=== PATIENT | male | born 1940 | race Caucasian/White ===

== ENCOUNTER → 2018-07-02 14:00 | Outpatient (CLI) | payer MEDICARE, SELFPAY | PROVIDERS: PCP Family Medicine; Visit Provider Nurse Practitioner Family | DX: Z45.018 Encounter for adjustment and management of other part of cardiac pacemaker (principal); I48.1 Persistent atrial fibrillation; I10 Essential (primary) hypertension; G47.33 Obstructive sleep apnea (adult) (pediatric); Z79.01 Long term (current) use of anticoagulants; J44.9 Chronic obstructive pulmonary disease, unspecified; Z87.891 Personal history of nicotine dependence | CPT/HCPCS: 93288; 99214 ==

== ENCOUNTER → 2018-07-02 14:38 | Outpatient (CLI) | payer MEDICARE, SELFPAY ==
[2018-07-02 15:55] LABS: Anion Gap 11.3 mmol/L (3-11); BUN 44 mg/dL (7-18); CO2 24.7 mmol/L (21.0-32.0); CREATININE 1.76 mg/dL (0.70-1.30); Calcium 8.8 mg/dL (8.5-10.1); Chloride 106 mmol/L (98-107); Estimated GFR 37.84 (mL/min/1.73m2); Glucose 129 mg/dL (70-100); NT-proBNP 3453 pg/mL; Potassium 4.5 mmol/L (3.5-5.1); Sodium 142 mmol/L (136-145)
== END ==
PROVIDERS: PCP Family Medicine; Visit Provider Nurse Practitioner Family
DX: R06.02 Shortness of breath (principal); I48.91 Unspecified atrial fibrillation
CPT/HCPCS: 36415; 80048; 93288; 99214; 83880

== ENCOUNTER → 2018-07-23 13:15 | Outpatient (CLI) | payer MEDICARE, SELFPAY ==
[2018-07-23 14:08] LABS: Anion Gap 2.9 mmol/L (3-11); BUN 55 mg/dL (7-18); CO2 33.1 mmol/L (21.0-32.0); CREATININE 1.95 mg/dL (0.70-1.30); Calcium 8.7 mg/dL (8.5-10.1); Chloride 103 mmol/L (98-107); Estimated GFR 33.61 (mL/min/1.73m2); Glucose 115 mg/dL (70-100); NT-proBNP 4369 pg/mL; Sodium 139 mmol/L (136-145)
== END ==
PROVIDERS: PCP Family Medicine; Visit Provider Nurse Practitioner Family
DX: I50.9 Heart failure, unspecified (principal)
CPT/HCPCS: 36415; 80048; 83880

== ENCOUNTER → 2018-07-26 10:55 | Outpatient (CLI) | payer MEDICARE, SELFPAY ==
--- NOTE | 2018-07-26 10:55 | DI.REPORT_ITS ---
SYMPTOMS/DIAGNOSIS: COUGH WITH RHONCHI, ? INFILTRATE PA AND LATERAL CHEST: Comparison 09/03/15. The heart size and pulmonary vasculature are within normal limits. The pacing wires are in stable position. The lungs are clear. No effusions or pneumothoraces are identified. Degenerative changes are seen in the spine. IMPRESSION: No acute pulmonary process.
== END ==
PROVIDERS: PCP Family Medicine; Visit Provider Family Medicine
DX: J20.9 Acute bronchitis, unspecified (principal); R05 Cough; J98.8 Other specified respiratory disorders
CPT/HCPCS: 71046

== ENCOUNTER 2018-08-19 00:15 | Outpatient (CLI) | payer MEDICARE, SELFPAY ==
--- NOTE | 2018-08-19 09:12 | DI.CT_ITS ---
SYMPTOMS/DIAGNOSIS: INCREASED ABD DISTENSION, ? ASCITES, R14.0 CT SCAN OF THE ABDOMEN AND PELVIS: CT scan of the abdomen and pelvis was performed with oral contrast only due to the patient's decreased renal function. There are no priors for comparison. Emphysematous changes are seen in the lung bases. No acute abnormality is identified. The heart appears mildly enlarged. The distal ends of pacing wires are noted in the right ventricle and right atrium. The unenhanced liver appears unremarkable. The gallbladder is negative. No biliary ductal dilatation is seen. The unenhanced pancreas, spleen and adrenal glands are unremarkable. The kidneys are unremarkable on this noncontrast examination. No evidence of nephrolithiasis or hydronephrosis is seen. The urinary bladder is intact and unremarkable. The reproductive organs are unremarkable. There is atherosclerosis of the abdominal aorta but no aneurysmal dilatation is present. Incidental note is made of a retroaortic left renal vein. No significant abdominal or pelvic adenopathy, ascites or pneumoperitoneum is present. There is diverticulosis of the colon but no findings to suggest acute diverticulitis. The remainder of the bowel is unremarkable. There is no evidence of an acute appendicitis. Note is made of a small hiatal hernia. Multi-level degenerative changes are seen in the lumbar spine. There is marked central spinal canal stenosis at L 4 - 5 and L 3 - 4. Multi-level neural foraminal stenosis is seen throughout the lumbar spine. IMPRESSION: 1. No evidence of an acute abdomen. 2. Diverticulosis of the colon but no evidence of acute diverticulitis. 3. Moderately severe degenerative changes in the lumbar spine resulting in multi -level central spinal canal and neural foraminal stenosis.
[2018-08-19] MEDS: Omnipaque 350 MG/ML 50 ML BTL PO (09:27)
== END 2018-08-19 00:35 ==
PROVIDERS: PCP Family Medicine; Visit Provider Nurse Practitioner
DX: R14.0 Abdominal distension (gaseous) (principal); K57.30 Diverticulosis of large intestine without perforation or abscess without bleeding; M47.816 Spondylosis without myelopathy or radiculopathy, lumbar region
CPT/HCPCS: 74176; Q9967

== ENCOUNTER 2018-10-08 10:42 | Outpatient (REF) | payer MEDICARE, SELFPAY | END 2018-10-08 11:02 | LOC: LBN 10:42 | PROVIDERS: PCP Family Medicine; Visit Provider Family Medicine | DX: J40 Bronchitis, not specified as acute or chronic (principal) | CPT/HCPCS: 87449 ==

== ENCOUNTER 2018-10-08 14:26 | Outpatient (CLI) | payer MEDICARE, SELFPAY ==
--- NOTE | 2018-10-08 10:38 | DI.RAD_ITS ---
SYMPTOMS/DIAGNOSIS: COUGH WITH RHONCHI, ACUTE BRONCHITIS, J20.9 CHEST X-RAY, PA AND LATERAL: Comparison is 07/26/18. The heart size and pulmonary vasculature are stable and within normal limits. The pacing wires are in stable position. There is scarring again seen in the left lung base. No focal consolidating infiltrates, effusions or pneumothoraces are identified. The lungs appear hyperinflated with flattened diaphragms suggesting underlying COPD. Age-appropriate degenerative changes are seen in the spine. IMPRESSION: COPD. No acute pulmonary process.
== END 2018-10-08 14:46 ==
PROVIDERS: PCP Family Medicine; Visit Provider Family Medicine
DX: R05 Cough (principal); R06.2 Wheezing; J20.9 Acute bronchitis, unspecified; J44.9 Chronic obstructive pulmonary disease, unspecified
CPT/HCPCS: 71046

== ENCOUNTER 2018-10-29 12:32 | Outpatient (CLI) | payer MEDICARE, SELFPAY ==
[2018-10-29 13:58] LABS: Anion Gap 10.1 mmol/L (3-11); BUN 56 mg/dL (7-18); CO2 28.9 mmol/L (21.0-32.0); CREATININE 2.09 mg/dL (0.70-1.30); Calcium 8.7 mg/dL (8.5-10.1); Chloride 100 mmol/L (98-107); Estimated GFR 30.95 (mL/min/1.73m2); Glucose 147 mg/dL (70-100); NT-proBNP 2777 pg/mL; Potassium 4.1 mmol/L (3.5-5.1); Sodium 139 mmol/L (136-145); TSH 0.93 uIU/mL (0.358-3.74)
== END 2018-10-29 12:52 ==
PROVIDERS: Nurse Practitioner Family; PCP Family Medicine; Visit Provider Family Medicine
DX: R06.02 Shortness of breath (principal); I48.1 Persistent atrial fibrillation; J44.9 Chronic obstructive pulmonary disease, unspecified; R00.1 Bradycardia, unspecified; I50.9 Heart failure, unspecified; I11.0 Hypertensive heart disease with heart failure; Z79.01 Long term (current) use of anticoagulants; G47.30 Sleep apnea, unspecified
CPT/HCPCS: 36415; 80048; 93288; 99214; 83880; 84443

== ENCOUNTER 2018-12-19 10:59 | Outpatient (REF) | payer OTHER, SELFPAY | END 2018-12-19 11:19 | LOC: LBN 10:59 | PROVIDERS: PCP Family Medicine; Visit Provider Family Medicine | DX: J20.9 Acute bronchitis, unspecified (principal) | CPT/HCPCS: 87449 ==

== ENCOUNTER 2018-12-19 11:29 | Outpatient (CLI) | payer OTHER, SELFPAY ==
--- NOTE | 2018-12-19 12:14 | DI.RAD_ITS ---
SYMPTOMS/DIAGNOSIS: COUGH, RHONCHI AND WHEEZES ON EXAM, ACUTE BRONCHITIS, J20.9 PA AND LATERAL CHEST: There are emphysematous changes in the lungs. No infiltrate, mass or pleural effusion is seen. The heart is not enlarged. Pacing wires are in stable position when compared with previous images. SUMMARY: No evidence of acute cardiopulmonary disease.
== END 2018-12-19 11:49 ==
PROVIDERS: PCP Family Medicine; Visit Provider Family Medicine
DX: R05 Cough (principal); R06.2 Wheezing; J20.9 Acute bronchitis, unspecified
CPT/HCPCS: 71046

== ENCOUNTER 2019-01-01 09:29 | Outpatient (CLI) | payer MEDICARE, SELFPAY ==
[2019-01-01 11:57] LABS: Anion Gap 7.3 mmol/L (3-11); BUN 67 mg/dL (7-18); CO2 30.7 mmol/L (21.0-32.0); CREATININE 2.07 mg/dL (0.70-1.30); Calcium 9.3 mg/dL (8.5-10.1); Chloride 101 mmol/L (98-107); Estimated GFR 31.29 (mL/min/1.73m2); Glucose 108 mg/dL (70-100); NT-proBNP 4460 pg/mL; Potassium 4.4 mmol/L (3.5-5.1); Sodium 139 mmol/L (136-145)
== END 2019-01-01 09:49 ==
PROVIDERS: PCP Family Medicine; Visit Provider Nurse Practitioner Family
DX: I48.91 Unspecified atrial fibrillation (principal); I10 Essential (primary) hypertension; I12.9 Hypertensive chronic kidney disease with stage 1 through stage 4 chronic kidney disease, or unspecified chronic kidney disease; E78.5 Hyperlipidemia, unspecified; J44.9 Chronic obstructive pulmonary disease, unspecified; R06.2 Wheezing; I50.9 Heart failure, unspecified
CPT/HCPCS: 36415; 80048; 83880

== ENCOUNTER → 2019-01-14 13:04 | Outpatient (BNVA) | payer MEDICARE, SELFPAY | PROVIDERS: PCP Family Medicine; Visit Provider Nurse Practitioner Family | DX: I48.91 Unspecified atrial fibrillation (principal); Z79.01 Long term (current) use of anticoagulants; G47.33 Obstructive sleep apnea (adult) (pediatric); I10 Essential (primary) hypertension; J44.9 Chronic obstructive pulmonary disease, unspecified; Z45.09 Encounter for adjustment and management of other cardiac device; F17.210 Nicotine dependence, cigarettes, uncomplicated | CPT/HCPCS: 93288; 99214 ==

== ENCOUNTER 2019-03-07 12:32 | Outpatient (CLI) | payer MEDICARE, SELFPAY ==
--- NOTE | 2019-03-07 10:15 | DI.RAD_ITS ---
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 There are slight degenerative changes of the joints of the foot and ankle. No fracture is seen. No other specific abnormality identified.
== END 2019-03-07 12:52 ==
PROVIDERS: PCP Family Medicine; Visit Provider Nurse Practitioner Family
DX: M25.572 Pain in left ankle and joints of left foot (principal); M79.672 Pain in left foot
CPT/HCPCS: 73610; 73630

== ENCOUNTER 2019-03-11 12:05 | Outpatient (REF) | payer MEDICARE, SELFPAY ==
[2019-03-11 19:10] LABS: Uric Acid 12.3 mg/dL (3.5-7.2)
== END 2019-03-11 12:25 ==
LOC: LBN 12:05
PROVIDERS: PCP Family Medicine; Visit Provider Family Medicine
DX: M25.472 Effusion, left ankle (principal); M25.572 Pain in left ankle and joints of left foot; M79.89 Other specified soft tissue disorders; M79.672 Pain in left foot
CPT/HCPCS: 84550

== ENCOUNTER → 2019-03-11 12:11 | Outpatient (BNVA) | payer MEDICARE, SELFPAY | PROVIDERS: PCP Family Medicine; Visit Provider Nurse Practitioner Primary Care | DX: E78.5 Hyperlipidemia, unspecified (principal); I12.9 Hypertensive chronic kidney disease with stage 1 through stage 4 chronic kidney disease, or unspecified chronic kidney disease; J44.9 Chronic obstructive pulmonary disease, unspecified; N18.3 Chronic kidney disease, stage 3 (moderate); I48.91 Unspecified atrial fibrillation; R06.02 Shortness of breath; F17.210 Nicotine dependence, cigarettes, uncomplicated; Z45.018 Encounter for adjustment and management of other part of cardiac pacemaker | CPT/HCPCS: 93280; 99214 ==

== ENCOUNTER 2019-03-11 12:55 | Outpatient (CLI) | payer MEDICARE, SELFPAY ==
[2019-03-11 14:07] LABS: ALT 22 U/L (12-78); AST 22 U/L (15-37); Albumin 3.1 g/dL (3.4-5.0); Alkaline Phosphatase 71 U/L (46-116); Anion Gap 9.5 mmol/L (3-11); BUN 42 mg/dL (7-18); Bilirubin, Total 0.2 mg/dL (0.2-1.0); CO2 27.5 mmol/L (21.0-32.0); CREATININE 1.75 mg/dL (0.70-1.30); Calcium 8.8 mg/dL (8.5-10.1); Chloride 105 mmol/L (98-107); Estimated GFR 37.98 (mL/min/1.73m2); Glucose 121 mg/dL (70-100); Potassium 4.3 mmol/L (3.5-5.1); Sodium 142 mmol/L (136-145); Total Protein 6.7 g/dL (6.4-8.2)
[2019-03-11 14:25] LABS: NT-proBNP 4489 pg/mL
== END 2019-03-11 13:15 ==
PROVIDERS: PCP Family Medicine; Visit Provider Nurse Practitioner Primary Care
DX: R06.02 Shortness of breath (principal); I48.91 Unspecified atrial fibrillation; E78.5 Hyperlipidemia, unspecified; I10 Essential (primary) hypertension; N18.3 Chronic kidney disease, stage 3 (moderate); M79.672 Pain in left foot; M79.89 Other specified soft tissue disorders; M25.572 Pain in left ankle and joints of left foot; M25.472 Effusion, left ankle; I12.9 Hypertensive chronic kidney disease with stage 1 through stage 4 chronic kidney disease, or unspecified chronic kidney disease; J44.9 Chronic obstructive pulmonary disease, unspecified; F17.210 Nicotine dependence, cigarettes, uncomplicated; Z45.018 Encounter for adjustment and management of other part of cardiac pacemaker
CPT/HCPCS: 36415; 80053; 93280; 99214; 83880; 85025; 86140

== ENCOUNTER → 2019-04-01 10:04 | Outpatient (BNVA) | payer MEDICARE, SELFPAY | PROVIDERS: PCP Family Medicine; Visit Provider Nurse Practitioner Family | DX: I48.1 Persistent atrial fibrillation (principal); J44.9 Chronic obstructive pulmonary disease, unspecified; I12.9 Hypertensive chronic kidney disease with stage 1 through stage 4 chronic kidney disease, or unspecified chronic kidney disease; N18.3 Chronic kidney disease, stage 3 (moderate) | CPT/HCPCS: 99214 ==

== ENCOUNTER → 2019-04-29 10:03 | Outpatient (BNVA) | payer MEDICARE, SELFPAY | PROVIDERS: PCP Family Medicine; Visit Provider Nurse Practitioner Family | DX: I10 Essential (primary) hypertension (principal); I48.1 Persistent atrial fibrillation; J44.9 Chronic obstructive pulmonary disease, unspecified; F17.210 Nicotine dependence, cigarettes, uncomplicated; Z95.0 Presence of cardiac pacemaker | CPT/HCPCS: 93288; 99215 ==

== ENCOUNTER 2019-05-10 09:43 | Inpatient (IN) | payer MEDICARE, SELFPAY ==
[2019-05-10] VITALS (65 sets, daily range): BP systolic 87–157; BP diastolic 40–132; PULSE 62–120; RESP 11–31; TEMP 36.5–36.8; O2SAT 86–100
--- NOTE | 2019-05-10 09:55 | W.ED.GENAD ---
Discharge Plan Disposition Patient Disposition: [facility] INPATIENT Condition: Serious Discharge Details Chief Complaint: GI Bleed Clinical Impression: Acute upper gastrointestinal bleeding Primary Care Provider: Angel Allan ED Provider: Stefan Azevedo Home Meds and New Rx's Prescriptions: No Action Symbicort 160-4.5 mcg/actuation HFA aerosol inhaler 2 puff IH BID RF: 0 Spiriva with HandiHaler 18 mcg capsule, w/inhalation device 1 cap IH DAILY Qty: 60 RF: 12 omeprazole 20 mg capsule,delayed release(DR/EC) 20 mg PO DAILY Qty: 90 RF: 3 donepezil 10 mg tablet 10 mg PO QHS Qty: 90 RF: 3 terazosin 10 mg capsule 10 mg PO DAILY Qty: 90 RF: 3 diltiazem HCl 240 mg capsule,extended release 24 hr 240 mg PO DAILY RF: 0 torsemide 10 mg tablet See Patient Comments PO DAILY RF: 0 atorvastatin 10 mg tablet 10 mg PO DAILY RF: 0 Spiriva Respimat 2.5 mcg/actuation mist 2 puff IH DAILY RF: 0 calcium carbonate [Tums] 200 mg calcium (500 mg) tablet,chewable 200 mg PO PRN RF: 0 acetaminophen 500 MG tablet 1,000 mg PO Q4H PRN RF: 0 sodium bicarbonate 650 MG tablet 1,300 mg PO TID Qty: 180 RF: 11 Space Chamber Plus 1 EACH spacer 1 ea Miscellaneous QID Qty: 1 RF: 1 Compact Compressor Nebulizer misc .ROUTE .MEDSUPPLY Qty: 1 RF: 0 Eliquis 5 mg tablet 5 mg PO BID 90 Days Qty: 180 RF: 3 albuterol sulfate [ProAir HFA] 90 mcg/actuation HFA aerosol inhaler 2 puff Inhalation Q4H PRN Qty: 8.5 RF: 6 ipratropium-albuterol 0.5 mg-3 mg(2.5 mg base)/3 mL solution for nebulization 3 ml IH Q4H PRN (Reason: shortness of breath or wheezing) Qty: 90 RF: 12 metoprolol succinate 100 mg tablet extended release 24 hr 100 mg PO DAILY RF: 0 Medical Decision Making 78-year-old male seen immediately on arrival. Patient has a history of multiple medical problems including atrial fibrillation, on Eliquis, anemia of chronic kidney disease, here with black stool. Hemoccult positive. Concern for ulcer. Plan to start Protonix bolus and infusion. Patient is hemodynamically stable. Plan to check CBC to assess for worsening anemia. Periumbilical abdominal discomfort for the past 6 weeks after coughing excessively with bronchitis. Consider hernia. Patient tender periumbilically. Patient has chronic kidney disease -plan to obtain CT the abdomen pelvis without IV contrast. --11:00 --CT of the abdomen pelvis without contrast interpreted by radiology: Colonic diverticulosis without CT evidence of diverticulitis. Appendix normal no abdominal aortic aneurysm. -- Labs reviewed and nondiagnostic. 12:30 -- I spoke with Dr. Williamson who will admit the patient. Awaiting bed. Dr. Williamson in ED to evaluate and admit patient. HPI General Mode of arrival: ambulatory. Date/Time Provider Initiated Documentation: 05/10/19 09:54. Limitations to Documentation: no limitations. Information obtained by: patient. HPI Narrative: 78-year-old male with multiple medical problems including atrial fibrillation on Eliquis, here with chief complaint of black stool. Patient notes over the past 24 hours he has had black stool. Patient states that he has chronic loose stool and that yesterday he had a more formed bowel movement that was black. Today he had another bowel movement that was partially black and partially brown. No bright red blood per rectum. He has been having periumbilical abdominal discomfort for the past 6 weeks. He notes that this started after having bronchitis with cough that was treated with prednisone. Patient did take Pepto-Bismol a couple days ago. Related Data Home Medications Medication Instructions Recorded Confirmed acetaminophen 1,000 mg PO Q4H PRN tab-cap 07/10/14 05/10/19 sodium bicarbonate 1,300 mg PO TID #180 tab 11/24/14 04/29/19 inhalational spacing device [Space #1 12/28/14 04/29/19 Chamber Plus] atorvastatin 10 mg tablet 10 mg PO DAILY 08/13/18 05/10/19 nebulizers #1 each 12/03/18 04/29/19 budesonide-formoterol HFA 160 2 puff IH BID 01/10/19 05/10/19 mcg-4.5 mcg/actuation aerosol inhaler tiotropium bromide 18 mcg capsule 1 cap IH DAILY #60 inh 01/10/19 05/10/19 with inhalation device tiotropium bromide 2.5 2 puff IH DAILY 01/14/19 05/10/19 mcg/actuation mist for inhalation apixaban 5 mg tablet 5 mg PO BID 90 Days #180 tab 02/07/19 05/10/19 calcium carbonate 200 mg calcium 200 mg PO PRN tab 03/11/19 04/29/19 (500 mg) chewable tablet diltiazem ER 240 mg capsule,24 240 mg PO DAILY cap 04/01/19 05/10/19 hr,extended release terazosin 10 mg capsule 10 mg PO DAILY #90 tab-cap 04/01/19 05/10/19 torsemide 10 mg tablet See Rx Instructions PO DAILY 04/01/19 05/10/19 tab-cap donepezil 10 mg tablet 10 mg PO QHS #90 tab 04/07/19 05/10/19 omeprazole 20 mg capsule,delayed 20 mg PO DAILY #90 cap 04/07/19 05/10/19 release albuterol sulfate HFA 90 2 puff INHALATION Q4H PRN #8.5 gm 04/24/19 05/10/19 mcg/actuation aerosol inhaler ipratropium-albuterol 0.5 mg-3 3 ml IH Q4H PRN #90 ml 04/24/19 05/10/19 mg(2.5 mg base)/3 mL nebulization soln metoprolol succinate 100 mg PO DAILY 05/10/19 05/10/19 Previous Rx's Medication Instructions Recorded nebulizers #1 each 12/03/18 tiotropium bromide 18 mcg capsule 1 cap IH DAILY #60 inh 01/10/19 with inhalation device apixaban 5 mg tablet 5 mg PO BID 90 Days #180 tab 02/07/19 terazosin 10 mg capsule 10 mg PO DAILY #90 tab-cap 04/01/19 donepezil 10 mg tablet 10 mg PO QHS #90 tab 04/07/19 omeprazole 20 mg capsule,delayed 20 mg PO DAILY #90 cap 04/07/19 release albuterol sulfate HFA 90 2 puff INHALATION Q4H PRN #8.5 gm 04/24/19 mcg/actuation aerosol inhaler ipratropium-albuterol 0.5 mg-3 3 ml IH Q4H PRN #90 ml 04/24/19 mg(2.5 mg base)/3 mL nebulization soln Allergies Allergy/AdvReac Type Severity Reaction Status Date / Time MANSI Inhibitors AdvReac Intermediate HYPERKALEMIA Verified 04/29/19 10:25 5.9, 04/11/16 ARB-Angiotensin Receptor AdvReac Intermediate HYPERKALEMIA Verified 04/29/19 10:25 Antagonist 5.9, 04/11/16 General Stated Complaint: GI Bleed BUNNY: 3 Review of Systems Review of Systems All systems reviewed & are unremarkable except as noted in HPI and below Gastrointestinal Reports as per HPI, Reports abdominal pain (periumbilical abdominal discomfort for 6 weeks) and Reports other (loose stool chronically ) Genitourinary Denies dysuria and Denies flank pain [facility] Medical History Macrocytic anemia (Chronic) Severe obstructive sleep apnea (Chronic 07/04/16) Seasonal allergic rhinitis (Chronic 04/21/14) 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) Lytic lesion of bone on x-ray (Chronic 05/25/17) Lumbago with sciatica, 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) Hyperlipidemia (Chronic 10/23/16) Essential hypertension (Chronic 04/04/02) Chronic obstructive pulmonary disease (Chronic 04/21/14) Chronic kidney disease, stage III (moderate) (Chronic 10/21/08) Cardiac pacemaker in situ (Chronic 02/18/13) CKD (chronic kidney disease) stage 3, GFR 30-59 ml/min (Chronic 11/05/17) Chronic kidney disease, stage III (moderate) (Chronic 10/21/08) Cardiac pacemaker in situ (Chronic 02/18/13) Atrial fibrillation (Chronic 07/27/07) Anticoagulation adequate with anticoagulant therapy (Chronic 07/30/14) 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 Sister No problems noted. Sister No problems noted. Brother No problems noted. Brother No problems noted. Brother No problems noted. Social History Smoking/Tobacco Use Status: Current-Occasional Tobacco Type: cigarettes Quit status: considering quitting Counseling given: patient declined Alcohol Intake: current Alcohol Intake frequency: a few times a week Alcohol type: beer Drug use: Never Substance use type: does not use Adopted: No Caregiver/Support person: No Household members: spouse Housing: house Number of Children: 8 Communication Needs: Hard of Hearing and Corrective Lenses current occupation: [employer] What is your relationship status?: Panel score (0-1 are the most socially isolated patients): 1 What type of physical activity do you participate in: none Seatbelt use: always Working smoke detector in home: Yes Fire extinguisher in home: Yes Carbon monox detector in home: Yes Firearms in home: Yes Firearms unloaded and locked: Yes Do you feel safe at home: Yes Exam Const General: cooperative and no acute distress HENMT Mouth: moist mucous membranes Eyes Conjunctivae: normal conjunctivae Sclera: normal sclerae EOM: EOM intact bilaterally Neck Neck: trachea midline and supple Resp Auscultation: clear to auscultation bilaterally, no rales, no rhonchi and no wheezes Cardio Jugular venous pressure: no JVD Rate: regular rate and not tachycardic Rhythm: regular rhythm GI Palpation: soft, not firm, no guarding, no masses, not rigid and nontender Skin General skin exam: no rashes or lesions noted Neuro General: alert, awake, oriented x3 and tone normal Extrem General: no edema Psych Appearance: grossly normal
--- NOTE | 2019-05-10 10:00 | ED.GENADUL_ITS ---
Discharge Plan Disposition Patient Disposition: [facility] INPATIENT Condition: Serious Discharge Details Chief Complaint: GI Bleed Clinical Impression: Acute upper gastrointestinal bleeding Primary Care Provider: Angel Allan ED Provider: Stefan Azevedo Home Meds and New Rx's Prescriptions: No Action Symbicort 160-4.5 mcg/actuation HFA aerosol inhaler 2 puff IH BID RF: 0 Spiriva with HandiHaler 18 mcg capsule, w/inhalation device 1 cap IH DAILY Qty: 60 RF: 12 omeprazole 20 mg capsule,delayed release(DR/EC) 20 mg PO DAILY Qty: 90 RF: 3 donepezil 10 mg tablet 10 mg PO QHS Qty: 90 RF: 3 terazosin 10 mg capsule 10 mg PO DAILY Qty: 90 RF: 3 diltiazem HCl 240 mg capsule,extended release 24 hr 240 mg PO DAILY RF: 0 torsemide 10 mg tablet See Patient Comments PO DAILY RF: 0 atorvastatin 10 mg tablet 10 mg PO DAILY RF: 0 Spiriva Respimat 2.5 mcg/actuation mist 2 puff IH DAILY RF: 0 calcium carbonate [Tums] 200 mg calcium (500 mg) tablet,chewable 200 mg PO PRN RF: 0 acetaminophen 500 MG tablet 1,000 mg PO Q4H PRN RF: 0 sodium bicarbonate 650 MG tablet 1,300 mg PO TID Qty: 180 RF: 11 Space Chamber Plus 1 EACH spacer 1 ea Miscellaneous QID Qty: 1 RF: 1 Compact Compressor Nebulizer misc .ROUTE .MEDSUPPLY Qty: 1 RF: 0 Eliquis 5 mg tablet 5 mg PO BID 90 Days Qty: 180 RF: 3 albuterol sulfate [ProAir HFA] 90 mcg/actuation HFA aerosol inhaler 2 puff Inhalation Q4H PRN Qty: 8.5 RF: 6 ipratropium-albuterol 0.5 mg-3 mg(2.5 mg base)/3 mL solution for nebulization 3 ml IH Q4H PRN (Reason: shortness of breath or wheezing) Qty: 90 RF: 12 metoprolol succinate 100 mg tablet extended release 24 hr 100 mg PO DAILY RF: 0 Medical Decision Making 78-year-old male seen immediately on arrival. Patient has a history of multiple medical problems including atrial fibrillation, on Eliquis, anemia of chronic kidney disease, here with black stool. Hemoccult positive. Concern for ulcer. Plan to start Protonix bolus and infusion. Patient is hemodynamically stable. Plan to check CBC to assess for worsening anemia. Periumbilical abdominal discomfort for the past 6 weeks after coughing excessively with bronchitis. Consider hernia. Patient tender periumbilically. Patient has chronic kidney disease -plan to obtain CT the abdomen pelvis without IV contrast. --11:00 --CT of the abdomen pelvis without contrast interpreted by radiology: Colonic diverticulosis without CT evidence of diverticulitis. Appendix normal no abdominal aortic aneurysm. -- Labs reviewed and nondiagnostic. 12:30 -- I spoke with Dr. Williamson who will admit the patient. Awaiting bed. Dr. Williamson in ED to evaluate and admit patient. HPI General Mode of arrival: ambulatory . Date/Time Provider Initiated Documentation: 05/10/19 09:54 . Limitations to Documentation: no limitations . Information obtained by: patient . HPI Narrative: 78-year-old male with mult iple medical problems including atrial fibrillation on Eliquis, here with chief complaint of black stool. Patient notes over the past 24 hours he has had black stool. Patient states that he has chronic loose stool and that yesterday he had a more formed bowel movement that was black. Today he had another bowel movement that was partially black and partially brown. No bright red blood per rectum. He has been having periumbilical abdominal discomfort for the past 6 weeks. He notes that this started after having bronchitis with cough that was treated with prednisone. Patient did take Pepto-Bismol a couple days ago. Related Data Home Medications Medication Instructions Recorded Confirmed acetaminophen 1,000 mg PO Q4H PRN tab-cap 07/10/14 05/10/19 sodium bicarbonate 1,300 mg PO TID #180 tab 11/24/14 04/29/19 inhalational spacing device [Space #1 12/28/14 04/29/19 Chamber Plus] atorvastatin 10 mg tablet 10 mg PO DAILY 08/13/18 05/10/19 nebulizers #1 each 12/03/18 04/29/19 budesonide-formoterol HFA 160 2 puff IH BID 01/10/19 05/10/19 mcg-4.5 mcg/actuation aerosol inhaler tiotropium bromide 18 mcg capsule 1 cap IH DAILY #60 inh 01/10/19 05/10/19 with inhalation device tiotropium bromide 2.5 2 puff IH DAILY 01/14/19 05/10/19 mcg/actuation mist for inhalation apixaban 5 mg tablet 5 mg PO BID 90 Days #180 tab 02/07/19 05/10/19 calcium carbonate 200 mg calcium 200 mg PO PRN tab 03/11/19 04/29/19 (500 mg) chewable tablet diltiazem ER 240 mg capsule,24 240 mg PO DAILY cap 04/01/19 05/10/19 hr,extended release terazosin 10 mg capsule 10 mg PO DAILY #90 tab-cap 04/01/19 05/10/19 torsemide 10 mg tablet See Rx Instructions PO DAILY 04/01/19 05/10/19 tab-cap donepezil 10 mg tablet 10 mg PO QHS #90 tab 04/07/19 05/10/19 omeprazole 20 mg capsule,delayed 20 mg PO DAILY #90 cap 04/07/19 05/10/19 release albuterol sulfate HFA 90 2 puff INHALATION Q4H PRN #8.5 gm 04/24/19 05/10/19 mcg/actuation aerosol inhaler ipratropium-albuterol 0.5 mg-3 3 ml IH Q4H PRN #90 ml 04/24/19 05/10/19 mg(2.5 mg base)/3 mL nebulization soln metoprolol succinate 100 mg PO DAILY 05/10/19 05/10/19 Previous Rx's Medication Instructions Recorded nebulizers #1 each 12/03/18 tiotropium bromide 18 mcg capsule 1 cap IH DAILY #60 inh 01/10/19 with inhalation device apixaban 5 mg tablet 5 mg PO BID 90 Days #180 tab 02/07/19 terazosin 10 mg capsule 10 mg PO DAILY #90 tab-cap 04/01/19 donepezil 10 mg tablet 10 mg PO QHS #90 tab 04/07/19 omeprazole 20 mg capsule,delayed 20 mg PO DAILY #90 cap 04/07/19 release albuterol sulfate HFA 90 2 puff INHALATION Q4H PRN #8.5 gm 04/24/19 mcg/actuation aerosol inhaler ipratropium-albuterol 0.5 mg-3 3 ml IH Q4H PRN #90 ml 04/24/19 mg(2.5 mg base)/3 mL nebulization soln Allergies Allergy/AdvReac Type Severity Reaction Status Date / Time MANSI Inhibitors AdvReac Intermediate HYPERKALEMIA Verified 04/29/19 10:25 5.9, 04/11/16 ARB-Angiotensin Receptor AdvReac Intermediate HYPERKALEMIA Verified 04/29/19 10:25 Antagonist 5.9, 04/11/16 General Stated Complaint: GI Bleed BUNNY: 3 Review of Systems Review of Systems All systems reviewed & are unremarkable except as noted in HPI and below Gastrointestinal Reports as per HPI, Reports abdominal pain (periumbilical abdominal discomfort for 6 weeks) and Reports other (loose stool chronically ) Genitourinary Denies dysuria and Denies flank pain [facility] Medical History Macrocytic anemia (Chronic) Severe obstructive sleep apnea (Chronic 07/04/16) Seasonal allergic rhinitis (Chronic 04/21/14) 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) Lytic lesion of bone on x-ray (Chronic 05/25/17) Lumbago with sciatica, 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) Hyperlipidemia (Chronic 10/23/16) Essential hypertension (Chronic 04/04/02) Chronic obstructive pulmonary disease (Chronic 04/21/14) Chronic kidney disease, stage III (moderate) (Chronic 10/21/08) Cardiac pacemaker in situ (Chronic 02/18/13) CKD (chronic kidney disease) stage 3, GFR 30-59 ml/min (Chronic 11/05/17) Chronic kidney disease, stage III (moderate) (Chronic 10/21/08) Cardiac pacemaker in situ (Chronic 02/18/13) Atrial fibrillation (Chronic 07/27/07) Anticoagulation adequate with anticoagulant therapy (Chronic 07/30/14) 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 Sister No problems noted. Sister No problems noted. Brother No problems noted. Brother No problems noted. Brother No problems noted. Social History Smoking/Tobacco Use Status: Current-Occasional Tobacco Type: cigarettes Quit status: considering quitting Counseling given: patient declined Alcohol Intake: current Alcohol Intake frequency: a few times a week Alcohol type: beer Drug use: Never Substance use type: does not use Adopted: No Caregiver/Support person: No Household members: spouse Housing: house Number of Children: 8 Communication Needs: Hard of Hearing and Corrective Lenses current occupation: [employer] What is your relationship status?: Panel score (0-1 are the most socially isolated patients): 1 What type of physical activity do you participate in: none Seatbelt use: always Working smoke detector in home: Yes Fire extinguisher in home: Yes Carbon monox detector in home: Yes Firearms in home: Yes Firearms unloaded and locked: Yes Do you feel safe at home: Yes Exam Const General: cooperative and no acute distress HENMT Mouth: moist mucous membranes Eyes Conjunctivae: normal conjunctivae Sclera: normal sclerae EOM: EOM intact bilaterally Neck Neck: trachea midline and supple Resp Auscultation: clear to auscultation bilaterally, no rales, no rhonchi and no wheezes Cardio Jugular venous pressure: no JVD Rate: regular rate and not tachycardic Rhythm: regular rhythm GI Palpation: soft, not firm, no guarding, no masses, not rigid and nontender Skin General skin exam: no rashes or lesions noted Neuro General: alert, awake, oriented x3 and tone normal Extrem General: no edema Psych Appearance: grossly normal
--- NOTE | 2019-05-10 10:41 | DI.CT_ITS ---
SYMPTOM/DIAGNOSIS: ABDOMINAL PAIN PERIUMBILICAL NONCONTRAST CT ABDOMEN AND PELVIS: The exam is mildly limited by patient motion. The lung bases are clear. The liver, gallbladder, spleen, adrenals and pancreas are unremarkable. There is a cyst at the upper pole of the right kidney. There is a retroaortic left renal vein. The aorta shows calcification which is normal in diameter. There is diverticulosis most prominent in the sigmoid colon. There is no evidence of diverticulitis. The appendix appears normal. There is no free air or free fluid. The bladder shows mild wall thickening. The prostate is within normal limits in size. Degenerative changes are seen in the spine. IMPRESSION: No acute abnormality.
[2019-05-10 10:43] LABS: Abs Immature Grans 0.01 k/cumm (0.0-0.09); Absolute Basophil Count 0.03 k/cumm (0.0-0.2); Absolute Eosinophil Count 0.29 k/cumm (0.0-0.7); Absolute Lymphocyte Count 1.42 k/cumm (1.2-3.4); Absolute Monocyte Count 0.55 k/cumm (0.11-0.7); Absolute Neutrophil Count 3.95 k/cumm (1.2-6.7); Basophils % 0.5; Eosinophils % 4.6; HCT 41.7 % (40.0-50.0); HGB 13.9 g/dL (13.5-17.5); Immature Grans % 0.2; Lymphocytes % 22.7; Mean Corp. HGB Concentration 33.3 g/dL (32.0-36.0); Mean Corpuscular Hemoglobin 32.3 pg (27.0-33.0); Mean Platelet Volume 9.6 fL (8.0-11.0); Monocytes % 8.8; Neutrophils % 63.2; Platelet Count 279 x1000/uL (130-400); RBC Distribution Width 12.9 % (11.8-14.1); White Blood Cell Count 6.25 k/cumm (4.4-10.8)
[2019-05-10 10:58] LABS: ALT 19 U/L (12-78); AST 22 U/L (15-37); Albumin 3.8 g/dL (3.4-5.0); Alkaline Phosphatase 91 U/L (46-116); Anion Gap 8.3 mmol/L (3-11); BUN 54 mg/dL (7-18); Bilirubin, Total 0.5 mg/dL (0.2-1.0); CO2 30.7 mmol/L (21.0-32.0); CREATININE 2.21 mg/dL (0.70-1.30); Calcium 9.4 mg/dL (8.5-10.1); Chloride 100 mmol/L (98-107); Estimated GFR 29.02 (mL/min/1.73m2); Glucose 108 mg/dL (70-100); Potassium 3.6 mmol/L (3.5-5.1); Sodium 139 mmol/L (136-145); Total Protein 8.2 g/dL (6.4-8.2)
[2019-05-10] MEDS: PANTOPRAZOLE 80 MG in Normal Saline 100 ML 10 MG IV (11:17)
[2019-05-10] MEDS: Normal Saline Flush 10 ML SYR IVP (11:18)
[2019-05-10] MEDS: Pantoprazole 40 MG VIAL 80 MG IVP (11:18)
--- NOTE | 2019-05-10 11:34 | NUR.NOTE ---
iv protonix infusing as per mdo pt resting in bed on [facility] consultant resp even unlabored no distress noted none stated Nursing Note:
--- NOTE | 2019-05-10 11:46 | DI.VRAD_ITS ---
EXAM: CT Abdomen and Pelvis Without Contrast EXAM DATE/TIME: 05/10/2019 10:42 AM CLINICAL HISTORY: 78 years old, male; Signs and symptoms; Other: Abdominal pain; Periumbilical; Prior surgery; Surgery date: 6+ months; Surgery type: Hernia repair TECHNIQUE: Imaging protocol: Axial computed tomography images of the abdomen and pelvis without contrast. Coronal and sagittal reformatted images were created and reviewed. Radiation optimization: All CT scans at this facility use at least one of these dose optimization techniques: automated exposure control; mA and/or kV adjustment per patient size (includes targeted exams where dose is matched to clinical indication); or iterative reconstruction. COMPARISON: CT UPPER ABD WITHOUT CONTRAST 06/23/2013 10:03 AM FINDINGS: ABDOMEN: Liver: Normal. No mass. Gallbladder and bile ducts: Normal. No calcified stones. No ductal dilation. Pancreas: Normal. No ductal dilation. Spleen: Normal. No splenomegaly. Adrenals: Normal. No mass. Kidneys and ureters: Small right cortical renal cyst Stomach and bowel: Colonic diverticulosis without CT evidence of diverticulitis. Appendix: Appendix normal. PELVIS: Bladder: Unremarkable as visualized. Reproductive: Unremarkable as visualized. ABDOMEN and PELVIS: Intraperitoneal space: Normal. No free air. No significant fluid collection. Bones/joints: No acute fracture. No dislocation. Soft tissues: Unremarkable. Vasculature: Normal. No abdominal aortic aneurysm. Lymph nodes: Normal. No enlarged lymph nodes. IMPRESSION: 1. Colonic diverticulosis without CT evidence of diverticulitis. 2. Appendix normal. Dictated and Authenticated by: Christine Mcadams MD. Ordering:TODD Aviles MD
--- NOTE | 2019-05-10 12:17 | NUR.NOTE ---
luz maria che at bedside for eval Nursing Note:
--- NOTE | 2019-05-10 12:44 | W.PM.HP.N ---
Date of service: 05/10/19 Time of Service: 12:44 Assessment and Plan (1) Severe obstructive sleep apnea: Current visit: No Status: Chronic A\\ Patient has CPAP at home P\\ Have his bring his machine in so he can use it at night (2) Essential hypertension: Current visit: No Status: Chronic A\\ Stable P\\ Continue home medications (3) Chronic obstructive pulmonary disease: Current visit: No Status: Chronic P\\ Continue all of his inhalors Qualifiers: COPD type: unspecified COPD Qualified Code(s): J44.9 - Chronic obstructive pulmonary disease, unspecified (4) Chronic kidney disease, stage III (moderate): Current visit: No Status: Chronic A\\ Cr is up from his last check P\\ Monitor On a clear liquid renal diet (5) Atrial fibrillation: Current visit: No Status: Chronic A\\ On Apixiban BId P\\ Will need to hold until he stabilizes Qualifiers: Atrial fibrillation type: paroxysmal Qualified Code(s): I48.0 - Paroxysmal atrial fibrillation (6) GI bleed: Current visit: Yes Status: Chronic A\\ melena since Sunday Per patient stool is more dark brown today the black P\\ IV protonix Bid Carafate QID Stop anticoagulation H/H q8 hours- blood transfusions as needed Will get records from [facility]- ECHO, stress test Hospitalist consult to assist with management of his many chronic medical issues Qualifiers: GI bleed type/associated pathology: melena Qualified Code(s): K92.1 - Melena History of Present Illness Chief Complaint: Melena Consults Consult date: 05/10/19 Requesting physician: Stefan Azevedo Narrative: Mr. Solorzano is a pleasant 78 year old male with multiple chronic medical issues on Apixiban 5 mg BId for his Afib who comes to the ER complaining of black stools since Sunday night. Today he states that his stool is dark brown. Occult blood in the ER was positive. Hgb is >13 on admission. He denies N/V. He has complained to his PCP of epigastric/periumbilical pain since he was given some prednisone for his COPD. Today he complains of mild periumbilical pain. He tells me he has a ventral hernia and thinks that is were his pain is coming from. He denies a history of PUD but he is on Omeprazole daily. No records of an EGD in the past. Review of Systems Constitutional Denies anorexia, Denies chills, Denies fatigue, Denies headache(s) and Denies malaise Eyes Denies blurry vision and Denies change in vision ENT Denies dysphagia, Denies headache(s) and Denies hoarseness Cardiovascular Denies chest pain, Denies chest pain at rest, Denies dyspnea and Reports dyspnea on exertion Respiratory Denies cough, Denies hemoptysis, Denies dyspnea and Reports dyspnea on exertion Gastrointestinal Reports as per HPI and Denies dysphagia Genitourinary Reports difficulty urinating Musculoskeletal Reports system reviewed and no additional complaints, except as docu Integumentary/Breasts Reports system reviewed and no additional complaints, except as docu Neurologic Reports system reviewed and no additional complaints, except as docu and Denies headache(s) Psychiatric Reports system reviewed and no additional complaints, except as docu Endocrine Reports system reviewed and no additional complaints, except as docu and Denies fatigue Hematologic/Lymphatic Reports easy bruising (due to blood thinners) and Denies lymphadenopathy [facility] Medical History Macrocytic anemia (Chronic) Severe obstructive sleep apnea (Chronic 07/04/16) Seasonal allergic rhinitis (Chronic 04/21/14) 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) Lytic lesion of bone on x-ray (Chronic 05/25/17) Lumbago with sciatica, 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) Hyperlipidemia (Chronic 10/23/16) Essential hypertension (Chronic 04/04/02) Chronic obstructive pulmonary disease (Chronic 04/21/14) Chronic kidney disease, stage III (moderate) (Chronic 10/21/08) Cardiac pacemaker in situ (Chronic 02/18/13) CKD (chronic kidney disease) stage 3, GFR 30-59 ml/min (Chronic 11/05/17) Chronic kidney disease, stage III (moderate) (Chronic 10/21/08) Cardiac pacemaker in situ (Chronic 02/18/13) Atrial fibrillation (Chronic 07/27/07) Anticoagulation adequate with anticoagulant therapy (Chronic 07/30/14) 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 Sister No problems noted. Sister No problems noted. Brother No problems noted. Brother No problems noted. Brother No problems noted. Social History Smoking/Tobacco Use Status: Former Tobacco Use Quit Date: 04/26/19 Quit status: considering quitting Counseling given: patient declined Alcohol Intake: current Alcohol Intake frequency: a few times a week Alcohol type: beer Drug use: Never Substance use type: does not use Adopted: No Caregiver/Support person: No Household members: spouse Housing: house Number of Children: 8 Communication Needs: Hard of Hearing and Corrective Lenses current occupation: [employer] What is your relationship status?: Panel score (0-1 are the most socially isolated patients): 1 What type of physical activity do you participate in: none Seatbelt use: always Working smoke detector in home: Yes Fire extinguisher in home: Yes Carbon monox detector in home: Yes Firearms in home: Yes Firearms unloaded and locked: Yes Do you feel safe at home: Yes Meds Home Medications Medication Instructions Recorded Confirmed Type acetaminophen 1,000 mg PO Q4H PRN tab-cap 07/10/14 05/10/19 History sodium bicarbonate 1,300 mg PO TID #180 tab 11/24/14 04/29/19 History inhalational spacing device [Space #1 12/28/14 04/29/19 History Chamber Plus] atorvastatin 10 mg tablet 10 mg PO DAILY 08/13/18 05/10/19 History nebulizers #1 each 12/03/18 04/29/19 Rx budesonide-formoterol HFA 160 2 puff IH BID 01/10/19 05/10/19 History mcg-4.5 mcg/actuation aerosol inhaler tiotropium bromide 18 mcg capsule 1 cap IH DAILY #60 inh 01/10/19 05/10/19 Rx with inhalation device tiotropium bromide 2.5 2 puff IH DAILY 01/14/19 05/10/19 History mcg/actuation mist for inhalation apixaban 5 mg tablet 5 mg PO BID 90 Days #180 tab 02/07/19 05/10/19 Rx calcium carbonate 200 mg calcium 200 mg PO PRN tab 03/11/19 04/29/19 History (500 mg) chewable tablet diltiazem ER 240 mg capsule,24 240 mg PO DAILY cap 04/01/19 05/10/19 History hr,extended release terazosin 10 mg capsule 10 mg PO DAILY #90 tab-cap 04/01/19 05/10/19 Rx torsemide 10 mg tablet See Rx Instructions PO DAILY 04/01/19 05/10/19 History tab-cap donepezil 10 mg tablet 10 mg PO QHS #90 tab 04/07/19 05/10/19 Rx omeprazole 20 mg capsule,delayed 20 mg PO DAILY #90 cap 04/07/19 05/10/19 Rx release albuterol sulfate HFA 90 2 puff INHALATION Q4H PRN #8.5 gm 04/24/19 05/10/19 Rx mcg/actuation aerosol inhaler ipratropium-albuterol 0.5 mg-3 3 ml IH Q4H PRN #90 ml 04/24/19 05/10/19 Rx mg(2.5 mg base)/3 mL nebulization soln metoprolol succinate 100 mg PO DAILY 05/10/19 05/10/19 History Allergies Allergy/AdvReac Type Severity Reaction Status Date / Time MANSI Inhibitors AdvReac Intermediate HYPERKALEMIA Verified 04/29/19 10:25 5.9, 04/11/16 ARB-Angiotensin Receptor AdvReac Intermediate HYPERKALEMIA Verified 04/29/19 10:25 Antagonist 5.9, 04/11/16 Exam Const General: cooperative, comfortable and no acute distress Nutritional Appearance: obese Orientation: alert and oriented x3 HENMT Head: normocephalic and atraumatic Eyes Pupils: PERRL Resp Effort & Inspection: normal respiratory effort Auscultation: wheezes and other (good air entry bilateral) Cardio Rate: other Rhythm: abnormal rhythm irregularly irregular Heart Sounds: no click, no gallops, no murmurs and no rubs GI Inspection: normal to inspection, obesity and other (diastasis recti noted when patient lifts head off the bed) Palpation: soft, no hepatosplenomegaly and nontender Auscultation: normal bowel sounds Rectal Exam: deferred Other: Per ER physician rectal exam showed dark stool that was hem positive Results Labs : 05/10/19 10:27 05/10/19 10:27 Laboratory Results - last 24 hr 05/10/19 05/10/19 05/10/19 10:27 10:27 10:27 WBC 6.25 RBC 4.30 L Hgb 13.9 Hct 41.7 MCV 97.0 H MCH 32.3 MCHC 33.3 RDW 12.9 Plt Count 279 MPV 9.6 Immature Gran % 0.2 Neutrophils % 63.2 Lymphocytes % 22.7 Monocytes % 8.8 Eosinophils % 4.6 Basophils % 0.5 Absolute Neutrophils 3.95 Absolute Lymphocytes 1.42 Absolute Monocytes 0.55 Absolute Eosinophils 0.29 Absolute Basophils 0.03 Sodium 139 Potassium 3.6 Chloride 100 Carbon Dioxide 30.7 Anion Gap 8.3 BUN 54 H Creatinine 2.21 H Estimated GFR/1.73 m2 29.02 Glucose 108 H Calcium 9.4 Total Bilirubin 0.5 AST 22 ALT 19 Alkaline Phosphatase 91 Total Protein 8.2 Albumin 3.8 Patient ABO/Rh A Positive Antibody Screen Negative Last Vital Signs Temp 97.7 F 05/10/19 09:50 Pulse 68 05/10/19 09:50 Resp 14 05/10/19 09:50 BP 131/62 05/10/19 09:50 Pulse Ox 98 05/10/19 09:50
[2019-05-10] MEDS: Acetaminophen 325 MG TAB PO (13:02)
--- NOTE | 2019-05-10 13:05 | NUR.NOTE ---
pt medicated as per mdo for back pain Nursing Note:
--- NOTE | 2019-05-10 15:49 | NUR.NOTE ---
pt transported on monitor to icu sbar to icu nurse pt vs [id number] no dsitress noted none stated Nursing Note:
[2019-05-10 16:21] LABS: HCT 40.7 % (40.0-50.0); HGB 13.5 g/dL (13.5-17.5)
[2019-05-10] MEDS: Sucralfate 1 GM TAB PO ×2 (16:47→21:26)
--- NOTE | 2019-05-10 17:41 | MCONE_ITS ---
Date of service: 05/10/19 Time of Service: 17:37 Assessment and Plan (1) Upper GI bleeding: Current visit: Yes Status: Acute Bleeding is not severe - however, on anticoagulation, so I feel that monitoring in the ICU is warranted. Continue monitoring H/H, holding anticoagulation, PPI. Will need EGD - recommend holding for 48 hrs since last dose of eliquis. (2) Nonsustained ventricular tachycardia: Current visit: Yes Status: Acute Checking magnesium, pro BNP, troponin, EKG. Need an echo. (3) Chronic obstructive pulmonary disease: Current visit: No Status: Chronic Patient states that his respiratory sounds are his baseline - however, I am not so sure. Obtain CXR. Schedule duonebs. Continue symbicort. Prn albuterol. May require steroids. Qualifiers: COPD type: unspecified COPD Qualified Code(s): J44.9 - Chronic obstructive pulmonary disease, unspecified (4) Severe obstructive sleep apnea: Current visit: No Status: Chronic No longer using CPAP. Monitor respiratory status overnight. Checking echo to assess PA pressures (5) Seasonal allergic rhinitis: Current visit: No Status: Chronic F/u as outpatient (6) Chronic kidney disease, stage III (moderate): Current visit: No Status: Chronic Monitor kidney function (7) DVT prophylaxis: Current visit: Yes Status: Acute TEDs + SCDs History of Present Illness Chief Complaint: Black stools and abdominal pain Narrative: Mr Solorzano is a 78 year old male with PMHx of Afib s/p pacer, on anticoagulation with eliquis, as well as non-oxygen dependent COPD, NYA not using CPAP and firmly against it, CKD III, who was admitted to Dr Williamson's service for melena going on for 3 days accompanied by periumbilical pain x 6 weeks, worse with drinking cold fluids. Patient denies dizziness, chest pain, palpitations, pressure, endorses nausea prior to coming to the hospital, but no vomiting. The stools remain black, per patient, but he already feels a lot better. He was admitted to ICU on IV PPI; his anticoagulation is on hold in anticipation of EGD on Sunday. While in the ICU, the patient was noted to have 7 beats of asymptomatic V tach. Consults Consult date: 05/10/19 Requesting physician: Deonna Williamson Review of Systems Review of Systems 12 systems reviewed. Pertinent positives and negatives are as per HPI. In Addition, the patient reports wheezing, shortness of breath and productive cough since October of 2018. 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) Hyperlipidemia (Chronic 10/23/16) Essential hypertension (Chronic 04/04/02) Chronic obstructive pulmonary disease (Chronic 04/21/14) Chronic kidney disease, stage III (moderate) (Chronic 10/21/08) Cardiac pacemaker in situ (Chronic 02/18/13) CKD (chronic kidney disease) stage 3, GFR 30-59 ml/min (Chronic 11/05/17) Chronic kidney disease, stage III (moderate) (Chronic 10/21/08) Cardiac pacemaker in situ (Chronic 02/18/13) Atrial fibrillation (Chronic 07/27/07) Anticoagulation adequate with anticoagulant therapy (Chronic 07/30/14) 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 Sister No problems noted. Sister No problems noted. Brother No problems noted. Brother No problems noted. Brother No problems noted. Social History Smoking/Tobacco Use Status: Former Tobacco Use Quit Date: 04/26/19 Quit status: considering quitting Counseling given: patient declined Alcohol Intake: current Alcohol Intake frequency: a few times a week Alcohol type: beer Drug use: Never Substance use type: does not use Adopted: No Caregiver/Support person: No Household members: spouse Housing: house Number of Children: 8 Communication Needs: Hard of Hearing and Corrective Lenses current occupation: [employer] What is your relationship status?: Panel score (0-1 are the most socially isolated patients): 1 What type of physical activity do you participate in: none Seatbelt use: always Working smoke detector in home: Yes Fire extinguisher in home: Yes Carbon monox detector in home: Yes Firearms in home: Yes Firearms unloaded and locked: Yes Do you feel safe at home: Yes Exam Narrative Exam Narrative: General: very pleasant elderly male, A&Ox3, sitting comfortably in bed HEENT: EOMI, MMM Heart: irregularly irregular rhythm, no m/r/g Lungs: wheezing on expiration B, ?rales GI: abdomen is soft, nontender, nondistended Extremities: no e/c/c BLE's. 1+ pedal pulses B Results Last Vital Signs Temp 36.5 C 05/10/19 09:50 Pulse 68 05/10/19 09:50 Resp 14 05/10/19 09:50 BP 131/62 05/10/19 09:50 Pulse Ox 98 05/10/19 09:50 Labs : 05/10/19 15:18 05/10/19 10:27 Laboratory Results - last 24 hr 05/10/19 05/10/19 05/10/19 10:27 10:27 10:27 WBC 6.25 RBC 4.30 L Hgb 13.9 Hct 41.7 MCV 97.0 H MCH 32.3 MCHC 33.3 RDW 12.9 Plt Count 279 MPV 9.6 Immature Gran % 0.2 Neutrophils % 63.2 Lymphocytes % 22.7 Monocytes % 8.8 Eosinophils % 4.6 Basophils % 0.5 Absolute Neutrophils 3.95 Absolute Lymphocytes 1.42 Absolute Monocytes 0.55 Absolute Eosinophils 0.29 Absolute Basophils 0.03 Sodium 139 Potassium 3.6 Chloride 100 Carbon Dioxide 30.7 Anion Gap 8.3 BUN 54 H Creatinine 2.21 H Estimated GFR/1.73 m2 29.02 Glucose 108 H Calcium 9.4 Total Bilirubin 0.5 AST 22 ALT 19 Alkaline Phosphatase 91 Total Protein 8.2 Albumin 3.8 Patient ABO/Rh A Positive Antibody Screen Negative 05/10/19 15:18 WBC RBC Hgb 13.5 Hct 40.7 MCV MCH MCHC RDW Plt Count MPV Immature Gran % Neutrophils % Lymphocytes % Monocytes % Eosinophils % Basophils % Absolute Neutrophils Absolute Lymphocytes Absolute Monocytes Absolute Eosinophils Absolute Basophils Sodium Potassium Chloride Carbon Dioxide Anion Gap BUN Creatinine Estimated GFR/1.73 m2 Glucose Calcium Total Bilirubin AST ALT Alkaline Phosphatase Total Protein Albumin Patient ABO/Rh Antibody Screen CT abdomen/pelvis 05/10/19: 1. Colonic diverticulosis without CT evidence of diverticulitis. 2. Appendix normal.
--- NOTE | 2019-05-10 18:04 | DI.RAD_ITS ---
SYMPTOM/DIAGNOSIS: WHEEZING, RALES PORTABLE CHEST: Comparison is made with 19 December 2018. The heart size is within normal limits for projection. A pacemaker is noted. There is respiratory motion. The lungs are grossly clear. No pneumothorax, infiltrate or effusion is seen. IMPRESSION: No acute abnormality
--- NOTE | 2019-05-10 18:21 | DI.VRAD_ITS ---
EXAM: XR Chest, 1 View EXAM DATE/TIME: 05/10/2019 5:48 PM CLINICAL HISTORY: 78 years old, male; Signs and symptoms; Patient HX: Wheezing, rales TECHNIQUE: Imaging protocol: XR of the chest, 1 view. COMPARISON: CR XR CHEST 2V PA LATERAL 12/19/2018 12:18 PM FINDINGS: Lungs: No acute interstitial or airspace disease appreciated. Pleural space: Unremarkable. No pleural effusion. No pneumothorax. Heart/Mediastinum: Dual-chamber cardiac conduction device remains in place. Stable cardiomediastinal silhouette. Bones/joints: No acute skeletal abnormality. IMPRESSION: Negative for acute thoracic pathology. Dictated and Authenticated by: Jacob Adam MD. Ordering:LUIS Syed MD
[2019-05-10 18:24] LABS: NT-proBNP 2165 pg/mL; Troponin I 0.02 ng/mL (0.00-0.06)
[2019-05-10] MEDS: Albuterol/Ipratropium 3 ML UPD VIAL UPD ×2 (18:25→21:33)
[2019-05-10] MEDS: Budesonide/Formoterol 160/4.5 6 GM 60 PUFF INH IH (19:56)
[2019-05-10 21:14] LABS: HCT 37.6 % (40.0-50.0); HGB 12.4 g/dL (13.5-17.5)
[2019-05-10] MEDS: Donepezil 5 MG TAB 10 MG PO (21:25)
[2019-05-10] MEDS: Pantoprazole 40 MG VIAL IVP (21:25)
[2019-05-10] MEDS: Atorvastatin 10 MG TAB PO (21:26)
[2019-05-11] VITALS (87 sets, daily range): BP systolic 106–166; BP diastolic 48–117; PULSE 52–139; RESP 2–28; TEMP 36.7–37.1; O2SAT 91–100
[2019-05-11] MEDS: Albuterol/Ipratropium 3 ML UPD VIAL UPD ×4 (04:04→22:25)
[2019-05-11 06:49] LABS: HCT 39.6 % (40.0-50.0)
[2019-05-11 07:03] LABS: ALT 14 U/L (12-78); AST 20 U/L (15-37); Albumin 2.9 g/dL (3.4-5.0); Alkaline Phosphatase 73 U/L (46-116); Anion Gap 11.4 mmol/L (3-11); BUN 44 mg/dL (7-18); Bilirubin, Total 0.5 mg/dL (0.2-1.0); CO2 26.6 mmol/L (21.0-32.0); CREATININE 1.94 mg/dL (0.70-1.30); Calcium 8.6 mg/dL (8.5-10.1); Chloride 105 mmol/L (98-107); Estimated GFR 33.73 (mL/min/1.73m2); Glucose 98 mg/dL (70-100); Potassium 3.3 mmol/L (3.5-5.1); Sodium 143 mmol/L (136-145); Total Protein 6.3 g/dL (6.4-8.2)
--- NOTE | 2019-05-11 07:44 | PDOC.CMIN ---
- If Service Date Differs Date of service: 05/11/19 Time of Service: 07:44 Care Management Initial Assess REASON FOR HOSPITALIZATION:: melena PAST MEDICAL HISTORY/PAST SURGICAL HISTORY:: Medical History : Macrocytic anemia (Chronic). Severe obstructive sleep apnea (Chronic 07/04/16). Seasonal allergic rhinitis (Chronic 04/21/14). 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 Lytic lesion of bone on x-ray (Chronic 05/25/17). 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 Hyperlipidemia (Chronic 10/23/16). Essential hypertension (Chronic 04/04/02). Chronic obstructive pulmonary disease (Chronic 04/21/14). Chronic kidney disease, stage III (moderate) (Chronic 10/21/08). Cardiac pacemaker in situ (Chronic 02/18/13). CKD (chronic kidney disease) stage 3, GFR 30-59 ml/min (Chronic 11/05/17). Chronic kidney disease, stage III (moderate) (Chronic 10/21/08). Cardiac pacemaker in situ (Chronic 02/18/13). Atrial fibrillation (Chronic 07/27/07). Anticoagulation adequate with anticoagulant therapy (Chronic 07/30/14). 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 Surgical History: Colonoscopy - MAC (03/30/14). ISCHEMIC R 4TH FINGER (07/26/86). Nasal septoplasty (05/25/87). Pacemaker (02/18/13). R ATRIAL ISTHMUS ABLATION (08/19/07). Repair of inguinal hernia (11/25/78). Repair of umbilical hernia (01/23/93) PREVIOUS FUNCTIONAL STATUS/SOCIAL/FAMILY SUPPORTS:: Indra lives in a double wide mobile home in a nursing home community in [place] with his of 37 years, Neeta. He is completely independent with all activities and remains very active. 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 He loves to be busy, he says. Indra has 5 children and Neeta has three. They all live locally and provide junaid support to Neeta and Indra. CURRENT FUNCTIONAL STATUS:: Indra was sitting up in the chair during CM visit. He was smiling and talkative and engaged readily in the conversation. He states he came to the hospital because of melena and hopes to only be here a couple of days.he states the doctors have indicated to him that he may need to be transferred for endoscopy because of some cardiac concerns. ADVANCE DIRECTIVES:: None on file at [facility] but states he has completed them. He will ask to bring in to [facility] to be scanned into his record. Has patient been provided with information about the portal?: Yes Did the patient sign up for the portal?: Yes (previously) CODE STATUS:: Full Code INSURANCE COVERAGE / FINANCIAL ISSUES:: Medicare. AARP CURRENT HOME/COMMUNITY SERVICES/EQUIPMENT:: None currently PRIMARY CARE PHYSICIAN:: Angel Allan POTENTIAL DISCHARGE NEEDS:: Follow up with GI, Cardiology , PCP and discharge plan of care. PATIENT/FAMILY EDUCATION NEEDS:: Dsicharge plan, limitations, follow up plan of care , Ask Me Three. ANTICIPATED BARRIERS TO DISCHARGE:: none TRANSPORTATION:: via private vehicle with family when ready. PLAN:: Indra is undergoing testing to determine the source of his GI bleed. He may require transfer due to cardiac concerns, depending on the outcome of the testing. He will likely be discharged with no new services when ready. CM will continue to provide support to patient, family and the discharge planning process.
--- NOTE | 2019-05-11 07:50 | INITIAL_ITS ---
- If Service Date Differs Date of service: 05/11/19 Time of Service: 07:44 Care Management Initial Assess REASON FOR HOSPITALIZATION:: melena PAST MEDICAL HISTORY/PAST SURGICAL HISTORY:: Medical History : Macrocytic anemia (Chronic). Severe obstructive sleep apnea (Chronic 07/04/16). Seasonal allergic rhinitis (Chronic 04/21/14). 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 Lytic lesion of bone on x-ray (Chronic 05/25/17). 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 Hyperlipidemia (Chronic 10/23/16). Essential hypertension (Chronic 04/04/02). Chronic obstructive pulmonary disease (Chronic 04/21/14). Chronic kidney disease, stage III (moderate) (Chronic 10/21/08). Cardiac pacemaker in situ (Chronic 02/18/13). CKD (chronic kidney disease) stage 3, GFR 30-59 ml/min (Chronic 11/05/17). Chronic kidney disease, stage III (moderate) (Chronic 10/21/08). Cardiac pacemaker in situ (Chronic 02/18/13). Atrial fibrillation (Chronic 07/27/07). Anticoagulation adequate with anticoagulant therapy (Chronic 07/30/14). 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 Surgical History: Colonoscopy - MAC (03/30/14). ISCHEMIC R 4TH FINGER (07/26/86). Nasal septoplasty (05/25/87). Pacemaker (02/18/13). R ATRIAL ISTHMUS ABLATION (08/19/07). Repair of inguinal hernia (11/25/78). Repair of umbilical hernia (01/23/93) PREVIOUS FUNCTIONAL STATUS/SOCIAL/FAMILY SUPPORTS:: Indra lives in a double wide mobile home in a assisted community in [place] with his of 37 years, Neeta. He is completely independent with all activities and remains very active. 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 He loves to be busy, he says. Indra has 5 children and Neeta has three. They all live locally and provide junaid support to Neeta and Indra. CURRENT FUNCTIONAL STATUS:: Indra was sitting up in the chair during CM visit. He was smiling and talkative and engaged readily in the conversation. He states he came to the hospital because of melena and hopes to only be here a couple of days.he states the doctors have indicated to him that he may need to be transferred for endoscopy because of some cardiac concerns. ADVANCE DIRECTIVES:: None on file at [facility] but states he has completed them. He will ask to bring in to [facility] to be scanned into his record. Has patient been provided with information about the portal?: Yes Did the patient sign up for the portal?: Yes (previously) CODE STATUS:: Full Code INSURANCE COVERAGE / FINANCIAL ISSUES:: Medicare. AARP CURRENT HOME/COMMUNITY SERVICES/EQUIPMENT:: None currently PRIMARY CARE PHYSICIAN:: Angel Allan POTENTIAL DISCHARGE NEEDS:: Follow up with GI, Cardiology , PCP and discharge plan of care. PATIENT/FAMILY EDUCATION NEEDS:: Dsicharge plan, limitations, follow up plan of care , Ask Me Three. ANTICIPATED BARRIERS TO DISCHARGE:: none TRANSPORTATION:: via private vehicle with family when ready. PLAN:: Indra is undergoing testing to determine the source of his GI bleed. He may require transfer due to cardiac concerns, depending on the outcome of the testing. He will likely be discharged with no new services when ready. CM will continue to provide support to patient, family and the discharge planning process.
[2019-05-11] MEDS: Budesonide/Formoterol 160/4.5 6 GM 60 PUFF INH IH ×2 (08:08→20:59)
[2019-05-11] MEDS: Metoprolol CR 100 MG TABCR PO (08:10)
[2019-05-11] MEDS: dilTIAZem CD 120 MG CAPCR 240 MG PO (08:10)
[2019-05-11] MEDS: Sucralfate 1 GM TAB PO ×4 (08:10→22:28)
--- NOTE | 2019-05-11 08:28 | W.PM.PROGNOT ---
Date of Service Date of service: 05/11/19 Time of Service: 08:28 Assessment and Plan (1) Upper GI bleeding: Current visit: Yes Status: Acute H/H stable. Continue IV PPI/carafate. Plan is for EGD tomorrow if echo ok. Echo is planned for tomorrow am. Continue to hold anticoagulation. Stable for transfer out of ICU. (2) Nonsustained ventricular tachycardia: Current visit: Yes Status: Acute Checking echo. EF was 45-50% on echo from 03/2018. EKG without acute ischemia, but does look different from the one in 2016. Would continue to monitor on tele. (3) Chronic obstructive pulmonary disease: Current visit: No Status: Chronic CXR negative and respiratory status has improved significantly with properly done nebulizer treatments. Continue current tx. Would probably benefit from a short steroid burst, but given upper GI bleeding and a relatively low level of wheezing/patient's level of comfort, I think it is ok to wait with this until after EGD results are known. Continue schedule duonebs. Continue symbicort. Prn albuterol. Qualifiers: COPD type: unspecified COPD Qualified Code(s): J44.9 - Chronic obstructive pulmonary disease, unspecified (4) Severe obstructive sleep apnea: Current visit: No Status: Chronic No longer using CPAP. Monitor respiratory status overnight. PA pressures in 03/2018 were 30-35 mmHg. Repeat echo is pending. (5) Seasonal allergic rhinitis: Current visit: No Status: Chronic F/u as outpatient (6) Chronic kidney disease, stage III (moderate): Current visit: No Status: Chronic Monitor kidney function (7) DVT prophylaxis: Current visit: Yes Status: Acute TEDs + SCDs (chemical DVT ppx/anticoagulation are contraindicated in setting of GI bleeding). Subjective Interval history since last seen: Awake, no nausea/vomiting. Continues to report periumbilical tenderness, but it's only 1/10 today, and much better than before. Tolerating clears. No more Vtach; multiple PVC's seen. No BM's overnight. 2 BM's today. No urinary retention reported. Denies dizziness, chest pain. Breathing is better - specifically wheezing. Apparently, Mr Solorzano was not putting his nebulizer treatments into the right compartment at home, and he definitely notices a difference here. He also admits to sometimes forgetting to use the nebulizer. Exam Narrative Exam Narrative: General: very pleasant elderly male, A&Ox3, sitting at the edge of the bed, in excellent spirits. HEENT: EOMI, MMM Heart: irregularly irregular rhythm, no m/r/g Lungs: Significant improvement in B expiratory wheezing, though mild wheezing is still present. GI: abdomen is soft, nontender, nondistended Extremities: no e/c/c BLE's. 1+ pedal pulses B Objective Objective Clinical Data: Abnormal lab results 05/10/19 05/10/19 05/10/19 Range/Units 10:27 10:27 10:27 RBC 4.30 L (4.50-6.00) m/cumm Hgb (13.5-17.5) g/dL Hct (40.0-50.0) % MCV 97.0 H (80-95) fL Potassium (3.5-5.1) mmol/L Anion Gap (3-11) mmol/L BUN 54 H (7-18) mg/dL Creatinine 2.21 H (0.70-1.30) mg/dL Glucose 108 H (70-100) mg/dL NT-Pro-B Natriuret Pep 2165 H ( - 299) pg/mL Total Protein (6.4-8.2) g/dL Albumin (3.4-5.0) g/dL 05/10/19 05/11/19 05/11/19 Range/Units 20:45 06:20 06:20 RBC (4.50-6.00) m/cumm Hgb 12.4 L 13.0 L (13.5-17.5) g/dL Hct 37.6 L 39.6 L (40.0-50.0) % MCV (80-95) fL Potassium 3.3 L (3.5-5.1) mmol/L Anion Gap 11.4 H (3-11) mmol/L BUN 44 H D (7-18) mg/dL Creatinine 1.94 H (0.70-1.30) mg/dL Glucose (70-100) mg/dL NT-Pro-B Natriuret Pep ( - 299) pg/mL Total Protein 6.3 L (6.4-8.2) g/dL Albumin 2.9 L (3.4-5.0) g/dL Vital Signs Temperature 36.7 C 05/11/19 04:00 Temperature Source Tympanic 05/11/19 04:00 Pulse 52 L 05/11/19 07:16 Pulse 95 H 05/11/19 07:16 Respiratory Rate 22 05/11/19 07:16 Respiratory Effort 05/11/19 04:00 Respiratory Depth Normal 05/11/19 04:00 Respiratory Pattern Normal 05/11/19 04:00 Blood Pressure 126/60 05/11/19 07:16 Blood Pressure Mean 73 05/11/19 07:16 Blood Pressure Position Supine 05/11/19 04:00 Pulse Oximetry 94 L 05/11/19 07:16 Oxygen Delivery Method Nasal Cannula 05/11/19 04:00 Oxygen Flow Rate 2 05/11/19 04:00 Pain Level 0 05/11/19 04:00 Intake & Output 05/10/19 05/10/19 05/11/19 11:59 23:59 11:59 Intake Total 590 / 590 500 / 500 Output Total 425 / 425 975 / 975 Balance 165 / 165 -475 / -475 Weight 95.254 kg 85.5 kg 85.9 kg Intake: Oral 590 / 590 500 / 500 Output: Urine 425 / 425 975 / 975 Other: Urine Color Pale Yellow Urine Appearance Clear Clear Urine Odor None None Comment voided in urinal without difficulty. clear, light colored yellow urine Stool Size Moderate Stool Characteristics Soft Formed Emesis Description None Voiding Methods Urinal Bedside Commode Laboratory Results WBC 6.25 k/cumm (4.4-10.8) 05/10/19 10:27 RBC 4.30 m/cumm (4.50-6.00) L 05/10/19 10:27 Hgb 13.0 g/dL (13.5-17.5) L 05/11/19 06:20 Hct 39.6 % (40.0-50.0) L 05/11/19 06:20 MCV 97.0 fL (80-95) H 05/10/19 10:27 MCH 32.3 pg (27.0-33.0) 05/10/19 10:27 MCHC 33.3 g/dL (32.0-36.0) 05/10/19 10:27 RDW 12.9 % (11.8-14.1) 05/10/19 10:27 Plt Count 279 x1000/uL (130-400) 05/10/19 10:27 MPV 9.6 fL (8.0-11.0) 05/10/19 10:27 Immature Gran % 0.2 05/10/19 10:27 Neutrophils % 63.2 05/10/19 10:27 Lymphocytes % 22.7 05/10/19 10:27 Monocytes % 8.8 05/10/19 10:27 Eosinophils % 4.6 05/10/19 10:27 Basophils % 0.5 05/10/19 10:27 Absolute Neutrophils 3.95 k/cumm (1.2-6.7) 05/10/19 10:27 Absolute Lymphocytes 1.42 k/cumm (1.2-3.4) 05/10/19 10:27 Absolute Monocytes 0.55 k/cumm (0.11-0.7) 05/10/19 10:27 Absolute Eosinophils 0.29 k/cumm (0.0-0.7) 05/10/19 10:27 Absolute Basophils 0.03 k/cumm (0.0-0.2) 05/10/19 10:27 Sodium 143 mmol/L (136-145) 05/11/19 06:20 Potassium 3.3 mmol/L (3.5-5.1) L 05/11/19 06:20 Chloride 105 mmol/L (98-107) 05/11/19 06:20 Carbon Dioxide 26.6 mmol/L (21.0-32.0) 05/11/19 06:20 Anion Gap 11.4 mmol/L (3-11) H 05/11/19 06:20 BUN 44 mg/dL (7-18) H D 05/11/19 06:20 Creatinine 1.94 mg/dL (0.70-1.30) H 05/11/19 06:20 Estimated GFR/1.73 m2 33.73 (mL/min/1.73m2) 05/11/19 06:20 Glucose 98 mg/dL (70-100) 05/11/19 06:20 Calcium 8.6 mg/dL (8.5-10.1) 05/11/19 06:20 Magnesium 2.0 mg/dL (1.8-2.4) 05/11/19 06:20 Total Bilirubin 0.5 mg/dL (0.2-1.0) 05/11/19 06:20 AST 20 U/L (15-37) 05/11/19 06:20 ALT 14 U/L (12-78) 05/11/19 06:20 Alkaline Phosphatase 73 U/L (46-116) 05/11/19 06:20 Troponin I 0.02 ng/mL (0.00-0.06) 05/10/19 10:27 NT-Pro-B Natriuret Pep 2165 pg/mL (-299) H 05/10/19 10:27 Total Protein 6.3 g/dL (6.4-8.2) L 05/11/19 06:20 Albumin 2.9 g/dL (3.4-5.0) L 05/11/19 06:20 Patient ABO/Rh A Positive 05/10/19 10:27 Antibody Screen Negative 05/10/19 10:27
--- NOTE | 2019-05-11 10:33 | PGE_ITS ---
Date of Service Date of service: 05/11/19 Time of Service: 10:33 Assessment and Plan (1) Upper GI bleeding: Current visit: Yes Status: Acute A\\ Stable. P\\ 1. Advance diet to regular today 2. Transfer out of ICU to Med/Surg on Tele 3. Up ambulating 4. ECHO tomorrow morning to assess his heart If ECHO is OK then will plan EGD in the afternoon IF ECHO not OK and not a candidate for EGD here then will set up for EGD at [facility] or [facility] and D/C off [facility] until he has his EGD done. Will discuss with his Pinion Sorter as well. Appreciate Dr. Gould assisting with this patients care. (2) Atrial fibrillation: Current visit: No Status: Chronic Qualifiers: Atrial fibrillation type: paroxysmal Qualified Code(s): I48.0 - Paroxysmal atrial fibrillation Subjective Interval history since last seen: Feeling well. Had a good night. Had a BM this morning which he states was still pretty black. HGB/HCT stable. No Hematemesis. No N/V. Exam Const General: cooperative, comfortable and no acute distress Orientation: alert and oriented x3 [facility] Head: normocephalic and atraumatic Resp Effort & Inspection: normal respiratory effort Auscultation: clear to auscultation bilaterally Cardio Rhythm: abnormal rhythm GI Inspection: normal to inspection Palpation: soft, no hepatosplenomegaly and nontender Auscultation: normal bowel sounds Objective Objective Clinical Data: Abnormal lab results 05/10/19 05/10/19 05/10/19 Range/Units 10:27 10:27 10:27 RBC 4.30 L (4.50-6.00) m/cumm Hgb (13.5-17.5) g/dL Hct (40.0-50.0) % MCV 97.0 H (80-95) fL Potassium (3.5-5.1) mmol/L Anion Gap (3-11) mmol/L BUN 54 H (7-18) mg/dL Creatinine 2.21 H (0.70-1.30) mg/dL Glucose 108 H (70-100) mg/dL NT-Pro-B Natriuret Pep 2165 H ( - 299) pg/mL Total Protein (6.4-8.2) g/dL Albumin (3.4-5.0) g/dL 05/10/19 05/11/19 05/11/19 Range/Units 20:45 06:20 06:20 RBC (4.50-6.00) m/cumm Hgb 12.4 L 13.0 L (13.5-17.5) g/dL Hct 37.6 L 39.6 L (40.0-50.0) % MCV (80-95) fL Potassium 3.3 L (3.5-5.1) mmol/L Anion Gap 11.4 H (3-11) mmol/L BUN 44 H D (7-18) mg/dL Creatinine 1.94 H (0.70-1.30) mg/dL Glucose (70-100) mg/dL NT-Pro-B Natriuret Pep ( - 299) pg/mL Total Protein 6.3 L (6.4-8.2) g/dL Albumin 2.9 L (3.4-5.0) g/dL Vital Signs Temperature 98.1 F 05/11/19 08:43 Temperature Source Temporal Artery Scan 05/11/19 08:43 Pulse 90 05/11/19 08:43 Pulse 95 H 05/11/19 07:16 Respiratory Rate 22 05/11/19 07:16 Respiratory Effort 05/11/19 08:43 Respiratory Depth Normal 05/11/19 08:43 Respiratory Pattern Normal 05/11/19 08:43 Blood Pressure 112/52 L 05/11/19 08:43 Blood Pressure Mean 72 05/11/19 08:43 Blood Pressure Position Supine 05/11/19 08:43 Pulse Oximetry 96 05/11/19 08:43 Oxygen Delivery Method Room Air 05/11/19 08:43 Oxygen Flow Rate 0 05/11/19 08:43 Pain Level 0 05/11/19 08:43 Intake & Output 05/10/19 05/10/19 05/11/19 11:59 23:59 11:59 Intake Total 590 / 590 1100 / 1100 Output Total 425 / 425 975 / 975 Balance 165 / 165 125 / 125 Weight 210 lb 188 lb 7.924 oz 189 lb 6.033 oz Intake: Oral 590 / 590 1100 / 1100 Output: Urine 425 / 425 975 / 975 Other: Urine Color Pale Yellow Urine Appearance Clear Clear Urine Odor None None Comment voided in urinal without difficulty. clear, light colored yellow urine Stool Size Moderate Stool Characteristics Soft Formed Emesis Description None Voiding Methods Urinal Bedside Commode Laboratory Results WBC 6.25 k/cumm (4.4-10.8) 05/10/19 10:27 RBC 4.30 m/cumm (4.50-6.00) L 05/10/19 10:27 Hgb 13.0 g/dL (13.5-17.5) L 05/11/19 06:20 Hct 39.6 % (40.0-50.0) L 05/11/19 06:20 MCV 97.0 fL (80-95) H 05/10/19 10:27 MCH 32.3 pg (27.0-33.0) 05/10/19 10:27 MCHC 33.3 g/dL (32.0-36.0) 05/10/19 10:27 RDW 12.9 % (11.8-14.1) 05/10/19 10:27 Plt Count 279 x1000/uL (130-400) 05/10/19 10:27 MPV 9.6 fL (8.0-11.0) 05/10/19 10:27 Immature Gran % 0.2 05/10/19 10:27 Neutrophils % 63.2 05/10/19 10:27 Lymphocytes % 22.7 05/10/19 10:27 Monocytes % 8.8 05/10/19 10:27 Eosinophils % 4.6 05/10/19 10:27 Basophils % 0.5 05/10/19 10:27 Absolute Neutrophils 3.95 k/cumm (1.2-6.7) 05/10/19 10:27 Absolute Lymphocytes 1.42 k/cumm (1.2-3.4) 05/10/19 10:27 Absolute Monocytes 0.55 k/cumm (0.11-0.7) 05/10/19 10:27 Absolute Eosinophils 0.29 k/cumm (0.0-0.7) 05/10/19 10:27 Absolute Basophils 0.03 k/cumm (0.0-0.2) 05/10/19 10:27 Sodium 143 mmol/L (136-145) 05/11/19 06:20 Potassium 3.3 mmol/L (3.5-5.1) L 05/11/19 06:20 Chloride 105 mmol/L (98-107) 05/11/19 06:20 Carbon Dioxide 26.6 mmol/L (21.0-32.0) 05/11/19 06:20 Anion Gap 11.4 mmol/L (3-11) H 05/11/19 06:20 BUN 44 mg/dL (7-18) H D 05/11/19 06:20 Creatinine 1.94 mg/dL (0.70-1.30) H 05/11/19 06:20 Estimated GFR/1.73 m2 33.73 (mL/min/1.73m2) 05/11/19 06:20 Glucose 98 mg/dL (70-100) 05/11/19 06:20 Calcium 8.6 mg/dL (8.5-10.1) 05/11/19 06:20 Magnesium 2.0 mg/dL (1.8-2.4) 05/11/19 06:20 Total Bilirubin 0.5 mg/dL (0.2-1.0) 05/11/19 06:20 AST 20 U/L (15-37) 05/11/19 06:20 ALT 14 U/L (12-78) 05/11/19 06:20 Alkaline Phosphatase 73 U/L (46-116) 05/11/19 06:20 Troponin I 0.02 ng/mL (0.00-0.06) 05/10/19 10:27 NT-Pro-B Natriuret Pep 2165 pg/mL (-299) H 05/10/19 10:27 Total Protein 6.3 g/dL (6.4-8.2) L 05/11/19 06:20 Albumin 2.9 g/dL (3.4-5.0) L 05/11/19 06:20 Patient ABO/Rh A Positive 05/10/19 10:27 Antibody Screen Negative 05/10/19 10:27
[2019-05-11] MEDS: Normal Saline Flush 10 ML SYR IVP ×3 (11:00→20:59)
[2019-05-11] MEDS: Pantoprazole 40 MG VIAL IVP ×2 (11:01→22:27)
[2019-05-11] MEDS: POTASSIUM CHLORIDE 20 MEQ/100 ML BAG 50 MEQ IVPB ×2 (11:01→13:05)
--- NOTE | 2019-05-11 14:09 | NUR.NOTE ---
Nursing Note: 1405: pt from icu 220 to ms 212, ambulatory from icu to ms. pt on telemetry in afib, pt has iv in LW/LFA region which exhibits some blood within the line; pt has potassium running at this time. RN, Sasha Mustafa assesses IV site prior to transfer and reports to this RN that the site flushes well. pt is alert/oriented. pt oriented to call smart and TV remote. RN requests pt ring for assist. continue to monitor.
[2019-05-11] MEDS: Acetaminophen 325 MG TAB PO (22:26)
[2019-05-11] MEDS: Donepezil 5 MG TAB 10 MG PO (22:28)
[2019-05-11] MEDS: Atorvastatin 10 MG TAB PO (22:28)
[2019-05-12] VITALS (15 sets, daily range): BP systolic 106–129; BP diastolic 48–87; PULSE 68–102; RESP 4–26; TEMP 35.7–36.9; O2SAT 91–99
[2019-05-12] MEDS: Albuterol 2.5 MG/3 ML INH SOLN VIAL UPD (00:54)
[2019-05-12] MEDS: Albuterol/Ipratropium 3 ML UPD VIAL UPD ×3 (03:27→17:17)
[2019-05-12] MEDS: Acetaminophen 325 MG TAB PO ×3 (03:28→15:04)
[2019-05-12 07:17] LABS: Abs Immature Grans 0.01 k/cumm (0.0-0.09); Absolute Basophil Count 0.03 k/cumm (0.0-0.2); Absolute Eosinophil Count 0.17 k/cumm (0.0-0.7); Absolute Lymphocyte Count 1.53 k/cumm (1.2-3.4); Absolute Monocyte Count 0.71 k/cumm (0.11-0.7); Absolute Neutrophil Count 5.81 k/cumm (1.2-6.7); Basophils % 0.4; Eosinophils % 2.1; HCT 39.6 % (40.0-50.0); HGB 12.8 g/dL (13.5-17.5); Immature Grans % 0.1; Lymphocytes % 18.5; Mean Corp. HGB Concentration 32.3 g/dL (32.0-36.0); Mean Corpuscular Hemoglobin 31.4 pg (27.0-33.0); Mean Corpuscular Volume 97.3 fL (80-95); Mean Platelet Volume 9.6 fL (8.0-11.0); Monocytes % 8.6; Neutrophils % 70.3; Platelet Count 234 x1000/uL (130-400); RBC 4.07 m/cumm (4.50-6.00); RBC Distribution Width 12.8 % (11.8-14.1); White Blood Cell Count 8.26 k/cumm (4.4-10.8)
[2019-05-12 07:27] LABS: INR 1.1 (0.9-1.1); Prothrombin Time 11.4 sec (9.3-11.0)
--- NOTE | 2019-05-12 07:30 | MERGE_ITS ---
*[facility]* *[facility]* [address] [place] [address] Date of study: 05/12/2019 Transthoracic Echocardiography M-mode, complete 2D, complete spectral Doppler, and color Doppler *STUDY CONCLUSIONS* Summary: 1. Left ventricle: The cavity size was normal. Systolic function was mildly reduced. The estimated ejection fraction was 45-50%. Mild hypokinesis of the apical myocardium. 2. Ventricular septum: Septal motion showed paradoxical motion. 3. Mitral valve: There was mild regurgitation. 4. Left atrium: The atrium was moderately dilated. 5. Right ventricle: The cavity size was mildly dilated. Pacer wire or catheter noted in right ventricle. Systolic function was normal. 6. Right atrium: The atrium was moderately dilated. Pacer wire or catheter noted in right atrium. 7. Atrial septum: No defect or patent foramen ovale was identified. 8. Tricuspid valve: There was moderate-severe regurgitation. 9. Pulmonary arteries: Pulmonary systolic pressure was in the range of 35mm Hg to 45mm Hg. 10. Inferior vena cava: The vessel was patent and normal in size. The respirophasic diameter changes were in the normal range (greater than or equal to 50%), consistent with normal central venous pressure. *PATIENT PRESENTATION* Height: 175.3cm ((69in) ) S/D Pressure: 117 / 67 Weight: 85.7kg ((188.6lb) ) BSA: 2.06m^2 Test start time: 07:40 AM. Test stop time: 08:40 AM. REFERRING Mario Wade MD PERFORMING Unknown PERFORMING [facility] MANAGER GLOBAL RT Torsten (R)(CT), CS CONSULTING Yahaira Gould ORDERING Yahaira Gould REFERRING Yahaira Gould *PROCEDURE DATA* Procedure information: The patient was identified by two identifiers. This study was interpreted by [facility]. Pertinent images and digital data are archived for permanent storage and are available for subsequent review. Comparison was made to the study of 04/10/2018. Study status: Routine. Transthoracic echocardiography. M-mode, complete 2D, complete spectral Doppler, and color Doppler. A Transthoracic Echocardiogram was performed. Scanning was performed from the parasternal, apical, subcostal, and suprasternal notch acoustic windows. Images were obtained using an [id number] cardiac ultrasound machine. Image quality was adequate. Study completion: The patient tolerated the procedure well. History: PMH: Afib NYA assess EF and PA pressures. *CARDIAC ANATOMY* Left ventricle: The cavity size was normal. Systolic function was mildly reduced. The estimated ejection fraction was 45-50%. Regional wall motion abnormalities: Mild hypokinesis of the apical myocardium. The study was not technically sufficient to allow evaluation of LV diastolic dysfunction due to atrial fibrillation. Aortic valve: Trileaflet. Doppler: There was no stenosis. There was no regurgitation. VTI ratio of LVOT to aortic valve: 0.82. Valve area (VTI): 2.9cm^2. Indexed valve area (VTI): 1.4cm^2/m^2. Peak velocity ratio of LVOT to aortic valve: 0.8. Valve area (Vmax): 2.8cm^2. Indexed valve area (Vmax): 1.4cm^2/m^2. Mean velocity ratio of LVOT to aortic valve: 0.76. Valve area (Vmean): 2.7cm^2. Indexed valve area (Vmean): 1.3cm^2/m^2. Mean gradient (S): 3.7mm Hg. Peak gradient (S): 6.3mm Hg. Aorta: Aortic root: The aortic root was normal in size. Ascending aorta: The ascending aorta was normal in size. Mitral valve: Doppler: There was no evidence for stenosis. There was mild regurgitation. Peak gradient (D): 3.5mm Hg. Left atrium: The atrium was moderately dilated. Atrial septum: No defect or patent foramen ovale was identified. Right ventricle: The cavity size was mildly dilated. Pacer wire or catheter noted in right ventricle. Systolic function was normal. Ventricular septum: Septal motion showed paradoxical motion. Pulmonic valve: Doppler: There was no evidence for stenosis. There was no significant regurgitation. Peak gradient (S): 2.5mm Hg. Tricuspid valve: Doppler: There was moderate-severe regurgitation. Pulmonary artery: Poorly visualized. Pulmonary systolic pressure was in the range of 35mm Hg to 45mm Hg. Right atrium: The atrium was moderately dilated. Pacer wire or catheter noted in right atrium. Pericardium: There was no pericardial effusion. Systemic veins: Inferior vena cava: Well visualized. The vessel was patent and normal in size. The respirophasic diameter changes were in the normal range (greater than or equal to 50%), consistent with normal central venous pressure. Baseline ECG: Atrial fibrillation. Measurements Left ventricle Value 04/10/2018 Reference LV ID, ED, PLAX 4.4 cm 4.7 3.5 - 6.0 LV ID, ES, PLAX 3.4 cm 3.8 2.1 - 4.0 LV PW thickness, ED, PLAX 1.0 cm 1.2 LV end-diastolic volume, 108 ml 87 1-p A2C LV ejection fraction, 1-p 49 % 42 A2C LV end-diastolic volume, 107 ml 103 1-p A4C LV ejection fraction, 1-p 52 % 48 A4C LV e', lateral 0.157 m/sec 0.101 LV E/e', lateral 6 12 LV e', medial 0.078 m/sec 0.084 LV E/e', medial 12 14 LV e', average 0.117 m/sec 0.092 LV E/e', average 8 13 Ventricular septum Value 04/10/2018 Reference IVS thickness, ED, PLAX 1.3 cm 1.3 LVOT Value 04/10/2018 Reference LVOT ID, A-P 2.1 cm 2.1 LVOT area 3.6 cm^2 3.4 LVOT peak velocity, S 1 m/sec 0.86 LVOT mean velocity, S 0.7 m/sec 0.67 LVOT VTI, S 17.2 cm 17.6 LVOT peak gradient, S 4 mm Hg 3 LVOT mean gradient, S 2.3 mm Hg 2 Stroke volume (SV), LVOT 61 ml 59 DP Stroke index (SV/bsa), 30 ml/m^2 28 LVOT DP Aortic valve Value 04/10/2018 Reference Aortic valve peak 1.3 m/sec 1.4 velocity, S Aortic valve mean 0.92 m/sec 0.95 velocity, S Aortic valve VTI, S 21.0 cm 27.1 Aortic mean gradient, S 3.7 mm Hg 4 Aortic peak gradient, S 6.3 mm Hg 7.6 VTI ratio, LVOT/AV 0.82 0.65 Aortic valve area, VTI 2.9 cm^2 2.2 Velocity ratio, peak, 0.8 0.63 LVOT/AV Aortic valve area, peak 2.8 cm^2 2.1 velocity Velocity ratio, mean, 0.76 0.71 LVOT/AV Aortic valve area, mean 2.7 cm^2 2.4 velocity Aortic valve area/bsa, 1.3 cm^2/m^2 1.1 mean velocity Aorta Value 04/10/2018 Reference Aortic root ID, ED 3.1 cm 3.4 Ascending aorta ID, A-P, S 3.4 cm 3.1 Left atrium Value 04/10/2018 Reference LA ID, A-P, ES 5.2 cm 5.3 LA ID/bsa, A-P (H) 2.5 cm/m^2 2.5 <=2.2 LA area, ES, A4C (H) 31 cm^2 33.4 8.8 - 23.4 LA area, ES, A2C 30 cm^2 29 LA volume/bsa, ES, 1-p A4C 58 ml/m^2 67 LA volume, ES, 2-p 117 ml 118 LA volume/bsa, ES, 2-p 57 ml/m^2 55 LA/aortic root ratio 1.66 1.58 Mitral valve Value 04/10/2018 Reference Mitral E-wave peak 0.94 m/sec 1.19 velocity Mitral peak gradient, D 3.5 mm Hg 5.7 Tricuspid valve Value 04/10/2018 Reference Tricuspid regurg peak 2.8 m/sec 2.8 velocity Tricuspid peak RV-RA 32.5 mm Hg 30.8 gradient Right atrium Value 04/10/2018 Reference RA area, ES, A4C (H) 26.1 cm^2 26.1 8.3 - 19.5 Pulmonic valve Value 04/10/2018 Reference Pulmonic peak gradient, S 2.5 mm Hg 0.4 Legend: (L) and (H) dung values outside specified reference range. I have personally reviewed the images and have reviewed and edited the reported findings. Electronically signed by Mario Wade MD 05/12/2019 11:19
[2019-05-12 07:53] LABS: Anion Gap 9.5 mmol/L (3-11); BUN 42 mg/dL (7-18); CO2 26.5 mmol/L (21.0-32.0); CREATININE 1.82 mg/dL (0.70-1.30); Calcium 8.9 mg/dL (8.5-10.1); Chloride 104 mmol/L (98-107); Glucose 121 mg/dL (70-100); Potassium 3.6 mmol/L (3.5-5.1); Sodium 140 mmol/L (136-145)
[2019-05-12 07:54] LABS: Uric Acid 12.6 mg/dL (3.5-7.2)
[2019-05-12] MEDS: dilTIAZem CD 120 MG CAPCR 240 MG PO (09:13)
[2019-05-12] MEDS: Metoprolol CR 100 MG TABCR PO (09:13)
[2019-05-12] MEDS: Sucralfate 1 GM TAB PO ×2 (09:13→11:48)
[2019-05-12] MEDS: Budesonide/Formoterol 160/4.5 6 GM 60 PUFF INH IH ×2 (09:26→20:56)
--- NOTE | 2019-05-12 09:54 | PDOC.CMPRO ---
- If Service Date Differs Date of service: 05/12/19 Time of Service: 09:54 Care Management Progress Note S/O:Indra was sitting up in bed visiting with and daughter when CM visited. He stated that he had had an Echocardiogram this morning and that he was waiting to have an endoscopy. He was pleasant and smiling and readily engaged in the discussion. He hopes to be discharged if the procedure goes well and there are no acute findings. A: Larry Gill) is a very pleasant 78 year old gentleman admitted to [facility] on 05/10/19 with melena. P:Indra is undergoing testing to determine the cause of his melena. It is likely he will return home with no additional services when ready. CM to continue to provide support to patient, family and discharge planning process.
--- NOTE | 2019-05-12 10:00 | CMPROGNOTE_ITS ---
- If Service Date Differs Date of service: 05/12/19 Time of Service: 09:54 Care Management Progress Note S/O:Indra was sitting up in bed visiting with and daughter when CM visited. He stated that he had had an Echocardiogram this morning and that he was waiting to have an endoscopy. He was pleasant and smiling and readily engaged in the discussion. He hopes to be discharged if the procedure goes well and there are no acute findings. A: Larry Gill) is a very pleasant 78 year old gentleman admitted to [facility] on 05/10/19 with melena. P:Indra is undergoing testing to determine the cause of his melena. It is likely he will return home with no additional services when ready. CM to continue to provide support to patient, family and discharge planning process.
[2019-05-12] MEDS: Normal Saline Flush 10 ML SYR IVP (10:15)
[2019-05-12] MEDS: Pantoprazole 40 MG VIAL IVP (10:15)
[2019-05-12] MEDS: Lactated Ringers 1,000 ML 200 ML IV (13:59)
--- NOTE | 2019-05-12 14:15 | ESO_PTH ---
PATIENT: Tony Solorzano Sr LOC: [place] Mcgee#:[id number] AGE/SX: 78/M ROOM: RE05/10/[address]: Deonna Williamson MD : [id number] BED: A DIS: 05/13/2019 SPEC #: [id number] RECD: 05/12/19 17:53 STATUS: ERLINDA REQ #: [id number] DIPIKA: 05/12/19 14:[address]: Deonna Williamson DEPT: Surgical Specimen RECD BY: Fany Craig ENTERED: 05/12/19 17:53 SP TYPE: Eso PRUDENCE DR: Angel Allan DO Tissues: 1 - ESOPHAGUS BIOPSY Procedures: GROSS AND MICRO LEVEL 4 Comments: [id number]
--- NOTE | 2019-05-12 14:56 | W.COLOREPORT ---
Date of service: 05/12/19 Time of Service: 14:56 Colonoscopy Report Date of procedure: 05/12/19 Pre-op diagnosis general: Melena Post-op diagnosis procedure note: same Procedure: EGD Surgeon: Deonna Williamson Anesthesia proc note operative: other (general/ ASA 3/ Alayna Hughes, ROSIE) Estimated blood loss (mL): 5 Pathology: other (Ge junction bx) Complications: None Disposition: PACU Indications: Mr. Solorzano is a pleasant 78 year old male who was admitted with a 72 hour hx of Melena. Patient is on Eliquis. EGD was recommended. Risks, benefits and complications have been reviewed. Complications include but are not limited to bleeding, pain, perforation, sore throat, aspiration, and adverse reaction to the medications. Questions were entertained and answered to their satisfaction and they wished to proceed. No guarantees were given or implied. Findings: Normal stomach and duodenum Mild inflammation of the GE junction Procedure Description: After informed consent was obtained the patient was take to the procedure room and placed in a supine position. Monitors were applied and a time out was done. The patients name, date of , procedure type, allergies to medications and metal in their body was reviewed. A bite block was placed and the patient was sedated. Once sedated and comfortable the gastroscope was advanced through the oropharynx which was grossly normal into the esophagus. The proximal and mid-esophagus were normal. In the distal esophagus there was mild inflammation noted. The scope was advanced into the stomach and through the pylorus into the 3rd portion of the duodenum. The duodenum was noted to be normal. No biopsies were done. The scope was retracted back into the stomach which was noted to be normal. There were no ulcers and no inflammation. The scope was retro-flexed. The cardia and fundus were noted to be normal. No Hiatal Hernia was noted. The scope was retracted back into the esophagus and biopsies were done of the GE junction to rule out Maldonado's. The Z line was irregular. The GE junction was at 38 cm. The scope was removed and the patient was woken up and taken back to [facility] in stable condition. Follow up: as needed. I will refer patient for a capsule endoscopy and GI at either [facility] or [facility].
--- NOTE | 2019-05-12 15:01 | COLE_ITS ---
Date of service: 05/12/19 Time of Service: 14:56 Colonoscopy Report Date of procedure: 05/12/19 Pre-op diagnosis general: Melena Post-op diagnosis procedure note: same Procedure: EGD Surgeon: Deonna Williamson Anesthesia proc note operative: other (general/ ASA 3/ Alayna Hughes, ROSIE) Estimated blood loss (mL): 5 Pathology: other (Ge junction bx) Complications: None Disposition: PACU Indications: Mr. Solorzano is a pleasant 78 year old male who was admitted with a 72 hour hx of Melena. Patient is on Eliquis. EGD was recommended. Risks, benefits and complications have been reviewed. Complications include but are not limited to bleeding, pain, perforation, sore throat, aspiration, and adverse reaction to the medications. Questions were entertained and answered to their satisfaction and they wished to proceed. No guarantees were given or implied. Findings: Normal stomach and duodenum Mild inflammation of the GE junction Procedure Description: After informed consent was obtained the patient was take to the procedure room and placed in a supine position. Monitors were applied and a time out was done. The patients name, date of , procedure type, allergies to medications and metal in their body was reviewed. A bite block was placed and the patient was sedated. Once sedated and comfortable the gastroscope was advanced through the oropharynx which was grossly normal into the esophagus. The proximal and mid- esophagus were normal. In the distal esophagus there was mild inflammation noted. The scope was advanced into the stomach and through the pylorus into the 3rd portion of the duodenum. The duodenum was noted to be normal. No biopsies were done. The scope was retracted back into the stomach which was noted to be normal. There were no ulcers and no inflammation. The scope was retro-flexed. The cardia and fundus were noted to be normal. No Hiatal Hernia was noted. The scope was retracted back into the esophagus and biopsies were done of the GE junction to rule out Maldonado's. The Z line was irregular. The GE junction was at 38 cm. The scope was removed and the patient was woken up and taken back to [facility] in stable condition. Follow up: as needed. I will refer patient for a capsule endoscopy and GI at either [facility] or [facility].
--- NOTE | 2019-05-12 15:17 | W.PM.PROGNOT ---
Date of Service Date of service: 05/12/19 Time of Service: 15:17 Assessment and Plan (1) GI bleed: Current visit: Yes Status: Chronic Long discussion with Him and his and daughter regrading the fact that I did not find a source for his bleeding today. I think that he needs a capsule endoscopy +/- colonoscopy. Of note his and daughter tell me today that he has been suffering from diarrhea with intermittent incontinence for a few months. The patient never mentioned this before. He also apparently started to have swelling of his ankle last night. The hospitalist ordered a Uric acid which was elevated. He has had gout once before. These are all things that the patient himself did not mention. I think that Mr. Solorzano would be better served to see a Gastroeneterologist at [facility] were he also is followed by Cardiology. At this point we would not be starting his Eliquis again as I do not have a source of bleeding. His Hgb/HCT have been stable throughout his admission and he has not needed a blood transfusion. I have called [facility], through [facility] to see if Mr. Solorzano could be seen. I have been asked to send his records over to be reviewed. Fax number is I appreciate Dr. Marks and Dr. Armstrong assistance with this gentleman with a complicated PMHx. Qualifiers: GI bleed type/associated pathology: melena Qualified Code(s): K92.1 - Melena (2) Gout: Current visit: Yes Status: Chronic Subjective Interval history since last seen: Mr. Solorzano is doing well from a GI stand point. EGD didn't show any source of bleeding. His GE junction was irregular and so bx were done. Diarrhea- his and daughter mentioned this after his EGD. Patient has never complained. BM's here in the hospital have been soft but not watery. Exam GI Inspection: normal to inspection Palpation: soft and nontender Auscultation: normal bowel sounds Extrem Left lower extremity: ankle Details: tenderness and swelling Objective Objective Clinical Data: Abnormal lab results 05/12/19 05/12/19 05/12/19 Range/Units 06:45 06:45 06:45 RBC 4.07 L (4.50-6.00) m/cumm Hgb 12.8 L (13.5-17.5) g/dL Hct 39.6 L (40.0-50.0) % MCV 97.3 H (80-95) fL Absolute Monocytes 0.71 H (0.11-0.7) k/cumm PT 11.4 H (9.3-11.0) sec BUN 42 H (7-18) mg/dL Creatinine 1.82 H (0.70-1.30) mg/dL Glucose 121 H (70-100) mg/dL Uric Acid (3.5-7.2) mg/dL 05/12/19 Range/Units 06:45 RBC (4.50-6.00) m/cumm Hgb (13.5-17.5) g/dL Hct (40.0-50.0) % MCV (80-95) fL Absolute Monocytes (0.11-0.7) k/cumm PT (9.3-11.0) sec BUN (7-18) mg/dL Creatinine (0.70-1.30) mg/dL Glucose (70-100) mg/dL Uric Acid 12.6 H (3.5-7.2) mg/dL Vital Signs Temperature 98.2 F 05/12/19 14:40 Temperature Source Tympanic 05/12/19 11:10 Pulse 72 05/12/19 14:40 Pulse Rhythm Irregular 05/12/19 08:58 Pulse 76 05/11/19 13:45 Respiratory Rate 19 05/12/19 14:40 Respiratory Effort Non-Labored 05/12/19 08:58 Respiratory Depth Normal 05/12/19 08:58 Respiratory Pattern Normal 05/12/19 08:58 Blood Pressure 121/51 L 05/12/19 14:40 Blood Pressure Mean 79 05/11/19 12:53 Blood Pressure Position Supine 05/11/19 08:43 Pulse Oximetry 96 05/12/19 14:40 Oxygen Delivery Method Room Air 05/12/19 14:40 Oxygen Flow Rate 0 05/12/19 11:10 Pain Level 5 05/12/19 15:04 Intake & Output 05/11/19 05/12/19 05/12/19 23:59 11:59 23:59 Intake Total 595 / 1695 20 / 345 325 / 345 Output Total 57 / 1332 957 / 957 Balance 538 / 363 -937 / -612 325 / -612 Weight 191 lb 9.307 oz Intake: IV 115 / 115 20 / 345 325 / 345 Oral 480 / 1580 Output: Urine 57 / 1332 900 / 900 Post Void Residual 57 / 57 Other: Urine Color Yellow Yellow Urine Appearance Clear Clear Urine Odor Normal Normal Comment patient voided in the toilet with no hat. Pt voided imm. prior; 200ml, documented in voids. Pt voided in toilet; no hat. Urine clear and yellow. Pt denies sx. Stool Occult Blood Negative Stool Size Small Stool Characteristics Brown Black Emesis Description None Voiding Methods Toilet Urinal Toilet Laboratory Results WBC 8.26 k/cumm (4.4-10.8) 05/12/19 06:45 RBC 4.07 m/cumm (4.50-6.00) L 05/12/19 06:45 Hgb 12.8 g/dL (13.5-17.5) L 05/12/19 06:45 Hct 39.6 % (40.0-50.0) L 05/12/19 06:45 MCV 97.3 fL (80-95) H 05/12/19 06:45 MCH 31.4 pg (27.0-33.0) 05/12/19 06:45 MCHC 32.3 g/dL (32.0-36.0) 05/12/19 06:45 RDW 12.8 % (11.8-14.1) 05/12/19 06:45 Plt Count 234 x1000/uL (130-400) 05/12/19 06:45 MPV 9.6 fL (8.0-11.0) 05/12/19 06:45 Immature Gran % 0.1 05/12/19 06:45 Neutrophils % 70.3 05/12/19 06:45 Lymphocytes % 18.5 05/12/19 06:45 Monocytes % 8.6 05/12/19 06:45 Eosinophils % 2.1 05/12/19 06:45 Basophils % 0.4 05/12/19 06:45 Absolute Neutrophils 5.81 k/cumm (1.2-6.7) 05/12/19 06:45 Absolute Lymphocytes 1.53 k/cumm (1.2-3.4) 05/12/19 06:45 Absolute Monocytes 0.71 k/cumm (0.11-0.7) H 05/12/19 06:45 Absolute Eosinophils 0.17 k/cumm (0.0-0.7) 05/12/19 06:45 Absolute Basophils 0.03 k/cumm (0.0-0.2) 05/12/19 06:45 PT 11.4 sec (9.3-11.0) H 05/12/19 06:45 INR 1.1 (0.9-1.1) 05/12/19 06:45 Sodium 140 mmol/L (136-145) 05/12/19 06:45 Potassium 3.6 mmol/L (3.5-5.1) 05/12/19 06:45 Chloride 104 mmol/L (98-107) 05/12/19 06:45 Carbon Dioxide 26.5 mmol/L (21.0-32.0) 05/12/19 06:45 Anion Gap 9.5 mmol/L (3-11) 05/12/19 06:45 BUN 42 mg/dL (7-18) H 05/12/19 06:45 Creatinine 1.82 mg/dL (0.70-1.30) H 05/12/19 06:45 Estimated GFR/1.73 m2 36.30 (mL/min/1.73m2) 05/12/19 06:45 Glucose 121 mg/dL (70-100) H 05/12/19 06:45 Uric Acid 12.6 mg/dL (3.5-7.2) H 05/12/19 06:45 Calcium 8.9 mg/dL (8.5-10.1) 05/12/19 06:45 Magnesium 2.0 mg/dL (1.8-2.4) 05/12/19 06:45 Total Bilirubin 0.5 mg/dL (0.2-1.0) 05/11/19 06:20 AST 20 U/L (15-37) 05/11/19 06:20 ALT 14 U/L (12-78) 05/11/19 06:20 Alkaline Phosphatase 73 U/L (46-116) 05/11/19 06:20 Troponin I 0.02 ng/mL (0.00-0.06) 05/10/19 10:27 NT-Pro-B Natriuret Pep 2165 pg/mL (-299) H 05/10/19 10:27 Total Protein 6.3 g/dL (6.4-8.2) L 05/11/19 06:20 Albumin 2.9 g/dL (3.4-5.0) L 05/11/19 06:20 Patient ABO/Rh A Positive 05/10/19 10:27 Antibody Screen Negative 05/10/19 10:27
--- NOTE | 2019-05-12 15:45 | DI.RAD_ITS ---
SYMPTOM/DIAGNOSIS: LEFT ANKLE PAIN LEFT ANKLE: Comparison is made with 07 March 2019. Soft tissue swelling is again noted around the malleoli. There is mild periarticular spurring. No fracture or talar dome defect is seen. The ankle mortise appears intact. Vascular calcifications are seen. IMPRESSION: Soft tissue swelling and mild degenerative changes.
--- NOTE | 2019-05-12 15:50 | PGE_ITS ---
Date of Service Date of service: 05/12/19 Time of Service: 15:42 Assessment and Plan (1) Upper GI bleeding: Current visit: Yes Status: Acute H/H remains stable. Clinically the bleeding has resolved, but given the negative EGD today, small bowel could have been the source of bleeding and, therefore, anticoagulation is not safe to restart until this is addressed. Continue PO PPI/carafate. No anticoagulation until small bowel eval. Ok to d/c tele. (2) Nonsustained ventricular tachycardia: Current visit: Yes Status: Acute EF still 45-50%. NO recurrences of arrhythmias x 48 hours. D/c tele. EKG without acute ischemia, but does look different from the one in 2016. (3) Chronic obstructive pulmonary disease: Current visit: No Status: Chronic Respiratory status much better with proper neb technique, however, will trial prednisone (addressing the gout as well as lungs). Continue schedule duonebs. Continue symbicort. Prn albuterol. Qualifiers: COPD type: unspecified COPD Qualified Code(s): J44.9 - Chronic obstructive pulmonary disease, unspecified (4) Severe obstructive sleep apnea: Current visit: No Status: Chronic No longer using CPAP. PA pressures unchanged on echo from today. F/u as outpatient (5) Seasonal allergic rhinitis: Current visit: No Status: Chronic F/u as outpatient (6) Chronic kidney disease, stage III (moderate): Current visit: No Status: Chronic Monitor kidney function (7) DVT prophylaxis: Current visit: Yes Status: Acute TEDs + SCDs (chemical DVT ppx/anticoagulation are contraindicated in setting of GI bleeding). (8) Chronic diarrhea: Current visit: Yes Status: Chronic Patient is being referred to GI for colonoscopy. Meanwhile, it will be interesting to see if the diarrhea responds to prednisone. (9) Gout: Current visit: Yes Status: Acute Trial a short burst of prednisone. Avoiding colchicine given chronic diarr hea and NSAIDS given GI bleeding. Subjective Interval history since last seen: Complains of L ankle pain and redness, starti ng last night. He states he was told he had gout before but also had injured the ankle last weekend, though it didn't hurt until last night. S/p EGD - esophagitis noted, but no active bleeding noted. Denies dizziness, chest pain, complains of slight wheezing still, but no shortness of breath. No nausea, vomiting or abdominal pain. L ankle pain does make it difficult to walk. Exam Narrative Exam Narrative: General: very pleasant elderly male, A&Ox3, sitting in a chair, looks well HEENT: EOMI, MMM Heart: irregularly irregular rhythm, no m/r/g Lungs: very quiet bilateral expiratory wheezing noted. GI: abdomen is soft, nontender, nondistended Extremities: no e/c/c BLE's. 1+ pedal pulses B Objective Objective Clinical Data: Abnormal lab results 05/12/19 05/12/19 05/12/19 Range/Units 06:45 06:45 06:45 RBC 4.07 L (4.50-6.00) m/cumm Hgb 12.8 L (13.5-17.5) g/dL Hct 39.6 L (40.0-50.0) % MCV 97.3 H (80-95) fL Absolute Monocytes 0.71 H (0.11-0.7) k/cumm PT 11.4 H (9.3-11.0) sec BUN 42 H (7-18) mg/dL Creatinine 1.82 H (0.70-1.30) mg/dL Glucose 121 H (70-100) mg/dL Uric Acid (3.5-7.2) mg/dL 05/12/19 Range/Units 06:45 RBC (4.50-6.00) m/cumm Hgb (13.5-17.5) g/dL Hct (40.0-50.0) % MCV (80-95) fL Absolute Monocytes (0.11-0.7) k/cumm PT (9.3-11.0) sec BUN (7-18) mg/dL Creatinine (0.70-1.30) mg/dL Glucose (70-100) mg/dL Uric Acid 12.6 H (3.5-7.2) mg/dL Vital Signs Temperature 35.7 C L 05/12/19 15:05 Temperature Source Tympanic 05/12/19 15:05 Pulse 68 05/12/19 15:05 Pulse Rhythm Irregular 05/12/19 08:58 Pulse 76 05/11/19 13:45 Respiratory Rate 18 05/12/19 15:05 Respiratory Effort Non-Labored 05/12/19 08:58 Respiratory Depth Normal 05/12/19 08:58 Respiratory Pattern Normal 05/12/19 08:58 Blood Pressure 108/73 05/12/19 15:05 Blood Pressure Mean 79 05/11/19 12:53 Blood Pressure Position Supine 05/11/19 08:43 Pulse Oximetry 91 L 05/12/19 15:05 Oxygen Delivery Method Room Air 05/12/19 15:05 Oxygen Flow Rate 0 05/12/19 15:05 Pain Level 0 05/12/19 15:05 Intake & Output 05/11/19 05/12/19 05/12/19 23:59 11:59 23:59 Intake Total 595 / 1695 20 / 345 325 / 345 Output Total 57 / 1332 957 / 957 Balance 538 / 363 -937 / -612 325 / -612 Weight 86.9 kg Intake: IV 115 / 115 20 / 345 325 / 345 Oral 480 / 1580 Output: Urine 57 / 1332 900 / 900 Post Void Residual 57 / 57 Other: Urine Color Yellow Yellow Urine Appearance Clear Clear Urine Odor Normal Normal Comment patient voided in the toilet with no hat. Pt voided imm. prior; 200ml, documented in voids. Pt voided in toilet; no hat. Urine clear and yellow. Pt denies sx. Stool Occult Blood Negative Stool Size Small Stool Characteristics Brown Black Emesis Description None Voiding Methods Toilet Urinal Toilet Laboratory Results WBC 8.26 k/cumm (4.4-10.8) 05/12/19 06:45 RBC 4.07 m/cumm (4.50-6.00) L 05/12/19 06:45 Hgb 12.8 g/dL (13.5-17.5) L 05/12/19 06:45 Hct 39.6 % (40.0-50.0) L 05/12/19 06:45 MCV 97.3 fL (80-95) H 05/12/19 06:45 MCH 31.4 pg (27.0-33.0) 05/12/19 06:45 MCHC 32.3 g/dL (32.0-36.0) 05/12/19 06:45 RDW 12.8 % (11.8-14.1) 05/12/19 06:45 Plt Count 234 x1000/uL (130-400) 05/12/19 06:45 MPV 9.6 fL (8.0-11.0) 05/12/19 06:45 Immature Gran % 0.1 05/12/19 06:45 Neutrophils % 70.3 05/12/19 06:45 Lymphocytes % 18.5 05/12/19 06:45 Monocytes % 8.6 05/12/19 06:45 Eosinophils % 2.1 05/12/19 06:45 Basophils % 0.4 05/12/19 06:45 Absolute Neutrophils 5.81 k/cumm (1.2-6.7) 05/12/19 06:45 Absolute Lymphocytes 1.53 k/cumm (1.2-3.4) 05/12/19 06:45 Absolute Monocytes 0.71 k/cumm (0.11-0.7) H 05/12/19 06:45 Absolute Eosinophils 0.17 k/cumm (0.0-0.7) 05/12/19 06:45 Absolute Basophils 0.03 k/cumm (0.0-0.2) 05/12/19 06:45 PT 11.4 sec (9.3-11.0) H 05/12/19 06:45 INR 1.1 (0.9-1.1) 05/12/19 06:45 Sodium 140 mmol/L (136-145) 05/12/19 06:45 Potassium 3.6 mmol/L (3.5-5.1) 05/12/19 06:45 Chloride 104 mmol/L (98-107) 05/12/19 06:45 Carbon Dioxide 26.5 mmol/L (21.0-32.0) 05/12/19 06:45 Anion Gap 9.5 mmol/L (3-11) 05/12/19 06:45 BUN 42 mg/dL (7-18) H 05/12/19 06:45 Creatinine 1.82 mg/dL (0.70-1.30) H 05/12/19 06:45 Estimated GFR/1.73 m2 36.30 (mL/min/1.73m2) 05/12/19 06:45 Glucose 121 mg/dL (70-100) H 05/12/19 06:45 Uric Acid 12.6 mg/dL (3.5-7.2) H 05/12/19 06:45 Calcium 8.9 mg/dL (8.5-10.1) 05/12/19 06:45 Magnesium 2.0 mg/dL (1.8-2.4) 05/12/19 06:45 Total Bilirubin 0.5 mg/dL (0.2-1.0) 05/11/19 06:20 AST 20 U/L (15-37) 05/11/19 06:20 ALT 14 U/L (12-78) 05/11/19 06:20 Alkaline Phosphatase 73 U/L (46-116) 05/11/19 06:20 Troponin I 0.02 ng/mL (0.00-0.06) 05/10/19 10:27 NT-Pro-B Natriuret Pep 2165 pg/mL (-299) H 05/10/19 10:27 Total Protein 6.3 g/dL (6.4-8.2) L 05/11/19 06:20 Albumin 2.9 g/dL (3.4-5.0) L 05/11/19 06:20 Patient ABO/Rh A Positive 05/10/19 10:27 Antibody Screen Negative 05/10/19 10:27
[2019-05-12] MEDS: predniSONE 20 MG TAB 40 MG PO (16:01)
[2019-05-12] MEDS: Pantoprazole 40 MG TABCR PO (20:56)
[2019-05-12] MEDS: Atorvastatin 10 MG TAB PO (20:56)
[2019-05-12] MEDS: Donepezil 5 MG TAB 10 MG PO (20:56)
[2019-05-13 00:43] VITALS: BP 124/64; PULSE 92; RESP 16; TEMP 36.4; O2SAT 96
[2019-05-13 00:46] VITALS: RESP 11; RESP 4
[2019-05-13] MEDS: Albuterol/Ipratropium 3 ML UPD VIAL UPD ×2 (00:46→05:47)
[2019-05-13 01:16] VITALS: RESP 11; RESP 4
[2019-05-13 04:15] VITALS: BP 155/78; PULSE 63; RESP 18; TEMP 36.4; O2SAT 95
--- NOTE | 2019-05-13 07:29 | W.PM.PROGNOT ---
Documented by User: NIALL Wallis 05/13/19 07:34 Date of Service Date of service: 05/13/19 Time of Service: 07:29 Assessment and Plan (1) Chronic diarrhea: Current visit: Yes Status: Chronic Pending Referral for capsule endoscopy and possible colonoscopy at [facility] [facility] for further evaluation for possible GI bleed. Mr. Solorzano is feeling well today. No abdominal complaints. DIET- Tolerating normal diet. Activity- Up and ambulating independently. Subjective Interval history since last seen: I am feeing really good today. I can walk on my ankle today without any problem. My BMs are becoming less black and more brown in color. Denies any abdominal pain, fevers, chills, nausea or vomiting. Exam Const General: cooperative, healthy appearing and comfortable Orientation: alert and oriented x3 Resp Effort & Inspection: normal respiratory effort, no audible wheezes and no cough GI Inspection: normal to inspection and non-distended Palpation: soft, no guarding and nontender Auscultation: normal bowel sounds Objective Objective Clinical Data: Abnormal lab results 05/12/19 05/12/19 05/12/19 Range/Units 06:45 06:45 06:45 PT 11.4 H (9.3-11.0) sec BUN 42 H (7-18) mg/dL Creatinine 1.82 H (0.70-1.30) mg/dL Glucose 121 H (70-100) mg/dL Uric Acid 12.6 H (3.5-7.2) mg/dL Vital Signs Temperature 36.4 C L 05/13/19 04:15 Temperature Source Temporal Artery Scan 05/13/19 04:15 Pulse 63 05/13/19 04:15 Pulse Rhythm Irregular 05/12/19 23:25 Pulse 76 05/11/19 13:45 Respiratory Rate 18 05/13/19 04:15 Respiratory Effort Non-Labored 05/12/19 23:25 Respiratory Depth Normal 05/12/19 23:25 Respiratory Pattern Normal 05/12/19 23:25 Blood Pressure 155/78 H 05/13/19 04:15 Blood Pressure Mean 79 05/11/19 12:53 Blood Pressure Position Supine 05/11/19 08:43 Pulse Oximetry 95 05/13/19 04:15 Oxygen Delivery Method Room Air 05/13/19 04:15 Oxygen Flow Rate 0 05/13/19 04:15 Pain Level 0 05/12/19 15:05 Intake & Output 05/12/19 05/13/19 05/13/19 18:59 06:59 18:59 Intake Total 1121.667 / 1661.667 540 / 1661.667 Output Total 200 / 200 Balance 921.667 / 1461.667 540 / 1461.667 Weight 90.8 kg Intake: IV 641.667 / 641.667 Oral 480 / 1020 540 / 1020 Output: Urine 200 / 200 Other: Urine Color Yellow Urine Appearance Clear Urine Odor Normal Comment Pt voided in toilet; no hat. Urine clear and yellow. Pt denies sx. Emesis Description None Voiding Methods Toilet Laboratory Results WBC 8.26 k/cumm (4.4-10.8) 05/12/19 06:45 RBC 4.07 m/cumm (4.50-6.00) L 05/12/19 06:45 Hgb 12.8 g/dL (13.5-17.5) L 05/12/19 06:45 Hct 39.6 % (40.0-50.0) L 05/12/19 06:45 MCV 97.3 fL (80-95) H 05/12/19 06:45 MCH 31.4 pg (27.0-33.0) 05/12/19 06:45 MCHC 32.3 g/dL (32.0-36.0) 05/12/19 06:45 RDW 12.8 % (11.8-14.1) 05/12/19 06:45 Plt Count 234 x1000/uL (130-400) 05/12/19 06:45 MPV 9.6 fL (8.0-11.0) 05/12/19 06:45 Immature Gran % 0.1 05/12/19 06:45 Neutrophils % 70.3 05/12/19 06:45 Lymphocytes % 18.5 05/12/19 06:45 Monocytes % 8.6 05/12/19 06:45 Eosinophils % 2.1 05/12/19 06:45 Basophils % 0.4 05/12/19 06:45 Absolute Neutrophils 5.81 k/cumm (1.2-6.7) 05/12/19 06:45 Absolute Lymphocytes 1.53 k/cumm (1.2-3.4) 05/12/19 06:45 Absolute Monocytes 0.71 k/cumm (0.11-0.7) H 05/12/19 06:45 Absolute Eosinophils 0.17 k/cumm (0.0-0.7) 05/12/19 06:45 Absolute Basophils 0.03 k/cumm (0.0-0.2) 05/12/19 06:45 PT 11.4 sec (9.3-11.0) H 05/12/19 06:45 INR 1.1 (0.9-1.1) 05/12/19 06:45 Sodium 140 mmol/L (136-145) 05/12/19 06:45 Potassium 3.6 mmol/L (3.5-5.1) 05/12/19 06:45 Chloride 104 mmol/L (98-107) 05/12/19 06:45 Carbon Dioxide 26.5 mmol/L (21.0-32.0) 05/12/19 06:45 Anion Gap 9.5 mmol/L (3-11) 05/12/19 06:45 BUN 42 mg/dL (7-18) H 05/12/19 06:45 Creatinine 1.82 mg/dL (0.70-1.30) H 05/12/19 06:45 Estimated GFR/1.73 m2 36.30 (mL/min/1.73m2) 05/12/19 06:45 Glucose 121 mg/dL (70-100) H 05/12/19 06:45 Uric Acid 12.6 mg/dL (3.5-7.2) H 05/12/19 06:45 Calcium 8.9 mg/dL (8.5-10.1) 05/12/19 06:45 Magnesium 2.0 mg/dL (1.8-2.4) 05/12/19 06:45 Total Bilirubin 0.5 mg/dL (0.2-1.0) 05/11/19 06:20 AST 20 U/L (15-37) 05/11/19 06:20 ALT 14 U/L (12-78) 05/11/19 06:20 Alkaline Phosphatase 73 U/L (46-116) 05/11/19 06:20 Troponin I 0.02 ng/mL (0.00-0.06) 05/10/19 10:27 NT-Pro-B Natriuret Pep 2165 pg/mL (-299) H 05/10/19 10:27 Total Protein 6.3 g/dL (6.4-8.2) L 05/11/19 06:20 Albumin 2.9 g/dL (3.4-5.0) L 05/11/19 06:20 Patient ABO/Rh A Positive 05/10/19 10:27 Antibody Screen Negative 05/10/19 10:27 Documented by User: Nola Gallardo DO 05/13/19 09:02 Assessment and Plan (1) GI bleed: Current visit: Yes Status: Chronic agree w/ above pt being d/c'ed today no anticoag follow hgb closely capsule endoscopy to interrogate sm bowel return if any further pain or bleeding Qualifiers: GI bleed type/associated pathology: melena Qualified Code(s): K92.1 - Melena
[2019-05-13] MEDS: Budesonide/Formoterol 160/4.5 6 GM 60 PUFF INH IH (07:58)
--- NOTE | 2019-05-13 09:42 | DSE_ITS ---
Date of service: 05/13/19 Time of Service: 09:30 DS: Diagnosis Discharge Diagnosis (1) GI bleed: Status: Chronic (2) Gout: Status: Acute (3) Chronic diarrhea: Status: Chronic (4) H/O esophagogastroduodenoscopy: Status: Chronic Discharge Plan Disposition Patient Disposition: HOME Condition: Improving Discharge Details Reason For Visit: GI BLEED Admit Date/Time: 05/10/19 12:33 Admit Provider: Deonna Williamson Attending Provider: Deonna Williamson Primary Care Provider: Angel Allan [facility] Hospital Course: Mr. Solorzano is a pleasant 78 year old male admitted on Thursday 05/10 with a 3 days history of Melena. Patient is on Eliquis for Paroxismal Afib. He was scheduled for abalation on 05/12 which was cancelled. Patient was taken of Eliquis an admitted for observation and EGD. His Hgb was stable throughout his hospitalization. He had no abdominal pain. He had darrian ECHO done on Sunday morning 05/12 prior to going for his EGD. EGD did not reveal a source of bleeding. There was mild esophagitis and biopsies were done to rule out Maldonado's. On Sunday the patients mentioned that the patient has had diarrhea for a while as well, which he did not tell me about. Although while in the hospital his BM's have been soft. On Sunday night the patient complained of left ankle swelling and pain. Uric acid was checked and was elevated. Ankle XRays did not show a fracture. (Patient had fallen 1 week prior). He was started on Prednisone 40 mg on Sunday. Sunday morning patient felt well. His ankle felt a lot better and there was minimal swelling. He was tolerating a regular diet. His BM's were getting more brown in color. I did call [facility] for further workup of his Melena with a capsule endoscopy, +/- colonoscopy. Paperwork was faxed to their office. I will have my office follow up with GI for appointment hopefully soon. Patient will be send out off the Eliquis until he is worked up further. I will have him follow up with Cardiology as well in the next 7-10 days. I will ask him to continue with Omeprazole 40 mg daily Prednisone for 3 more days for his Gout Home Meds and New Rx's Prescriptions: New prednisone 20 mg Tablet 40 mg PO DAILY Qty: 30 RF: 0 pantoprazole 40 mg Tablet,Delayed Release (Dr/Ec) 40 mg PO DAILY Qty: 30 RF: 0 Continued Symbicort 160-4.5 mcg/actuation HFA aerosol inhaler 2 puff IH BID RF: 0 Spiriva with HandiHaler 18 mcg capsule, w/inhalation device 1 cap IH DAILY Qty: 60 RF: 12 donepezil 10 mg tablet 10 mg PO QHS Qty: 90 RF: 3 terazosin 10 mg capsule 10 mg PO DAILY Qty: 90 RF: 3 diltiazem HCl 240 mg capsule,extended release 24 hr 240 mg PO DAILY RF: 0 torsemide 10 mg tablet 20 mg PO DAILY RF: 0 atorvastatin 10 mg tablet 10 mg PO HS RF: 0 Spiriva Respimat 2.5 mcg/actuation mist 1 puff IH DAILY RF: 0 acetaminophen 500 MG tablet 1,000 mg PO Q4H PRN RF: 0 Space Chamber Plus 1 EACH spacer 1 ea Miscellaneous QID Qty: 1 RF: 1 Compact Compressor Nebulizer misc .ROUTE .MEDSUPPLY Qty: 1 RF: 0 albuterol sulfate [ProAir HFA] 90 mcg/actuation HFA aerosol inhaler 2 puff Inhalation Q4H PRN Qty: 8.5 RF: 6 ipratropium-albuterol 0.5 mg-3 mg(2.5 mg base)/3 mL solution for nebulization 3 ml IH Q4H PRN (Reason: shortness of breath or wheezing) Qty: 90 RF: 12 metoprolol succinate 100 mg tablet extended release 24 hr 100 mg PO DAILY RF: 0 Discontinued omeprazole 20 mg capsule,delayed release(DR/EC) 20 mg PO DAILY Qty: 90 RF: 3 Eliquis 5 mg tablet 5 mg PO BID 90 Days Qty: 180 RF: 3 Discharge Instructions Instructions: Chronic Kidney Disease (DC), Renal Failure Diet (GEN), Gout (DC) Additional Instructions: Please start placing your medications into a weekly tracker. Please let your help you with your medications You should receive a call either from our office or from the gastroenterologists office regarding an appointment Please increase your Omeprazole to 40 mg daily Please take prednisone 40 mg daily for 3 more days for your gout. Referrals: Bessie Wilson [NURSE PRACTITIONER] - (in next 7 to 10 days) Activity:: Activity as Tolerated Equipment/Supplies:: No Equipment Needed Diet:: Renal diet Exam Resp Effort & Inspection: normal respiratory effort Auscultation: clear to auscultation bilaterally Cardio Rhythm: abnormal rhythm irregularly irregular Heart Sounds: murmur GI Inspection: normal to inspection and obesity Palpation: soft, no hepatosplenomegaly and nontender Auscultation: normal bowel sounds Extrem Left lower extremity: ankle Details: normal to inspection DS: Data Vitals/I&O Vitals and I&O: Vital Signs Temperature 97.5 F L 05/13/19 04:15 Temperature Source Temporal Artery Scan 05/13/19 04:15 Pulse 63 05/13/19 04:15 Pulse Rhythm Irregular 05/12/19 23:25 Pulse 76 05/11/19 13:45 Respiratory Rate 18 05/13/19 04:15 Respiratory Effort Non-Labored 05/12/19 23:25 Respiratory Depth Normal 05/12/19 23:25 Respiratory Pattern Normal 05/12/19 23:25 Blood Pressure 155/78 H 05/13/19 04:15 Blood Pressure Mean 79 05/11/19 12:53 Blood Pressure Position Supine 05/11/19 08:43 Pulse Oximetry 95 05/13/19 04:15 Oxygen Delivery Method Room Air 05/13/19 04:15 Oxygen Flow Rate 0 05/13/19 04:15 Pain Level 0 05/12/19 15:05 Intake & Output 05/12/19 05/12/19 05/13/19 11:59 23:59 11:59 Intake Total 20 / 9833.033 6968.667 / 1361.667 300 / 300 Output Total 957 / 957 Balance -937 / 778.600 0966.667 / 404.667 300 / 300 Weight 191 lb 9.307 oz 200 lb 2.876 oz Intake: IV 20 / 641.667 621.667 / 641.667 Oral 720 / 720 300 / 300 Output: Urine 900 / 900 Post Void Residual 57 / 57 Other: Urine Color Yellow Yellow Urine Appearance Clear Clear Urine Odor Normal Normal Comment Pt voided imm. prior; 200ml, documented in voids. Pt voided in toilet; no hat. Urine clear and yellow. Pt denies sx. 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) Hyperlipidemia (Chronic 10/23/16) Essential hypertension (Chronic 04/04/02) Chronic obstructive pulmonary disease (Chronic 04/21/14) Chronic kidney disease, stage III (moderate) (Chronic 10/21/08) Cardiac pacemaker in situ (Chronic 02/18/13) CKD (chronic kidney disease) stage 3, GFR 30-59 ml/min (Chronic 11/05/17) Chronic kidney disease, stage III (moderate) (Chronic 10/21/08) Cardiac pacemaker in situ (Chronic 02/18/13) Atrial fibrillation (Chronic 07/27/07) Anticoagulation adequate with anticoagulant therapy (Chronic 07/30/14) 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 Sister No problems noted. Sister No problems noted. Brother No problems noted. Brother No problems noted. Brother No problems noted. Social History Smoking/Tobacco Use Status: Former Tobacco Use Quit Date: 04/26/19 Quit status: considering quitting Counseling given: patient declined Alcohol Intake: current Alcohol Intake frequency: a few times a week Alcohol type: beer Drug use: Never Substance use type: does not use Adopted: No Caregiver/Support person: No Household members: spouse Housing: house Number of Children: 8 Communication Needs: Hard of Hearing and Corrective Lenses current occupation: [employer] What is your relationship status?: Panel score (0-1 are the most socially isolated patients): 1 What type of physical activity do you participate in: none Seatbelt use: always Working smoke detector in home: Yes Fire extinguisher in home: Yes Carbon monox detector in home: Yes Firearms in home: Yes Firearms unloaded and locked: Yes Do you feel safe at home: Yes
[2019-05-13] MEDS: predniSONE 20 MG TAB 40 MG PO (09:47)
[2019-05-13] MEDS: Metoprolol CR 100 MG TABCR PO (09:48)
[2019-05-13] MEDS: Pantoprazole 40 MG TABCR PO (09:48)
[2019-05-13] MEDS: Torsemide 20 MG TAB PO (09:48)
[2019-05-13] MEDS: dilTIAZem CD 120 MG CAPCR 240 MG PO (09:48)
--- NOTE | 2019-05-13 10:01 | OT.INIE ---
Occupational Therapy Notes Inpatient Occupational Therapy Evaluation Date: 05/13/19 Referring Doctor:Yahaira Gould MD OT Orders: Eval and Treat Precautions: Standard PATIENT PROFILE/ADMITTING DIAGNOSIS: Pt is an 78 year old male referred to OT services for Acute upper gastrointestinal bleeding. 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) Hyperlipidemia (Chronic 10/23/16) Essential hypertension (Chronic 04/04/02) Chronic obstructive pulmonary disease (Chronic 04/21/14) Chronic kidney disease, stage III (moderate) (Chronic 10/21/08) Cardiac pacemaker in situ (Chronic 02/18/13) CKD (chronic kidney disease) stage 3, GFR 30-59 ml/min (Chronic 11/05/17) Chronic kidney disease, stage III (moderate) (Chronic 10/21/08) Cardiac pacemaker in situ (Chronic 02/18/13) Atrial fibrillation (Chronic 07/27/07) Anticoagulation adequate with anticoagulant therapy (Chronic 07/30/14) Anemia in chronic kidney disease (Chronic 04/30/15) Surgical History Colonoscopy - MAC (03/30/14) ISCHEMIC R 4TH FINGER (07/26/86) Nasal septoplasty (05/25/87) Pacemaker (02/18/13) R ATRIAL ISTHMUS ABLATION (08/19/07) Repair of inguinal hernia (11/25/78) Repair of umbilical hernia (01/23/93) Social History/Home Situation: Pt lives in a private home with his . He states that he is functionally very (I). He has a Jacuzzi tub for bathing and a walk in shower. He is still (I) with community mobility with a valid drivers license. He notes that he does not require any (A) in terms of his ADLs/IADLs at his baseline level of function. Equipment owned/DME: grab bars SUBJECTIVE: Pt was seated in chair when OT arrived. He is agreeable to OT consult reporting that he is going home today. OBJECTIVE: General Observation: Pleasant IV in (L) UE not connected Mental Status: A&O x3 Pain: no c/o pain Vital Signs: 151/73 prior to OT session in seated position. ROM: RUE AROM WNL L UE AROM WNL STRENGTH: RUE 4+/5 throughout globally LUE 4+/5 throughout globally FUNCTIONAL MOBILITY/ADLS: Transfers (I) Sit-Stand (S) Stand-sit (I) Bed-Chair (I) Chair-bed (I) BATHING Standing at sink Bathing UE (I) Bathing LE (I) DRESSING Sitting in chair Dressing UE (I) don and doffing hospital gown Dressing LE (I) don and doffing ANTONIO stocks and (B) socks GROOMING standing at sink (I) with brushing dentures, and don and doffing dentures TOILETING on toilet (I) EATING Sitting in chair (I) BALANCE: Static sitting Normal Dynamic Sitting Normal Static Standing Normal Dynamic Standing Normal SPECIAL TESTS: Daily Activity Limitations Standardized Measure [facility] AM -PAC ?6 clicks? Daily Activity Inpatient Short Form: Raw score: 24 CMS score: 0.00% INFORMED CONSENT/EDUCATION: Pt instructed in purpose of OT Consult and plan of care. ASSESSMENT: Patient is a 78-year-old male referred to occupational therapy services with diagnosis of Acute upper gastrointestinal bleeding. Patient presents with clinical signs and symptoms consistent with dx. Pt was seen for OT consult only. He functionally was able to demonstrate complete (I) in ADLs in both standing and seated position. Pt presented with ideal functional mobility and functional activity tolerance. Due to patients current level of function OT recommends that pt return home with his with no anticipated services or DMEs. AMPAC score 24, CMS score 0.00% Patient is assessed as a Low [id number] complexity based on the following: History: See Above Examination: See Above Presentation: Evolving Decision Making: AMPAC score 24, CMS score 0.00% GOALS N/A PLAN OF CARE/TREATMENT PLAN: OT consult only. DISCHARGE RECOMMENDATIONS Home with , no services needed for ADLs/IADLs TREATMENT TIME/MINUTES/CODES 15670, [id number], 35 minutes (07:40) Yesenia Patel OTR/[facility]
--- NOTE | 2019-05-13 11:39 | PDOC.CMDIS ---
LACE Index Scoring Tool - Questions: Length of Stay (in days): 4 - 6 Acuity (Admit via E.D.?): Yes Comorbidities: Chronic Pulmonary Disease, Liver or Renal Disease E.D. Visits: 1 - Answers: Total Score: 13 Risk of Readmission: High Risk Care Management Discharge Reason for Hospitalization: melena Discharge Plan: He is being discharged home today with no additional services. He will follow-up with MD as directed. Family to transport.
== END 2019-05-13 11:24 | disposition home or self-care (01) | DRG 378 ==
LOC: ER 13:02 → ICU 05-11 03:52 → MS 05-11 12:05
PROVIDERS: Family Medicine; Internal Medicine; Admitting Provider Surgery; Emergency Provider Student in an Organized Health Care Education/Training Program; PCP Family Medicine; Visit Provider Surgery
PROC: 0DJ68ZZ Inspection of Stomach, Via Natural or Artificial Opening Endoscopic (ICD-10-PCS; CPT 43235; principal; 2019-05-12 13:30)
DX: K92.2 Gastrointestinal hemorrhage, unspecified (principal); I47.2 Ventricular tachycardia; K22.11 Ulcer of esophagus with bleeding; K22.8 Other specified diseases of esophagus; K52.9 Noninfective gastroenteritis and colitis, unspecified; M25.572 Pain in left ankle and joints of left foot; I48.0 Paroxysmal atrial fibrillation; Z79.01 Long term (current) use of anticoagulants; J44.9 Chronic obstructive pulmonary disease, unspecified; G47.33 Obstructive sleep apnea (adult) (pediatric); N18.3 Chronic kidney disease, stage 3 (moderate); I12.9 Hypertensive chronic kidney disease with stage 1 through stage 4 chronic kidney disease, or unspecified chronic kidney disease; Z95.0 Presence of cardiac pacemaker; D63.1 Anemia in chronic kidney disease; I51.7 Cardiomegaly; I08.1 Rheumatic disorders of both mitral and tricuspid valves
CPT/HCPCS: 36415; 43239; 80048; 80053; 86850; 86900; 86901; 88305; 93306; 94640; 96365; 96366; 97165; 97535; 99223; 99232; 99238; 99239; 99254; 99285; NC; 71045; 73610; 74176; 83735; 83880; 84484; 84550; 85014; 85018; 85025; 85610; 93005; 93010; 99222; 99284; J3480; J3490; J7512; J7613; J7620

== ENCOUNTER → 2019-05-22 10:32 | Outpatient (BNVA) | payer MEDICARE, SELFPAY | PROVIDERS: PCP Family Medicine; Visit Provider Internal Medicine Cardiovascular Disease | DX: I48.1 Persistent atrial fibrillation (principal); G47.33 Obstructive sleep apnea (adult) (pediatric); J44.9 Chronic obstructive pulmonary disease, unspecified; I12.9 Hypertensive chronic kidney disease with stage 1 through stage 4 chronic kidney disease, or unspecified chronic kidney disease; K92.1 Melena; N18.3 Chronic kidney disease, stage 3 (moderate); Z45.018 Encounter for adjustment and management of other part of cardiac pacemaker; R41.3 Other amnesia; R53.83 Other fatigue | CPT/HCPCS: 93280; 99215 ==

== ENCOUNTER 2019-08-16 13:35 | Emergency (ER) | payer MEDICARE, SELFPAY ==
[2019-08-16 13:41] VITALS: BP 153/96; PULSE 100; RESP 16; TEMP 36.4; O2SAT 99
--- NOTE | 2019-08-16 14:10 | W.ED.GENAD ---
Discharge Plan Disposition Patient Disposition: HOME Condition: Good Discharge Details Chief Complaint: Laceration Clinical Impression: Laceration Primary Care Provider: Angel Allan ED Provider: Jeanette Lindsey Home Meds and New Rx's Prescriptions: Continued Spiriva with HandiHaler 18 mcg capsule, w/inhalation device 1 cap IH DAILY Qty: 60 RF: 12 donepezil 10 mg tablet 10 mg PO QHS Qty: 90 RF: 3 terazosin 10 mg capsule 10 mg PO DAILY Qty: 90 RF: 3 diltiazem HCl 240 mg capsule,extended release 24 hr 240 mg PO DAILY RF: 0 torsemide 10 mg tablet 20 mg PO DAILY RF: 0 Symbicort 160-4.5 mcg/actuation HFA aerosol inhaler 2 puff IH BID Qty: 10.2 RF: 6 colchicine 0.6 mg tablet 0.6 mg PO DAILY PRN (Reason: gout) Qty: 30 RF: 1 diclofenac sodium [Voltaren] 1 % gel 4 gm TP QID Qty: 100 RF: 3 montelukast 10 mg tablet 10 mg PO DAILY Qty: 90 RF: 0 prednisone 20 mg tablet See Rx Instructions PO DAILY Qty: 24 RF: 0 azithromycin 250 mg tablet See Rx Instructions PO .COMPLEX Qty: 6 RF: 0 acetaminophen 500 MG tablet 1,000 mg PO Q4H PRN RF: 0 (DME) Space Chamber Plus 1 EACH spacer 1 ea Miscellaneous QID Qty: 1 RF: 1 ipratropium-albuterol 0.5 mg-3 mg(2.5 mg base)/3 mL solution for nebulization 3 ml IH Q4H PRN (Reason: shortness of breath or wheezing) Qty: 90 RF: 12 atorvastatin 10 mg tablet 10 mg PO HS Qty: 90 RF: 3 pantoprazole 40 mg tablet,delayed release (DR/EC) 40 mg PO DAILY Qty: 30 RF: 6 albuterol sulfate [ProAir HFA] 90 mcg/actuation HFA aerosol inhaler 2 puff Inhalation Q4H PRN Qty: 18 RF: 6 Eliquis 5 mg Tablet 5 mg PO BID RF: 0 metoprolol succinate 100 mg tablet extended release 24 hr 100 mg PO DAILY RF: 0 No Action celecoxib 200 mg capsule 200 mg PO DAILY Qty: 30 RF: 0 Discharge Instructions Instructions: Laceration (ED) Additional Instructions: Keep wound clean, dry, covered. Monitor for signs of infection including redness, warmth, drainage, increased pain, fever/chills. Develop these or other new/worsening symptoms please seek care urgently once again. Otherwise, please current dressing on for the next 24 hours and then covered with a nonadhesive dressing. Please return in 10 days for suture removal. Referrals: Angel Allan DO [Primary Care Provider] - Discharge Data Discharge Date/Time-TO BE ENTERED AT DEPARTURE: 08/16/19 15:07 Medical Decision Making Patient is a 78-year-old male presents today with chief complaint of left forearm laceration. Reports that L he was cutting mcdonald with a pair of scissors when he slipped and cut the proximal forearm. Patient is a 5 cm wound and subcutaneous tissue. No active bleeding. Tetanus is up-to-date. Denies any altered sensation. No other injury the time of the incident. Patient I discussed risk/benefits of suture closure. He voiced understanding and wished to proceed. Please see procedure note. This is completed using standard sterile technique. Wound was explored to base in a bloodless field. No foreign body or debris was noted. Patient tolerated the procedure well. We discussed wound care in depth. We discussed signs symptoms of infection when to seek care urgently once again. Have advised a nonadhesive dressing over the wound. Advised that he return for suture removal. All of his questions and concerns were addressed and he is in agreement this plan peer [facility] General Mode of arrival: ambulatory. Date/Time Provider Initiated Documentation: 08/16/19 14:09. Limitations to Documentation: no limitations. Information obtained by: patient and RN notes reviewed. History of Present Illness 78 year old M presents to the emergency department with the chief complaint of left forearm laceration, described as moderate, with intensity rated at 7. Quality is described as aching, and is localized to the left and upper extremity. Patient reports no radiation. Patient started experiencing this minute(s) and it has been constant. No relieving factors improve symptom(s), No exacerbating factors reported . Patient notes no other symptoms.. Patient did receive the following treatments prior to arrival, none Related Data Home Medications Medication Instructions Recorded Confirmed acetaminophen 1,000 mg PO Q4H PRN tab-cap 07/10/14 08/18/19 Space Chamber Plus #1 12/28/14 08/18/19 tiotropium bromide 18 mcg capsule 1 cap IH DAILY #60 inh 01/10/19 08/18/19 with inhalation device diltiazem HCl 240 mg capsule,24 240 mg PO DAILY cap 04/01/19 08/18/19 hr,extended release terazosin 10 mg capsule 10 mg PO DAILY #90 tab-cap 04/01/19 08/18/19 torsemide 10 mg tablet 20 mg PO DAILY tab-cap 04/01/19 08/18/19 donepezil 10 mg tablet 10 mg PO QHS #90 tab 04/07/19 08/18/19 ipratropium-albuterol 0.5 mg-3 3 ml IH Q4H PRN #90 ml 04/24/19 08/18/19 mg(2.5 mg base)/3 mL nebulization soln metoprolol succinate 100 mg PO DAILY 05/10/19 08/18/19 atorvastatin 10 mg tablet 10 mg PO HS #90 tab 05/13/19 08/18/19 diclofenac sodium 1 % topical gel 4 gm TP QID #100 gm 05/28/19 08/18/19 pantoprazole 40 mg tablet,delayed 40 mg PO DAILY #30 tab 06/02/19 08/18/19 release albuterol sulfate 90 mcg/actuation 2 puff INHALATION Q4H PRN #18 gm 06/19/19 08/18/19 aerosol inhaler budesonide-formoterol HFA 160 2 puff IH BID #10.2 gm 07/07/19 08/18/19 mcg-4.5 mcg/actuation aerosol inhaler colchicine 0.6 mg tablet 0.6 mg PO DAILY PRN #30 tab 07/07/19 08/18/19 montelukast 10 mg tablet 10 mg PO DAILY #90 tab-cap 07/16/19 08/18/19 azithromycin 250 mg tablet See Rx Instructions PO .COMPLEX #6 08/07/19 08/18/19 tab prednisone 20 mg tablet See Rx Instructions PO DAILY #24 08/07/19 08/18/19 tab Eliquis 5 mg PO BID 08/16/19 08/18/19 celecoxib 200 mg capsule 200 mg PO DAILY #30 cap 08/18/19 08/18/19 Previous Rx's Medication Instructions Recorded tiotropium bromide 18 mcg capsule 1 cap IH DAILY #60 inh 01/10/19 with inhalation device terazosin 10 mg capsule 10 mg PO DAILY #90 tab-cap 04/01/19 donepezil 10 mg tablet 10 mg PO QHS #90 tab 04/07/19 ipratropium-albuterol 0.5 mg-3 3 ml IH Q4H PRN #90 ml 04/24/19 mg(2.5 mg base)/3 mL nebulization soln atorvastatin 10 mg tablet 10 mg PO HS #90 tab 05/13/19 diclofenac sodium 1 % topical gel 4 gm TP QID #100 gm 05/28/19 pantoprazole 40 mg tablet,delayed 40 mg PO DAILY #30 tab 06/02/19 release albuterol sulfate 90 mcg/actuation 2 puff INHALATION Q4H PRN #18 gm 06/19/19 aerosol inhaler budesonide-formoterol HFA 160 2 puff IH BID #10.2 gm 07/07/19 mcg-4.5 mcg/actuation aerosol inhaler colchicine 0.6 mg tablet 0.6 mg PO DAILY PRN #30 tab 07/07/19 montelukast 10 mg tablet 10 mg PO DAILY #90 tab-cap 07/16/19 azithromycin 250 mg tablet See Rx Instructions PO .COMPLEX #6 08/07/19 tab prednisone 20 mg tablet See Rx Instructions PO DAILY #24 08/07/19 tab celecoxib 200 mg capsule 200 mg PO DAILY #30 cap 08/18/19 Allergies Allergy/AdvReac Type Severity Reaction Status Date / Time MANSI Inhibitors AdvReac Intermediate HYPERKALEMIA Verified 08/18/19 14:03 5.9, 04/11/16 ARB-Angiotensin Receptor AdvReac Intermediate HYPERKALEMIA Verified 08/18/19 14:03 Antagonist 5.9, 04/11/16 General Stated Complaint: Laceration BUNNY: 4 Review of Systems Constitutional Constitutional: Reports as per HPI, Denies chills and Denies fever(s) Musculoskeletal Musculoskeletal: Reports as per HPI Integumentary/Breasts Skin/Breast: Reports as per HPI Neurologic Neurologic: Reports as per HPI, Denies sensory deficit and Denies paresthesias PFSH Medical History Anemia in chronic kidney disease (Chronic 04/30/15) Anticoagulation adequate with anticoagulant therapy (Chronic 07/30/14) Apixaban per cardiology, 07/2014, for A Fib, CHADs2 score 2, stroke risk 2.8%; Apixaban RX Atrial fibrillation (Chronic 07/27/07) DR GARCÍA pacer 01/2013 for BRADYCARDIA; S/P Atrial flutter [facility] [place] 07/2007 Cardiac pacemaker in situ (Chronic 02/18/13) CV, DR GARCÍA Cardiac pacemaker in situ (Chronic 02/18/13) CV, DR GARCÍA Chronic kidney disease, stage III (moderate) (Chronic 10/21/08) LIKELY DUE TO BP; EST GFR 42 (12/2012); HYPERKALEMIC PROBLEMS Chronic kidney disease, stage III (moderate) (Chronic 10/21/08) LIKELY DUE TO BP; EST GFR 42 (12/2012); HYPERKALEMIC PROBLEMS Chronic obstructive pulmonary disease (Chronic 04/21/14) not reversible on PFT. 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 De 06/20/16; CPAP used for a few month in 2015, NYA untreated since then. Social History Smoking/Tobacco Use Status: Current-Occasional Tobacco Type: cigarettes Tobacco: How many years used: 45 Quit status: considering quitting Counseling given: patient declined Alcohol Intake: current Alcohol Intake frequency: a few times a week Alcohol type: beer Drug use: Never Substance use type: does not use Adopted: No Caregiver/Support person: No Household members: spouse Housing: house Number of Children: 8 Communication Needs: Hard of Hearing and Corrective Lenses current occupation: [employer] What is your relationship status?: Panel score (0-1 are the most socially isolated patients): 1 What type of physical activity do you participate in: none Seatbelt use: always Working smoke detector in home: Yes Fire extinguisher in home: Yes Carbon monox detector in home: Yes Firearms in home: Yes Firearms unloaded and locked: Yes Do you feel safe at home: Yes Exam Const General: cooperative, healthy appearing, comfortable, no acute distress and well developed Nutritional Appearance: average body habitus and well nourished Orientation: alert and awake Resp Effort & Inspection: normal respiratory effort, able to speak in complete sentences and no respiratory distress Cardio Rate: regular rate Rhythm: regular rhythm Skin Trauma: laceration (5cm curvilinear laceration into subQ tissue, no active bleeding) Neuro General: alert and awake Cognition: normal cognition Speech: speech normal Gait: normal gait Sensory Exam: no sensory deficits noted Extrem Left upper extremity: full ROM, normal capillary refill, no joint enlargement, elbow/forearm Details: tenderness (around laceration), normal ROM, laceration and distal pulses intact; no swelling, no unusual warmth, no ecchymosis, no crepitus, no penetrating wound and no deformity and wrist Details: normal to inspection, normal ROM and normal vascular exam; no tenderness and no swelling; abnormal to inspection (laceration as above) Psych Appearance: grossly normal and well kempt Mental Status: mental status grossly normal Speech and Movement: speech and movement normal Course Vital Signs Vital signs: Vital Signs Temperature 36.4 C L 08/16/19 13:41 Pulse 100 H 08/16/19 13:41 Respiratory Rate 16 08/16/19 13:41 Blood Pressure 153/96 H 08/16/19 13:41 Pulse Oximetry 99 08/16/19 13:41 Temperature 36.4 C L 08/16/19 13:41 Temperature Source Skin 08/16/19 13:41 Pulse 100 H 08/16/19 13:41 Respiratory Rate 16 08/16/19 13:41 Respiratory Effort Non-Labored 08/16/19 13:41 Blood Pressure 153/96 H 08/16/19 13:41 Blood Pressure Position Sitting 08/16/19 13:41 Pulse Oximetry 99 08/16/19 13:41 Oxygen Delivery Method Room Air 08/16/19 13:41 Oxygen Flow Rate 0 08/16/19 13:41 Pain Level 7 08/16/19 13:41 Procedures Laceration Laceration 1: Site: upper extremity Side (If applicable): left Size (cm): 5 Description: linear Depth: simple, single layer Local Anesthetic: Lidocaine 1% Amount of anesthesia used (mL): 5 Pre-repair: wound explored, irrigated extensively, deep structures intact and wound margins revised Skin layer closed with: nylon Size (cm): 5-0 Number of sutures: 5 Technique: simple, interrupted
[2019-08-16 14:50] VITALS: O2SAT 99
== END 2019-08-16 15:07 | disposition home or self-care (01) ==
PROVIDERS: Emergency Provider Physician Assistant; PCP Family Medicine
DX: S51.812A Laceration without foreign body of left forearm, initial encounter (principal); I48.91 Unspecified atrial fibrillation; W27.2XXA Contact with scissors, initial encounter; N18.3 Chronic kidney disease, stage 3 (moderate); I12.9 Hypertensive chronic kidney disease with stage 1 through stage 4 chronic kidney disease, or unspecified chronic kidney disease; Z79.01 Long term (current) use of anticoagulants; F17.210 Nicotine dependence, cigarettes, uncomplicated; J44.9 Chronic obstructive pulmonary disease, unspecified
CPT/HCPCS: 12002

== ENCOUNTER 2019-08-18 14:55 | Outpatient (CLI) | payer MEDICARE, SELFPAY ==
[2019-08-18 15:51] LABS: ESR 16 mm/hr (1-20)
[2019-08-18 16:48] LABS: C-Reactive Protein 1.58 mg/dL (0.0-0.3)
[2019-08-19 12:10] LABS: Lyme Ab w Rflx to Lyme Confirm Negative
[2019-08-19 12:12] LABS: Cyclic Citrullinated Peptide <2.5 U/mL (<5.0)
[2019-08-19 21:17] LABS: Anaplasma phagocytophilum Negative (Negative); B. miyamotoi PCR Negative (Negative); Babesia divergens/MO-1 Negative (Negative); Babesia duncani Negative (Negative); Babesia microti Negative (Negative); Ehrlichia chaffeensis Negative (Negative); Ehrlichia ewingii/canis Negative (Negative); Ehrlichia muris eauclairensis Negative (Negative)
== END 2019-08-18 15:15 ==
PROVIDERS: PCP Family Medicine; Visit Provider Family Medicine
DX: M13.0 Polyarthritis, unspecified (principal)
CPT/HCPCS: 36415; 85652; 86200; 87798; 86140; 86618

== ENCOUNTER 2019-08-26 14:51 | Emergency (ER) | payer MEDICARE, SELFPAY ==
[2019-08-26 14:53] VITALS: BP 195/89; PULSE 98; TEMP 36.7; O2SAT 98
--- NOTE | 2019-08-26 15:06 | W.ED.GENAD ---
Discharge Plan Disposition Patient Disposition: HOME Condition: Good Discharge Details Chief Complaint: SutureRem Clinical Impression: Visit for suture removal Primary Care Provider: Angel Allan ED Provider: Eloise Loera Home Meds and New Rx's Prescriptions: No Action Spiriva with HandiHaler 18 mcg capsule, w/inhalation device 1 cap IH DAILY Qty: 60 RF: 12 donepezil 10 mg tablet 10 mg PO QHS Qty: 90 RF: 3 terazosin 10 mg capsule 10 mg PO DAILY Qty: 90 RF: 3 diltiazem HCl 240 mg capsule,extended release 24 hr 240 mg PO DAILY RF: 0 torsemide 10 mg tablet 20 mg PO DAILY RF: 0 Symbicort 160-4.5 mcg/actuation HFA aerosol inhaler 2 puff IH BID Qty: 10.2 RF: 6 colchicine 0.6 mg tablet 0.6 mg PO DAILY PRN (Reason: gout) Qty: 30 RF: 1 diclofenac sodium [Voltaren] 1 % gel 4 gm TP QID Qty: 100 RF: 3 celecoxib 200 mg capsule 200 mg PO DAILY Qty: 30 RF: 0 prednisone 20 mg tablet 20 mg PO DAILY Qty: 7 RF: 0 furosemide 40 mg tablet 40 mg PO QAM Qty: 7 RF: 0 montelukast 10 mg tablet 10 mg PO DAILY Qty: 90 RF: 0 azithromycin 250 mg tablet See Rx Instructions PO .COMPLEX Qty: 6 RF: 0 acetaminophen 500 MG tablet 1,000 mg PO Q4H PRN RF: 0 (DME) Space Chamber Plus 1 EACH spacer 1 ea Miscellaneous QID Qty: 1 RF: 1 ipratropium-albuterol 0.5 mg-3 mg(2.5 mg base)/3 mL solution for nebulization 3 ml IH Q4H PRN (Reason: shortness of breath or wheezing) Qty: 90 RF: 12 atorvastatin 10 mg tablet 10 mg PO HS Qty: 90 RF: 3 pantoprazole 40 mg tablet,delayed release (DR/EC) 40 mg PO DAILY Qty: 30 RF: 6 albuterol sulfate [ProAir HFA] 90 mcg/actuation HFA aerosol inhaler 2 puff Inhalation Q4H PRN Qty: 18 RF: 6 Eliquis 5 mg Tablet 5 mg PO BID RF: 0 metoprolol succinate 100 mg tablet extended release 24 hr 100 mg PO DAILY RF: 0 Discharge Instructions Instructions: Stitches Removal (ED) Additional Instructions: Wash area with soap and water once or twice daily. Pat dry completely. Apply topical antibiotic ointment to the wound. Keep covered for the next few days changing dressing daily. Observe for any signs of infection as discussed. Return for any signs of infection, concerns, pain or if needed sooner Medical Decision Making Patient presents for suture removal encounter. Sutures in place for approximately 10 to 12 days per his report. No signs of infection. Sutures removed by nurse. No sign of complication. Prior to discharge, my usual and customary return precautions were reviewed with the patient - this included follow-up instructions and reasons to return to the Emergency Department if conditions worsens, does not improve as expected, or other new concerns arise. HPI General Date/Time Provider Initiated Documentation: 08/26/19 14:59. HPI Narrative: Patient presents for encounter for suture removal. Patient reports no concerns of pain or swelling. Sutures in place for 10 to 12 days. No concerns of infection at this time per the patient. No pain or irritation at site. Related Data Home Medications Medication Instructions Recorded Confirmed acetaminophen 1,000 mg PO Q4H PRN tab-cap 07/10/14 08/26/19 Space Chamber Plus #1 12/28/14 08/26/19 tiotropium bromide 18 mcg capsule 1 cap IH DAILY #60 inh 01/10/19 08/26/19 with inhalation device diltiazem HCl 240 mg capsule,24 240 mg PO DAILY cap 04/01/19 08/26/19 hr,extended release terazosin 10 mg capsule 10 mg PO DAILY #90 tab-cap 04/01/19 08/26/19 torsemide 10 mg tablet 20 mg PO DAILY tab-cap 04/01/19 08/26/19 donepezil 10 mg tablet 10 mg PO QHS #90 tab 04/07/19 08/26/19 ipratropium-albuterol 0.5 mg-3 3 ml IH Q4H PRN #90 ml 04/24/19 08/26/19 mg(2.5 mg base)/3 mL nebulization soln metoprolol succinate 100 mg PO DAILY 05/10/19 08/26/19 atorvastatin 10 mg tablet 10 mg PO HS #90 tab 05/13/19 08/26/19 diclofenac sodium 1 % topical gel 4 gm TP QID #100 gm 05/28/19 08/26/19 pantoprazole 40 mg tablet,delayed 40 mg PO DAILY #30 tab 06/02/19 08/26/19 release albuterol sulfate 90 mcg/actuation 2 puff INHALATION Q4H PRN #18 gm 06/19/19 08/26/19 aerosol inhaler budesonide-formoterol HFA 160 2 puff IH BID #10.2 gm 07/07/19 08/26/19 mcg-4.5 mcg/actuation aerosol inhaler colchicine 0.6 mg tablet 0.6 mg PO DAILY PRN #30 tab 07/07/19 08/26/19 montelukast 10 mg tablet 10 mg PO DAILY #90 tab-cap 07/16/19 08/26/19 azithromycin 250 mg tablet See Rx Instructions PO .COMPLEX #6 08/07/19 08/26/19 tab Eliquis 5 mg PO BID 08/16/19 08/26/19 celecoxib 200 mg capsule 200 mg PO DAILY #30 cap 08/18/19 08/26/19 furosemide 40 mg tablet 40 mg PO QAM #7 tab 08/26/19 08/26/19 prednisone 20 mg tablet 20 mg PO DAILY #7 tab 08/26/19 08/26/19 Previous Rx's Medication Instructions Recorded tiotropium bromide 18 mcg capsule 1 cap IH DAILY #60 inh 01/10/19 with inhalation device terazosin 10 mg capsule 10 mg PO DAILY #90 tab-cap 04/01/19 donepezil 10 mg tablet 10 mg PO QHS #90 tab 04/07/19 ipratropium-albuterol 0.5 mg-3 3 ml IH Q4H PRN #90 ml 04/24/19 mg(2.5 mg base)/3 mL nebulization soln atorvastatin 10 mg tablet 10 mg PO HS #90 tab 05/13/19 diclofenac sodium 1 % topical gel 4 gm TP QID #100 gm 05/28/19 pantoprazole 40 mg tablet,delayed 40 mg PO DAILY #30 tab 06/02/19 release albuterol sulfate 90 mcg/actuation 2 puff INHALATION Q4H PRN #18 gm 06/19/19 aerosol inhaler budesonide-formoterol HFA 160 2 puff IH BID #10.2 gm 07/07/19 mcg-4.5 mcg/actuation aerosol inhaler colchicine 0.6 mg tablet 0.6 mg PO DAILY PRN #30 tab 07/07/19 montelukast 10 mg tablet 10 mg PO DAILY #90 tab-cap 07/16/19 azithromycin 250 mg tablet See Rx Instructions PO .COMPLEX #6 08/07/19 tab celecoxib 200 mg capsule 200 mg PO DAILY #30 cap 08/18/19 furosemide 40 mg tablet 40 mg PO QAM #7 tab 08/26/19 prednisone 20 mg tablet 20 mg PO DAILY #7 tab 08/26/19 Allergies Allergy/AdvReac Type Severity Reaction Status Date / Time MANSI Inhibitors AdvReac Intermediate HYPERKALEMIA Verified 08/18/19 14:03 5.9, 04/11/16 ARB-Angiotensin Receptor AdvReac Intermediate HYPERKALEMIA Verified 08/18/19 14:03 Antagonist 5.9, 04/11/16 General Stated Complaint: SutureRem BUNNY: 5 Review of Systems Review of Systems ROS Unobtainable: All systems reviewed & are unremarkable except as noted in HPI and below Musculoskeletal Musculoskeletal: Denies numbness and Denies tingling Integumentary/Breasts Skin/Breast: Denies erythema, Denies skin pain and Denies skin swelling Neurologic Neurologic: Denies numbness and Denies tingling [facility] Medical History Anemia in chronic kidney disease (Chronic 04/30/15) Anticoagulation adequate with anticoagulant therapy (Chronic 07/30/14) Apixaban per cardiology, 07/2014, for A Fib, CHADs2 score 2, stroke risk 2.8%; Apixaban RX Atrial fibrillation (Chronic 07/27/07) DR GARCÍA pacer 01/2013 for BRADYCARDIA; S/P Atrial flutter [facility] [place] 07/2007 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 De 06/20/16; CPAP used for a few month in 2015, NYA untreated since then. Social History Smoking/Tobacco Use Status: Current-Occasional Tobacco Type: cigarettes Tobacco: How many years used: 45 Quit status: considering quitting Counseling given: patient declined Alcohol Intake: current Alcohol Intake frequency: a few times a week Alcohol type: beer Drug use: Never Substance use type: does not use Adopted: No Caregiver/Support person: No Household members: spouse Housing: house Number of Children: 8 Communication Needs: Hard of Hearing and Corrective Lenses current occupation: [employer] What is your relationship status?: Panel score (0-1 are the most socially isolated patients): 1 What type of physical activity do you participate in: none Seatbelt use: always Working smoke detector in home: Yes Fire extinguisher in home: Yes Carbon monox detector in home: Yes Firearms in home: Yes Firearms unloaded and locked: Yes Do you feel safe at home: Yes Do you feel safe in your relationship?: Yes Exam Narrative Exam Narrative: CONST: Healthy appearing patient, in no acute distress. Well hydrated. Alert and alert. HENMT: Head nomocephalic, normal to inspection. Atraumatic. Hearing grossly normal. Musculoskeletal; full range of motion of wrist and hand. SKIN: Normal. Dry. No rashes. No retained sutures at site of wound. No laxity to the wound edges. No sign of infection at the left forearm at site of previous sutures. NEURO: Alert and awake. Speech clear. PSYCH: Normal affect. Cooperative. Course Vital Signs Vital signs: Vital Signs Temperature 36.7 C 08/26/19 14:53 Pulse 98 H 08/26/19 14:53 Blood Pressure 195/89 H 08/26/19 14:53 Pulse Oximetry 98 08/26/19 14:53 Temperature 36.7 C 08/26/19 14:53 Temperature Source Oral 08/26/19 14:53 Pulse 98 H 08/26/19 14:53 Respiratory Effort Non-Labored 08/26/19 14:55 Blood Pressure 195/89 H 08/26/19 14:53 Blood Pressure Position Sitting 08/26/19 14:53 Pulse Oximetry 98 08/26/19 14:53 Oxygen Delivery Method Room Air 08/26/19 14:53 Oxygen Flow Rate 0 08/26/19 14:53
== END 2019-08-26 15:12 | disposition home or self-care (01) ==
PROVIDERS: Emergency Provider Physician Assistant; PCP Family Medicine
DX: S51.812D Laceration without foreign body of left forearm, subsequent encounter (principal); Z48.02 Encounter for removal of sutures; N18.3 Chronic kidney disease, stage 3 (moderate); I12.9 Hypertensive chronic kidney disease with stage 1 through stage 4 chronic kidney disease, or unspecified chronic kidney disease

== ENCOUNTER 2019-09-13 10:35 | Emergency (ER) | payer MEDICARE, SELFPAY ==
[2019-09-13 10:39] VITALS: BP 157/97; PULSE 91; RESP 16; TEMP 36.5; O2SAT 95
--- NOTE | 2019-09-13 10:50 | W.ED.GENAD ---
Discharge Plan Disposition Patient Disposition: HOME Condition: Stable Discharge Details Chief Complaint: Cellulitis Clinical Impression: Cellulitis of foot, right Primary Care Provider: Angel Allan ED Provider: Mario Sawyer [place] Meds and New Rx's Prescriptions: New amoxicillin-pot clavulanate [Augmentin] 875-125 mg tablet 1 tab PO BID Qty: 14 RF: 0 prednisone 20 mg tablet 60 mg PO DAILY Qty: 15 RF: 0 Continued donepezil 10 mg tablet 10 mg PO QHS Qty: 90 RF: 3 terazosin 10 mg capsule 10 mg PO DAILY Qty: 90 RF: 3 diltiazem HCl 240 mg capsule,extended release 24 hr 240 mg PO DAILY RF: 0 torsemide 10 mg tablet 20 mg PO DAILY RF: 0 colchicine 0.6 mg tablet 0.6 mg PO DAILY PRN (Reason: gout) Qty: 30 RF: 1 diclofenac sodium [Voltaren] 1 % gel 4 gm TP QID Qty: 100 RF: 3 prednisone 20 mg tablet 20 mg PO DAILY Qty: 7 RF: 0 furosemide 40 mg tablet 40 mg PO QAM Qty: 7 RF: 0 montelukast 10 mg tablet 10 mg PO DAILY Qty: 90 RF: 0 celecoxib 200 mg capsule 200 mg PO DAILY Qty: 30 RF: 3 acetaminophen 500 MG tablet 1,000 mg PO Q4H PRN RF: 0 (DME) Space Chamber Plus 1 EACH spacer 1 ea Miscellaneous QID Qty: 1 RF: 1 ipratropium-albuterol 0.5 mg-3 mg(2.5 mg base)/3 mL solution for nebulization 3 ml IH Q4H PRN (Reason: shortness of breath or wheezing) Qty: 90 RF: 12 atorvastatin 10 mg tablet 10 mg PO HS Qty: 90 RF: 3 pantoprazole 40 mg tablet,delayed release (DR/EC) 40 mg PO DAILY Qty: 30 RF: 6 levalbuterol tartrate [Xopenex HFA] 45 mcg/actuation HFA aerosol inhaler 2 inh IH Q6H PRN (Reason: shortness of breath) RF: 0 levalbuterol HCl [Xopenex] 1.25 mg/3 mL solution for nebulization 1.25 mg IH Q8H PRN (Reason: shortness of breath or wheezing) RF: 0 Trelegy Ellipta 100-62.5-25 mcg blister with device 1 inh IH DAILY RF: 0 Eliquis 5 mg Tablet 5 mg PO BID RF: 0 metoprolol succinate 100 mg tablet extended release 24 hr 100 mg PO DAILY RF: 0 Discharge Instructions Instructions: Cellulitis (ED) Additional Instructions: have your primary care provider within 1 week if you have severe worsening of pain, the redness spreads up the leg or you have fevers return to the emergency department for reevaluation Medical Decision Making 79 yo male comes in with right foot/ankle rash. He states he has had a wound on the lateral aspect of the ankle he thinks is from the boot he wears rubbing against it. He has had redness for a few days without significant pain or fevers. he has a 1cm area on the lateral malleolus of skin breakdown with 4cm surrounding erythema that is not warm to touch and is nontender without crepitus. Has full rom of the ankle and foot so doubt septic joint. Will tx as cellulitis and also steroids given lack of significant warmth feel it could be a dermatitis. Will have him f/u with pcp and return if worsening Differential Diagnosis Differential Diagnosis: cellulitis, chronic wound, dermatitis HPI General Mode of arrival: ambulatory. Date/Time Provider Initiated Documentation: 09/13/19 10:46. Limitations to Documentation: no limitations. Information obtained by: patient. History of Present Illness 79 year old M presents to the emergency department with the chief complaint of rash, described as moderate, Quality is described as aching, and is localized to the right and lower extremity. Patient reports no radiation. Patient started experiencing this day(s) (4) and it has been constant. No relieving factors improve symptom(s), No exacerbating factors reported . Patient notes no other symptoms.. Related Data Home Medications Medication Instructions Recorded Confirmed acetaminophen 1,000 mg PO Q4H PRN tab-cap 07/10/14 09/13/19 Space Chamber Plus #1 12/28/14 09/13/19 diltiazem HCl 240 mg capsule,24 240 mg PO DAILY cap 04/01/19 09/13/19 hr,extended release terazosin 10 mg capsule 10 mg PO DAILY #90 tab-cap 04/01/19 09/13/19 torsemide 10 mg tablet 20 mg PO DAILY tab-cap 04/01/19 09/13/19 donepezil 10 mg tablet 10 mg PO QHS #90 tab 04/07/19 09/13/19 ipratropium-albuterol 0.5 mg-3 3 ml IH Q4H PRN #90 ml 04/24/19 09/13/19 mg(2.5 mg base)/3 mL nebulization soln metoprolol succinate 100 mg PO DAILY 05/10/19 09/13/19 atorvastatin 10 mg tablet 10 mg PO HS #90 tab 05/13/19 09/13/19 diclofenac sodium 1 % topical gel 4 gm TP QID #100 gm 05/28/19 09/13/19 pantoprazole 40 mg tablet,delayed 40 mg PO DAILY #30 tab 06/02/19 09/13/19 release colchicine 0.6 mg tablet 0.6 mg PO DAILY PRN #30 tab 07/07/19 09/13/19 montelukast 10 mg tablet 10 mg PO DAILY #90 tab-cap 07/16/19 09/13/19 Eliquis 5 mg PO BID 08/16/19 09/13/19 furosemide 40 mg tablet 40 mg PO QAM #7 tab 08/26/19 09/13/19 prednisone 20 mg tablet 20 mg PO DAILY #7 tab 08/26/19 09/13/19 fluticasone fur. 100 mcg-umeclid 1 inh IH DAILY 09/04/19 09/13/19 62.5 mcg-vilant 25 mcg inhalat.powder levalbuterol HCl 1.25 mg/3 mL 1.25 mg IH Q8H PRN ml 09/04/19 09/13/19 solution for nebulization levalbuterol tartrate 45 2 inh IH Q6H PRN 09/04/19 09/13/19 mcg/actuation aerosol inhaler celecoxib 200 mg capsule 200 mg PO DAILY #30 cap 09/05/19 09/13/19 amoxicillin-pot clavulanate 1 tab PO BID #14 tab 09/13/19 [Augmentin] prednisone 60 mg PO DAILY #15 tab 09/13/19 Previous Rx's Medication Instructions Recorded terazosin 10 mg capsule 10 mg PO DAILY #90 tab-cap 04/01/19 donepezil 10 mg tablet 10 mg PO QHS #90 tab 04/07/19 ipratropium-albuterol 0.5 mg-3 3 ml IH Q4H PRN #90 ml 04/24/19 mg(2.5 mg base)/3 mL nebulization soln atorvastatin 10 mg tablet 10 mg PO HS #90 tab 05/13/19 diclofenac sodium 1 % topical gel 4 gm TP QID #100 gm 05/28/19 pantoprazole 40 mg tablet,delayed 40 mg PO DAILY #30 tab 06/02/19 release colchicine 0.6 mg tablet 0.6 mg PO DAILY PRN #30 tab 07/07/19 montelukast 10 mg tablet 10 mg PO DAILY #90 tab-cap 07/16/19 furosemide 40 mg tablet 40 mg PO QAM #7 tab 08/26/19 prednisone 20 mg tablet 20 mg PO DAILY #7 tab 08/26/19 celecoxib 200 mg capsule 200 mg PO DAILY #30 cap 09/05/19 amoxicillin-pot clavulanate 1 tab PO BID #14 tab 09/13/19 [Augmentin] prednisone 60 mg PO DAILY #15 tab 09/13/19 Allergies Allergy/AdvReac Type Severity Reaction Status Date / Time codeine Allergy Intermediate disoriented Verified 09/13/19 10:43 MANSI Inhibitors AdvReac Intermediate HYPERKALEMIA Verified 09/13/19 10:43 5.9, 04/11/16 ARB-Angiotensin Receptor AdvReac Intermediate HYPERKALEMIA Verified 09/13/19 10:43 Antagonist 5.9, 04/11/16 General Stated Complaint: Cellulitis BUNNY: 3 Review of Systems Review of Systems ROS Unobtainable: All systems reviewed & are unremarkable except as noted in HPI and below Constitutional Constitutional: Denies chills, Denies fever(s) and Denies weakness Cardiovascular Cardiovascular: Denies chest pain and Denies dyspnea Respiratory Respiratory: Denies cough and Denies dyspnea Gastrointestinal Gastrointestinal: Denies abdominal pain, Denies nausea and Denies vomiting Neurologic Neurologic: Denies weakness [facility] Social History Smoking/Tobacco Use Status: Current-Occasional Tobacco Type: cigarettes Tobacco: How many years used: 45 Quit status: considering quitting Counseling given: patient declined Alcohol Intake: current Alcohol Intake frequency: a few times a month Alcohol type: beer Drug use: Never Substance use type: does not use Adopted: No Caregiver/Support person: No Household members: spouse Housing: house Number of Children: 8 Communication Needs: Hard of Hearing and Corrective Lenses current occupation: [employer] What is your relationship status?: Panel score (0-1 are the most socially isolated patients): 1 What type of physical activity do you participate in: none Seatbelt use: always Working smoke detector in home: Yes Fire extinguisher in home: Yes Carbon monox detector in home: Yes Firearms in home: Yes Firearms unloaded and locked: Yes Do you feel safe at home: Yes Do you feel safe in your relationship?: Yes Exam Const General: no acute distress Orientation: alert HENMT Head: normal to inspection Ears: external ears normal General nose exam: external nose normal Mouth: moist mucous membranes Eyes General: appearance normal, both eyes and all related structures Neck Neck: normal visual inspection Resp Effort & Inspection: normal respiratory effort and able to speak in complete sentences Cardio Rate: regular rate Skin General skin exam: elasticity normal Neuro General: alert and oriented x3 Extrem General: normal to inspection Psych Mental Status: mental status grossly normal Course Vital Signs Vital signs: Vital Signs Temperature 36.5 C 09/13/19 10:39 Pulse 91 H 09/13/19 10:39 Respiratory Rate 16 09/13/19 10:39 Blood Pressure 157/97 H 09/13/19 10:39 Pulse Oximetry 95 09/13/19 10:39 Temperature 36.5 C 09/13/19 10:39 Temperature Source Skin 09/13/19 10:39 Pulse 91 H 09/13/19 10:39 Respiratory Rate 16 09/13/19 10:39 Respiratory Effort Non-Labored 09/13/19 10:44 Blood Pressure 157/97 H 09/13/19 10:39 Pulse Oximetry 95 09/13/19 10:39 Pain Level 4 09/13/19 10:39
--- NOTE | 2019-09-13 13:24 | NUR.NOTE ---
Nursing Note: Referral faxed to PCP for follow up. Zoe Tirado.
== END 2019-09-13 11:07 | disposition home or self-care (01) ==
PROVIDERS: Emergency Provider Emergency Medicine; PCP Family Medicine
DX: L03.115 Cellulitis of right lower limb (principal); I12.9 Hypertensive chronic kidney disease with stage 1 through stage 4 chronic kidney disease, or unspecified chronic kidney disease; N18.9 Chronic kidney disease, unspecified
CPT/HCPCS: 99283

== ENCOUNTER 2019-09-15 14:00 | Outpatient (REF) | payer MEDICARE, SELFPAY | END 2019-09-15 14:20 | LOC: LBN 14:00 | PROVIDERS: PCP Family Medicine; Visit Provider Family Medicine | DX: L03.115 Cellulitis of right lower limb (principal) | CPT/HCPCS: 87070; 87205 ==

== ENCOUNTER 2019-10-03 12:20 | Outpatient (REF) | payer MEDICARE, SELFPAY ==
[2019-10-03 14:22] LABS: Anion Gap 9.5 mmol/L (3-11); BUN 59 mg/dL (7-18); CO2 27.5 mmol/L (21.0-32.0); CREATININE 2.24 mg/dL (0.70-1.30); Calcium 8.3 mg/dL (8.5-10.1); Chloride 105 mmol/L (98-107); Estimated GFR 28.49 (mL/min/1.73m2); Glucose 95 mg/dL (70-100); Potassium 4.1 mmol/L (3.5-5.1); Sodium 142 mmol/L (136-145)
== END 2019-10-03 12:40 ==
LOC: LBN 12:20
PROVIDERS: PCP Family Medicine; Visit Provider Family Medicine
DX: R60.9 Edema, unspecified (principal)
CPT/HCPCS: 80048

== ENCOUNTER 2019-12-05 10:41 | Emergency (ER) | payer MEDICARE, SELFPAY ==
[2019-12-05 10:49] VITALS: BP 150/85; PULSE 83; RESP 20; TEMP 36.4; O2SAT 97
--- NOTE | 2019-12-05 11:03 | W.ED.GENAD ---
Discharge Plan Disposition Patient Disposition: HOME Condition: Stable Discharge Details Chief Complaint: Orthopedic Clinical Impression: Fall, Head trauma, Cervical strain, Skin tear Primary Care Provider: Angel Allan ED Provider: Mario Sawyer Home Meds and New Rx's Prescriptions: Continued donepezil 10 mg tablet 10 mg PO QHS Qty: 90 RF: 3 terazosin 10 mg capsule 10 mg PO DAILY Qty: 90 RF: 3 diltiazem HCl 240 mg capsule,extended release 24 hr 240 mg PO DAILY RF: 0 torsemide 10 mg tablet 20 mg PO DAILY RF: 0 colchicine 0.6 mg tablet 0.6 mg PO DAILY PRN (Reason: gout) Qty: 30 RF: 1 diclofenac sodium [Voltaren] 1 % gel 4 gm TP QID Qty: 100 RF: 3 metolazone 2.5 mg tablet 2.5 mg PO .Qweek PRN (Reason: Lower extremity edema) Qty: 7 RF: 0 loperamide 2 mg capsule 2 mg PO DAILY PRN (Reason: loose stool) Qty: 10 RF: 1 Shingrix (PF) 50 mcg/0.5 mL suspension for reconstitution 50 mcg IM ONCE Qty: 1 RF: 1 prednisone 20 mg tablet 20 mg PO DAILY RF: 0 spironolactone 25 mg tablet 25 mg PO DAILY Qty: 90 RF: 3 acetaminophen 500 MG tablet 1,000 mg PO Q4H PRN RF: 0 (DME) Space Chamber Plus 1 EACH spacer 1 ea Miscellaneous QID Qty: 1 RF: 1 ipratropium-albuterol 0.5 mg-3 mg(2.5 mg base)/3 mL solution for nebulization 3 ml IH Q4H PRN (Reason: shortness of breath or wheezing) Qty: 90 RF: 12 atorvastatin 10 mg tablet 10 mg PO HS Qty: 90 RF: 3 pantoprazole 40 mg tablet,delayed release (DR/EC) 40 mg PO DAILY Qty: 30 RF: 6 levalbuterol tartrate [Xopenex HFA] 45 mcg/actuation HFA aerosol inhaler 2 inh IH Q6H PRN (Reason: shortness of breath) RF: 0 levalbuterol HCl [Xopenex] 1.25 mg/3 mL solution for nebulization 1.25 mg IH Q8H PRN (Reason: shortness of breath or wheezing) RF: 0 Trelegy Ellipta 100-62.5-25 mcg blister with device 1 inh IH DAILY RF: 0 celecoxib 100 mg capsule 100 mg PO DAILY Qty: 30 RF: 3 montelukast 10 mg tablet 10 mg PO DAILY Qty: 90 RF: 3 Eliquis 5 mg Tablet 5 mg PO BID RF: 0 metoprolol succinate 100 mg tablet extended release 24 hr 100 mg PO DAILY RF: 0 Discharge Instructions Instructions: Cervical Strain (ED) Additional Instructions: if redness spreads away from the wound, you have severe worsening pain or persistent vomit return to the emergency department Medical Decision Making 79 yo male on eliquis comes in after a fall last night after he states he had 5 shots of bourbon which is abnormal for him. He tripped and struck head and right elbow on a table. Denies loc, vomit and has no headache now, does have some bruising noted on right scientologist and has right lateral mid neck pain, no stepoffs. HAs no chest pain, abd pain leg pain. Does have 2 skin tears of right lateral elbow with full rom and no pain so doubt fx, will have nursing irrigate and place steri strips and obtain ct head/c spine given his anticoagulation and pain to eval for traumatic injury ct negative has no midline pain on exam with full rom so cleared c spine. Will d/c home return precautions given Differential Diagnosis Differential Diagnosis: c spine injury, tbi, lac Imaging Data Radiologic Study: Attestation: I personally reviewed and interpreted this imaging study as follows: Imaging: CT Scan Radiologist's impression: no acute findings HPI General Mode of arrival: ambulatory. Date/Time Provider Initiated Documentation: 12/05/19 10:47. Limitations to Documentation: no limitations. Information obtained by: patient. History of Present Illness 79 year old M presents to the emergency department with the chief complaint of neck pain, described as moderate, Patient started experiencing this day(s) (1) and it has been constant. No relieving factors improve symptom(s), No exacerbating factors reported . Patient notes no other symptoms.. Patient did receive the following treatments prior to arrival, none Related Data Home Medications Medication Instructions Recorded Confirmed acetaminophen 1,000 mg PO Q4H PRN tab-cap 07/10/14 11/24/19 Space Chamber Plus #1 12/28/14 11/24/19 diltiazem HCl 240 mg capsule,24 240 mg PO DAILY cap 04/01/19 11/24/19 hr,extended release terazosin 10 mg capsule 10 mg PO DAILY #90 tab-cap 04/01/19 11/24/19 torsemide 10 mg tablet 20 mg PO DAILY tab-cap 04/01/19 11/24/19 donepezil 10 mg tablet 10 mg PO QHS #90 tab 04/07/19 11/24/19 ipratropium-albuterol 0.5 mg-3 3 ml IH Q4H PRN #90 ml 04/24/19 11/24/19 mg(2.5 mg base)/3 mL nebulization soln metoprolol succinate 100 mg PO DAILY 05/10/19 11/24/19 atorvastatin 10 mg tablet 10 mg PO HS #90 tab 05/13/19 11/24/19 diclofenac sodium 1 % topical gel 4 gm TP QID #100 gm 05/28/19 11/24/19 pantoprazole 40 mg tablet,delayed 40 mg PO DAILY #30 tab 06/02/19 11/24/19 release colchicine 0.6 mg tablet 0.6 mg PO DAILY PRN #30 tab 07/07/19 11/24/19 Eliquis 5 mg PO BID 08/16/19 11/24/19 fluticasone fur. 100 mcg-umeclid 1 inh IH DAILY 09/04/19 11/24/19 62.5 mcg-vilant 25 mcg inhalat.powder levalbuterol HCl 1.25 mg/3 mL 1.25 mg IH Q8H PRN ml 09/04/19 11/24/19 solution for nebulization levalbuterol tartrate 45 2 inh IH Q6H PRN 09/04/19 11/24/19 mcg/actuation aerosol inhaler loperamide 2 mg capsule 2 mg PO DAILY PRN #10 cap 10/03/19 11/24/19 metolazone 2.5 mg tablet 2.5 mg PO .Qweek PRN #7 tab 10/03/19 11/24/19 varicella-zoster gE-AS01B (PF) 50 50 mcg IM ONCE #1 each 10/03/19 11/24/19 mcg/0.5 mL IM susp, kit celecoxib 100 mg capsule 100 mg PO DAILY #30 cap 10/07/19 11/24/19 spironolactone 25 mg tablet 25 mg PO DAILY #90 tab 10/10/19 11/24/19 montelukast 10 mg tablet 10 mg PO DAILY #90 tab-cap 11/06/19 11/24/19 prednisone 20 mg tablet 20 mg PO DAILY 11/24/19 11/24/19 Previous Rx's Medication Instructions Recorded terazosin 10 mg capsule 10 mg PO DAILY #90 tab-cap 04/01/19 donepezil 10 mg tablet 10 mg PO QHS #90 tab 04/07/19 ipratropium-albuterol 0.5 mg-3 3 ml IH Q4H PRN #90 ml 04/24/19 mg(2.5 mg base)/3 mL nebulization soln atorvastatin 10 mg tablet 10 mg PO HS #90 tab 05/13/19 diclofenac sodium 1 % topical gel 4 gm TP QID #100 gm 05/28/19 pantoprazole 40 mg tablet,delayed 40 mg PO DAILY #30 tab 06/02/19 release colchicine 0.6 mg tablet 0.6 mg PO DAILY PRN #30 tab 07/07/19 loperamide 2 mg capsule 2 mg PO DAILY PRN #10 cap 10/03/19 metolazone 2.5 mg tablet 2.5 mg PO .Qweek PRN #7 tab 10/03/19 varicella-zoster gE-AS01B (PF) 50 50 mcg IM ONCE #1 each 10/03/19 mcg/0.5 mL IM susp, kit celecoxib 100 mg capsule 100 mg PO DAILY #30 cap 10/07/19 spironolactone 25 mg tablet 25 mg PO DAILY #90 tab 10/10/19 montelukast 10 mg tablet 10 mg PO DAILY #90 tab-cap 11/06/19 Allergies Allergy/AdvReac Type Severity Reaction Status Date / Time codeine Allergy Intermediate disoriented Verified 11/24/19 09:48 MANSI Inhibitors AdvReac Intermediate HYPERKALEMIA Verified 11/24/19 09:48 5.9, 04/11/16 ARB-Angiotensin Receptor AdvReac Intermediate HYPERKALEMIA Verified 11/24/19 09:48 Antagonist 5.9, 04/11/16 General Stated Complaint: Orthopedic BUNNY: 3 Review of Systems All systems reviewed & are unremarkable except as noted in HPI and below Constitutional Constitutional: Denies chills, Denies fever(s) and Denies weakness Cardiovascular Cardiovascular: Denies chest pain and Denies dyspnea Respiratory Respiratory: Denies cough and Denies dyspnea Gastrointestinal Gastrointestinal: Denies abdominal pain, Denies nausea and Denies vomiting Musculoskeletal Musculoskeletal: Denies joint swelling Neurologic Neurologic: Denies weakness [facility] Medical History (Updated 10/22/19 @ 11:50 by Mariana Bailey RN) Anemia in chronic kidney disease (Chronic 04/30/15) Anticoagulation adequate with anticoagulant therapy (Chronic 07/30/14) Apixaban per cardiology, 07/2014, for A Fib, CHADs2 score 2, stroke risk 2.8%; Apixaban RX Atrial fibrillation (Chronic 07/27/07) DR GARCÍA pacer 01/2013 for BRADYCARDIA; S/P Atrial fl[place] [facility] [place] Cardiac pacemaker in situ (Chronic 02/18/13) CV, DR GARCÍA Cardiac pacemaker in situ (Chronic 02/18/13) CV, DR GARCÍA Cellulitis of right foot (Acute) Chronic kidney disease, stage III (moderate) (Chronic 10/21/08) LIKELY DUE TO BP; EST GFR 42 (12/2012); HYPERKALEMIC PROBLEMS Chronic kidney disease, stage III (moderate) (Chronic 10/21/08) LIKELY DUE TO BP; EST GFR 42 (12/2012); HYPERKALEMIC PROBLEMS Chronic obstructive pulmonary disease (Chronic 04/21/14) not reversible on PFT. 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 De 06/20/16; CPAP used for a few month in 2016, NYA untreated since then. Repeat study 09/04/19 and restart C-PAP Surgical History Colonoscopy - MAC (03/30/14) CSD H/O esophagogastroduodenoscopy (Chronic ~05/12/19) ISCHEMIC R 4TH FINGER (07/26/86[place] [facility] [place] Nasal septoplasty (05/25/87) Pacemaker (02/18/13) Dual Chamber R ATRIAL ISTHMUS ABLATION (08/19/07) [facility] [place] Repair of inguinal hernia (11/25/78) R; ALSO L 05/2003 Repair of umbilical hernia (01/23/93) Social History (Updated 11/24/19 @ 09:54 by Rosina Ceja LPN) Smoking/Tobacco Use Status: Current-Occasional Tobacco: How many years used: 45 Quit status: considering quitting Counseling given: patient declined Alcohol Intake: current Alcohol Intake frequency: a few times a month Alcohol type: beer Drug use: Never Substance use type: does not use Adopted: No Caregiver/Support person: No Household members: spouse Housing: house Number of Children: 8 Communication Needs: Hard of Hearing and Corrective Lenses current occupation: [employer] Current gender identity: male What is your relationship status?: Panel score (0-1 are the most socially isolated patients): 1 What type of physical activity do you participate in: none Seatbelt use: always Drive intox or ride w/intox bus driver/monitor: No Working smoke detector in home: Yes Fire extinguisher in home: Yes Carbon monox detector in home: Yes Firearms in home: Yes Firearms unloaded and locked: Yes Do you feel safe at home: Yes Do you feel safe in your relationship?: Yes Exam Const General: no acute distress Orientation: alert HENOK Head: no palpable skull fracture Ears: external ears normal General nose exam: external nose normal Mouth: moist mucous membranes Eyes General: appearance normal, both eyes and all related structures Neck Neck: normal visual inspection Resp Effort & Inspection: normal respiratory effort and able to speak in complete sentences Cardio Rate: regular rate Skin General skin exam: no rashes or lesions noted Neuro General: alert and oriented x3 Extrem General: full ROM Psych Mental Status: mental status grossly normal Course Vital Signs Vital signs: Vital Signs Temperature 36.4 C L 12/05/19 10:49 Pulse 83 12/05/19 10:49 Respiratory Rate 12/05/19 10:49 Blood Pressure 150/85 H 12/05/19 10:49 Pulse Oximetry 97 12/05/19 10:49 Temperature 36.4 C L 12/05/19 10:49 Temperature Source Skin 12/05/19 10:49 Pulse 83 12/05/19 10:49 Respiratory Rate 20 12/05/19 10:49 Respiratory Effort 12/05/19 10:54 Blood Pressure 150/85 H 12/05/19 10:49 Pulse Oximetry 97 12/05/19 10:49 Oxygen Delivery Method Room Air 12/05/19 10:49 Oxygen Flow Rate 0 12/05/19 10:49 Pain Level 4 12/05/19 10:49
--- NOTE | 2019-12-05 11:33 | NUR.NOTE ---
1130 HOURS VITALS PPULSE 91, SPO2 ON rm air BP 147/85
--- NOTE | 2019-12-05 12:06 | DI.CT_ITS ---
EXAM: CT HEAD CERVICAL SPINE WO CLINICAL HISTORY: fall, head and neck pain TECHNIQUE: COMPARISON: No exams were available for comparison FINDINGS: CT examination cervical spine was performed utilizing multi slice acquisition and multiplanar reconst ruction. There are severe degenerative changes of the cervical spine. There is mild kyphosis mild a nterior subluxation C3 this C4 and C4 on C5, presumably chronic. There is fusion of the facet joint at C2-3 on the left. No evidence of acute fracture or facet dislocation. Noncontrast cranial CT was performed. There is moderate generalized cerebral atrophy. There is patc hy decreased attenuation periventricular white matter consistent with microvascular ischemic change. There is focal decreased attenuation in the high right parietal lobe consistent with old infarct. T here is no evidence of acute intracranial hemorrhage, mass effect, or midline shift. No calvarial fracture seen. The orbital and temporal bone structures appear intact. Mastoid air dusty ls and paranasal sinuses are well aerated as visualized. IMPRESSION: No evidence of acute cervical spine fracture or dislocation. No evidence of acute intracranial injury.
[2019-12-05 12:22] VITALS: BP 144/82; PULSE 87; RESP 18; TEMP 36.6; O2SAT 97
== END 2019-12-05 12:35 | disposition home or self-care (01) ==
PROVIDERS: Emergency Provider Emergency Medicine; PCP Family Medicine
DX: S09.90XA Unspecified injury of head, initial encounter (principal); S16.1XXA Strain of muscle, fascia and tendon at neck level, initial encounter; S51.011A Laceration without foreign body of right elbow, initial encounter; S00.03XA Contusion of scalp, initial encounter; W01.190A Fall on same level from slipping, tripping and stumbling with subsequent striking against furniture, initial encounter; J44.9 Chronic obstructive pulmonary disease, unspecified; F17.210 Nicotine dependence, cigarettes, uncomplicated; N18.3 Chronic kidney disease, stage 3 (moderate); Z79.01 Long term (current) use of anticoagulants; I48.91 Unspecified atrial fibrillation
CPT/HCPCS: 99284; 70450; 72125; 99285

== ENCOUNTER 2020-02-06 20:05 | Emergency (ER) | payer MEDICARE, SELFPAY ==
[2020-02-06 20:12] VITALS: BP 176/72; PULSE 76; RESP 16; TEMP 36.7; O2SAT 97
[2020-02-06 20:14] VITALS: RESP 16
--- NOTE | 2020-02-06 20:28 | W.ED.GENAD ---
Discharge Plan Disposition Patient Disposition: HOME Condition: Good Discharge Details Chief Complaint: GenMedical Clinical Impression: Acute hyperkalemia, Acute electrocardiogram changes Primary Care Provider: Shaina May ED Provider: Prosper Springer Home Meds and New Rx's Prescriptions: No Action donepezil 10 mg tablet 10 mg PO QHS Qty: 90 RF: 3 torsemide 10 mg tablet 20 mg PO DAILY RF: 0 colchicine 0.6 mg tablet 0.6 mg PO DAILY PRN (Reason: gout) Qty: 30 RF: 1 diclofenac sodium [Voltaren] 1 % gel 4 gm TP QID Qty: 100 RF: 3 metolazone 2.5 mg tablet 2.5 mg PO .Qweek PRN (Reason: Lower extremity edema) Qty: 7 RF: 0 loperamide 2 mg capsule 2 mg PO DAILY PRN (Reason: loose stool) Qty: 10 RF: 1 Shingrix (PF) 50 mcg/0.5 mL suspension for reconstitution 50 mcg IM ONCE Qty: 1 RF: 1 spironolactone 25 mg tablet 25 mg PO DAILY Qty: 90 RF: 3 acetaminophen 500 MG tablet 1,000 mg PO Q4H PRN RF: 0 (DME) Space Chamber Plus 1 EACH spacer 1 ea Miscellaneous QID Qty: 1 RF: 1 atorvastatin 10 mg tablet 10 mg PO HS Qty: 90 RF: 3 levalbuterol tartrate [Xopenex HFA] 45 mcg/actuation HFA aerosol inhaler 2 inh IH Q6H PRN (Reason: shortness of breath) RF: 0 levalbuterol HCl [Xopenex] 1.25 mg/3 mL solution for nebulization 1.25 mg IH Q8H PRN (Reason: shortness of breath or wheezing) RF: 0 Trelegy Ellipta 100-62.5-25 mcg blister with device 1 inh IH DAILY RF: 0 prednisone 20 mg tablet 15 mg PO DAILY RF: 0 levalbuterol tartrate [Xopenex HFA] 45 mcg/actuation HFA aerosol inhaler 2 inh IH Q6H RF: 0 levalbuterol HCl [Xopenex] 1.25 mg/3 mL solution for nebulization 1.25 mg IH Q6H RF: 0 allopurinol 100 mg tablet 100 mg PO DAILY Qty: 90 RF: 0 Eliquis 5 mg tablet 5 mg PO BID Qty: 180 RF: 0 diltiazem HCl 240 mg capsule,extended release 24 hr 240 mg PO DAILY Qty: 90 RF: 0 metoprolol succinate 100 mg tablet extended release 24 hr 100 mg PO DAILY Qty: 90 RF: 0 pantoprazole 40 mg tablet,delayed release (DR/EC) 40 mg PO DAILY Qty: 90 RF: 0 terazosin 10 mg capsule 10 mg PO DAILY Qty: 90 RF: 0 Discharge Instructions Instructions: Hyperkalemia (ED) Additional Instructions: Your potassium levels have notably improved back towards normal. Your EKG changes have resolved. At this time I feel that the high potassium was a combination of mild dehydration, your spironolactone, your other medications in conjunction. Please hold on the spironolactone until you are reassessed by her primary care provider. Please continue to drink plenty of fluids on an outpatient basis. I would recommend 8 to 10 cups of water per day for the next 1 to 2 days. Please return on Sunday to the lab to have your potassium redrawn. If you notice any worsening of your symptoms, or any new symptoms such as vomiting, diarrhea, fever, chills, shortness of breath, chest pain, numbness, weakness, or fainting , please return immediately to the emergency department for reevaluation. Please follow up with your primary care provider as soon as possible for reassessment and reevaluation. As always, it was a pleasure participating in your medical care today. Referrals: Shaina May NP [Primary Care Provider] - Discharge Data Discharge Date/Time-TO BE ENTERED AT DEPARTURE: 02/07/20 00:15 Medical Decision Making Upon my evaluation, this patient had a high probability of imminent or life-threatening deterioration, which required my direct attention, intervention, and personal management. I have personally provided 45 minutes of critical care time exclusive of time spent on separately billable procedures. Time includes review of laboratory data, radiology results, discussion with consultants, and monitoring for potential decompensation. Interventions were performed as documented. 79-year-old male with a past medical history of polymyalgia rheumatica, gout, asthma, COPD, hypertension, chronic kidney disease, cardiac pacemaker, atrial fibrillation on Eliquis, who presents today for evaluation of electrolyte abnormality. He was at his primary care provider's office for a routine checkup, blood was drawn, and then later when he was at home he was contacted that his potassium was 6.4 his creatinine was 1.28. Recommended that the patient come in for further evaluation. Patient denies any chest pain, shortness of breath, palpitations, lightheadedness or syncope. He has had a problem with hyperkalemia in the past, but none recently. He is not a dialysis patient. He does take various medications that could complicate this, including spironolactone, Lasix. He denies any other symptoms at this time. Physical exam is notably unremarkable. Immediate EKG was performed upon arrival, the patient does demonstrate left bundle branch block secondary to his pacemaker with good capture, however of note there is significant elevation of the T waves especially in V1 V2 and V4. Comparison of prior EKGs from 05/11/2019 demonstrates that this appears to be notably acute regards to the T wave component. Out of an abundance of precaution, we will redraw the patient's blood of course, will begin therapy with calcium gluconate, albuterol, insulin, D50 and Kayexalate. Will monitor closely, if his repeat labs here returned differently, then we will readjust management. However with his current change in EKG findings, in conjunction with the outpatient labs demonstrating the elevated potassium I do feel it prudent to begin immediate therapy. 10:15 PM Laboratory work-up is returned, demonstrates evidence of a potassium of 5.8, which is an improvement from the initial outpatient labs, creatinine is 1.75. Remainder of his work-up is otherwise stable at this time. We will continue with our medication management. After 500 cc of normal saline in addition to the other medications that were given will reassess where his potassium status is. He currently remains asymptomatic and feels well. He has notably and frequently been requesting discharge, but does understand the medical necessity of the current treatment. 12 AM Repeat creatinine is 1.64, repeat potassium is 5.2, repeat EKG demonstrates normalization of the ST T wave segments, EKG is now returned to baseline compared to prior EKGs of comparison. Patient remains asymptomatic, feels well, serial troponins are unremarkable. I did discuss with the patient admission/observation to the hospital , and at this time through notable discussion, weighing the risks and benefits, utilizing a shared decision making process, and with a very clear discussion on the benefit of admission and the risks associated with discharge including the unlikely but potential worst case scenario of or lifelong disability the patient has refused admission and would like to go home. Patient is of a appropriate age to make decisions. The patient is of sound mind, appears clinically sober, and has capacity to make decisions by my clinical exam. Respecting the patient's wishes, they will be discharged home. With the notable improvement of his potassium, his lack of other concerning symptoms, and the resolution of his EKG findings, I feel his request is certainly reasonable at this time clinically. We will schedule outpatient follow-up in 24 to 48 hours for reassessment of potassium levels. Discussed the importance of staying well-hydrated, stopping his spironolactone, and following up closely with his PCP. I have extensively reviewed the treatment plan and discharge instructions with the patient and their family. I have addressed all patient concerns at this time. The patient and family was made aware of what symptoms to monitor for that would warrant a return to the emergency department. Discussed the plan with the patient and family, they demonstrate verbal understanding and agreement with our assessment and plan at this time. EKG 20: 22 Rate 72, QTc 411, chronic ventricular pacemaker with good capture, EKG is negative for SCARBOSSA, there is 4 mm of elevation noted in V2 that is dissonant, as well as elevation of the T waves in V1 V2 minimally in V3, and some in V4. However this appears notably increased compared to prior EKGs from 05/11/2019 EKG 23: 52 Rate 84, QTc 421, QRS 124, paced rhythm, good capture, negative for SCARBOSSA criterion, no significant ST elevation or significant T wave elevation in V1 through V4 especially in comparison to prior EKG from earlier today. HPI General Date/Time Provider Initiated Documentation: 02/06/20 20:07. HPI Narrative: 79-year-old male with a past medical history of polymyalgia rheumatica, gout, asthma, COPD, hypertension, chronic kidney disease, cardiac pacemaker, atrial fibrillation on Eliquis, who presents today for evaluation of electrolyte abnormality. He was at his primary care provider's office for a routine checkup, blood was drawn, and then later when he was at home he was contacted that his potassium was 6.4 his creatinine was 1.28. Recommended that the patient come in for further evaluation. Patient denies any chest pain, shortness of breath, palpitations, lightheadedness or syncope. He has had a problem with hyperkalemia in the past, but none recently. He is not a dialysis patient. He does take various medications that could complicate this, including spironolactone, Lasix. He denies any other symptoms at this time. Related Data Home Medications Medication Instructions Recorded Confirmed acetaminophen 1,000 mg PO Q4H PRN tab-cap 07/10/14 02/06/20 Space Chamber Plus #1 12/28/14 11/24/19 torsemide 10 mg tablet 20 mg PO DAILY tab-cap 04/01/19 02/06/20 donepezil 10 mg tablet 10 mg PO QHS #90 tab 04/07/19 02/06/20 atorvastatin 10 mg tablet 10 mg PO HS #90 tab 05/13/19 02/06/20 diclofenac sodium 1 % topical gel 4 gm TP QID #100 gm 05/28/19 11/24/19 colchicine 0.6 mg tablet 0.6 mg PO DAILY PRN #30 tab 07/07/19 02/06/20 fluticasone fur. 100 mcg-umeclid 1 inh IH DAILY 09/04/19 02/06/20 62.5 mcg-vilant 25 mcg inhalat.powder levalbuterol HCl 1.25 mg/3 mL 1.25 mg IH Q8H PRN ml 09/04/19 11/24/19 solution for nebulization levalbuterol tartrate 45 2 inh IH Q6H PRN 09/04/19 02/06/20 mcg/actuation aerosol inhaler loperamide 2 mg capsule 2 mg PO DAILY PRN #10 cap 10/03/19 02/06/20 metolazone 2.5 mg tablet 2.5 mg PO .Qweek PRN #7 tab 10/03/19 02/06/20 varicella-zoster gE-AS01B (PF) 50 50 mcg IM ONCE #1 each 10/03/19 11/24/19 mcg/0.5 mL IM susp, kit spironolactone 25 mg tablet 25 mg PO DAILY #90 tab 10/10/19 02/06/20 prednisone 20 mg tablet 15 mg PO DAILY tab 12/10/19 levalbuterol HCl 1.25 mg/3 mL 1.25 mg IH Q6H ml 01/02/20 solution for nebulization levalbuterol tartrate 45 2 inh IH Q6H 01/02/20 mcg/actuation aerosol inhaler allopurinol 100 mg tablet 100 mg PO DAILY #90 tab 01/26/20 02/06/20 apixaban 5 mg tablet 5 mg PO BID #180 tab 01/26/20 02/06/20 diltiazem HCl 240 mg capsule,24 240 mg PO DAILY #90 cap 01/26/20 hr,extended release metoprolol succinate 100 mg 100 mg PO DAILY #90 tab 01/26/20 02/06/20 tablet,extended release 24 hr pantoprazole 40 mg tablet,delayed 40 mg PO DAILY #90 tab 01/26/20 02/06/20 release terazosin 10 mg capsule 10 mg PO DAILY #90 tab-cap 01/26/20 02/06/20 Previous Rx's Medication Instructions Recorded donepezil 10 mg tablet 10 mg PO QHS #90 tab 04/07/19 atorvastatin 10 mg tablet 10 mg PO HS #90 tab 05/13/19 diclofenac sodium 1 % topical gel 4 gm TP QID #100 gm 05/28/19 colchicine 0.6 mg tablet 0.6 mg PO DAILY PRN #30 tab 07/07/19 loperamide 2 mg capsule 2 mg PO DAILY PRN #10 cap 10/03/19 metolazone 2.5 mg tablet 2.5 mg PO .Qweek PRN #7 tab 10/03/19 varicella-zoster gE-AS01B (PF) 50 50 mcg IM ONCE #1 each 10/03/19 mcg/0.5 mL IM susp, kit spironolactone 25 mg tablet 25 mg PO DAILY #90 tab 10/10/19 allopurinol 100 mg tablet 100 mg PO DAILY #90 tab 01/26/20 apixaban 5 mg tablet 5 mg PO BID #180 tab 01/26/20 diltiazem HCl 240 mg capsule,24 240 mg PO DAILY #90 cap 01/26/20 hr,extended release metoprolol succinate 100 mg 100 mg PO DAILY #90 tab 01/26/20 tablet,extended release 24 hr pantoprazole 40 mg tablet,delayed 40 mg PO DAILY #90 tab 01/26/20 release terazosin 10 mg capsule 10 mg PO DAILY #90 tab-cap 01/26/20 Allergies Allergy/AdvReac Type Severity Reaction Status Date / Time codeine Allergy Intermediate disoriented Verified 11/24/19 09:48 MANSI Inhibitors AdvReac Intermediate HYPERKALEMIA Verified 11/24/19 09:48 5.9, 04/11/16 ARB-Angiotensin Receptor AdvReac Intermediate HYPERKALEMIA Verified 11/24/19 09:48 Antagonist 5.9, 04/11/16 General Stated Complaint: GenMedical BUNNY: 3 Review of Systems All systems reviewed & are unremarkable except as noted in HPI and below PFSH Medical History (Updated 02/06/20 @ 20:35 by Prosper Springer DO) Anemia in chronic kidney disease (Chronic 04/30/15) Anticoagulation adequate with anticoagulant therapy (Chronic 07/30/14) Apixaban per cardiology, 07/2014, for A Fib, CHADs2 score 2, stroke risk 2.8%; Apixaban RX Atrial fibrillation (Chronic 07/27/07) DR GARCÍA pacer 01/2013 for BRADYCARDIA; S/P Atrial flutter ABLATION [facility] [place] 07/2007 Cardiac pacemaker in situ (Chronic 02/18/13) CV, DR GARCÍA Cellulitis of right foot (Acute) Chronic kidney disease, stage III (moderate) (Chronic 10/21/08) LIKELY DUE TO BP; EST GFR 42 (12/2012); HYPERKALEMIC PROBLEMS Chronic obstructive pulmonary disease (Chronic 04/21/14) not reversible on PFT. 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 De 06/20/16; CPAP used for a few month in 2015, NYA untreated since then. Repeat study 09/04/19 and restart C-PAP Surgical History Colonoscopy - MAC (03/30/14) CSD H/O esophagogastroduodenoscopy (Chronic ~05/12/19) ISCHEMIC R 4TH FINGER (07/26/86) [facility] [place], VEIN HARVESTED R LEG Nasal septoplasty (05/25/87) Pacemaker (02/18/13) Dual Chamber R ATRIAL ISTHMUS ABLATION (08/19/07) [facility] [place] FOR A FLUTTER Repair of inguinal hernia (11/25/78) R; ALSO L 05/2003 Repair of umbilical hernia (01/23/93) Family History (Updated 01/27/20 @ 08:46 by Syed Sanon) Mother , [place] at age 75. Heart disease [place] Myocardial infarction Breast cancer Father , cancer at age 68. Diabetes Personal history of malignant neoplasm COLON Son Diabetes Son No problems noted. Daughter No problems noted. Daughter No problems noted. Sister , age 83 No problems noted. Sister , age 81 No problems noted. Brother , age 18 - MVA No problems noted. Brother , age 84 Stomach cancer Diabetes Brother , age 79 Pena lung Brother Lung cancer Social History (Updated 01/27/20 @ 08:16 by Syed Sanon) Smoking/Tobacco Use Status: Former Tobacco Use Quit Date: 04/26/19 Tobacco: How many years used: 45 Quit status: considering quitting Second Hand Exposure: Yes Counseling given: patient declined Alcohol Intake: former Drug use: Never Substance use type: does not use Adopted: No Caregiver/Support person: No Household members: spouse Housing: house Number of Children: 8 Communication Needs: Hard of Hearing and Corrective Lenses current occupation: [employer] Pets and animals: Yes Pets and animals: cat(s) Sexually active: Yes Do you think of yourself as: straight/heterosexual Current gender identity: male What is your relationship status?: How often do you talk on the phone with friends or family?: three or more times per week How often do you get together with friends or relatives?: three or more times per week How often do you attend mandaen or islam services?: 4 or more times per year Do you belong to any clubs or organized social groups?: yes Panel score (0-1 are the most socially isolated patients): 4 What type of physical activity do you participate in: none and decline to answer Duration: decline to answer Frequency: decline to answer Quin/Anabaptism: Spiritism Special quin needs: No Seatbelt use: always Drive intox or ride w/intox catshovel driver: No Working smoke detector in home: Yes Fire extinguisher in home: Yes Carbon monox detector in home: Yes Firearms in home: Yes Firearms unloaded and locked: Yes Do you feel safe at home: Yes Do you feel safe in your relationship?: Yes Exam Narrative Exam Narrative: 1.Const: Well-nourished, Well-developed, appearing stated age 2.Eyes: PERRL, no conjunctival injection, and symmetrical lids. 3.ENT: Atraumatic external nose and ears. Moist MM. Neck: Symmetric, trachea midline, No thyromegaly. 4.CVS: +S1/S2, No murmurs or gallops. Peripheral pulses 2+ and equal in all extremities. Brisk capillary refill in all extremities. 5.RESP: Unlabored respiratory effort. Clear to auscultation bilaterally. No wheezes rales or rhonchi 6.GI: Soft, Nontender/Nondistended, No hepatosplenomegaly. No guarding or rebound. 7.MSK: Normocephalic/Atraumatic, Extremities w/o deformity or ttp No cyanosis or clubbing, Normal movement of all extremities 8.Skin: Warm, Dry. No rashes or lesions. 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 Sensation grossly intact, no focal neurologic deficits. 10.Psych: (AAO) x3. Appropriate mood and affect Course Vital Signs Vital signs: Vital Signs Temperature 36.7 C 02/06/20 20:12 Pulse 76 02/06/20 20:12 Respiratory Rate 16 02/06/20 20:12 Blood Pressure 176/72 H 02/06/20 20:12 Pulse Oximetry 97 02/06/20 20:12 Temperature 36.7 C 02/06/20 20:12 Temperature Source Oral 02/06/20 20:12 Pulse 76 02/06/20 20:12 Respiratory Rate 16 02/06/20 20:14 Respiratory Effort 02/06/20 20:14 Respiratory Depth Normal 02/06/20 20:14 Respiratory Pattern Normal 02/06/20 20:14 Blood Pressure 176/72 H 02/06/20 20:12 Blood Pressure Position Sitting 02/06/20 20:12 Pulse Oximetry 97 02/06/20 20:12 Oxygen Delivery Method Room Air 02/06/20 20:12 Oxygen Flow Rate 0 02/06/20 20:12 Pain Level 0 02/06/20 20:12
[2020-02-06 20:43] LABS: Abs Immature Grans 0.01 k/cumm (0.0-0.09); Absolute Basophil Count 0.01 k/cumm (0.0-0.2); Absolute Eosinophil Count 0.02 k/cumm (0.0-0.7); Absolute Monocyte Count 0.63 k/cumm (0.11-0.7); Absolute Neutrophil Count 6.29 k/cumm (1.2-6.7); Basophils % 0.1; Eosinophils % 0.2; HCT 37.5 % (40.0-50.0); Immature Grans % 0.1 %; Lymphocytes % 16.7; Mean Corpuscular Hemoglobin 31.8 pg (27.0-33.0); Mean Corpuscular Volume 99.5 fL (80-95); Mean Platelet Volume 8.8 fL (8.0-11.0); Monocytes % 7.5; Neutrophils % 75.4; Platelet Count 221 x1000/uL (130-400); RBC 3.77 m/cumm (4.50-6.00); RBC Distribution Width 15.7 % (11.8-14.1); White Blood Cell Count 8.36 k/cumm (4.4-10.8)
[2020-02-06] MEDS: Dextrose 50%-Water 25 GM/50 ML SYR IVP (20:46)
[2020-02-06 20:47] VITALS: RESP 4
[2020-02-06] MEDS: Albuterol 2.5 MG/3 ML INH SOLN VIAL 7.5 MG UPD (20:47)
[2020-02-06] MEDS: Insulin REGULAR-Human 100 UNITS/ML UNIT 10 UNITS SC (20:47)
[2020-02-06 21:01] LABS: Magnesium 1.8 mg/dL (1.8-2.4)
--- NOTE | 2020-02-06 21:02 | NUR.NOTE ---
Medications to be given prior to K+ lab results per MD Springer.
[2020-02-06 21:06] LABS: ALT 28 U/L (16-63); AST 22 U/L (15-37); Albumin 3.1 g/dL (3.4-5.0); Alkaline Phosphatase 69 U/L (46-116); BUN 39 mg/dL (7-18); Bilirubin, Total 0.3 mg/dL (0.2-1.0); CREATININE 1.75 mg/dL (0.70-1.30); Calcium 8.3 mg/dL (8.5-10.1); Chloride 108 mmol/L (98-107); Estimated GFR 37.89 (mL/min/1.73m2); Glucose 138 mg/dL (74-106); Potassium 5.8 mmol/L (3.5-5.1); Sodium 139 mmol/L (136-145); Total Protein 6.5 g/dL (6.4-8.2)
[2020-02-06 21:08] LABS: Troponin I < 0.05 ng/Ml (<0.06)
[2020-02-06] MEDS: Normal Saline 1,000 ML 1000 ML IV (21:34)
[2020-02-06 22:14] VITALS: BP 136/67; PULSE 83; RESP 17; O2SAT 96
[2020-02-06 23:24] LABS: Anion Gap 8.2 mmol/L (3-11); BUN 40 mg/dL (7-18); CO2 22.8 mmol/L (21.0-32.0); CREATININE 1.64 mg/dL (0.70-1.30); Calcium 8.3 mg/dL (8.5-10.1); Chloride 108 mmol/L (98-107); Estimated GFR 40.83 (mL/min/1.73m2); Glucose 79 mg/dL (74-106); Potassium 5.2 mmol/L (3.5-5.1); Sodium 139 mmol/L (136-145)
[2020-02-06 23:34] LABS: Troponin I < 0.05 ng/Ml (<0.06)
== END 2020-02-07 00:15 | disposition home or self-care (01) ==
PROVIDERS: Emergency Provider Student in an Organized Health Care Education/Training Program; PCP Nurse Practitioner
DX: E87.5 Hyperkalemia (principal); R94.31 Abnormal electrocardiogram [ECG] [EKG]; I12.9 Hypertensive chronic kidney disease with stage 1 through stage 4 chronic kidney disease, or unspecified chronic kidney disease; N18.3 Chronic kidney disease, stage 3 (moderate); J44.9 Chronic obstructive pulmonary disease, unspecified; Z87.891 Personal history of nicotine dependence
CPT/HCPCS: 36415; 80048; 80053; 93005; 94640; 96361; 96365; 96372; 99291; 83735; 84484; 85025; 93010; J0610; J7613

== ENCOUNTER 2020-02-08 09:41 | Emergency (ER) | payer MEDICARE, SELFPAY ==
[2020-02-08 09:44] VITALS: BP 194/111; PULSE 91; RESP 18; TEMP 36.5; O2SAT 99
--- NOTE | 2020-02-08 10:23 | W.ED.GENAD ---
Discharge Plan Disposition Patient Disposition: HOME Discharge Details Chief Complaint: Recheck Clinical Impression: Electrolyte disturbance Primary Care Provider: Shaina May ED Provider: Stefan Azevedo Home Meds and New Rx's Prescriptions: Continued donepezil 10 mg tablet 10 mg PO QHS Qty: 90 RF: 3 torsemide 10 mg tablet 20 mg PO DAILY RF: 0 colchicine 0.6 mg tablet 0.6 mg PO DAILY PRN (Reason: gout) Qty: 30 RF: 1 diclofenac sodium [Voltaren] 1 % gel 4 gm TP QID Qty: 100 RF: 3 metolazone 2.5 mg tablet 2.5 mg PO .Qweek PRN (Reason: Lower extremity edema) Qty: 7 RF: 0 loperamide 2 mg capsule 2 mg PO DAILY PRN (Reason: loose stool) Qty: 10 RF: 1 Shingrix (PF) 50 mcg/0.5 mL suspension for reconstitution 50 mcg IM ONCE Qty: 1 RF: 1 spironolactone 25 mg tablet 25 mg PO DAILY Qty: 90 RF: 3 acetaminophen 500 MG tablet 1,000 mg PO Q4H PRN RF: 0 (DME) Space Chamber Plus 1 EACH spacer 1 ea Miscellaneous QID Qty: 1 RF: 1 atorvastatin 10 mg tablet 10 mg PO HS Qty: 90 RF: 3 levalbuterol tartrate [Xopenex HFA] 45 mcg/actuation HFA aerosol inhaler 2 inh IH Q6H PRN (Reason: shortness of breath) RF: 0 levalbuterol HCl [Xopenex] 1.25 mg/3 mL solution for nebulization 1.25 mg IH Q8H PRN (Reason: shortness of breath or wheezing) RF: 0 prednisone 20 mg tablet 15 mg PO DAILY RF: 0 levalbuterol tartrate [Xopenex HFA] 45 mcg/actuation HFA aerosol inhaler 2 inh IH Q6H RF: 0 levalbuterol HCl [Xopenex] 1.25 mg/3 mL solution for nebulization 1.25 mg IH Q6H RF: 0 allopurinol 100 mg tablet 100 mg PO DAILY Qty: 90 RF: 0 Eliquis 5 mg tablet 5 mg PO BID Qty: 180 RF: 0 diltiazem HCl 240 mg capsule,extended release 24 hr 240 mg PO DAILY Qty: 90 RF: 0 metoprolol succinate 100 mg tablet extended release 24 hr 100 mg PO DAILY Qty: 90 RF: 0 pantoprazole 40 mg tablet,delayed release (DR/EC) 40 mg PO DAILY Qty: 90 RF: 0 No Action terazosin 10 mg capsule 10 mg PO DAILY Qty: 90 RF: 0 Discharge Instructions Instructions: Hyperkalemia (ED) Additional Instructions: Your blood pressure today was elevated. I suspect this is related to your cessation of spironolactone. Please restart your spironolactone at 12.5 mg daily. Please check your blood pressure three times a day and keep a log over the next week. Please follow-up with your batch roller operator and primary care physician early this week. Please call tomorrow to arrange timely follow-up. Return to the ER for any worsening or new concerning symptoms. Referrals: Shaina May NP [Primary Care Provider] - Medical Decision Making 10:40 -- 79-year-old male with history of COPD, hypertension, chronic kidney disease, on torsemide and spironolactone, seen here 2 days ago for asymptomatic hyper kalemia with ECG changes, was treated in the emergency department had prolonged ED observation with repeat labs that revealed normalization of ECG changes as well as normalization of potassium level, refused admission, returns today for repeat potassium. 10:52 -- Labs reviewed and k normal. Plan to restart sprinolactone at half prior dose. Will have patient follow-up with PCP early this week. I called and spoke with patient's on-call batch roller operator, Dr. Correa, who agreed with starting half dose spironolactone. His staff will be following up with the patient early this week. I encouraged the patient to monitor his blood pressure 3 times a day over the next week. Usual and customary discharge instructions were provided. HPI General Mode of arrival: ambulatory. Date/Time Provider Initiated Documentation: 02/08/20 09:59. Limitations to Documentation: no limitations. Information obtained by: patient. HPI Narrative: 79-year-old male with history of multiple medical problems including COPD, hypertension, chronic kidney disease, atrial fibrillation on apixaban, polymyalgia rheumatica, gout, presents today in follow-up to his visit on 02/06/2020 when he was seen here in the emergency department for hyperkalemia that had been noted on outpatient routine labs. On prior emergency department visit, patient was asymptomatic. He did have some ECG changes. He was treated with calcium gluconate, albuterol, insulin, D50 and Kayexalate. After prolonged ED course and observation in the ED, repeat diagnostic labs demonstrated improvement to within normal range. Repeat ECG demonstrated normalization of ST/T wave changes. He had serial troponins that were unremarkable. Admission to the hospital was recommended and patient refused. Patient was discharged home with plan for outpatient follow-up and repeat laboratory testing to reassess potassium level. Patient returns today noting he has been unable to follow-up with his PCP and is requesting repeat lab test be performed here in the emergency department. He remains asymptomatic with no complaints. Potassium had been significantly elevated to 6.4 and has improved on prior ED visit to 5.2. Upon discharge he was told to hold his spironolactone. Patient does note some associated loose stool which he states he has chronic and intermittently. He also notes chronic intermittent mild left lower abdominal pain that is been present for the past year. He is concerned about a hernia. He has had hernias in the past although not in his left inguinal region. Related Data Home Medications Medication Instructions Recorded Confirmed acetaminophen 1,000 mg PO Q4H PRN tab-cap 07/10/14 02/08/20 Space Chamber Plus #1 12/28/14 11/24/19 torsemide 10 mg tablet 20 mg PO DAILY tab-cap 04/01/19 02/08/20 donepezil 10 mg tablet 10 mg PO QHS #90 tab 04/07/19 02/08/20 atorvastatin 10 mg tablet 10 mg PO HS #90 tab 05/13/19 02/08/20 diclofenac sodium 1 % topical gel 4 gm TP QID #100 gm 05/28/19 02/08/20 colchicine 0.6 mg tablet 0.6 mg PO DAILY PRN #30 tab 07/07/19 02/08/20 levalbuterol HCl 1.25 mg/3 mL 1.25 mg IH Q8H PRN ml 09/04/19 02/08/20 solution for nebulization levalbuterol tartrate 45 2 inh IH Q6H PRN 09/04/19 02/08/20 mcg/actuation aerosol inhaler loperamide 2 mg capsule 2 mg PO DAILY PRN #10 cap 10/03/19 02/08/20 metolazone 2.5 mg tablet 2.5 mg PO .Qweek PRN #7 tab 10/03/19 02/08/20 varicella-zoster gE-AS01B (PF) 50 50 mcg IM ONCE #1 each 10/03/19 11/24/19 mcg/0.5 mL IM susp, kit spironolactone 25 mg tablet 25 mg PO DAILY #90 tab 10/10/19 02/08/20 prednisone 20 mg tablet 15 mg PO DAILY tab 12/10/19 02/08/20 levalbuterol HCl 1.25 mg/3 mL 1.25 mg IH Q6H ml 01/02/20 02/08/20 solution for nebulization levalbuterol tartrate 45 2 inh IH Q6H 01/02/20 02/08/20 mcg/actuation aerosol inhaler allopurinol 100 mg tablet 100 mg PO DAILY #90 tab 01/26/20 02/08/20 apixaban 5 mg tablet 5 mg PO BID #180 tab 01/26/20 02/08/20 diltiazem HCl 240 mg capsule,24 240 mg PO DAILY #90 cap 01/26/20 02/08/20 hr,extended release metoprolol succinate 100 mg 100 mg PO DAILY #90 tab 01/26/20 02/08/20 tablet,extended release 24 hr pantoprazole 40 mg tablet,delayed 40 mg PO DAILY #90 tab 01/26/20 02/08/20 release terazosin 10 mg capsule 10 mg PO DAILY #90 tab-cap 01/26/20 02/08/20 Previous Rx's Medication Instructions Recorded donepezil 10 mg tablet 10 mg PO QHS #90 tab 04/07/19 atorvastatin 10 mg tablet 10 mg PO HS #90 tab 05/13/19 diclofenac sodium 1 % topical gel 4 gm TP QID #100 gm 05/28/19 colchicine 0.6 mg tablet 0.6 mg PO DAILY PRN #30 tab 07/07/19 loperamide 2 mg capsule 2 mg PO DAILY PRN #10 cap 10/03/19 metolazone 2.5 mg tablet 2.5 mg PO .Qweek PRN #7 tab 10/03/19 varicella-zoster gE-AS01B (PF) 50 50 mcg IM ONCE #1 each 10/03/19 mcg/0.5 mL IM susp, kit spironolactone 25 mg tablet 25 mg PO DAILY #90 tab 10/10/19 allopurinol 100 mg tablet 100 mg PO DAILY #90 tab 01/26/20 apixaban 5 mg tablet 5 mg PO BID #180 tab 01/26/20 diltiazem HCl 240 mg capsule,24 240 mg PO DAILY #90 cap 01/26/20 hr,extended release metoprolol succinate 100 mg 100 mg PO DAILY #90 tab 01/26/20 tablet,extended release 24 hr pantoprazole 40 mg tablet,delayed 40 mg PO DAILY #90 tab 01/26/20 release terazosin 10 mg capsule 10 mg PO DAILY #90 tab-cap 01/26/20 Allergies Allergy/AdvReac Type Severity Reaction Status Date / Time codeine Allergy Intermediate disoriented Verified 02/08/20 09:51 MANSI Inhibitors AdvReac Intermediate HYPERKALEMIA Verified 02/08/20 09:51 5.9, 04/11/16 ARB-Angiotensin Receptor AdvReac Intermediate HYPERKALEMIA Verified 02/08/20 09:51 Antagonist 5.9, 04/11/16 General Stated Complaint: Recheck BUNNY: 3 Review of Systems All systems reviewed & are unremarkable except as noted in HPI and below Constitutional Constitutional: Denies fever(s) Gastrointestinal Gastrointestinal: Reports as per HPI Genitourinary Genitourinary: Denies difficulty urinating [facility] Medical History Anemia in chronic kidney disease (Chronic 04/30/15) Anticoagulation adequate with anticoagulant therapy (Chronic 07/30/14) Apixaban per cardiology, 07/2014, for A Fib, CHADs2 score 2, stroke risk 2.8%; Apixaban RX Atrial fibrillation (Chronic 07/27/07) DR GARCÍA pacer 01/2013 for BRADYCARDIA; S/P Atrial flutter ABLATION [facility] 07/2007 Cardiac pacemaker in situ (Chronic 02/18/13) [facility], DR GARCÍA Cellulitis of right foot (Acute) Chronic kidney disease, stage III (moderate) (Chronic 10/21/08) LIKELY DUE TO BP; EST GFR 42 (12/2012); HYPERKALEMIC PROBLEMS Chronic obstructive pulmonary disease (Chronic 04/21/14) not reversible on PFT. 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 De 06/20/16; CPAP used for a few month in 2015, NYA untreated since then. Repeat study 09/04/19 and restart C-PAP Surgical History Colonoscopy - MAC (03/30/14) CSD H/O esophagogastroduodenoscopy (Chronic ~05/12/19) ISCHEMIC R 4TH FINGER (07/26/86) [facility], VEIN HARVESTED R LEG Nasal septoplasty (05/25/87) Pacemaker (02/18/13) Dual Chamber R ATRIAL ISTHMUS ABLATION (08/19/07) [facility] FOR A FLUTTER Repair of inguinal hernia (11/25/78) R; ALSO L 05/2003 Repair of umbilical hernia (01/23/93) Family History Mother , [place] at age 75. Heart disease [place] Myocardial infarction Breast cancer Father , cancer at age 68. Diabetes Personal history of malignant neoplasm COLON Son Diabetes Son No problems noted. Daughter No problems noted. Daughter No problems noted. Sister , age 83 No problems noted. Sister , age 81 No problems noted. Brother , age 18 - MVA No problems noted. Brother , age 84 Stomach cancer Diabetes Brother , age 79 Pena lung Brother Lung cancer Social History Smoking/Tobacco Use Status: Former Tobacco Use Quit Date: 04/26/19 Tobacco: How many years used: 45 Quit status: considering quitting Second Hand Exposure: Yes Counseling given: patient declined Alcohol Intake: former Drug use: Never Substance use type: does not use Adopted: No Caregiver/Support person: No Household members: spouse Housing: house Number of Children: 8 Communication Needs: Hard of Hearing and Corrective Lenses current occupation: [employer] Pets and animals: Yes Pets and animals: cat(s) Sexually active: Yes Do you think of yourself as: straight/heterosexual Current gender identity: male What is your relationship status?: How often do you talk on the phone with friends or family?: three or more times per week How often do you get together with friends or relatives?: three or more times per week How often do you attend holiness or yazidi services?: 4 or more times per year Do you belong to any clubs or organized social groups?: yes Panel score (0-1 are the most socially isolated patients): 4 What type of physical activity do you participate in: none and decline to answer Duration: decline to answer Frequency: decline to answer Quin/Methodist: [employer] Special quin needs: No Seatbelt use: always Drive intox or ride w/intox route driver salesperson: No Working smoke detector in home: Yes Fire extinguisher in home: Yes Carbon monox detector in home: Yes Firearms in home: Yes Firearms unloaded and locked: Yes Do you feel safe at home: Yes Do you feel safe in your relationship?: Yes Exam Const General: cooperative and no acute distress HENMT Mouth: moist mucous membranes Eyes Sclera: normal sclerae Neck Neck: no JVD Resp Auscultation: clear to auscultation bilaterally, no rales, no rhonchi and no wheezes Cardio Jugular venous pressure: no JVD Rate: regular rate and not tachycardic Rhythm: regular rhythm GI Inspection: non-distended Palpation: soft, not firm, no guarding, no masses, not rigid and tender other (Mild left suprapubic, small direct inguinal hernia palpated that is reducible) Auscultation: normal bowel sounds Skin General skin exam: no rashes or lesions noted Neuro General: patient alert, patient awake and tone normal Extrem General: no edema Psych Appearance: grossly normal Mental Status: mental status grossly normal Course Vital Signs Vital signs: Vital Signs Temperature 36.5 C 02/08/20 09:44 Pulse 91 H 02/08/20 09:44 Respiratory Rate 18 02/08/20 09:44 Blood Pressure 194/111 H 02/08/20 09:44 Pulse Oximetry 99 02/08/20 09:44 Temperature 36.5 C 02/08/20 09:44 Temperature Source Temporal Artery Scan 02/08/20 09:44 Pulse 91 H 02/08/20 09:44 Respiratory Rate 18 02/08/20 09:44 Respiratory Effort Non-Labored 02/08/20 10:01 Blood Pressure 194/111 H 02/08/20 09:44 Blood Pressure Position Supine 02/08/20 09:44 Pulse Oximetry 99 02/08/20 09:44 Oxygen Delivery Method Room Air 02/08/20 09:44 Oxygen Flow Rate 0 02/08/20 09:44 Pain Level 0 02/08/20 09:44
[2020-02-08 10:35] LABS: Anion Gap 9.1 mmol/L (3-11); BUN 29 mg/dL (7-18); CO2 24.9 mmol/L (21.0-32.0); CREATININE 1.44 mg/dL (0.70-1.30); Calcium 8.5 mg/dL (8.5-10.1); Chloride 108 mmol/L (98-107); Estimated GFR 47.45 (mL/min/1.73m2); Glucose 88 mg/dL (74-106); Potassium 4.8 mmol/L (3.5-5.1); Sodium 142 mmol/L (136-145)
--- NOTE | 2020-02-08 11:05 | NUR.NOTE ---
[facility]ing Note:
[2020-02-08 11:11] VITALS: BP 180/82
[2020-02-08 11:29] VITALS: PULSE 89; RESP 22; O2SAT 98
== END 2020-02-08 11:24 | disposition home or self-care (01) ==
PROVIDERS: Emergency Provider Student in an Organized Health Care Education/Training Program; PCP Nurse Practitioner
DX: E87.8 Other disorders of electrolyte and fluid balance, not elsewhere classified (principal); I10 Essential (primary) hypertension; R10.32 Left lower quadrant pain; G89.29 Other chronic pain; J44.9 Chronic obstructive pulmonary disease, unspecified; Z87.891 Personal history of nicotine dependence
CPT/HCPCS: 36415; 80048; 99283

== ENCOUNTER 2020-02-12 11:20 | Outpatient (CLI) | payer MEDICARE, SELFPAY ==
[2020-02-12 12:56] LABS: Potassium 4.4 mmol/L (3.5-5.1)
== END 2020-02-12 11:40 ==
PROVIDERS: PCP Nurse Practitioner; Visit Provider Nurse Practitioner
DX: E87.5 Hyperkalemia (principal)
CPT/HCPCS: 36415; 84132

== ENCOUNTER → 2020-05-10 14:00 | Outpatient (BNVA) | payer MEDICARE, SELFPAY | PROVIDERS: PCP Nurse Practitioner; Referring Provider Nurse Practitioner; Visit Provider Surgery | DX: R10.32 Left lower quadrant pain (principal); I12.9 Hypertensive chronic kidney disease with stage 1 through stage 4 chronic kidney disease, or unspecified chronic kidney disease; N18.3 Chronic kidney disease, stage 3 (moderate) | CPT/HCPCS: 99213 ==

== ENCOUNTER → 2020-05-20 09:47 | Outpatient (BNVA) | payer MEDICARE, SELFPAY | PROVIDERS: PCP Nurse Practitioner; Referring Provider Nurse Practitioner; Visit Provider Surgery | DX: R10.32 Left lower quadrant pain (principal) | CPT/HCPCS: 99211; 99212; 96372 ==

== ENCOUNTER → 2020-06-03 11:17 | Outpatient (BNVA) | payer MEDICARE, SELFPAY | PROVIDERS: PCP Nurse Practitioner; Referring Provider Nurse Practitioner; Visit Provider Surgery | DX: R10.32 Left lower quadrant pain (principal); Z87.19 Personal history of other diseases of the digestive system; I12.9 Hypertensive chronic kidney disease with stage 1 through stage 4 chronic kidney disease, or unspecified chronic kidney disease; N18.3 Chronic kidney disease, stage 3 (moderate) | CPT/HCPCS: 99212; 99213 ==

== ENCOUNTER 2020-06-09 00:48 | Outpatient (CLI) | payer MEDICARE, SELFPAY ==
--- NOTE | 2020-06-09 06:30 | DI.US_ITS ---
EXAM: US HERNIA CLINICAL HISTORY: Left groin pain, history of hernia repair,R10.32, LLQ PAIN TECHNIQUE: Ultrasound performed using standard protocol. COMPARISON: US Cardiac from 05/12/2019 FINDINGS: Soft tissue ultrasound of the left inguinal region was performed. There is a probable small hernia, measuring about 1 cm in diameter, no bowel identified, the apparent small fat containing hernia is re adily compressible. Correlation with CT may be obtained for confirmation if clinically indicated. IMPRESSION: DATA REPOSITORY:
== END 2020-06-09 01:08 ==
PROVIDERS: PCP Nurse Practitioner; Visit Provider Surgery
DX: R10.32 Left lower quadrant pain (principal); K40.90 Unilateral inguinal hernia, without obstruction or gangrene, not specified as recurrent
CPT/HCPCS: 76857

== ENCOUNTER → 2020-06-24 11:29 | Outpatient (BNVA) | payer MEDICARE, SELFPAY | PROVIDERS: PCP Nurse Practitioner; Referring Provider Nurse Practitioner; Visit Provider Surgery | DX: R10.32 Left lower quadrant pain (principal); I48.20 Chronic atrial fibrillation, unspecified; Z79.01 Long term (current) use of anticoagulants; I12.9 Hypertensive chronic kidney disease with stage 1 through stage 4 chronic kidney disease, or unspecified chronic kidney disease; J44.9 Chronic obstructive pulmonary disease, unspecified; N18.3 Chronic kidney disease, stage 3 (moderate) | CPT/HCPCS: 99213 ==

== ENCOUNTER 2020-07-09 08:47 | Outpatient (CLI) | payer MEDICARE, SELFPAY ==
[2020-07-10 17:53] LABS: COVID-19 RT-PCR Result NEGATIVE (Negative)
== END 2020-07-09 09:07 ==
PROVIDERS: PCP Nurse Practitioner; Visit Provider Surgery
DX: Z01.818 Encounter for other preprocedural examination (principal)
CPT/HCPCS: U0003

== ENCOUNTER 2020-07-13 06:15 | Day surgery (SDC) | payer MEDICARE, SELFPAY ==
[2020-07-13] VITALS (7 sets, daily range): BP systolic 126–155; BP diastolic 70–83; PULSE 60–82; RESP 14–20; TEMP 35.9–36.7; O2SAT 95–96
[2020-07-13] MEDS: Lactated Ringers 1,000 ML 80 ML IV (07:13)
--- NOTE | 2020-07-13 10:04 | W.PM.DSUDISC ---
Discharge Plan Disposition Patient Disposition: HOME Condition: Good Discharge Details Reason For Visit: Recurrent left inguinal hernia repair Attending Provider: Shannen Delacruz Primary Care Provider: Shaina May Home Meds and New Rx's Prescriptions: New hydrocodone-acetaminophen 5-325 mg Tablet 1 tab PO Q4H PRN (Reason: Pain) Qty: 12 RF: 0 Continued torsemide 10 mg tablet 20 mg PO DAILY RF: 0 diclofenac sodium [Voltaren] 1 % gel 4 gm TP QID Qty: 100 RF: 3 Trelegy Ellipta 100-62.5-25 mcg blister with device 1 inh IH DAILY RF: 0 Shingrix (PF) 50 mcg/0.5 mL suspension for reconstitution 50 mcg IM ONCE Qty: 1 RF: 1 montelukast [Singulair] 10 mg tablet 10 mg PO DAILY Qty: 30 RF: 0 spironolactone 25 mg tablet 12.5 mg PO DAILY Qty: 90 RF: 3 acetaminophen 500 MG tablet 1,000 mg PO Q4H PRN RF: 0 (DME) Space Chamber Plus 1 EACH spacer 1 ea Miscellaneous QID Qty: 1 RF: 1 atorvastatin 10 mg tablet 10 mg PO HS Qty: 90 RF: 3 levalbuterol tartrate [Xopenex HFA] 45 mcg/actuation HFA aerosol inhaler 2 inh IH Q6H PRN (Reason: shortness of breath) RF: 0 metoprolol succinate 100 mg tablet extended release 24 hr 100 mg PO DAILY Qty: 90 RF: 0 loperamide 2 mg capsule 2 mg PO DAILY PRN (Reason: loose stool) Qty: 10 RF: 1 allopurinol 100 mg tablet 100 mg PO DAILY Qty: 90 RF: 3 pantoprazole 40 mg tablet,delayed release (DR/EC) 40 mg PO DAILY Qty: 90 RF: 3 amlodipine 5 mg tablet 5 mg PO DAILY Qty: 90 RF: 4 Eliquis 5 mg tablet 5 mg PO BID Qty: 180 RF: 4 donepezil 10 mg tablet 10 mg PO QHS Qty: 90 RF: 3 colchicine 0.6 mg tablet 0.6 mg PO DAILY Qty: 30 RF: 1 terazosin 10 mg capsule 10 mg PO DAILY Qty: 90 RF: 4 prednisone 20 mg tablet 1 mg PO DAILY RF: 0 diltiazem HCl 240 mg capsule,extended release 24 hr 300 mg PO DAILY RF: 0 Discharge Instructions Additional Instructions: The top bandage can be removed tomorrow. The steri strips will usually stick for about a week. When the edges start to curl up, they can be removed. It is okay to shower tomorrow, the water can run over the steri strips Do not swim or soak in a tub for two weeks Call for any concerns including fever, increased pain, vomiting, incision redness or drainage. Do not lift more than 15 pounds for four weeks. Walking and stairs are fine. Do not drive if on narcotic pain meds or if limited by pain. May use Tylenol for pain control. Ice is also an option. The maximum dose for Tylenol is 4000 mg/day. If concerned about constipation, you may use a stool softener or milk of magnesia. Referrals: Shannen Delacruz MD [ [facility] STAFF PHYSICIAN] - (Return in 10-14 days for a postop check) Activity:: Do not lift more than 15 pounds Remove Dressings/Wound Care:: 24 hours Shower/Bathe:: 24 hours Diet:: As Tolerated Discharge Orders Discharge Orders: Discharge Order (Routine); Ordered 07/13/20 Ordered By: Shannen Delacruz DS: Diagnosis Discharge Diagnosis (1) Recurrent left inguinal hernia: Status: Acute
--- NOTE | 2020-07-13 10:10 | W.PM.OP ---
Operative Note Operative Note DATE OF PROCEDURE: 07/13/20 PRE-OP DIAGNOSIS: Recurrent left inguinal hernia POST-OP DIAGNOSIS: same PROCEDURE: Recurrent left inguinal hernia repair with mesh SURGEON: Shannen Delacruz ENVIRONMENTAL SERVICES MANAGER: Analy Coles ANESTHESIA: GETA, regional and local Indications: This 79 year old man presents with chronic left groin pain and PE findings suggestive of an inguinal hernia. US also showed a possible 1cm recurrent left inguinal hernia. Procedure Description: The patient was placed supine on the operating table and after induction of general anesthetic had his left groin prepped and draped sterilely. The prior left inguinal hernia repair incision was identified. The patient had also placed a dung at the site of his pain preoperatively which was located at the medial aspect of this incision. The skin here was infiltrated with local anesthetic and divided with knife. Subcutaneous tissue was divided with cautery down to the external oblique fascia. Any veins encountered were clamped divided and ligated with 3-0 Vicryl ties. The external oblique fascia was incised with a knife and carefully dissected off the mesh located underneath it. The mesh encircled the spermatic cord. Medial to the mesh between the pubic tubercle and the cord there was a small recurrent hernia consisting of preperitoneal fat. This was located alongside what felt to be a previously placed mesh plug and as mentioned medial to the prior flat sheet of mesh. The fat was reduced and a medium mesh plug selected. This was slightly large so I had to trim out the internal petals so it could fit into the space. This was sutured to the previously placed mesh as well as to the transversus abdominis superiorly using a 2-0 Prolene. There is good hemostasis so the extra oblique fascia was closed with a running 3-0 Vicryl as was Massiel's fascia and the skin closed with a running 4 Monocryl subcuticular stitch. He tolerated the procedure well and was stable to recovery.
[2020-07-13] MEDS: ceFAZolin 2 GM/50 ML BAG IVPB (10:19)
== END 2020-07-13 13:43 | disposition home or self-care (01) ==
PROVIDERS: PCP Nurse Practitioner; Visit Provider Surgery
PROC: (CPT 49520; principal; 2020-07-13 07:30)
DX: K40.91 Unilateral inguinal hernia, without obstruction or gangrene, recurrent (principal); G89.18 Other acute postprocedural pain
CPT/HCPCS: 49520; 76942; C1781; J0690; J1100; J2405; J2704

== ENCOUNTER 2020-07-15 08:00 | Emergency (ER) | payer MEDICARE, SELFPAY ==
[2020-07-15 08:02] VITALS: BP 133/118; PULSE 60; TEMP 36.2; O2SAT 98
[2020-07-15 08:09] VITALS: RESP 18
--- NOTE | 2020-07-15 08:41 | ED.GENADUL_ITS ---
Discharge Plan Disposition Patient Disposition: HOME Condition: Stable Discharge Details Chief Complaint: GenMedical Clinical Impression: Acute postoperative abdominal pain Primary Care Provider: Shaina May ED Provider: Stefan Azevedo Home Meds and New Rx's Prescriptions: Continued torsemide 10 mg tablet 20 mg PO DAILY RF: 0 diclofenac sodium [Voltaren] 1 % gel 4 gm TP QID Qty: 100 RF: 3 Trelegy Ellipta 100-62.5-25 mcg blister with device 1 inh IH DAILY RF: 0 Shingrix (PF) 50 mcg/0.5 mL suspension for reconstitution 50 mcg IM ONCE Qty: 1 RF: 1 montelukast [Singulair] 10 mg tablet 10 mg PO DAILY Qty: 30 RF: 0 spironolactone 25 mg tablet 12.5 mg PO DAILY Qty: 90 RF: 3 acetaminophen 500 MG tablet 1,000 mg PO Q4H PRN RF: 0 (DME) Space Chamber Plus 1 EACH spacer 1 ea Miscellaneous QID Qty: 1 RF: 1 atorvastatin 10 mg tablet 10 mg PO HS Qty: 90 RF: 3 levalbuterol tartrate [Xopenex HFA] 45 mcg/actuation HFA aerosol inhaler 2 inh IH Q6H PRN (Reason: shortness of breath) RF: 0 metoprolol succinate 100 mg tablet extended release 24 hr 100 mg PO DAILY Qty: 90 RF: 0 loperamide 2 mg capsule 2 mg PO DAILY PRN (Reason: loose stool) Qty: 10 RF: 1 allopurinol 100 mg tablet 100 mg PO DAILY Qty: 90 RF: 3 pantoprazole 40 mg tablet,delayed release (DR/EC) 40 mg PO DAILY Qty: 90 RF: 3 amlodipine 5 mg tablet 5 mg PO DAILY Qty: 90 RF: 4 Eliquis 5 mg tablet 5 mg PO BID Qty: 180 RF: 4 donepezil 10 mg tablet 10 mg PO QHS Qty: 90 RF: 3 colchicine 0.6 mg tablet 0.6 mg PO DAILY Qty: 30 RF: 1 terazosin 10 mg capsule 10 mg PO DAILY Qty: 90 RF: 4 prednisone 20 mg tablet 1 mg PO DAILY RF: 0 diltiazem HCl 240 mg capsule,extended release 24 hr 300 mg PO DAILY RF: 0 hydrocodone-acetaminophen 5-325 mg Tablet 1 tab PO Q4H PRN (Reason: Pain) Qty: 12 RF: 0 Discharge Instructions Additional Instructions: Please follow-up with your surgeon, Dr. Delacruz. Call today to arrange follow-up. She would like you to be seen in office for reassessment on Sunday. Apply ice to your left groin. Do not apply ice directly to your skin to be sure to use a thin cloth barrier. Please take Tylenol as prescribed for pain. Use hydrocodone as prescribed for severe pain only. Return to the ER for any worsening or new concerning symptoms. Referrals: Shannen Delacruz MD [ [facility] STAFF PHYSICIAN] - Medical Decision Making 8:55 -- 79yo m here 2 days status post left inguinal hernia repair with left groin pain. Significantly tender to palpation left groin with no signs of infection. Patient also with swelling of the testicles and penis with some mild paraphimosis that resolved with reducing foreskin. CT to assess for post operative bleeding or other surgical process. I called and spoke with Dr. Delacruz feels likely pain increase after regional block is worn off. 10:20 --CT of the abdomen and pelvis interpreted by radiology: No abscess, no hemorrhage, no acute process, postoperative air noted. Labs reviewed: Elevated creatinine noted Results were discussed with the patient. Usual and customary discharge instructions were provided. Patient was advised to contact outpatient surgical office to arrange follow-up on Sunday as directed by Dr. Delacruz. HPI General Mode of arrival: ambulatory . Date/Time Provider Initiated Documentation: 07/15/20 08:14 . Limitations to Documentation: no limitations . Information obtained by: patient . HPI Narrative: 79-year-old male presents 2 days status post left inguinal hernia repair with chief complaint of left groin pain. Patient notes he was doing well postoperatively yesterday and then last night he started to have some discomfort in his left groin. He states he woke up around 3:57 AM this morning with severe pain in his left groin. He does not recall any specific injury. He has not done any heavy lifting. Pain is currently 7/10. This is worse than yesterday morning when it was 2/10. No associated nausea, vomiting, bowel dysfunction, dysuria, or fever. He does note that his penis seems somewhat swollen today. No discharge from wound noted. Related Data Home Medications Medication Instructions Recorded Confirmed acetaminophen 1,000 mg PO Q4H PRN tab-cap 07/10/14 07/15/20 Space Chamber Plus #1 12/28/14 06/03/20 torsemide 10 mg tablet 20 mg PO DAILY tab-cap 04/01/19 07/15/20 atorvastatin 10 mg tablet 10 mg PO HS #90 tab 05/13/19 07/15/20 diclofenac sodium 1 % topical gel 4 gm TP QID #100 gm 05/28/19 07/15/20 levalbuterol tartrate 45 2 inh IH Q6H PRN 09/04/19 07/15/20 mcg/actuation aerosol inhaler varicella-zoster [id number] (PF) 50 50 mcg IM ONCE #1 each 10/03/19 07/15/20 mcg/0.5 mL IM susp, kit metoprolol succinate 100 mg 100 mg PO DAILY #90 tab 01/26/20 07/15/20 tablet,extended release 24 hr montelukast 10 mg tablet 10 mg PO DAILY #30 tab 02/10/20 07/15/20 spironolactone 25 mg tablet 12.5 mg PO DAILY #90 tab 02/12/20 07/15/20 loperamide 2 mg capsule 2 mg PO DAILY PRN #10 cap 04/16/20 07/15/20 allopurinol 100 mg tablet 100 mg PO DAILY #90 tab 04/20/20 07/15/20 pantoprazole 40 mg tablet,delayed 40 mg PO DAILY #90 tab 04/20/20 07/15/20 release fluticasone fur. 100 mcg-umeclid 1 inh IH DAILY 05/10/20 07/15/20 62.5 mcg-vilant 25 mcg inhalat.powder amlodipine 5 mg tablet 5 mg PO DAILY #90 tab 05/18/20 07/15/20 apixaban 5 mg tablet 5 mg PO BID #180 tab 05/18/20 07/15/20 donepezil 10 mg tablet 10 mg PO QHS #90 tab 06/11/20 07/15/20 colchicine 0.6 mg tablet 0.6 mg PO DAILY #30 tab 06/22/20 07/15/20 terazosin 10 mg capsule 10 mg PO DAILY #90 tab-cap 06/22/20 07/15/20 prednisone 20 mg tablet 1 mg PO DAILY tab 06/24/20 07/15/20 diltiazem HCl 300 mg PO DAILY 07/09/20 07/15/20 hydrocodone-acetaminophen 1 tab PO Q4H PRN #12 tab 07/13/20 07/15/20 Previous Rx's Medication Instructions Recorded atorvastatin 10 mg tablet 10 mg PO HS #90 tab 05/13/19 diclofenac sodium 1 % topical gel 4 gm TP QID #100 gm 05/28/19 varicella-zoster [id number] (PF) 50 50 mcg IM ONCE #1 each 10/03/19 mcg/0.5 mL IM susp, kit metoprolol succinate 100 mg 100 mg PO DAILY #90 tab 01/26/20 tablet,extended release 24 hr montelukast 10 mg tablet 10 mg PO DAILY #30 tab 02/10/20 spironolactone 25 mg tablet 12.5 mg PO DAILY #90 tab 02/12/20 loperamide 2 mg capsule 2 mg PO DAILY PRN #10 cap 04/16/20 allopurinol 100 mg tablet 100 mg PO DAILY #90 tab 04/20/20 pantoprazole 40 mg tablet,delayed 40 mg PO DAILY #90 tab 04/20/20 release amlodipine 5 mg tablet 5 mg PO DAILY #90 tab 05/18/20 apixaban 5 mg tablet 5 mg PO BID #180 tab 05/18/20 donepezil 10 mg tablet 10 mg PO QHS #90 tab 06/11/20 colchicine 0.6 mg tablet 0.6 mg PO DAILY #30 tab 06/22/20 terazosin 10 mg capsule 10 mg PO DAILY #90 tab-cap 06/22/20 hydrocodone-acetaminophen 1 tab PO Q4H PRN #12 tab 07/13/20 Allergies Allergy/AdvReac Type Severity Reaction Status Date / Time MANSI Inhibitors AdvReac Intermediate HYPERKALEMIA Verified 07/15/20 08:07 5.9, 04/11/16 ARB-Angiotensin Receptor AdvReac Intermediate HYPERKALEMIA Verified 07/15/20 08:07 Antagonist 5.9, 04/11/16 codeine AdvReac Intermediate disoriented Verified 07/15/20 08:07 General Stated Complaint: GenMedical BUNNY: 3 Review of Systems All systems reviewed & are unremarkable except as noted in HPI and below Constitutional Constitutional: Denies fever(s) Gastrointestinal Gastrointestinal: Reports as per HPI [facility] Medical History Anemia in chronic kidney disease (Chronic 04/30/15) Anticoagulation adequate with anticoagulant therapy (Chronic 07/30/14) Apixaban per cardiology, 07/2014, for A Fib, CHADs2 score 2, stroke risk 2.8%; Apixaban RX Atrial fibrillation (Chronic 07/27/07) DR GARCÍA pacer 01/2013 for BRADYCARDIA; S/P Atrial flutter ABLATION [facility] [place] 07/2007 Cardiac pacemaker in situ (Chronic 02/18/13) CV, DR GARCÍA Chronic kidney disease, stage III (moderate) (Chronic 10/21/08) LIKELY DUE TO BP; EST GFR 42 (12/2012); HYPERKALEMIC PROBLEMS Chronic obstructive pulmonary disease (Chronic 04/21/14) not reversible on PFT. 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 De 06/20/16; CPAP used for a few month in 2015, NYA untreated since then. Repeat study 09/04/19 and restart C-PAP Upper GI bleeding (Inactive) Surgical History Colonoscopy - MAC (03/30/14) CSD H/O esophagogastroduodenoscopy (Chronic ~05/12/19) ISCHEMIC R 4TH FINGER (07/26/86) [facility] [place], VEIN HARVESTED R LEG Nasal septoplasty (05/25/87) Pacemaker (02/18/13) Dual Chamber R ATRIAL ISTHMUS ABLATION (08/19/07) [facility] [place] FOR A FLUTTER Repair of inguinal hernia (11/25/78) R; ALSO L 05/2003 Repair of umbilical hernia (01/23/93) Family History Mother , CO at age 75. Heart disease CO Myocardial infarction Breast cancer Father , cancer at age 68. Diabetes Personal history of malignant neoplasm COLON Son Diabetes Son No problems noted. Daughter No problems noted. Daughter No problems noted. Sister , age 83 No problems noted. Sister , age 81 No problems noted. Brother , age 18 - MVA No problems noted. Brother , age 84 Stomach cancer Diabetes Brother , age 79 Pena lung Brother Lung cancer Social History Smoking/Tobacco Use Status: Former Tobacco Use Quit Date: 04/26/19 Tobacco: How many years used: 45 Quit status: has quit before Second Hand Exposure: Yes Counseling given: patient declined Alcohol Intake: former Drug use: Never Substance use type: does not use Adopted: No Caregiver/Support person: No Household members: spouse Housing: house Number of Children: 8 Communication Needs: Hard of Hearing and Corrective Lenses current occupation: [employer] Pets and animals: Yes Pets and animals: cat(s) Sexually active: Yes Do you think of yourself as: straight/heterosexual Current gender identity: male What is your relationship status?: How often do you talk on the phone with friends or family?: three or more times per week How often do you get together with friends or relatives?: three or more times per week How often do you attend anabaptism or presybeterian services?: 4 or more times per year Do you belong to any clubs or organized social groups?: yes Panel score (0-1 are the most socially isolated patients): 4 What type of physical activity do you participate in: none Duration: decline to answer Frequency: decline to answer Quin/Church: Confucianist Special quin needs: No Seatbelt use: always Drive intox or ride w/intox boat driver: No Working smoke detector in home: Yes Fire extinguisher in home: Yes Carbon monox detector in home: Yes Firearms in home: Yes Firearms unloaded and locked: Yes Do you feel safe at home: Yes Do you feel safe in your relationship?: Yes Exam Const General: cooperative and no acute distress HENMT Mouth: moist mucous membranes Eyes Conjunctivae: normal conjunctivae Sclera: normal sclerae Neck Neck: trachea midline and supple Resp Auscultation: clear to auscultation bilaterally, no rales, no rhonchi and no wheezes Cardio Jugular venous pressure: no JVD Rate: regular rate and not tachycardic Rhythm: abnormal rhythm GI Palpation: soft, not firm, no guarding, no masses, not rigid and tender in the LLQ Auscultation: normal bowel sounds Other: Surgical wound appears normal with no erythema or discharge Penis: paraphimosis (Mild and improved with reduced foreskin) Skin Wounds: wounds noted (Left lower quadrant, Steri-Strips intact, no erythema) Neuro General: patient alert, patient awake and tone normal Extrem General: no calf tenderness and edema Laterality: left (Trace) Psych Appearance: grossly normal Mental Status: mental status grossly normal Course Vital Signs Vital signs: Vital Signs Temperature 36.2 C L 07/15/20 08:02 Pulse 60 07/15/20 08:02 Blood Pressure 133/118 H 07/15/20 08:02 Pulse Oximetry 98 07/15/20 08:02 Temperature 36.2 C L 07/15/20 08:02 Temperature Source Temporal Artery Scan 07/15/20 08:02 Pulse 60 07/15/20 08:02 Respiratory Rate 18 07/15/20 08:09 Respiratory Effort Non-Labored 07/15/20 08:09 Respiratory Depth Normal 07/15/20 08:09 Respiratory Pattern Normal 07/15/20 08:09 Blood Pressure 133/118 H 07/15/20 08:02 Blood Pressure Position Sitting 07/15/20 08:02 Pulse Oximetry 98 07/15/20 08:02 Oxygen Delivery Method Room Air 07/15/20 08:02 Oxygen Flow Rate 0 07/15/20 08:02 Pain Level 8 07/15/20 08:02
[2020-07-15] MEDS: Lactated Ringers 1,000 ML 125 ML IV (09:06)
[2020-07-15 09:13] LABS: Abs Immature Grans 0.04 10^3/uL (0.0-0.06); Absolute Basophil Count 0.02 10^3/uL (0.0-0.2); Absolute Eosinophil Count 0.03 10^3/uL (0.0-0.7); Absolute Lymphocyte Count 1.17 10^3/uL (1.2-3.4); Absolute Monocyte Count 0.86 10^3/uL (0.1-0.8); Basophils % 0.2; Eosinophils % 0.3; HCT 36.3 % (40.0-50.0); HGB 11.8 g/dL (13.5-17.5); Immature Grans % 0.4; Lymphocytes % 13.1; MCH 32.6 pg (27.0-33.0); MCHC 32.5 % (32.0-36.0); MCV 100.3 fL (80-95); MPV 9.2 fL (8.0-11.0); Monocytes % 9.6; Neutrophils % 76.4; Nucleated RBC 0 %; Platelet Count 210 10^3/uL (130-400); RBC 3.62 10^6/uL (4.36-5.78); RDW 14.4 % (11.8-14.1); RDW-SD 52.9 fL; WBC 8.92 10^3/uL (4.4-10.8)
--- NOTE | 2020-07-15 09:30 | DI.CT_ITS ---
EXAM: CT ABDOMEN PELVIS WO CLINICAL HISTORY: lt groin pain 2 days post op TECHNIQUE: Images were performed from the lung bases through the ischial tuberosities without IV or oral contrast. Axial, coronal, sagittal reconstructed images were performed. COMPARISON: CT CT ABDOMEN PELVIS WO from 05/10/2019 FINDINGS: The heart is enlarged. Pacemaker leads are seen. There is respiratory motion at the lung bases. T here is a question of left basilar infiltrate versus atelectasis. No effusions are seen. The liver, gallbladder, spleen, pancreas and adrenals are unremarkable. There is a small right renal cyst. Th ere is a retro aortic left renal vein. There are atherosclerotic changes of the aorta and branch ves sels but no evidence of an aneurysm. There is no evidence of hydronephrosis or urinary tract calculi . The bladder and prostate are unremarkable. Colonic diverticula are seen, greatest in the sigmoid. There is no evidence diverticulitis. There is a normal quantity of stool. The appendix appears no rmal. There is no small bowel dilatation. There is a small amount of air seen in the anterior subcu taneous fat over the left lower abdominal wall extending into the inguinal region. There is no evide nce of an abscess, fluid collection or hematoma. There is no evidence of intra or retroperitoneal he morrhage. IMPRESSION: Postsurgical air in the left inguinal region. No evidence of abscess, hematoma or retroperitoneal h emorrhage. RADIATION DOSE DELIVERED: 1,131.73mGy.cm Total DLP
[2020-07-15 09:31] LABS: ALT 18 U/L (16-63); AST 17 U/L (15-37); Albumin 3.1 g/dL (3.4-5.0); Alkaline Phosphatase 66 U/L (46-116); Anion Gap 8.5 mmol/L (3-11); BUN 62 mg/dL (7-18); Bilirubin, Total 0.4 mg/dL (0.2-1.0); CO2 27.5 mmol/L (21.0-32.0); CREATININE 2.02 mg/dL (0.70-1.30); Calcium 8.8 mg/dL (8.5-10.1); Chloride 103 mmol/L (98-107); Estimated GFR 32.11 (mL/min/1.73m2); Glucose 113 mg/dL (74-106); Potassium 4.2 mmol/L (3.5-5.1); Sodium 139 mmol/L (136-145); Total Protein 6.7 g/dL (6.4-8.2)
[2020-07-15 10:09] VITALS: BP 135/68; PULSE 69; RESP 18; O2SAT 97
== END 2020-07-15 10:59 | disposition home or self-care (01) ==
PROVIDERS: Emergency Provider Student in an Organized Health Care Education/Training Program; PCP Nurse Practitioner
DX: R10.32 Left lower quadrant pain (principal); G89.18 Other acute postprocedural pain; Y83.8 Other surgical procedures as the cause of abnormal reaction of the patient, or of later complication, without mention of misadventure at the time of the procedure; J44.9 Chronic obstructive pulmonary disease, unspecified; Z87.891 Personal history of nicotine dependence; I12.9 Hypertensive chronic kidney disease with stage 1 through stage 4 chronic kidney disease, or unspecified chronic kidney disease; N18.3 Chronic kidney disease, stage 3 (moderate)
CPT/HCPCS: 36415; 80053; 96360; 96361; 99284; 74176; 85025

== ENCOUNTER → 2020-07-26 09:58 | Outpatient (BNVA) | payer MEDICARE, SELFPAY | PROVIDERS: PCP Nurse Practitioner; Referring Provider Nurse Practitioner; Visit Provider Surgery | DX: Z48.815 Encounter for surgical aftercare following surgery on the digestive system (principal) ==

== ENCOUNTER 2020-08-10 11:04 | Outpatient (REF) | payer MEDICARE, SELFPAY ==
[2020-08-10 14:16] LABS: CREATININE 1.79 mg/dL (0.70-1.30); Estimated GFR 36.91 (mL/min/1.73m2)
== END 2020-08-10 11:24 ==
LOC: LBN 11:04
PROVIDERS: PCP Nurse Practitioner; Visit Provider Nurse Practitioner
DX: I10 Essential (primary) hypertension (principal)
CPT/HCPCS: 82565

== ENCOUNTER → 2020-08-26 11:11 | Outpatient (BNVA) | payer MEDICARE, SELFPAY | PROVIDERS: PCP Nurse Practitioner; Referring Provider Nurse Practitioner; Visit Provider Surgery | DX: Z48.815 Encounter for surgical aftercare following surgery on the digestive system (principal) ==

== ENCOUNTER → 2020-09-27 12:50 | Outpatient (BNVA) | payer MEDICARE, SELFPAY | PROVIDERS: PCP Nurse Practitioner; Referring Provider Nurse Practitioner; Visit Provider Surgery | DX: Z48.89 Encounter for other specified surgical aftercare (principal) ==

== ENCOUNTER 2021-02-22 02:49 | Outpatient (CLI) | payer MEDICARE, SELFPAY ==
--- NOTE | 2021-02-22 07:00 | DI.CT_ITS ---
EXAM: CT LUMBAR SPINE SI JOINTS WO CLINICAL HISTORY: chronic low back pain,M54.5. TECHNIQUE: Imaging Protocol: Axial computed tomography images with coronal and sagittal reformatted images were created and reviewed CONTRAST MATERIAL: Intravenous: Omnipaque 350 Contrast volume:Noncontrast COMPARISON: No exams were available for comparison FINDINGS: Bones: The last intervertebral disc space is designated the L5/S1 level for the numbering purpose of this examination. The vertebral body heights are well maintained. No fracture is seen. T12-L1: Moderate loss of disc height. Endplate osteophytes projecting anteriorly. No neural forami nal narrowing or central canal stenosis. L1-2: Marked loss of disc height, eccentric toward the left where there are prominent endplate osteo phytes. There are degenerative signal changes in small subchondral cysts. Vacuum disc phenomena is also present. There is bilateral neural foraminal narrowing, but no significant central canal stenos is. L2-3: Asymmetric disc space narrowing on the left side, endplate osteophytes, vacuum disc phenomenon , subchondral cysts and sclerosis. Bilateral neural foraminal narrowing. Mild central canal stenosi s. L3-4: Normal disc height. Mild disc bulging. Facet degenerative changes cause bilateral neural for aminal encroachment. There is ligamentous hypertrophy, which combines with the facet degenerative ch anges and disc bulging to create a moderate degree of central canal stenosis. L4-5: Small endplate osteophytes. Broad-based concentric disc bulging. Prominent facet joint degen erative changes. Bilateral neural foraminal narrowing. Severe central canal stenosis. L5-S1: Small endplate osteophytes and mild disc bulging. The combination of asymmetric degenerative disc changes causes a mild dextroscoliosis. Soft Tissues: Bony bridging is seen across the superior SI joints. No bony erosions are seen. The paraspinal soft tissues are unremarkable. Aorta normal diameter. Atherosclerotic changes. IMPRESSION: Multilevel degenerative disc changes and facet degenerative changes, greatest at L4-5 where there is severe central canal stenosis as well as bilateral neural foraminal narrowing. RADIATION DOSE DELIVERED: 742.66mGy.cm Total DLP DATA REPOSITORY: All CT scans at this facility are submitted to the National Radiology Data Registry (NRDR) Dose Index Registry (DIR) with the [employer] (ACR). RADIATION OPTIMIZATION: All CT scans at this facility use at least one of these dose optimization te chniques: automated exposure control; mA and/or kV adjustment per patient size (includes targeted exa ms where dose is matched to clinical indication); or iterative reconstruction.
== END 2021-02-22 03:09 ==
PROVIDERS: PCP Nurse Practitioner; Visit Provider Nurse Practitioner
DX: M54.5 Low back pain (principal); G89.29 Other chronic pain; M51.37 Other intervertebral disc degeneration, lumbosacral region; M48.07 Spinal stenosis, lumbosacral region
CPT/HCPCS: 72131

== ENCOUNTER 2021-03-10 02:56 | Outpatient (CLI) | payer MEDICARE, SELFPAY ==
[2021-03-10 12:22] LABS: Abs Immature Grans 0.03 10^3/uL (0.0-0.06); Absolute Basophil Count 0.04 10^3/uL (0.0-0.2); Absolute Eosinophil Count 0.12 10^3/uL (0.0-0.7); Absolute Lymphocyte Count 1.52 10^3/uL (1.2-3.4); Absolute Monocyte Count 0.73 10^3/uL (0.1-0.8); Absolute Neutrophil Count 5.33 10^3/uL (1.2-6.7); Basophils % 0.5; Eosinophils % 1.5; HCT 33.3 % (40.0-50.0); HGB 10.8 g/dL (13.5-17.5); Immature Grans % 0.4; Lymphocytes % 19.6; MCH 32.6 pg (27.0-33.0); MCHC 32.4 % (32.0-36.0); MCV 100.6 fL (80-95); MPV 9.9 fL (8.0-11.0); Monocytes % 9.4; Neutrophils % 68.6; Nucleated RBC 0 %; Platelet Count 245 10^3/uL (130-400); RBC 3.31 10^6/uL (4.36-5.78); RDW 16.4 % (11.8-14.1); RDW-SD 60.7 fL; WBC 7.77 10^3/uL (4.4-10.8)
[2021-03-10 12:26] LABS: ESR 19 mm//hr (0-20)
[2021-03-10 12:48] LABS: ALT 36 U/L (16-63); AST 27 U/L (15-37); Albumin 3.1 g/dL (3.4-5.0); Alkaline Phosphatase 112 U/L (46-116); Anion Gap 10.1 mmol/L (3-11); BUN 53 mg/dL (7-18); Bilirubin, Total 0.5 mg/dL (0.2-1.0); C-Reactive Protein 1.26 mg/dL (0.0-0.3); CO2 24.9 mmol/L (21.0-32.0); CREATININE 2.4 mg/dL (0.70-1.30); Calcium 8.9 mg/dL (8.5-10.1); Chloride 107 mmol/L (98-107); Estimated GFR 26.25 (mL/min/1.73m2); Glucose 135 mg/dL (74-106); Potassium 4.7 mmol/L (3.5-5.1); Sodium 142 mmol/L (136-145); Total Protein 6.2 g/dL (6.4-8.2); Uric Acid 4.1 mg/dL (3.5-7.2)
== END 2021-03-10 02:57 | disposition home or self-care (01) ==
LOC: LOS 02:56
PROVIDERS: PCP Nurse Practitioner; Visit Provider Nurse Practitioner Family
DX: M79.89 Other specified soft tissue disorders (principal); M35.3 Polymyalgia rheumatica; M10.9 Gout, unspecified
CPT/HCPCS: 36415; 80053; 85652; 84550; 85025; 86140

== ENCOUNTER 2021-03-15 23:27 | Outpatient (REF) | payer MEDICARE, SELFPAY ==
[2021-03-15 21:12] LABS: NT-proBNP 6294 pg/mL (<300)
== END 2021-03-15 23:28 | disposition home or self-care (01) ==
LOC: LBN 23:27
PROVIDERS: PCP Nurse Practitioner; Visit Provider Emergency Medicine
DX: I50.9 Heart failure, unspecified (principal)
CPT/HCPCS: 83880

== ENCOUNTER 2021-03-28 02:23 | Outpatient (CLI) | payer MEDICARE, SELFPAY ==
[2021-03-28 13:04] LABS: Anion Gap 10.4 mmol/L (3-11); BUN 59 mg/dL (7-18); CO2 28.6 mmol/L (21.0-32.0); CREATININE 1.8 mg/dL (0.70-1.30); Calcium 8.9 mg/dL (8.5-10.1); Chloride 104 mmol/L (98-107); Estimated GFR 36.58 (mL/min/1.73m2); Glucose 87 mg/dL (74-106); NT-proBNP 6224 pg/mL (<300); Potassium 5.1 mmol/L (3.5-5.1); Sodium 143 mmol/L (136-145)
== END 2021-03-28 02:24 | disposition home or self-care (01) ==
LOC: LOS 02:23
PROVIDERS: PCP Nurse Practitioner; Visit Provider Nurse Practitioner
DX: N18.30 Chronic kidney disease, stage 3 unspecified (principal); R60.9 Edema, unspecified; I50.9 Heart failure, unspecified
CPT/HCPCS: 36415; 80048; 83880

== ENCOUNTER 2021-04-08 03:16 | Outpatient (CLI) | payer MEDICARE, SELFPAY ==
[2021-04-08 11:39] LABS: Source Nasal/Nares
[2021-04-08 16:29] LABS: COVID-19 PCR Negative (Negative)
== END 2021-04-08 03:17 | disposition home or self-care (01) ==
PROVIDERS: PCP Nurse Practitioner; Visit Provider Nurse Practitioner
DX: Z20.822 Contact with and (suspected) exposure to COVID-19 (principal); Z01.818 Encounter for other preprocedural examination
CPT/HCPCS: 87635; U0003

== ENCOUNTER 2021-05-24 13:31 | Outpatient (CLI) | payer MEDICARE, SELFPAY ==
--- NOTE | 2021-05-24 06:00 | DI.RAD_ITS ---
Exam(s) XR PAIN CLINIC LUMBAR SP 2V EXAM: XR PAIN CLINIC LUMBAR SP 2V CLINICAL HISTORY: Dx: Lumbar Radiculopathy TECHNIQUE: 2D and realtime digital imaging was performed. COMPARISON: No exams were available for comparison FINDINGS: C-arm fluoroscopy was utilized by Dr. Atkinson during reported lumbar epidural steroid injection. Hard photocopying equipment repairer y shows injection in the posterior midline at L5-S1. IMPRESSION: RADIATION DOSE DELIVERED: Peggyr=8.45 mGy
[2021-05-24 13:47] VITALS: BP 125/66; PULSE 74; RESP 18; TEMP 36.6; O2SAT 98
[2021-05-24 14:54] VITALS: BP 134/69; PULSE 79; RESP 16; O2SAT 99
[2021-05-24] MEDS: Omnipaque 240 MG/ML 50 ML BTL IJ (14:55)
[2021-05-24] MEDS: methylPREDNISolone ACETATE 80 MG/ML VIAL IJ (14:55)
--- NOTE | 2021-05-24 14:56 | PDOC.PAIN_ITS ---
Pain Clinic Procedure Note Procedure Note Procedure Note: Lumbar Epidural Steroid Injection Procedure Note pre-operative diagnosis: lumbar spinal stenosis post-operative diagnosis: same as above COMMENTS:patient discontinued his eliquis 3 days prior to scheduled pain procedure, he takes eliquis for atrial fibrillation Tony Charisma Rashad Andrews has been referred to the [facility] for lumbar epidural steroid injection. The patient was greeted by the nurse who verified patients name and . Patient was then taken to the fluoroscopy suite. The patient was interviewed and the medial record reviewed. There were no medical, pharmacologic, radiographic, or other structural contraindications to attempting fluoroscopically guided lumbar epidural steroid injection. Risks and expected side effects as well as potential benefits of the procedure were reviewed and voiced concerns expressed. The patient consent form was signed and witnessed. Standard patient time-out procedure was performed. The patient was placed in the prone position on the fluoroscopy table and a utomated blood pressure cuff and pulse oximeter applied. The skin entry point for entering/approaching the epidural space by a L5-S1 and marked. Following thorough chlorhexadine preparation of the skin and draping and 1% lidocaine infiltration of the skin entry point and subcutaneous tissues, a 18 gauge Touhy needle was placed under fluoroscopic guidance and with loss of resistance technique into the epidural space. Needle tip placement and depth were aided and confirmed by fluoroscopy. There was no paresthesia or return of blood or CSF through the needle. 1 cc's of Omnipaque 240 was injected with clear epidural spread confirmed with fluoroscopy. 80mg depomedrol was injected. There was not any unusual discomfort expressed by Tony Zafar Rashad Andrews. Patient's vital signs were stable throughout the procedure and were as recorded in nursing records. Follow up plans and appointments were discussed with patient. Post procedure instruction was given as documented in nursing records and having met discharge criteria and was discharged from the [facility]. COMMENTS: If this procedure is helpful, it can be completed up to 3 times per 12 months. patient may resume his eliquis 24 hrs after procedure. pre-procedure VAS score 7/10. post-procedure vas score 5/10 Adelaide Atkinson MD Pain Management
== END 2021-05-24 13:32 | disposition home or self-care (01) ==
LOC: PC 13:32
PROVIDERS: PCP Nurse Practitioner; Visit Provider Internal Medicine
DX: M48.061 Spinal stenosis, lumbar region without neurogenic claudication (principal)
CPT/HCPCS: 62323; 72100; J1040; Q9967

== ENCOUNTER 2021-05-31 10:33 | Outpatient (CLI) | payer MEDICARE, SELFPAY ==
--- NOTE | 2021-05-31 10:30 | RT.EKG_ITS ---
APPROVED REPORT Exam: Resting ECG Reason for Exam: evaluation Patient Location: O HR:87 bpm ECG Measurements Heart Rate 87 AXIS WI [id number] P [id number] QRSd 119 QRS -30 QT 367 T 108 QTc 442 Conclusion Atrial fibrillation...V-rate 66-112, irreg A-activity Ventricular bigeminy...bigeminy string>4 w/ V complexes Incomplete left bundle branch block...QRSd>110mS, terminal axis(-90,-1)
== END 2021-05-31 10:34 | disposition home or self-care (01) ==
LOC: DI.CARD 10:34
PROVIDERS: PCP Nurse Practitioner; Visit Provider Internal Medicine Cardiovascular Disease
DX: I48.91 Unspecified atrial fibrillation (principal)
CPT/HCPCS: 93010

== ENCOUNTER → 2021-05-31 13:20 | Outpatient (BNVA) | payer MEDICARE, SELFPAY | PROVIDERS: PCP Nurse Practitioner; Referring Provider Nurse Practitioner; Visit Provider Internal Medicine Cardiovascular Disease | DX: I48.0 Paroxysmal atrial fibrillation (principal); N18.4 Chronic kidney disease, stage 4 (severe); G47.33 Obstructive sleep apnea (adult) (pediatric); I12.9 Hypertensive chronic kidney disease with stage 1 through stage 4 chronic kidney disease, or unspecified chronic kidney disease; Z95.0 Presence of cardiac pacemaker; Z79.01 Long term (current) use of anticoagulants; J44.9 Chronic obstructive pulmonary disease, unspecified | CPT/HCPCS: 93005; 99204; 99214 ==

== ENCOUNTER → 2021-07-13 11:08 | Outpatient (BNVA) | payer MEDICARE, SELFPAY | PROVIDERS: PCP Nurse Practitioner; Referring Provider Nurse Practitioner; Visit Provider Physician Assistant | DX: I48.0 Paroxysmal atrial fibrillation (principal); Z45.018 Encounter for adjustment and management of other part of cardiac pacemaker | CPT/HCPCS: 93280; 99212 ==

== ENCOUNTER → 2021-07-15 11:04 | Outpatient (BNVA) | payer MEDICARE, SELFPAY | PROVIDERS: PCP Nurse Practitioner; Referring Provider Nurse Practitioner; Visit Provider Surgery | DX: R10.32 Left lower quadrant pain (principal); M25.561 Pain in right knee; N62 Hypertrophy of breast; N64.4 Mastodynia | CPT/HCPCS: 99213; 99214 ==

== ENCOUNTER 2021-08-31 01:49 | Outpatient (CLI) | payer MEDICARE, SELFPAY ==
--- NOTE | 2021-08-31 06:45 | DI.MAMMO_ITS ---
Exam(s) MAMMO DIAGNOSTIC BI EXAM: MAMMO DIAGNOSTIC BI CLINICAL HISTORY: Breast Pain,MALE GYNECOMASTIA,N62,N64.4 TECHNIQUE: Bilateral full field digital CC and MLO mammographic images were obtained with 3D tomosyn thesis and utilizing computer aided detection (CAD). COMPARISON: None. FINDINGS: Masses/Architectural Distortion: There is breast tissue in the retroareolar regions bilaterally, righ t greater than left. No areas of architectural distortion are present. Microcalcifications: No suspicious pleomorphic-type are seen. Skin Thickening/Nipple Retraction: None. IMPRESSION: 1. Bilateral breast tissue in the retroareolar regions. This likely reflects gynecomastia. 2. Ultrasound could not be performed on this day and the patient is scheduled to return for bilateral breast ultrasound. BI-RADS Category 0 - Assessment Incomplete: Need additional imaging evaluation Breast Density - Category B - Scattered areas of fibroglandular density Breast density category C or D implies that the patient has dense breast tissue. Dense breast tissue is very common and is not abnormal but dense breast tissue can make it harder to find cancer on a ma mmogram. Also, dense breast tissue may increase their breast cancer risk. This information about the result of the mammogram report was provided to the patient to raise their awareness. Use this report when you speak with the patient about their risks for breast cancer, which includes their family hist ory. At that time, you may recommend for more screening tests (Ultrasound or MRI) as they might be us eful based on their risk. A negative radiographic report should not delay biopsy if a dominant or clinically suspicious mass is present. Up to ten percent of cancers are not identified on mammography. A negative report may reinforce clinical impression. Adenosis and dense breasts may obscure an underlying neoplasm. False positive reports average 6 to 10%. Patient will receive a letter notifying them of these results.
== END 2021-08-31 02:09 ==
PROVIDERS: PCP Nurse Practitioner; Visit Provider Surgery
DX: N62 Hypertrophy of breast (principal); N64.4 Mastodynia; R92.8 Other abnormal and inconclusive findings on diagnostic imaging of breast
CPT/HCPCS: 77062; 77066; G0279

== ENCOUNTER 2021-09-05 00:46 | Outpatient (CLI) | payer MEDICARE, SELFPAY ==
--- NOTE | 2021-09-05 | DI.US_ITS ---
Exam(s) US BREAST RT LIMITED US BREAST LT LIMITED EXAM: US BREAST RT LIMITED CLINICAL HISTORY: F/U INCONCLUSIVE MAMMO,BILAT BREAST TISSUE,PROB GYNECOMASTIA TECHNIQUE: Ultrasound performed using standard protocol. COMPARISON: US ECHOCARDIO W/DPPLR COLORFLOW from 04/04/2021 US US BREAST LT LIMITED from 09/05/2021 FINDINGS: Breast ultrasound was performed bilaterally to to evaluate the retroareolar portion of the breast for question gynecomastia as suspected on recent mammogram. Ultrasound findings are consistent with mil d bilateral gynecomastia. No mass identified in either breast in the retroareolar portion of the wilberto ast. IMPRESSION: Findings as described are consistent with mild bilateral gynecomastia DATA REPOSITORY:
== END 2021-09-05 01:06 ==
PROVIDERS: PCP Nurse Practitioner; Visit Provider Surgery
DX: R92.8 Other abnormal and inconclusive findings on diagnostic imaging of breast (principal); N62 Hypertrophy of breast
CPT/HCPCS: 76642

== ENCOUNTER 2021-09-08 16:04 | Outpatient (REF) | payer MEDICARE, SELFPAY ==
[2021-09-08 18:53] LABS: Abs Immature Grans 0.04 10^3/uL (0.0-0.06); Absolute Basophil Count 0.03 10^3/uL (0.0-0.2); Absolute Eosinophil Count 0.03 10^3/uL (0.0-0.7); Absolute Lymphocyte Count 1.15 10^3/uL (1.2-3.4); Absolute Monocyte Count 0.91 10^3/uL (0.1-0.8); Absolute Neutrophil Count 6.68 10^3/uL (1.2-6.7); Basophils % 0.3; Eosinophils % 0.3; HCT 33.4 % (40.0-50.0); HGB 10.8 g/dL (13.5-17.5); Immature Grans % 0.5; MCHC 32.3 % (32.0-36.0); MCV 99.1 fL (80-95); MPV 9.9 fL (8.0-11.0); Monocytes % 10.3; Neutrophils % 75.6; Nucleated RBC 0 %; Platelet Count 238 10^3/uL (130-400); RBC 3.37 10^6/uL (4.36-5.78); RDW 13.6 % (11.8-14.1); RDW-SD 49.6 fL; WBC 8.84 10^3/uL (4.4-10.8)
[2021-09-08 19:04] LABS: Anion Gap 8.2 mmol/L (3-11); CO2 28.8 mmol/L (21.0-32.0); CREATININE 2.3 mg/dL (0.70-1.30); Calcium 8.8 mg/dL (8.5-10.1); Chloride 102 mmol/L (98-107); Glucose 95 mg/dL (74-106); Potassium 4.1 mmol/L (3.5-5.1); Sodium 139 mmol/L (136-145); Uric Acid 4.5 mg/dL (3.5-7.2)
[2021-09-08 20:21] LABS: BUN 88 mg/dL (7-18)
== END 2021-09-08 16:05 | disposition home or self-care (01) ==
LOC: LBN 16:04
PROVIDERS: PCP Nurse Practitioner; Visit Provider Physician Assistant
DX: M25.59 Pain in other specified joint; N18.4 Chronic kidney disease, stage 4 (severe)
CPT/HCPCS: 80048; 84550; 85025

== ENCOUNTER 2021-09-14 12:26 | Outpatient (REF) | payer MEDICARE, SELFPAY ==
[2021-09-14 13:11] LABS: Anion Gap 9.7 mmol/L (3-11); CO2 26.3 mmol/L (21.0-32.0); CREATININE 2.5 mg/dL (0.70-1.30); Calcium 8.8 mg/dL (8.5-10.1); Chloride 102 mmol/L (98-107); Estimated GFR 24.97 (mL/min/1.73m2); Glucose 85 mg/dL (74-106); Sodium 138 mmol/L (136-145)
[2021-09-14 13:15] LABS: BUN 85 mg/dL (7-18)
== END 2021-09-14 12:27 | disposition home or self-care (01) ==
LOC: LBN 12:26
PROVIDERS: PCP Nurse Practitioner; Visit Provider Nurse Practitioner
DX: N18.4 Chronic kidney disease, stage 4 (severe) (principal); I50.9 Heart failure, unspecified
CPT/HCPCS: 80048

== ENCOUNTER 2021-09-20 14:55 | Outpatient (REF) | payer MEDICARE, SELFPAY ==
[2021-09-20 16:16] LABS: Anion Gap 11.5 mmol/L (3-11); CO2 23.5 mmol/L (21.0-32.0); CREATININE 2.5 mg/dL (0.70-1.30); Calcium 8.9 mg/dL (8.5-10.1); Chloride 103 mmol/L (98-107); Estimated GFR 24.97 (mL/min/1.73m2); Glucose 98 mg/dL (74-106); Potassium 4.7 mmol/L (3.5-5.1); Sodium 138 mmol/L (136-145)
[2021-09-20 16:47] LABS: BUN 90 mg/dL (7-18)
== END 2021-09-20 14:56 | disposition home or self-care (01) ==
LOC: LBN 14:55
PROVIDERS: PCP Nurse Practitioner; Visit Provider Nurse Practitioner
DX: N18.9 Chronic kidney disease, unspecified (principal); I50.9 Heart failure, unspecified
CPT/HCPCS: 80048

== ENCOUNTER → 2021-12-27 11:05 | Outpatient (BNVA) | payer MEDICARE, SELFPAY | PROVIDERS: PCP Nurse Practitioner; Referring Provider Nurse Practitioner; Visit Provider Internal Medicine Cardiovascular Disease | DX: I48.0 Paroxysmal atrial fibrillation (principal); N18.4 Chronic kidney disease, stage 4 (severe); I12.9 Hypertensive chronic kidney disease with stage 1 through stage 4 chronic kidney disease, or unspecified chronic kidney disease; Z95.0 Presence of cardiac pacemaker; Z79.01 Long term (current) use of anticoagulants | CPT/HCPCS: 99214 ==

== ENCOUNTER → 2022-01-04 10:03 | Outpatient (BNVA) | payer MEDICARE, SELFPAY | PROVIDERS: PCP Nurse Practitioner; Referring Provider Nurse Practitioner; Visit Provider Physician Assistant | DX: Z95.0 Presence of cardiac pacemaker (principal); I48.0 Paroxysmal atrial fibrillation | CPT/HCPCS: 93280 ==

== ENCOUNTER 2022-01-09 06:52 | Observation (INO) | payer MEDICARE, SELFPAY ==
[2022-01-09] VITALS (13 sets, daily range): BP systolic 111–154; BP diastolic 50–70; PULSE 59–88; RESP 12–25; TEMP 35.1–36.6; O2SAT 82–99
--- NOTE | 2022-01-09 07:00 | DI.CT_ITS ---
Exam(s) CT HEAD CERVICAL SPINE WO EXAM: CT HEAD CERVICAL SPINE WO CLINICAL HISTORY: fall, L sided pain. TECHNIQUE: Imaging Protocol: Axial computed tomography images with coronal and sagittal reformatted images were created and reviewed COMPARISON: CT CT HEAD CERVICAL SPINE WO from 12/05/2019 FINDINGS: BRAIN: There are no skull fractures nor fluid in the visualized paranasal sinuses. There is no evidence of intracranial hemorrhage, mass effect, or shift of midline structures. There are no extra-axial fluid collections. The ventricles are not enlarged or shifted and there is no blo od within the ventricular system nor within the basal cisterns. Again noted is abundant bilateral periventricular hypodensity consistent with chronic small vessel di sease. This is again noted be most prominent in the right parietal region, unchanged. CERVICAL SPINE: There is no evidence of acute fracture . No significant prevertebral soft tissue swelling. Again noted is degenerative anterolisthesis of C3 upon C4 and C4 upon C5, unchanged and related to fa cet arthropathy at these levels. Also advanced disc space narrowing at C5-6 and C6-7 levels again no emmanuel. There is no significant facet joint malalignment. No significant osseous lesions evident. IMPRESSION: No acute intracranial findings on this noninfused CT scan of the brain.Chronic white matter disease a gain noted, unchanged from prior CT scan November 2019 No evidence of acute acute cervical spine fracture, malalignment, nor acute compromise of the cervica l spinal canal. Chronic degenerative changes as described above, unchanged from the prior study list ed above. RADIATION DOSE DELIVERED: 1,294.05mGy.cm Total DLP DATA REPOSITORY: All CT scans at this facility are submitted to the National Radiology Data Registry (NRDR) Dose Index Registry (DIR) with the [employer] (ACR). RADIATION OPTIMIZATION: All CT scans at this facility use at least one of these dose optimization te chniques: automated exposure control; mA and/or kV adjustment per patient size (includes targeted exa ms where dose is matched to clinical indication); or iterative reconstruction.
--- NOTE | 2022-01-09 07:07 | ED.GENADUL_ITS ---
Discharge Plan Disposition Patient Disposition: [facility] INPATIENT Condition: Stable Discharge Details Clinical Impression: Ambulatory dysfunction Admit Date/Time: 01/09/22 11:18 Admit Provider: Yahaira Gould Attending Provider: Yahaira Gould Primary Care Provider: Shaina May ED Provider: Aminta Azevedo Discharge Data Discharge Date/Time-TO BE ENTERED AT DEPARTURE: 01/09/22 12:04 Medical Decision Making <Roc Borrego MD - Last Filed: 01/09/22 07:13> 81-year-old male who slipped and fell on the ice outside of his home yesterday. He denies a loss of cough/, but called EMS today due to increasing left flank and back pain such that it was difficult for him to get out with his recliner. He was given a gram of acetaminophen on route with some improvement of the discomfort. On exam he has some bruising of the left chest wall and tenderness of the left flank and thorax. Must exclude underlying bony or visceral injury. Patient had IV access established and was referred for screening laboratories and CT images. As patient presented just prior to end of shift, the case will be signed out to Dr. Azevedo. Please see her note regarding final impression and disposition. <Aminta Azevedo MD - Last Filed: 01/13/22 12:13> 81-year-old male who slipped and fell on the ice outside of his home yesterday. He denies a loss of cough/, but called EMS today due to increasing left flank and back pain such that it was difficult for him to get out with his recliner. He was given a gram of acetaminophen on route with some improvement of the disc omfort. On exam he has some bruising of the left chest wall and tenderness of the left flank and thorax. Must exclude underlying bony or visceral injury. Patient had IV access established and was referred for screening laboratories and CT images. As patient presented just prior to end of shift, the case will be signed out to Dr. Azevedo. Please see her note regarding final impression and disposition. Tony Solorzano was signed out to me at time of shift change with labs, imaging, dispo pending. Labs reviewed, Hgb 11.1 (at baseline), INR 1.2, Cr 2.6 (from 2.5 09/15). Plan for CT c/a/p without contrast at this time given no drop in Hgb from baseline, hemodynamically stable, significant time passed from injury. CT shows no acute process. I discussed Pt with Dr. Georges of surgery, who states given overall clinical picture, without fluid collection on CT no further trauma observation/evaluation necessary. Pt reporting left flank pain/low back pain and difficulty walking this morning 2/2 pain. Pt's family states they feel they cannot care for Pt at home at this time. Care management involved. Plan for admission for ambulatory dysfunction, back pain. Imaging Data Radiologic Study: Attestation: I personally reviewed and interpreted this imaging study as follows: Radiologist's impression: Exam(s) CT HEAD ? CERVICAL SPINE WO EXAM: ? CT HEAD ? CERVICAL SPINE WO CLINICAL HISTORY: ? fall, L sided pain. ? TECHNIQUE:? Imaging Protocol: Axial computed tomography images with coronal and sagittal reformatted images were created and reviewed COMPARISON:? CT CT HEAD ? CERVICAL SPINE WO from 12/05/2019 FINDINGS: BRAIN: There are no skull fractures nor fluid in the visualized paranasal sinuses. There is no evidence of intracranial hemorrhage, mass effect, or shift of midline structures.? There are no extra-axial fluid collections.? The ventricles are not enlarged or shifted and there is no blood within the ventricular system nor within the basal cisterns. Again noted is abundant bilateral periventricular hypodensity consistent with chronic small vessel disease.? This is again noted be most prominent in the right parietal region, unchanged. CERVICAL SPINE: There is no evidence of acute fracture .? No significant prevertebral soft tissue swelling. Again noted is degenerative anterolisthesis of C3 upon C4 and C4 upon C5, unchanged and related to facet arthropathy at these levels.? Also advanced disc space narrowing at C5-6 and C6-7 levels again noted. There is no significant facet joint malalignment. No significant osseous lesions evident. IMPRESSION: No acute intracranial findings on this noninfused CT scan of the brain.Chronic white matter disease again noted, unchanged from prior CT scan November 2019 No evidence of acute acute cervical spine fracture, malalignment, nor acute compromise of the cervical spinal canal.? Chronic degenerative changes as described above, unchanged from the prior study listed above. EXAM: ? CT CHEST/ABD/PEL WO CLINICAL HISTORY: ? trauma, back pain. ? TECHNIQUE:? Imaging Protocol: Axial computed tomography images with coronal and sagittal reformatted images were created and reviewed CONTRAST MATERIAL:? Intravenous: none Oral: None COMPARISON:? CT CT ABDOMEN ? PELVIS WO from 07/15/2020 FINDINGS: CHEST: LUNGS: There is mild infiltrate in the right lung base and small right pleural effusion evident.? There is mild infiltrate and atelectasis in the lingular segm ent of the left lung.? No left pleural effusion.? No ominous pulmonary nodules..? There is no pneumothorax. MEDIASTINUM: No evidence of mediastinal hematoma.? No obvious hilar nor mediastinal adenopathy.? Visualized thyroid unremarkable. CARDIAC: Cardiac pacemaker.? Mild cardiomegaly.? No significant pericardial effusion.Caliber of the thoracic aorta is within normal limits. OSSEOUS: No significant osseous lesions.No acute fractures evident. ABDOMEN: There is motion artifact There is no ascites.? No evidence of bowel wall nor mesenteric hematoma LIVER: No new significant focal findings in the liver.? No obvious laceration.? GALLBLADDER/BILIARY: No obvious gallbladder pathology.? CBD is not dilated. PANCREAS: No evidence of obvious pancreatic mass nor dilatation of the pancreatic duct.? SPLEEN: No obvious splenic laceration.? Spleen size normal. ADRENALS: There are no significant adrenal masses. KIDNEYS: No evidence of significant renal trauma.? Perinephric streaking is unchanged-chronic.? There are small calcification of both kidneys, most of which are probably vascular.? Cyst in the posterior cortex of the right kidney is again noted, somewhat difficult to assess because of respiratory motion.? Nevertheless, this was evident on the June 2020 study.? There are bilateral extrarenal pelves and both ureters appear to be slightly prominent in the abdomen above the iliac vessels..? There are no discrete calculi evident in the ureters nor in the urinary bladder. ABDOMINAL AORTA: Abdominal aorta is calcified but not enlarged.? Retroaortic left renal vein is noted.? Common iliac arteries are calcified but not enlarged. LYMPH NODES: There is no retroperitoneal nor para-aortic adenopathy. ABDOMINAL WALL/GI: No evidence of significant anterior abdominal wall nor in guinal hernia.? No evidence of bowel obstruction. Colonic diverticulosis noted.? No obvious acute diverticulitis. PELVIS:? LYMPH NODES: There is no intrapelvic nor inguinal adenopathy. GI: No evidence of appendicitis.Sigmoid diverticulosis.? No obvious acute diverticulitis. URINARY BLADDER: No calculi nor obvious masses evident REPRODUCTIVE: Prostate size upper normal OSSEOUS: No significant osseous lesions. IMPRESSION: 1. No significant trauma sequelae in the chest, abdomen, and pelvis. 2. Mild infiltrates in both lungs, as described above.? Small right pleural. 3. Both ureters are mildly dilated down to the level of the iliac vessels in the pelvis, more so than previous.? However, there are no calculi evident within the ureters.? Also no calculi in the urinary bladder. 4.? Cardiomegaly.? Pacemaker. Lab Data Lab results reviewed: Yes I reviewed the patient's lab results. HPI <Roc Borrego MD - Last Filed: 01/09/22 07:13> General Mode of arrival: EMS . Date/Time Provider Initiated Documentation: 01/09/22 07:56 . Limitations to Documentation: no limitations . Information obtained by: patient and EMS . History of Present Illness 81 year old M presents to the emergency department with the chief complaint of Fall yesterday, increasing left-sided flank pain today, described as moderate, Quality is described as dull, and is localized to the back, abdomen and left. Patient abdomen. Patient started experiencing this hour(s) and it has been constant. improves with No relieving factors improve symptom(s), Movement worsens symptoms . Patient notes denies chest pain, shortness of breath, syncope and weakness. Patient did receive the following treatments prior to arrival, other (Acetaminophen 1000 mg) Related Data Home Medications Medication Instructions Recorded Confirmed acetaminophen 500 mg tablet 1,000 mg PO Q4H PRN tab-cap 07/10/14 01/09/22 inhalational spacing device (Space #1 12/28/14 01/09/22 Chamber Plus) diclofenac sodium 1 % topical gel 4 gm TP QID #100 gm 05/28/19 01/09/22 (Voltaren) fluticasone fur. 100 mcg-umeclid 1 inh IH DAILY #60 ea 08/03/21 01/09/22 62.5 mcg-vilant 25 mcg inhalat.powder (Trelegy Ellipta) levalbuterol tartrate 45 2 inh IH Q6H PRN #15 g 08/03/21 01/09/22 mcg/actuation aerosol inhaler (Xopenex HFA) diltiazem HCl 300 mg capsule,24 300 mg PO DAILY #90 cap 08/22/21 01/09/22 hr,extended release pantoprazole 40 mg tablet,delayed 40 mg PO DAILY #90 tab 08/22/21 01/09/22 release loperamide 2 mg capsule 2 mg PO DAILY PRN #30 cap 09/14/21 01/09/22 terazosin 10 mg capsule 10 mg PO DAILY #90 tab-cap 09/14/21 01/09/22 metoprolol succinate 100 mg 150 mg PO DAILY #180 tab 09/22/21 01/09/22 tablet,extended release 24 hr donepezil 10 mg tablet 10 mg PO QHS #90 tab 10/19/21 01/09/22 torsemide 20 mg tablet 80 mg PO DAILY tab 12/15/21 01/09/22 apixaban 2.5 mg tablet (Eliquis) 2.5 mg PO BID #180 tab 12/27/21 01/09/22 quetiapine 25 mg tablet (Seroquel) 25 mg PO BID #30 tab 12/30/21 01/09/22 allopurinol 300 mg tablet 300 mg PO DAILY #90 tab 01/02/22 01/09/22 atorvastatin 10 mg tablet 10 mg PO HS #90 tab 01/02/22 01/09/22 montelukast 10 mg tablet 10 mg PO DAILY #90 tab 01/02/22 01/09/22 (Singulair) amlodipine 5 mg tablet 5 mg PO DAILY 01/04/22 01/09/22 Previous Rx's Medication Instructions Recorded diclofenac sodium 1 % topical gel 4 gm TP QID #100 gm 05/28/19 (Voltaren) fluticasone fur. 100 mcg-umeclid 1 inh IH DAILY #60 ea 08/03/21 62.5 mcg-vilant 25 mcg inhalat.powder (Trelegy Ellipta) levalbuterol tartrate 45 2 inh IH Q6H PRN #15 g 08/03/21 mcg/actuation aerosol inhaler (Xopenex HFA) diltiazem HCl 300 mg capsule,24 300 mg PO DAILY #90 cap 08/22/21 hr,extended release pantoprazole 40 mg tablet,delayed 40 mg PO DAILY #90 tab 08/22/21 release loperamide 2 mg capsule 2 mg PO DAILY PRN #30 cap 09/14/21 terazosin 10 mg capsule 10 mg PO DAILY #90 tab-cap 09/14/21 metoprolol succinate 100 mg 150 mg PO DAILY #180 tab 09/22/21 tablet,extended release 24 hr donepezil 10 mg tablet 10 mg PO QHS #90 tab 10/19/21 apixaban 2.5 mg tablet (Eliquis) 2.5 mg PO BID #180 tab 12/27/21 quetiapine 25 mg tablet (Seroquel) 25 mg PO BID #30 tab 12/30/21 allopurinol 300 mg tablet 300 mg PO DAILY #90 tab 01/02/22 atorvastatin 10 mg tablet 10 mg PO HS #90 tab 01/02/22 montelukast 10 mg tablet 10 mg PO DAILY #90 tab 01/02/22 (Singulair) Allergies Allergy/AdvReac Type Severity Reaction Status Date / Time MANSI Inhibitors AdvReac Intermediate HYPERKALEMIA Verified 01/09/22 07:02 5.9, 04/11/16 ARB-Angiotensin Receptor AdvReac Intermediate HYPERKALEMIA Verified 01/09/22 07:02 Antagonist 5.9, 04/11/16 codeine AdvReac Intermediate disoriented Verified 01/09/22 07:02 General Stated Complaint: Nk/Back Pain BUNNY: 3 Review of Systems <Roc Borrego MD - Last Filed: 01/09/22 07:13> Narrative: Denies loss of consciousness. No significant head or neck pain. Complains of left flank pain and back pain. No shortness of breath and denies abdominal pain. He is anticoagulated. [facility] <Roc Borrego MD - Last Filed: 01/09/22 07:13> All Active Problems (Updated 01/13/22 @ 12:13 by Aminta Azevedo MD) Ambulatory dysfunction (Acute) Breast pain in male (Acute) Gynecomastia, male (Acute) DNI (do not intubate) (Acute) DNR (do not resuscitate) (Acute) Physician orders for life-sustaining treatment (POLST) form indicates patient wish for me-pzh-wcsmujupgoh status (Acute) Mild cognitive impairment (Acute) Low back pain (Acute) Chronic diarrhea (Chronic) Gout (Acute) Asthma (Acute 04/04/13) Macrocytic anemia (Chronic) 12/2020- H&H stable 11.9/ 37.5 Severe obstructive sleep apnea (Chronic 04/21/14) CPAP- Dr. De Seasonal allergic rhinitis (Chronic 04/21/14) geronimo momaxg lawsebastián Lytic lesion of bone on x-ray (Chronic 05/25/17) Left distal Ulna Hyperlipidemia (Chronic 10/23/16) RISK 34% based on 2014 lipids; rec statin Essential hypertension (Chronic 04/04/02) goal 130/80 (03/2013 Dr Dc nephrology) Cardiac pacemaker in situ (Chronic 02/18/13) [employer] [place] - interrogate with tablet [facility], DR GARCÍA Anticoagulation adequate with anticoagulant therapy (Chronic 07/30/14) Apixaban per cardiology, 07/2014, for A Fib, CHADs2 score 2, stroke risk 2.8%; Apixaban RX Anemia in chronic kidney disease (Chronic 04/30/15) Medical History Diarrhea (11/26/04) Edema (12/03/12) GI bleed Gout of left wrist (05/04/17) Hernia Inflammatory arthritis Lumbago with sciatica, left side (02/20/17) L4-5 burning left Pedal edema Polymyalgia Recurrent left inguinal hernia Repaired 2020 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 Heart disease [place] Myocardial infarction Breast cancer Father , cancer at age 68. Diabetes Personal history of malignant neoplasm COLON Son Diabetes Son No problems noted. Daughter No problems noted. Daughter No problems noted. Sister , age 83 No problems noted. Sister , age 81 No problems noted. Brother , age 18 - MVA No problems noted. Brother , age 84 Stomach cancer Diabetes Brother , age 79 Pena lung Brother Lung cancer Social History Smoking/Tobacco Use Status: Current every day Tobacco Type: cigarettes Tobacco: How many years used: 45 Quit status: has quit before Second Hand Exposure: Yes Counseling given: patient declined Smoking risk assessment performed?: Yes Alcohol Intake: former Drug use: Never Substance use type: does not use Adopted: No Caregiver/Support person: No Household members: spouse Housing: house Number of Children: 8 Communication Needs: Hard of Hearing and Corrective Lenses current occupation: Retired Pets and animals: Yes Pets and animals: cat(s) Sexually active: Yes Do you think of yourself as: straight/heterosexual Current gender identity: male What is your relationship status?: How often do you talk on the phone with friends or family?: three or more times per week How often do you get together with friends or relatives?: three or more times per week How often do you attend confucianist or rastafarian services?: 4 or more times per year Do you belong to any clubs or organized social groups?: yes Panel score (0-1 are the most socially isolated patients): 4 What type of physical activity do you participate in: none Duration: decline to answer Frequency: decline to answer Quin/Buddhism: Amish Special quin needs: No Seatbelt use: always Drive intox or ride w/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 Pleasant, well groomed, interactive. HEAD: Normocephalic, atraumatic ENT: Mucous membranes moist, oropharynx unremarkable, External ear exam unremarkable EYES: PERRL, EOMI NECK: Nontender, no step-off or deformity CHEST/RESP: Left anterior and posterior chest tender to palpation. Left anterior chest just discrete bruising. Few end expiratory wheezes scattered. CARDIOVASCULAR: Irregularly irregular, distant 2+ Rad pulse bilateral ABDOMEN: Soft, nontender, no mass. +Bowel sounds. Left flank and left posterior lower thorax tender to palpation EXT: Full ROM, no pain on palpation or with rotation Neuro: Grossly normal neurologic exam, conversant, interactive. Psych: Speech fluent, thoughts congruent, affect normal Course <Roc Borrego MD - Last Filed: 01/09/22 07:13> Vital Signs Vital signs: Vital Signs Temperature 36.5 C 01/09/22 06:49 Pulse 87 01/09/22 06:49 Respiratory Rate 23 01/09/22 06:49 Blood Pressure 154/52 H 01/09/22 06:49 Pulse Oximetry 98 01/09/22 06:49 Temperature 36.5 C 01/09/22 06:49 Temperature Source Skin 01/09/22 06:49 Pulse 87 01/09/22 06:49 Respiratory Rate 23 01/09/22 06:49 Respiratory Effort 01/09/22 06:49 Blood Pressure 154/52 H 01/09/22 06:49 Blood Pressure Position Supine 01/09/22 06:49 Pulse Oximetry 98 01/09/22 06:49 Oxygen Delivery Method Room Air 01/09/22 06:49 Oxygen Flow Rate 0 01/09/22 06:49 Pain Level 8 01/09/22 06:49 Sign Out <Roc Borrego MD - Last Filed: 01/09/22 07:13> Sign Out Data: Sign Out Comment: Fall, L pain. Followup labs/images Last updated by Roc Borrego MD at 01/09/22 07:14
[2022-01-09 07:33] LABS: Abs Immature Grans 0.01 10^3/uL (0.0-0.06); Absolute Basophil Count 0.03 10^3/uL (0.0-0.2); Absolute Eosinophil Count 0.25 10^3/uL (0.0-0.7); Absolute Lymphocyte Count 0.85 10^3/uL (1.2-3.4); Absolute Monocyte Count 0.67 10^3/uL (0.1-0.8); Absolute Neutrophil Count 4.33 10^3/uL (1.2-6.7); Basophils % 0.5; Eosinophils % 4.1; HCT 34.3 % (40.0-50.0); HGB 11.1 g/dL (13.5-17.5); Immature Grans % 0.2; Lymphocytes % 13.8; MCH 31.3 pg (27.0-33.0); MCHC 32.4 % (32.0-36.0); MCV 96.6 fL (80-95); MPV 9.4 fL (8.0-11.0); Monocytes % 10.9; Neutrophils % 70.5; Nucleated RBC 0 %; Platelet Count 182 10^3/uL (130-400); RBC 3.55 10^6/uL (4.36-5.78); RDW 15.5 % (11.8-14.1); RDW-SD 55.7 fL; WBC 6.14 10^3/uL (4.4-10.8)
--- NOTE | 2022-01-09 07:45 | DI.CT_ITS ---
Exam(s) CT CHEST/ABD/PEL WO EXAM: CT CHEST/ABD/PEL WO CLINICAL HISTORY: trauma, back pain. TECHNIQUE: Imaging Protocol: Axial computed tomography images with coronal and sagittal reformatted images were created and reviewed CONTRAST MATERIAL: Intravenous: none Oral: None COMPARISON: CT CT ABDOMEN PELVIS WO from 07/15/2020 FINDINGS: CHEST: LUNGS: There is mild infiltrate in the right lung base and small right pleural effusion evident. The re is mild infiltrate and atelectasis in the lingular segment of the left lung. No left pleural effu monae. No ominous pulmonary nodules.. There is no pneumothorax. MEDIASTINUM: No evidence of mediastinal hematoma. No obvious hilar nor mediastinal adenopathy. Visu alized thyroid unremarkable. CARDIAC: Cardiac pacemaker. Mild cardiomegaly. No significant pericardial effusion.Caliber of the t horacic aorta is within normal limits. OSSEOUS: No significant osseous lesions.No acute fractures evident. ABDOMEN: There is motion artifact There is no ascites. No evidence of bowel wall nor mesenteric hematoma LIVER: No new significant focal findings in the liver. No obvious laceration. GALLBLADDER/BILIARY: No obvious gallbladder pathology. CBD is not dilated. PANCREAS: No evidence of obvious pancreatic mass nor dilatation of the pancreatic duct. SPLEEN: No obvious splenic laceration. Spleen size normal. ADRENALS: There are no significant adrenal masses. KIDNEYS: No evidence of significant renal trauma. Perinephric streaking is unchanged-chronic. There are small calcification of both kidneys, most of which are probably vascular. Cyst in the posterior cortex of the right kidney is again noted, somewhat difficult to assess because of respiratory motio n. Nevertheless, this was evident on the June 2020 study. There are bilateral extrarenal pelves a nd both ureters appear to be slightly prominent in the abdomen above the iliac vessels.. There are n o discrete calculi evident in the ureters nor in the urinary bladder. ABDOMINAL AORTA: Abdominal aorta is calcified but not enlarged. Retroaortic left renal vein is noted . Common iliac arteries are calcified but not enlarged. LYMPH NODES: There is no retroperitoneal nor para-aortic adenopathy. ABDOMINAL WALL/GI: No evidence of significant anterior abdominal wall nor inguinal hernia. No evidence of bowel obstruction. Colonic diverticulosis noted. No obvious acute diverticulitis. PELVIS: LYMPH NODES: There is no intrapelvic nor inguinal adenopathy. GI: No evidence of appendicitis.Sigmoid diverticulosis. No obvious acute diverticulitis. URINARY BLADDER: No calculi nor obvious masses evident REPRODUCTIVE: Prostate size upper normal OSSEOUS: No significant osseous lesions. IMPRESSION: 1. No significant trauma sequelae in the chest, abdomen, and pelvis. 2. Mild infiltrates in both lungs, as described above. Small right pleural. 3. Both ureters are mildly dilated down to the level of the iliac vessels in the pelvis, more so than previous. However, there are no calculi evident within the ureters. Also no calculi in the urinary bladder. 4. Cardiomegaly. Pacemaker. 5. RADIATION DOSE DELIVERED: 1,146.12mGy.cm Total DLP DATA REPOSITORY: All CT scans at this facility are submitted to the National Radiology Data Registry (NRDR) Dose Index Registry (DIR) with the [employer] (ACR). RADIATION OPTIMIZATION: All CT scans at this facility use at least one of these dose optimization te chniques: automated exposure control; mA and/or kV adjustment per patient size (includes targeted exa ms where dose is matched to clinical indication); or iterative reconstruction.
[2022-01-09 07:50] LABS: ALT 17 U/L (16-63); AST 20 U/L (15-37); Albumin 3.4 g/dL (3.4-5.0); Alkaline Phosphatase 122 U/L (46-116); BUN 78 mg/dL (7-18); Bilirubin, Total 0.5 mg/dL (0.2-1.0); CREATININE 2.6 mg/dL (0.70-1.30); Calcium 8.8 mg/dL (8.5-10.1); Chloride 101 mmol/L (98-107); Estimated GFR 23.87 (mL/min/1.73m2); Glucose 100 mg/dL (74-106); Magnesium 2.3 mg/dL (1.8-2.4); Potassium 4.1 mmol/L (3.5-5.1); Sodium 135 mmol/L (136-145); Total Protein 7.5 g/dL (6.4-8.2)
[2022-01-09 08:05] LABS: INR 1.2 (0.9-1.1); PTT Activated 27.6 sec (21.0-27.5); Prothrombin Time 12.2 sec (9.3-11.0)
--- NOTE | 2022-01-09 11:32 | HPE_ITS ---
Date of service: 01/09/22 Time of Service: 11:32 Assessment and Plan Assessment and plan (1) Ambulatory dysfunction: Status: Acute Assessment and plan: referred to observation no acute fractures on river scan PT/OT referrals fall precautions (2) CKD (chronic kidney disease) stage 4, GFR 15-29 ml/min: Status: Acute Assessment and plan: stable. avoid nephrotoxic drugs, renal dosing and monitor (3) Congestive heart failure: Status: Chronic Assessment and plan: echo from 2019: Summary: 1.? Left ventricle: The cavity size was normal. Systolic function was ? ? mildly reduced. The estimated ejection fraction was 45-50%. Mild ? ? hypokinesis of the apical myocardium. 2.? Ventricular septum: Septal motion showed paradoxical motion. 3.? Mitral valve: There was mild regurgitation. 4.? Left atrium: The atrium was moderately dilated. 5.? Right ventricle: The cavity size was mildly dilated. Pacer wire or ? ? catheter noted in right ventricle. Systolic function was normal. 6.? Right atrium: The atrium was moderately dilated. Pacer wire or ? ? catheter noted in right atrium. 7.? Atrial septum: No defect or patent foramen ovale was identified. 8.? Tricuspid valve: There was moderate-severe regurgitation. 9.? Pulmonary arteries: Pulmonary systolic pressure was in the range of ? ? 35mm Hg to 45mm Hg. 10. Inferior vena cava: The vessel was patent and normal in size. The ? ? respirophasic diameter changes were in the normal range (greater ? ? than or equal to 50%), consistent with normal central venous ? ? pressure. continue torsemide, monitor fluid volume status (4) Chronic obstructive pulmonary disease: Status: Chronic Assessment and plan: stable, continue home medications Qualifiers: COPD type: unspecified COPD Qualified Code(s): J44.9 - Chronic obstructive pulmonary disease, unspecified (5) Atrial fibrillation: Status: Chronic Assessment and plan: rate controlled continue diltiazem anticoagulated on apixaban Qualifiers: Atrial fibrillation type: paroxysmal Qualified Code(s): I48.0 - Paroxysmal atrial fibrillation (6) Discharge planning issues: Status: Acute Assessment and plan: palliative care patient case management referral for discharge planning. discussed with Dr Gould History of Present Illness History of Present Illness Chief Complaint: back pain, fall Narrative: This is an 81 year old male with history of cognitive impairment, chronic kidney disease, afib on chronic anticoagulation, who presented to the ED by EMS for evaluation of back pain since a fall yesterday. work up in the ED shows no acute fractures, he was panscanned due to poor historian. work up unremarkable. he was given apap with pain relief. His family does not feel they can care for him any longer so hospitalist asked to refer to observation for case management and PT referrals. Review of Systems All systems reviewed & are unremarkable except as noted in HPI and below PFSH All Active Problems (Updated 01/09/22 @ 11:43 by Anita Oreilly NP) Discharge planning issues (Acute) Ambulatory dysfunction (Acute) Breast pain in male (Acute) Gynecomastia, male (Acute) DNI (do not intubate) (Acute) DNR (do not resuscitate) (Acute) Physician orders for life-sustaining treatment (POLST) form indicates patient wish for [id number] status (Acute) CKD (chronic kidney disease) stage 4, GFR 15-29 ml/min (Acute) Congestive heart failure (Chronic) Mild cognitive impairment (Acute) Low back pain (Acute) Chronic diarrhea (Chronic) Gout (Acute) Asthma (Acute 04/04/13) Macrocytic anemia (Chronic) 12/2020- H&H stable 11.9/ 37.5 Severe obstructive sleep apnea (Chronic 04/21/14) CPAP- Dr. De Seasonal allergic rhinitis (Chronic 04/21/14) geronimo mowing lawns Lytic lesion of bone on x-ray (Chronic 05/25/17) Left distal Ulna Hyperlipidemia (Chronic 10/23/16) RISK 34% based on 2015 lipids; rec statin Essential hypertension (Chronic 04/04/02) goal 130/80 (03/2013 Dr Dc nephrology) Chronic obstructive pulmonary disease (Chronic 04/21/14) not reversible on PFT. 01/03/10 FEV1 2.3 (71%PRED); MILD OBSTR, NO RESPONSE; 04/06/14 FEV1 2.14 (78%pred; 81% FVC) no response, Mild obstruction; stable 05/2016 2.08 Cardiac pacemaker in situ (Chronic 02/18/13) Medtronic [place] - interrogate with tablet CV, DR GARCÍA Atrial fibrillation (Chronic 07/27/07) DR GARCÍA pacer 01/2013 for BRADYCARDIA; S/P Atrial flutter ABLATION [facility] 07/2007 Anticoagulation adequate with anticoagulant therapy (Chronic 07/30/14) Apixaban per cardiology, 07/2014, for A Fib, CHADs2 score 2, stroke risk 2.8%; Apixaban RX Anemia in chronic kidney disease (Chronic 04/30/15) Medical History Diarrhea (11/26/04) Edema (12/03/12) GI bleed Gout of left wrist (05/04/17) Hernia Inflammatory arthritis Lumbago with sciatica, left side (02/20/17) L4-5 burning left Pedal edema Polymyalgia Recurrent left inguinal hernia Repaired 2020 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 Heart disease ID Myocardial infarction Breast cancer Father , cancer at age 68. Diabetes Personal history of malignant neoplasm COLON Son Diabetes Son No problems noted. Daughter No problems noted. Daughter No problems noted. Sister , age 83 No problems noted. Sister , age 81 No problems noted. Brother , age 18 - MVA No problems noted. Brother , age 84 Stomach cancer Diabetes Brother , age 79 Pena lung Brother Lung cancer Social History Smoking/Tobacco Use Status: Current every day Tobacco Type: cigarettes Tobacco: How many years used: 45 Quit status: has quit before Second Hand Exposure: Yes Counseling given: patient declined Smoking risk assessment performed?: Yes Alcohol Intake: former Drug use: Never Substance use type: does not use Adopted: No Caregiver/Support person: No Household members: spouse Housing: house Number of Children: 8 Communication Needs: Hard of Hearing and Corrective Lenses current occupation: Retired Pets and animals: Yes Pets and animals: cat(s) Sexually active: Yes Do you think of yourself as: straight/heterosexual Current gender identity: male What is your relationship status?: How often do you talk on the phone with friends or family?: three or more times per week How often do you get together with friends or relatives?: three or more times per week How often do you attend adventist or religion services?: 4 or more times per year Do you belong to any clubs or organized social groups?: yes Panel score (0-1 are the most socially isolated patients): 4 What type of physical activity do you participate in: none Duration: decline to answer Frequency: decline to answer Quin/Muslim: Rastafarian Special quin needs: No Seatbelt use: always Drive intox or ride w/intox passenger coach driver: No Working smoke detector in home: Yes Fire extinguisher in home: Yes Carbon monox detector in home: Yes Firearms in home: Yes Firearms unloaded and locked: Yes Do you feel safe at home: Yes Do you feel safe in your relationship?: Yes Meds Allergies and Home Medications Allergies Allergy/AdvReac Type Severity Reaction Status Date / Time MANSI Inhibitors AdvReac Intermediate HYPERKALEMIA Verified 01/09/22 07:02 5.9, 04/11/16 ARB-Angiotensin Receptor AdvReac Intermediate HYPERKALEMIA Verified 01/09/22 07:02 Antagonist 5.9, 04/11/16 codeine AdvReac Intermediate disoriented Verified 01/09/22 07:02 Home Medications Medication Instructions Recorded Confirmed Type acetaminophen 500 mg tablet 1,000 mg PO Q4H PRN tab-cap 07/10/14 01/09/22 History inhalational spacing device (Space #1 12/28/14 01/09/22 History Chamber Plus) diclofenac sodium 1 % topical gel 4 gm TP QID #100 gm 05/28/19 01/09/22 Rx (Voltaren) fluticasone fur. 100 mcg-umeclid 1 inh IH DAILY #60 ea 08/03/21 01/09/22 Rx 62.5 mcg-vilant 25 mcg inhalat.powder (Trelegy Ellipta) levalbuterol tartrate 45 2 inh IH Q6H PRN #15 g 08/03/21 01/09/22 Rx mcg/actuation aerosol inhaler (Xopenex HFA) diltiazem HCl 300 mg capsule,24 300 mg PO DAILY #90 cap 08/22/21 01/09/22 Rx hr,extended release pantoprazole 40 mg tablet,delayed 40 mg PO DAILY #90 tab 08/22/21 01/09/22 Rx release loperamide 2 mg capsule 2 mg PO DAILY PRN #30 cap 09/14/21 01/09/22 Rx terazosin 10 mg capsule 10 mg PO DAILY #90 tab-cap 09/14/21 01/09/22 Rx metoprolol succinate 100 mg 150 mg PO DAILY #180 tab 09/22/21 01/09/22 Rx tablet,extended release 24 hr donepezil 10 mg tablet 10 mg PO QHS #90 tab 10/19/21 01/09/22 Rx torsemide 20 mg tablet 80 mg PO DAILY tab 12/15/21 01/09/22 History apixaban 2.5 mg tablet (Eliquis) 2.5 mg PO BID #180 tab 12/27/21 01/09/22 Rx quetiapine 25 mg tablet (Seroquel) 25 mg PO BID #30 tab 12/30/21 01/09/22 Rx allopurinol 300 mg tablet 300 mg PO DAILY #90 tab 01/02/22 01/09/22 Rx atorvastatin 10 mg tablet 10 mg PO HS #90 tab 01/02/22 01/09/22 Rx montelukast 10 mg tablet 10 mg PO DAILY #90 tab 01/02/22 01/09/22 Rx (Singulair) amlodipine 5 mg tablet 5 mg PO DAILY 01/04/22 01/09/22 History Results Labs Result diagrams: 01/09/22 07:17 01/09/22 07:17 Labs: Laboratory Results - last 24 hr 01/09/22 01/09/22 01/09/22 07:17 07:17 07:17 WBC 6.14 RBC 3.55 L Hgb 11.1 L Hct 34.3 L MCV 96.6 H MCH 31.3 MCHC 32.4 RDW 15.5 H Plt Count 182 MPV 9.4 Immature Gran % 0.2 Neutrophils % 70.5 Lymphocytes % 13.8 Monocytes % 10.9 Eosinophils % 4.1 Basophils % 0.5 Nucleated RBC % 0 Absolute Neutrophils 4.33 Absolute Lymphocytes 0.85 L Absolute Monocytes 0.67 Absolute Eosinophils 0.25 Absolute Basophils 0.03 PT 12.2 H INR 1.2 H APTT 27.6 H Sodium 135 L Potassium 4.1 Chloride 101 Carbon Dioxide 27.0 Anion Gap 7.0 BUN 78 H Creatinine 2.6 H Estimated GFR/1.73 m2 23.87 Glucose 100 Calcium 8.8 Magnesium 2.3 Total Bilirubin 0.5 AST 20 ALT 17 Alkaline Phosphatase 122 H Total Protein 7.5 Albumin 3.4 Last Vital Signs Temp 36.6 C 01/09/22 08:42 Pulse 59 L 01/09/22 10:01 Resp 13 01/09/22 10:01 BP 122/61 01/09/22 10:01 Pulse Ox 94 01/09/22 10:01
[2022-01-09 12:14] LABS: Bilirubin Negative (Negative); Blood Small (Negative); Clarity Clear (Clear); Glucose Negative (Negative); Ketones Negative (Negative); Leukocyte Esterase Negative (Negative); Nitrite Negative (Negative); Urobilinogen 0.2 EU/dL (Up TO 0.2); pH 6.5 (5-8)
[2022-01-09 12:21] LABS: Bacteria Negative HPF (Negative); C & S Indicated? No; Casts Negative LPF (Negative); Crystals Negative HPF (Negative); Epithelial Cells Rare HPF (Negative); Mucus Negative (Negative); WBC Negative HPF (0-5)
--- NOTE | 2022-01-09 15:09 | INITIAL_ITS ---
- If Service Date Differs Date of service: 01/09/22 Time of Service: 15:10 Care Management Initial Assess REASON FOR HOSPITALIZATION:: Back pain, ambulatory dysfunction. PAST MEDICAL HISTORY/PAST SURGICAL HISTORY:: All Active Problems: Discharge planning issues (Acute), Ambulatory dysfunction (Acute), Breast pain in male (Acute), Gynecomastia, male (Acute), DNI (do not intubate) (Acute), DNR (do not resuscitate) (Acute),. Physician orders for life-sustaining treatment (POLST) form indicates patient wish for [id number]-[id number] status (Acute), CKD (chronic kidney disease) stage 4, GFR 15-29 ml/min (Acute), Congestive heart failure (Chronic), Mild cognitive impairment (Acute), Low back pain (Acute),. Chronic diarrhea (Chronic), Gout (Acute), Asthma (Acute 04/04/13),. Macrocytic anemia (Chronic) - 12/2020- H&H stable 11.9/ 37.5, Severe obstructive sleep apnea (Chronic 04/21/14) - CPAP- Dr. De,. Seasonal allergic rhinitis (Chronic 04/21/14) - geronimo mowing lawns, Lytic lesion of bone on x-ray (Chronic 05/25/17) - Left distal Ulna,. Hyperlipidemia (Chronic 10/23/16) - RISK 34% based on 2015 lipids; rec statin, Essential hypertension (Chronic 04/04/02) - goal 130/80 (03/2013 Dr Dc nephrology), Chronic obstructive pulmonary disease (Chronic 04/21/14) - not reversible on PFT. 01/03/10 FEV1 2.3 (71%PRED); MILD OBSTR, NO RESPONSE; 04/06/14 FEV1 2.14 (78%pred; 81% FVC) no response, Mild obstruction; stable 05/2016 2.08, Cardiac pacemaker in situ (Chronic 02/18/13) - [employer]tronic [place] - interrogate with tablet - CV, DR GARCÍA, Atrial fibrillation (Chronic 07/27/07) - DR GARCÍA pacer 01/2013 for BRADYCARDIA; S/P Atrial flutter [facility] [place] 07/2007,. Anticoagulation adequate with anticoagulant therapy (Chronic 07/30/14) -. Apixaban per cardiology, 07/2014, for A Fib, CHADs2 score 2, stroke risk 2.8%; Apixaban RX, and Anemia in chronic kidney disease (Chronic 04/30/15). 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 Surgical History: Colonoscopy - MAC (03/30/14) - [facility], H/O esophagogastroduodenoscopy (~05/12/19), ISCHEMIC R 4TH FINGER (07/26/86) - [facility] [place], VEIN HARVESTED R LEG, Nasal septoplasty (05/25/87), Pacemaker (02/18/13) - Dual Chamber, R ATRIAL ISTHMUS ABLATION (08/19/07) - [facility] FOR A FLUTTER, Repair of inguinal hernia (11/25/78) - R; ALSO L 05/2003, and Repair of umbilical hernia (01/23/93). PREVIOUS FUNCTIONAL STATUS/SOCIAL/FAMILY SUPPORTS:: Indra is a 81 year old man who lives in a [place] home in [place] in [place]. 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 Indra has 5 adult children and 3 step-children, 6 of whom live locally and are supportive of him. His step-daughter, Laurel, is his DPOA and his primary caregiver. CURRENT FUNCTIONAL STATUS:: Indra is laying in bed when CM comes to meet with him. He is pleasant and easily engages in conversation. He jokes that he is willing to remain at the hospital as long as we bring him food and water every day. ADVANCE DIRECTIVES:: On file; his recently , Mackenzie oSlorzano, is appointed as Health Care Agent and his step-daughter, Laurel Rivera, as Alternate Agent. Has patient been provided with info about the portal/API?: Yes Did the patient sign up for the portal?: Yes (Previously enrolled.) CODE STATUS:: DNR/DNI INSURANCE COVERAGE / FINANCIAL ISSUES:: [facility] [place] and Medicare. CURRENT HOME/COMMUNITY SERVICES/EQUIPMENT:: Laurel Rivera, step-daughter, provides Indra's care. He is also a Palliative Care patient. PRIMARY CARE PHYSICIAN:: Shaina May, Ph.D., GROUP PRESIDENT ([facility]). POTENTIAL DISCHARGE NEEDS:: Short-term SNF placement vs. returning home with private caregivers. PATIENT/FAMILY EDUCATION NEEDS:: Review of discharge instructions, including limitations, medications, and follow up plan of care; discuss Ask Me Three and self management. ANTICIPATED BARRIERS TO DISCHARGE:: Inability for family to care for Indra at home while his primary caregiver is away. TRANSPORTATION:: To be determined. PLAN:: Indra will either return home once the family has 24/[address] [place] vs. short-term SNF placement. CM will continue to support Indra, family members, and discharge planning needs.
[2022-01-09 15:34] LABS: COVID-19 PCR Negative (Negative)
[2022-01-09 17:22] LABS: Source Nasal/Nares
[2022-01-09] MEDS: Acetaminophen 325 MG TAB PO ×2 (17:38→22:30)
[2022-01-09] MEDS: QUEtiapine 25 MG TAB PO (21:26)
[2022-01-09] MEDS: Apixaban 2.5 MG TAB PO (21:26)
[2022-01-10] MEDS: Acetaminophen 325 MG TAB PO ×4 (03:15→16:20)
[2022-01-10 07:13] VITALS: BP 126/61; PULSE 72; RESP 17; TEMP 36.7; O2SAT 84
[2022-01-10] MEDS: QUEtiapine 25 MG TAB PO ×2 (07:52→20:14)
[2022-01-10 07:59] VITALS: O2SAT 95
[2022-01-10 09:26] VITALS: O2SAT 93
[2022-01-10] MEDS: Apixaban 2.5 MG TAB PO ×2 (09:27→20:13)
--- NOTE | 2022-01-10 10:10 | PHA.REVIEW ---
Pharmacy Admission Review - Admission Clinical Review (Last Reviewed 01/09/22 @ 07:09 by Roc Borrego MD) Discharge planning issues (Acute) Ambulatory dysfunction (Acute) CKD (chronic kidney disease) stage 4, GFR 15-29 ml/min (Acute) MANSI Inhibitors Adverse Reaction (Intermediate, Verified 01/09/22 07:02) HYPERKALEMIA 5.9, 04/11/16 ARB-Angiotensin Receptor Antagonist Adverse Reaction (Intermediate, Verified 01/09/22 07:02) HYPERKALEMIA 5.9, 04/11/16 codeine Adverse Reaction (Intermediate, Verified 01/09/22 07:02) disoriented Resuscitation Status DNR/DNI Height 5 ft 9 in Weight 85.6 kg - Renal Dosing Renal Dosing: BUN 78 mg/dL (7-18) H 01/09/22 07:17 Creatinine 2.6 mg/dL (0.70-1.30) H 01/09/22 07:17 Medications needing adjustments: Reviewed (Crcl ~22 mL/min apixaban dosing adjusted due to renal function and age, other current med orders are okay.) - Anticoagulation Anticoagulation: Hgb 11.1 g/dL (13.5-17.5) L 01/09/22 07:17 Hct 34.3 % (40.0-50.0) L 01/09/22 07:17 Plt Count 182 10^3/uL (130-400) 01/09/22 07:17 INR 1.2 (0.9-1.1) H 01/09/22 07:17 Creatinine 2.6 mg/dL (0.70-1.30) H 01/09/22 07:17 DVT Prophylaxis: N/A Therapeutic Anticoagulation: Reviewed Medications: Apixaban - Opiate Usage Evaluate Pain Scale/Pains Meds: N/A - Relevant Labs Sodium 135 mmol/L (136-145) L 01/09/22 07:17 Potassium 4.1 mmol/L (3.5-5.1) 01/09/22 07:17 Chloride 101 mmol/L (98-107) 01/09/22 07:17 Magnesium 2.3 mg/dL (1.8-2.4) 01/09/22 07:17 Electrolytes, C-Reactive P, ESR: Reviewed - DM Control DM Control: Glucose 100 mg/dL (74-106) 01/09/22 07:17 Insulin Dosing: N/A - Heart Failure/WV EF%, MANSI's, B-Blockers, Diuretics: N/A - BP Control BP Control: Blood Pressure 126/61 Blood Pressure 118/54 If elevated: Reviewed (BP has been up and down a bit this admission. No BP meds currently ordered.) - Qtc Review If Elevated: N/A - IV to PO Switch IV Medications: Reviewed - Home Meds Home Med List reviewed: Reviewed Relevent Home Meds Not ordered & why?: allopurinol, amlodipine, atorvastatin, diclofenac, diltiazem, donepezil, fluticasone/umcelidinium/vilanterol, levalbuterol (PRN), loperamide (PRN), metoprolol, montelukast, pantoprazole, terazosin, torsemide - Current meds Current Medication Order Review: Reviewed - Comments Comments/Follow Ups: Watch BP, labs and for med changes (home meds, possible renal dose adjustments)
--- NOTE | 2022-01-10 10:25 | PT.INIE ---
Date of service: 01/10/22 Time of Service: 10:25 PT Notes Visit Reasons: Back pain,Ambulatory Dysfunction Physical Therapy Inpatient Initial Evaluation Date: 01/10/2022 Referring Doctor: Yahaira Gould MD PT Orders: PT CONSULT: Limited ability Precautions: Fall. Standard. Activity as tolerated. Patient Profile/Admitting Diagnosis: Indra is an 81-year-old male who presented to the ED on 01/09/2022 due to a fall and increasing left-sided flank pain, left abdominal pain, and left lower back pain. Patient is diagnosed with ambulatory dysfunction, chronic kidney disease, congestive heart failure, COPD exacerbation, and atrial fibrillation. PMHX: All Active Problems?(Updated 01/09/22 @ 11:43 by Anita Oreilly NP) Discharge planning issues (Acute) Ambulatory dysfunction (Acute) Breast pain in male (Acute) Gynecomastia, male (Acute) DNI (do not intubate) (Acute) DNR (do not resuscitate) (Acute) Physician orders for life-sustaining treatment (POLST) form indicates patient wish for [id number] status (Acute) CKD (chronic kidney disease) stage 4, GFR 15-29 ml/min (Acute) Congestive heart failure (Chronic) Mild cognitive impairment (Acute) Low back pain (Acute) Chronic diarrhea (Chronic) Gout (Acute) Asthma (Acute 04/04/13) Macrocytic anemia (Chronic) 12/2020- H&H stable 11.9/ 37.5Severe obstructive sleep apnea (Chronic 04/21/14) CPAP- Dr. De Seasonal allergic rhinitis (Chronic 04/21/14) geronimo mowing lawns Lytic lesion of bone on x-ray (Chronic 05/25/17) Left distal Ulna Hyperlipidemia (Chronic 10/23/16) RISK 34% based on 2015 lipids; rec statin Essential hypertension (Chronic 04/04/02) goal 130/80 (03/2013 Dr Dc nephrology) Chronic obstructive pulmonary disease (Chronic 04/21/14) not reversible on PFT. 01/03/10? FEV1? 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 Diarrhea (11/26/04) Edema (12/03/12) GI bleed Gout of left wrist (05/04/17) Hernia Inflammatory arthritis Lumbago with sciatica, left side (02/20/17) L4-5 burning left Pedal edema Polymyalgia Recurrent left inguinal hernia Repaired 2020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) [place], [facility] [place]12; D/C ARB; KAYEXALATE rx; AVOID POTASSIUM SPARING MEDS Upper GI bleeding Surgical History? Colonoscopy - MAC (03/30/14) CSDH/O esophagogastroduodenoscopy (~05/12/19) ISCHEMIC R 4TH FINGER (07/26/86) [facility] [place] R LEGNasal septoplasty (05/25/87) Pacemaker (02/18/13) Dual ChamberR ATRIAL ISTHMUS ABLATION (08/19/07) [facility] [place]TER[place]air of inguinal hernia (11/25/78) R; ALSO L 05/2003Repair of umbilical hernia (01/23/93) Social History/Home Situation: Lives alone in a private home with 5 steps to enter with rails on both sides. recently 2 weeks ago. He has family who lives close by and are ready to help. Independent with all aspects of ADLs prior to ambulation. Still drives. Equipment Owned/DME: Wheelchair, front-wheeled walker, single-point cane Subjective: States that he fell on the ice 2 weeks ago bruising on his left lower back. Complains of pain in the L side of chest, L upper abdominal area, and L low back when he coughs. Objective: General Observation: Seated on bedside recliner. IV access in right UE. Mental Status: Alert and oriented as to person, place, time, and purpose. Able to pay attention, focus, and respond appropriately. Pain: 7-8/10 in left abdominal and left low back area with coughing ROM: Right Upper Extremity: Shoulder Flexion WFL. Shoulder abduction WFL. Elbow flexion WFL. Wrist flexion WFL. Functional opening and closing of hand WFL. Left Upper Extremity: Shoulder Flexion WFL. Shoulder abduction WFL. Elbow flexion WFL. Wrist flexion WFL. Functional opening and closing of hand WFL. Right Lower Extremity: Hip flexion WFL. Hip abduction WFL. Knee flexion WFL. Ankle dorsiflexion WFL. Ankle plantarflexion WFL. Left Lower Extremity: Hip flexion WFL. Hip abduction WFL. Knee flexion WFL. Ankle dorsiflexion WFL. Ankle plantarflexion WFL. Strength: Right Upper Extremity: Shoulder flexors 4/5. Shoulder abductors 4/5. Elbow flexors 5/5. Elbow extensors 5/5. Diamond Broker strong. Left Upper Extremity: Shoulder flexors 4/5. Shoulder abductors 4/5. Elbow flexors 5/5. Elbow extensors 5/5. Diamond Broker strong. Right Lower Extremity: Hip flexors 4/5. Hip abductors 4/5. Knee flexors 5/5. Knee extensors 4/5. Ankle dorsiflexors 4-/5. Ankle plantarflexors 4-/5. Left Lower Extremity: Hip flexors 4/5. Hip abductors 4/5. Knee flexors 5/5. Knee extensors 4/5. Ankle dorsiflexors 4-/5. Ankle plantarflexors 4-/5. Bed Mobility/Transfers: Sit to supine with standby assist Sit to stand with standby assist Stand to sit with stand standby assist Bed to reclining chair with standby assist Gait: Instructed patient with level surface ambulation of 250 feet requiring standby assist assist. No pain during ambulation activity. Gait pattern unremarkable. Balance: Static Sitting: Normal Dynamic Sitting: Normal Static Standing: Good Dynamic Standing: Fair Special Tests: Mobility Limitations Standardized Measure [facility] AM-PAC 6 clicks Basic Mobility Inpatient Short Form: Raw Score: 23 CMS Score: 11% deficit Infor Consent/Education: Patient was instructed in purpose of PT consult and plan of care. Agreeable to proceed with established PT POC to achieve personal goals. Assessment: Patient is significantly limited with pain in the left upper abdominal area flank and left lower back area with coughing and movement transitions from sit<>supine and sit<>stand. Was asked to use front wheeled walker to somehow offload the painful area in trunk but will reassess ambulation abilities without an assistive device this afternoon. Patient presents with clinical signs and symptoms consistent with current/admitting diagnoses that have resulted to mobility limitations, gait instability, generalized weakness, and overall ADL decline as demonstrated by the following impairment level findings: 1. Impaired activity tolerance 2. Pain in L upper abdominal area, L flank, and L low back Impairments are contributing to the following functional limitations: 1. Increased completion time for mobility ADL performance 2. Increased risk for falls Patient is assessed as a 06500 moderatecomplexity based on the following: History: -81 year-old malewith past medical history as indicated above Examination: Demonstrable impairment in strength, balance, and mobility level with underlying impairments and functional limitations as exhibited above as well as deficit score of 11% utilizing the [facility] Mobility Inpatient Short Form Presentation: Stable Decision Makin moderate complexity Goals: Goals X1 week 1. Supine-Sit independent 2. Sit-Supine independent 3. Sit-Stand independent 4. Stand-Sit independent with no AD 5. Bed-Chair independent with no AD 6. Chair-Bed independent with no AD 7. Independent gait on level surface with use of no ADfor at least 500feet without report of pain nor dyspnea 8. Independent stair negotiation while holding onto [] rails for at least [] steps without report of pain nor dyspnea Plan of Care/Treatment Plan: 1-2x/day, 7 days/week x 1 week. Plan of care has been reviewed with the CUSTOMER CONSULTANT providing the service under Physical Therapy direction. Initiate Physical Therapy intervention for pain management as needed, strengthening, bed mobility, transfers, gait, stairs, balance training, and use of assistive device. DISCHARGE RECOMMENDATIONS: [] Home with no services [] [X] Home with services. Patient will benefit from home health PT services in order to progress mobility level using least restrictive assistive ambulatory device, assess home safety, identify additional equipment needs, and establish a functional maintenance program that will increase ability of patient to remain at home. [] Home with outpatient PT [] [] SNF for continued rehabilitation [] [] [facility] [] [] SNF versus LTC based on ability to participate and progress [] TREATMENT CODE/TIME: 9716 2 x 15 minutes, 18466 x 14 minutes beginning at 10:25 AM. Thank you for the opportunity to participate in the care of this patient. Maliha Wiseman PT, DPT, CLT [facility] [place], [place]
[2022-01-10] MEDS: Normal Saline Flush 10 ML SYR IVP (12:26)
[2022-01-10] MEDS: Normal Saline 1,000 ML 125 ML IV (12:26)
[2022-01-10 12:30] VITALS: BP 138/62; PULSE 75
[2022-01-10] MEDS: Allopurinol 300 MG TAB PO (12:32)
[2022-01-10] MEDS: amLODIPine 5 MG TAB PO (12:32)
[2022-01-10] MEDS: Metoprolol CR 50 MG TABCR 150 MG PO (12:33)
[2022-01-10] MEDS: Montelukast 10 MG TAB PO (12:33)
[2022-01-10] MEDS: Pantoprazole 40 MG TABCR PO (12:34)
[2022-01-10] MEDS: Torsemide 20 MG TAB 80 MG PO (12:34)
[2022-01-10] MEDS: dilTIAZem CD 300 MG CAPCR PO (13:49)
--- NOTE | 2022-01-10 14:55 | PTTR_ITS ---
Date of service: 01/10/22 Time of Service: 14:55 PT Notes Visit Reasons: Back pain,Ambulatory Dysfunction Physical Therapy Inpatient Treatment Note Date: 01/10/2022 Precautions: Fall. Standard. Activity as tolerated. Subjective: Hopeful that he can go home in a day or 2 once medically cleared by hospitalist. Continues to report significant discomfort in left upper abdominal area, left flank, and left lower back with coughing. Objective: General Observation: Supine in bed.? IV access in right UE. Mental Status: Alert and oriented as to person, place, time, and purpose. Able to pay attention, focus, and respond appropriately. Pain: 7-8/10 in left abdominal and left low back area with coughing Bed Mobility/Transfers: Sit to supine with supervision Sit to stand with supervision Stand to sit with supervision supervision Bed to reclining chair with standby assist Gait: Instructed patient with level surface ambulation of 250 feet +200 requiring standby assist assist. ? No pain during ambulation activity.? Gait pattern unremarkable. Stairs: Tolerated up-and-down 6 x 4 inch steps and 4 x 6 inch steps holding onto bilateral rails with step over step pattern requiring supervision assist. THERA EX: Performed stanfing level exercises as documented in the exercise sheet. Balance: Static Sitting: Normal Dynamic Sitting: Normal Static Standing: Good Dynamic Standing: Good Assessment: Performed well without assitive device for this session. Patient continues to be limited with pain in the left upper abdominal area, flank, and left lower back area with coughing and movement transitions from sit<>supine and sit<>stand.? DISCHARGE RECOMMENDATIONS: [] ? Home with no services [] [X] ??Home with services.? Patient will benefit from home health PT services in order to progress mobility level using least restrictive assistive ambulatory device, assess home safety, identify additional equipment needs, and establish a functional maintenance program that will increase ability of patient to remain at home. [] ? Home with outpatient PT [] [] ? SNF for continued rehabilitation [] [] ? Assisted Care [] [] ? SNF versus LTC based on ability to participate and progress [] TREATMENT CODE/TIME: 97778 x 30 minutes beginning at 14:55 PM.
[2022-01-10 15:02] VITALS: BP 123/75; PULSE 58; RESP 14; TEMP 36.2; O2SAT 96
[2022-01-10] MEDS: Budesonide/Formoterol 80/4.5 6.9 GM 60 PUFF INH IH ×2 (16:18→20:11)
[2022-01-10] MEDS: Tiotropium Bromide-Respimat 10 PUFF INH IH (16:19)
--- NOTE | 2022-01-10 16:45 | W.PM.PROGNOT ---
Date of Service Date of service: 01/10/22 Time of Service: 16:45 Assessment and Plan Assessment and plan (1) Ambulatory dysfunction: Status: Acute Assessment and plan: continue pain management, heating pad as needed. no acute fractures on river scan PT/OT referrals fall precautions (2) CKD (chronic kidney disease) stage 4, GFR 15-29 ml/min: Status: Acute Assessment and plan: stable. avoid nephrotoxic drugs, renal dosing and monitor will check labs in am (3) Congestive heart failure: Status: Chronic Assessment and plan: echo from 2019: Summary: 1.? Left ventricle: The cavity size was normal. Systolic function was ? ? mildly reduced. The estimated ejection fraction was 45-50%. Mild ? ? hypokinesis of the apical myocardium. 2.? Ventricular septum: Septal motion showed paradoxical motion. 3.? Mitral valve: There was mild regurgitation. 4.? Left atrium: The atrium was moderately dilated. 5.? Right ventricle: The cavity size was mildly dilated. Pacer wire or ? ? catheter noted in right ventricle. Systolic function was normal. 6.? Right atrium: The atrium was moderately dilated. Pacer wire or ? ? catheter noted in right atrium. 7.? Atrial septum: No defect or patent foramen ovale was identified. 8.? Tricuspid valve: There was moderate-severe regurgitation. 9.? Pulmonary arteries: Pulmonary systolic pressure was in the range of ? ? 35mm Hg to 45mm Hg. 10. Inferior vena cava: The vessel was patent and normal in size. The ? ? respirophasic diameter changes were in the normal range (greater ? ? than or equal to 50%), consistent with normal central venous ? ? pressure. continue torsemide, monitor fluid volume status (4) Chronic obstructive pulmonary disease: Status: Chronic Assessment and plan: stable, continue home medications Qualifiers: COPD type: unspecified COPD Qualified Code(s): J44.9 - Chronic obstructive pulmonary disease, unspecified (5) Atrial fibrillation: Status: Chronic Assessment and plan: rate controlled continue diltiazem anticoagulated on apixaban Qualifiers: Atrial fibrillation type: paroxysmal Qualified Code(s): I48.0 - Paroxysmal atrial fibrillation (6) Discharge planning issues: Status: Acute Assessment and plan: palliative care patient case management referral for discharge planning. plan to discharge home tomorrow with services. discussed with Dr Gould Subjective Subjective Patient reports: no new complaints, feels better, tolerating liquids well, tolerating a regular diet and afebrile; denies shortness of breath Interval history since last seen: pleasant gentlemen sitting in case. poor historian with intermittent confusion but no behavioral issues. medically stable . left low back pain improved with heating pad and oral medication. Exam Const General: cooperative, comfortable and no acute distress Nutritional Appearance: average body habitus Orientation: alert, awake and oriented x3 HENMT Head: normal to inspection, normocephalic and atraumatic Mouth: oral mucosae normal Chest Chest: normal inspection of the chest Resp Effort & Inspection: normal respiratory effort Auscultation: clear to auscultation bilaterally Cardio Rate: regular rate Rhythm: regular rhythm GI Inspection: normal to inspection Palpation: soft Auscultation: normal bowel sounds Skin General skin exam: other (bruising to left low back area, no worsened since yesterday) Neuro General: patient alert, patient awake, oriented Patient Orientation: Person and patient confused Extrem General: normal to inspection and full ROM Psych Speech and Movement: speech and movement normal Mood: congruent mood Affect: normal affect Attitude: cooperative Judgment: limited Objective Last Vital Signs Temp 36.2 C L 01/10/22 15:02 Pulse 58 L 01/10/22 15:02 Resp 14 01/10/22 15:02 BP 123/75 01/10/22 15:02 Pulse Ox 96 01/10/22 15:02 Laboratory Results - last 24 hr 01/09/22 11:40 COVID-19 Source Nasal/Nares
[2022-01-10] MEDS: Loperamide 2 MG CAP PO (16:47)
--- NOTE | 2022-01-10 17:56 | PDOC.CMPRO ---
- If Service Date Differs Date of service: 01/10/22 Time of Service: 17:56 Care Management Progress Note S/O: Indra was sitting up in his chair when CM met with him. He reported that he is still feeling quite a lot of pain from his fall. He stated that he is agreeable to working with PT, and shared memories of working with PT in [place] for years. He apologized to CM for his language earlier, which was not directed at CM, but his GINSENG FARMER shared that he was using inappropriate language with her, and that he appeared confused at the time. He was pleasant and appropriate in conversation with CM. CM called his daughter, Laurel, who shared that Jenise, who is caring for him at home currently, will be picking him up tomorrow afternoon, if he is medically ready. CM informed the provider about this plan, who stated that he will likely be ready for discharge tomorrow. CM will continue to follow. A: Indra is an 81 year old male admitted to [facility] on 01/09/22 for back pain, ambulatory dysfunction. P: Anticipate Indra will return home with new orders for HH RN, PT, OT, SALES MARKETING COORDINATOR when medically cleared. He will follow up with his PCP and discharge plan of care. His daughter, Jenise, will drive him home via private vehicle. CM will continue to support Indra and his family with discharge planning considerations.
[2022-01-10] MEDS: Atorvastatin 10 MG TAB PO (20:10)
[2022-01-10] MEDS: Donepezil 5 MG TAB 10 MG PO (21:50)
[2022-01-10 21:51] VITALS: BP 96/52; PULSE 81; RESP 22; TEMP 36.7; O2SAT 95
[2022-01-11] MEDS: Acetaminophen 325 MG TAB PO ×3 (01:18→14:21)
[2022-01-11 07:01] LABS: Abs Immature Grans 0.02 10^3/uL (0.0-0.06); Absolute Basophil Count 0.03 10^3/uL (0.0-0.2); Absolute Eosinophil Count 0.18 10^3/uL (0.0-0.7); Absolute Lymphocyte Count 1.15 10^3/uL (1.2-3.4); Absolute Monocyte Count 0.68 10^3/uL (0.1-0.8); Absolute Neutrophil Count 4.14 10^3/uL (1.2-6.7); Basophils % 0.5; Eosinophils % 2.9; HCT 31.5 % (40.0-50.0); HGB 10.2 g/dL (13.5-17.5); Immature Grans % 0.3; Lymphocytes % 18.5; MCHC 32.4 % (32.0-36.0); MCV 95.7 fL (80-95); MPV 9.8 fL (8.0-11.0); Neutrophils % 66.8; Nucleated RBC 0 %; Platelet Count 177 10^3/uL (130-400); RBC 3.29 10^6/uL (4.36-5.78); RDW 15.9 % (11.8-14.1); RDW-SD 56.3 fL
[2022-01-11 07:18] LABS: BUN 68 mg/dL (7-18); CREATININE 2.3 mg/dL (0.70-1.30); Calcium 8.9 mg/dL (8.5-10.1); Chloride 103 mmol/L (98-107); Glucose 114 mg/dL (74-106); Potassium 3.9 mmol/L (3.5-5.1); Sodium 139 mmol/L (136-145)
[2022-01-11 07:32] VITALS: BP 138/72; PULSE 83; RESP 20; TEMP 36.2; O2SAT 95
[2022-01-11] MEDS: Torsemide 20 MG TAB 80 MG PO (08:04)
[2022-01-11] MEDS: Montelukast 10 MG TAB PO (08:05)
[2022-01-11] MEDS: dilTIAZem CD 300 MG CAPCR PO (08:05)
[2022-01-11] MEDS: Metoprolol CR 50 MG TABCR 150 MG PO (08:05)
[2022-01-11] MEDS: QUEtiapine 25 MG TAB PO (08:05)
[2022-01-11] MEDS: Apixaban 2.5 MG TAB PO (08:05)
[2022-01-11] MEDS: Pantoprazole 40 MG TABCR PO (08:05)
[2022-01-11] MEDS: amLODIPine 5 MG TAB PO (08:05)
[2022-01-11] MEDS: Allopurinol 300 MG TAB PO (08:06)
[2022-01-11] MEDS: Budesonide/Formoterol 80/4.5 6.9 GM 60 PUFF INH IH (08:17)
[2022-01-11] MEDS: Tiotropium Bromide-Respimat 10 PUFF INH IH (08:17)
--- NOTE | 2022-01-11 08:18 | RESPIRATORY ---
PT ON RA
--- NOTE | 2022-01-11 13:40 | W.PM.DS.N ---
Date of service: 01/11/22 Time of Service: 13:40 DS: Diagnosis Discharge Diagnosis (1) Ambulatory dysfunction: Status: Acute (2) CKD (chronic kidney disease) stage 4, GFR 15-29 ml/min: Status: Acute (3) Congestive heart failure: Status: Chronic (4) Chronic obstructive pulmonary disease: Status: Chronic (5) Atrial fibrillation: Status: Chronic (6) Discharge planning issues: Status: Acute Discharge Plan Disposition Patient Disposition: HOME W/HOME HEALTH SERVICE Condition: Stable Discharge Details Reason For Visit: Back pain,Ambulatory Dysfunction Admit Date/Time: 01/09/22 11:18 Admit Provider: Yahaira Gould Attending Provider: Yahaira Gould Primary Care Provider: [facility] Course Hospital Course: This is an 81 year old male with history of cognitive impairment, chronic kidney disease, afib on chronic anticoagulation, who presented to the ED by EMS for evaluation of back pain since a fall the previous day.? work up in the ED shows no acute fractures, he was river-scanned due to poor historian.? work up unremarkable.? he was given apap with pain relief.? His family does not feel they can care for him any longer so hospitalist asked to refer to observation for case management and PT referrals. ?On med surg he remained medically stable. he was reambulated with PT, pain managed with oral pain medication. There were no behavioral issues. he is safe for discharge to home with home health services. discharged by private vehicle with family discharge discussed with Dr Gould Home Meds and New Rx's Prescriptions: Continued diclofenac sodium [Voltaren] 1 % gel 4 gm TP QID Qty: 100 3RF Rx Instructions: apply to single knee, ankle, wrist, elbow or foot as needed for pain up to 4 times a day. Eliquis 2.5 mg tablet 2.5 mg PO BID Qty: 180 3RF amlodipine 5 mg tablet 5 mg PO DAILY 0RF metoprolol succinate 100 mg tablet extended release 24 hr 150 mg PO DAILY Qty: 180 0RF Label Comments: Pt reports this has been increased to 300mg over the last several weeks. torsemide 20 mg tablet 80 mg PO DAILY 0RF Label Comments: Per Patient quetiapine [Seroquel] 25 mg tablet 25 mg PO BID Qty: 30 3RF Rx Instructions: Give 1 tab at 1400 and 1 tab at HS. acetaminophen 500 MG tablet 1,000 mg PO Q4H PRN 0RF (DME) Space Chamber Plus 1 EACH spacer 1 ea Miscellaneous QID Qty: 1 1RF Rx Instructions: replace spacer yearly for MDI albuterol Didi Ellipta 100-62.5-25 mcg blister with device 1 inh IH DAILY Qty: 60 3RF levalbuterol tartrate [Xopenex HFA] 45 mcg/actuation HFA aerosol inhaler 2 inh IH Q6H PRN (Reason: shortness of breath) Qty: 15 4RF diltiazem HCl 300 mg capsule,extended release 24 hr 300 mg PO DAILY Qty: 90 4RF pantoprazole 40 mg tablet,delayed release (DR/EC) 40 mg PO DAILY Qty: 90 1RF terazosin 10 mg capsule 10 mg PO DAILY Qty: 90 4RF loperamide 2 mg capsule 2 mg PO DAILY PRN (Reason: loose stool) Qty: 30 1RF Rx Instructions: For chronic loose stool donepezil 10 mg tablet 10 mg PO QHS Qty: 90 3RF atorvastatin 10 mg tablet 10 mg PO HS Qty: 90 3RF montelukast [Singulair] 10 mg tablet 10 mg PO DAILY Qty: 90 3RF allopurinol 300 mg tablet 300 mg PO DAILY Qty: 90 3RF Discharge Instructions Instructions: Fall Prevention for Older Adults (DC), Contusion in Adults (DC) Stand Alone Forms: Nursing Discharge Form Referrals: Shaina May NP [Primary Care Provider] - 02/10/22 2:00 pm Activity:: Activity as Tolerated Equipment/Supplies:: No Equipment Needed Diet:: As Tolerated Discharge Orders Discharge Orders: Discharge Order (Routine); Ordered 01/11/22 Ordered By: Anita Oreilly Discharge Data Discharge Date/Time-TO BE ENTERED AT DEPARTURE: 01/11/22 14:41 DS: Summary Time Spent with Patient providing and/or coordinating discharge services: Less than 30 minutes Status at Discharge Functional status at discharge: independent ambulation Overall status at discharge: patient is back to baseline Mental Status: mental status grossly normal (cognitive impairment with no behavioral issues) Speech and Movement: speech and movement normal Mood: congruent mood Affect: normal affect Exam Const General: cooperative, comfortable and no acute distress Nutritional Appearance: average body habitus Orientation: alert, awake and oriented x3 HENMT Head: normal to inspection, normocephalic and atraumatic Mouth: oral mucosae normal Chest Chest: normal inspection of the chest Resp Effort & Inspection: normal respiratory effort Auscultation: clear to auscultation bilaterally Cardio Rate: regular rate Rhythm: regular rhythm GI Inspection: normal to inspection Palpation: soft Auscultation: normal bowel sounds Skin General skin exam: other (bruising to left low back area, no worsened since yesterday) Neuro General: patient alert, patient awake, oriented Patient Orientation: Person and patient confused Extrem General: normal to inspection and full ROM Psych Mental Status: mental status grossly normal (cognitive impairment with no behavioral issues) Speech and Movement: speech and movement normal Mood: congruent mood Affect: normal affect Attitude: cooperative Judgment: limited DS: Data Vitals/I&O Vitals and I&O: Vital Signs Temperature 36.2 C L 01/11/22 07:32 Temperature Source Tympanic 01/11/22 07:32 Pulse 83 01/11/22 07:32 Pulse Rhythm Regular 01/11/22 12:37 Pulse 66 01/09/22 10:01 Respiratory Rate 20 01/11/22 07:32 Respiratory Effort 01/11/22 12:37 Respiratory Depth Normal 01/11/22 12:37 Respiratory Pattern Normal 01/11/22 12:37 Blood Pressure 138/72 01/11/22 07:32 Blood Pressure Mean 75 01/09/22 10:01 Blood Pressure Position Supine 01/09/22 06:49 Pulse Oximetry 95 01/11/22 07:32 Oxygen Delivery Method Room Air 01/11/22 07:32 Oxygen Flow Rate 0 01/11/22 07:32 Pain Level 8 01/11/22 08:22 Comment 01/10/22 07:13 Intake & Output 01/10/22 01/11/22 01/11/22 23:59 11:59 23:59 Intake Total 1063.333 / 1063.333 750 / 750 Output Total 300 / 1300 1150 / 1150 Balance 763.333 / -236.667 -400 / -400 Intake: IV 883.333 / 883.333 Oral 180 / 180 750 / 750 Output: Urine 300 / 1300 1150 / 1150 Other: Urine Color Yellow Yellow Urine Appearance Clear Clear Sediment Urine Odor None Strong Stool Size Moderate Stool Characteristics Liquid Voiding Methods Toilet Toilet Data Completed and Pending Labs on day of discharge: Labs from last 24 hours 01/11/22 01/11/22 06:30 06:30 WBC 6.20 RBC 3.29 L Hgb 10.2 L Hct 31.5 L MCV 95.7 H MCH 31.0 MCHC 32.4 RDW 15.9 H Plt Count 177 MPV 9.8 Immature Gran % 0.3 Neutrophils % 66.8 Lymphocytes % 18.5 Monocytes % 11.0 Eosinophils % 2.9 Basophils % 0.5 Nucleated RBC % 0 Absolute Neutrophils 4.14 Absolute Lymphocytes 1.15 L Absolute Monocytes 0.68 Absolute Eosinophils 0.18 Absolute Basophils 0.03 Sodium 139 Potassium 3.9 Chloride 103 Carbon Dioxide 28.0 Anion Gap 8.0 BUN 68 H Creatinine 2.3 H Estimated GFR/1.73 m2 27.50 Glucose 114 H Calcium 8.9 PFSH All Active Problems (Updated 01/09/22 @ 11:43 by Anita Oreilly NP) Discharge planning issues (Acute) Ambulatory dysfunction (Acute) Breast pain in male (Acute) Gynecomastia, male (Acute) DNI (do not intubate) (Acute) DNR (do not resuscitate) (Acute) Physician orders for life-sustaining treatment (POLST) form indicates patient wish for qe-rka-zolddvuqadl status (Acute) CKD (chronic kidney disease) stage 4, GFR 15-29 ml/min (Acute) Congestive heart failure (Chronic) Mild cognitive impairment (Acute) Low back pain (Acute) Chronic diarrhea (Chronic) Gout (Acute) Asthma (Acute 04/04/13) Macrocytic anemia (Chronic) 12/2020- H&H stable 11.9/ 37.5 Severe obstructive sleep apnea (Chronic 04/21/14) CPAP- Dr. De Seasonal allergic rhinitis (Chronic 04/21/14) geronimo mowing lawns Lytic lesion of bone on x-ray (Chronic 05/25/17) Left distal Ulna Hyperlipidemia (Chronic 10/23/16) RISK 34% based on 2015 lipids; rec statin Essential hypertension (Chronic 04/04/02) goal 130/80 (03/2013 Dr Dc nephrology) Chronic obstructive pulmonary disease (Chronic 04/21/14) not reversible on PFT. 01/03/10 FEV1 2.3 (71%PRED); MILD OBSTR, NO RESPONSE; 5/12/14 FEV1 2.14 (78%pred; 81% FVC) no response, Mild obstruction; stable 05/2016 2.08 Cardiac pacemaker in situ (Chronic 02/18/13) Medtronic Marilou - interrogate with tablet CVH, DR GARCÍA Atrial fibrillation (Chronic 07/27/07) DR GARCÍA pacer 01/2013 for BRADYCARDIA; S/P Atrial flutter [facility] [place] 07/2007 Anticoagulation adequate with anticoagulant therapy (Chronic 07/30/14) Apixaban per cardiology, 07/2014, for A Fib, CHADs2 score 2, stroke risk 2.8%; Apixaban RX Anemia in chronic kidney disease (Chronic 04/30/15) Medical History Diarrhea (11/26/04) Edema (12/03/12) GI bleed Gout of left wrist (05/04/17) Hernia Inflammatory arthritis Lumbago with sciatica, left side (02/20/17) L4-5 burning left Pedal edema Polymyalgia Recurrent left inguinal hernia Repaired 2020 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) DR DC, [facility] 2O12; D/C ARB; KAYEXALATE rx; AVOID POTASSIUM SPARING MEDS Upper GI bleeding Surgical History Colonoscopy - MAC (03/30/14) CSD H/O esophagogastroduodenoscopy (~05/12/19) ISCHEMIC R 4TH FINGER (07/26/86) [facility] [place], VEIN HARVESTED R LEG Nasal septoplasty (05/25/87) Pacemaker (02/18/13) Dual Chamber R ATRIAL ISTHMUS ABLATION (08/19/07) [facility] FOR A FLUTTER Repair of inguinal hernia (11/25/78) R; ALSO L 05/2003 Repair of umbilical hernia (01/23/93) Family History Mother , MD at age 75. Heart disease MD Myocardial infarction Breast cancer Father , cancer at age 68. Diabetes Personal history of malignant neoplasm COLON Son Diabetes Son No problems noted. Daughter No problems noted. Daughter No problems noted. Sister , age 83 No problems noted. Sister , age 81 No problems noted. Brother , age 18 - MVA No problems noted. Brother , age 84 Stomach cancer Diabetes Brother , age 79 Pena lung Brother Lung cancer Social History Smoking/Tobacco Use Status: Current every day Tobacco Type: cigarettes Tobacco: How many years used: 45 Quit status: has quit before Second Hand Exposure: Yes Counseling given: patient declined Smoking risk assessment performed?: Yes Alcohol Intake: former Drug use: Never Substance use type: does not use Adopted: No Caregiver/Support person: No Household members: spouse Housing: house Number of Children: 8 Communication Needs: Hard of Hearing and Corrective Lenses current occupation: Retired Pets and animals: Yes Pets and animals: cat(s) Sexually active: Yes Do you think of yourself as: straight/heterosexual Current gender identity: male What is your relationship status?: How often do you talk on the phone with friends or family?: three or more times per week How often do you get together with friends or relatives?: three or more times per week How often do you attend congregational or gnosticist services?: 4 or more times per year Do you belong to any clubs or organized social groups?: yes Panel score (0-1 are the most socially isolated patients): 4 What type of physical activity do you participate in: none Duration: decline to answer Frequency: decline to answer Quin/Sikhism: Anabaptism Special quin needs: No Seatbelt use: always Drive intox or ride w/intox 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
--- NOTE | 2022-01-11 13:45 | PDOC.HHF2F ---
Home Health Certification Home Health Certification: 1. Encounter Date and Reason I certify that Tony Solorzano Sr was seen by Anita Oreilly on 01/11/22 and that I had a [id number] encounter with this patient that meets the physician face to face encounter requirements. 2. Clinical Findings Supporting Skilled Need and Homebound Status I certify that home health services are medically necessary, include either intermittent [place] [facility] and/or physical/speech therapy, and that this patient is homebound in that absences from the home require considerable and taxing effort and are infrequent or of short duration, or are attributable to the need to receive medical care. [X] (a) Attached documentation from encounter provides clinical findings supporting skilled need and homebound status (including what assistance patient requires to leave the home). The encounter with the patient was in whole, or in part, for the following medical condition, which is the primary reason for home health care: Back pain,Ambulatory Dysfunction Alf: routine nursing evaluation and medication oversight Physical and occupational Therapy: routine evaluation and management, home safety evaluation Homebound: unable to safely leave the house unattended d/t cognitive impairment, ambulatory dysfunction with frequent falls. 3. Certification and Authentication I certify that I composed the above information based on my clinical judgement relating to this patient's medical condition and, if applicable, clinical findings communicated to me by the NPP or inpatient physician who performed the Home Health Referral. All further orders will be obtained through _Shaina May NP____(Community Based Physician - PCP)
--- NOTE | 2022-01-11 14:12 | PT.INTREAT ---
Date of service: 01/11/22 Time of Service: 11:24 PT Notes Visit Reasons: Back pain,Ambulatory Dysfunction Inpatient Physical Therapy Treatment Note [facility] Date: 01/11/2022 PRECAUTIONS: Fall, activity as tolerated SUBJECTIVE: Indra is pleasant and agreeable to participating in PT. He admits that he is feeling confused today. He reports that he does not get much relief from his back pain with activity nor at rest. OBJECTIVE: PAIN: Patient c/o low back pain with gait training BED MOBILITY/TRANSFERS Sit-stand: S Stand-sit: S GAIT Assistive Device: No AD Weight bearing: Full Assist: SBA Distance: 250' Deviation: LOB x1 with self-recovery, occasionally holds the wall and objects for balance and support STAIRS: Up/down 3x4 and 2x6 using B rails and a step-over pattern with supervision ASSESSMENT: Patient tolerated session with increasing LBP with gait training. He demonstrates LOB x1 with gait training without use of assistive device. He appears limited by confusion today. PLAN: Patient to discharge to home later today, per provider. Recommend follow up with PT/OT. TREATMENT CODE/TIME: 15 minutes; 19100 (11:24)
--- NOTE | 2022-01-11 17:28 | CMDISCH_ITS ---
- If Service Date Differs Date of service: 01/11/22 Time of Service: 17:28 LACE Index Scoring Tool - Questions: Length of Stay (in days): 2 Acuity (Admit via E.D.?): Yes Comorbidities: Chronic Pulmonary Disease, Dementia, Liver or Renal Disease E.D. Visits: 1 - Answers: Total Score: 11 Risk of Readmission: High Risk Care Management Discharge Reason for Hospitalization: Back pain, ambulatory dysfunction. Discharge Plan: Indra returned home today with new orders for HH RN, PT, OT, BURIAL NEEDS SALESPERSON. He is followed closely by Palliative care in the community. His daughter, Jenise drove him home via private vehicle. He will follow up with his PCP and discharge plan of care. He is happy to be going home. Patient/Family Education Needs: Review discharge instructions and limitations with pt and family, discussion of self care needs including ask me three and goals of care. Services Needed at Discharge: Home Health Care Services (RN, PT, OT, BURIAL NEEDS SALESPERSON)
--- NOTE | 2022-01-11 18:00 | INDS_ITS ---
Date of service: 01/11/22 PT Notes Visit Reasons: Back pain,Ambulatory Dysfunction Physical Therapy Inpatient Discharge Summary Date: 01/11/2022 Date of service: 01/10/2022 through 01/11/2022 This is a clinical summary of care provided for the duration of dates listed above. No charge was made in the completion of this documentation. Referring Doctor: Yahaira Gould MD PT Orders: PT CONSULT: Limited ability Precautions: Fall. Standard. Activity as tolerated. Patient Profile/Admitting Diagnosis: Indra is an 81-year-old male who presented to the ED on 01/09/2022 due to a fall and increasing left-sided flank pain, left abdominal pain, and left lower back pain.? Patient is diagnosed with ambulatory dysfunction, chronic kidney disease, congestive heart failure, COPD exacerbation, and atrial fibrillation. PMHX: All Active Problems?(Updated 01/09/22 @ 11:43 by Anita Oreilly NP) Discharge planning issues (Acute) Ambulatory dysfunction (Acute) Breast pain in male (Acute) Gynecomastia, male (Acute) DNI (do not intubate) (Acute) DNR (do not resuscitate) (Acute) Physician orders for life-sustaining treatment (POLST) form indicates patient wish for wt-kew-eoszzyikqrn status (Acute) CKD (chronic kidney disease) stage 4, GFR 15-29 ml/min (Acute) Congestive heart failure (Chronic) Mild cognitive impairment (Acute) Low back pain (Acute) Chronic diarrhea (Chronic) Gout (Acute) Asthma (Acute 04/04/13) Macrocytic anemia (Chronic) 12/2020- H&H stable 11.9/ 37.5Severe obstructive sleep apnea (Chronic 04/21/14) CPAP- Dr. De Seasonal allergic rhinitis (Chronic 04/21/14) geronimo mowing lawns Lytic lesion of bone on x-ray (Chronic 05/25/17) Left distal Ulna Hyperlipidemia (Chronic 10/23/16) RISK 34% based on 2015 lipids; rec statin Essential hypertension (Chronic 04/04/02) goal 130/80 (03/2013 Dr Dc nephrology) Chronic obstructive pulmonary disease (Chronic 04/21/14) not reversible on PFT. 01/03/10? FEV1? 2.3 (71%PRED); MILD OBSTR, NO RESPONSE; 04/06/14 FEV1 2.14 (78%pred; 81% FVC) no? response, Mild obstruction; stable 05/2016 2.08 Cardiac pacemaker in situ (Chronic 02/18/13) [employer]tr[employer] Marilou - interrogate with tablet CVH, DR GARCÍA Atrial fibrillation (Chronic 07/27/07) DR GARCÍA pacer 01/2013 for BRADYCARDIA; S/P Atrial flutter [facility] 07/2007 Anticoagulation adequate with anticoagulant therapy (Chronic 07/30/14) Apixaban per cardiology, 07/2014, for A Fib, CHADs2 score 2, stroke risk 2.8%; Apixaban RX Anemia in chronic kidney disease (Chronic 04/30/15) Medical History? Diarrhea (11/26/04) Edema (12/03/12) GI bleed Gout of left wrist (05/04/17) Hernia Inflammatory arthritis Lumbago with sciatica, left side (02/20/17) L4-5 burning left Pedal edema Polymyalgia Recurrent left inguinal hernia Repaired 2020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) DR DC, [facility] 6/2O12; D/C ARB; KAYEXALATE rx; AVOID POTASSIUM SPARING MEDS Upper GI bleeding Surgical History? Colonoscopy - MAC (03/30/14) CSDH/O esophagogastroduodenoscopy (~05/12/19) ISCHEMIC R 4TH FINGER (07/26/86) [facility], VEIN HARVESTED R LEGNasal septoplasty (05/25/87) Pacemaker (02/18/13) Dual ChamberR ATRIAL ISTHMUS ABLATION (08/19/07) [facility] [place] FOR A FLUTTERRepair of inguinal hernia (11/25/78) R; ALSO L 05/2003Repair of umbilical hernia (01/23/93) Social History/Home Situation: Lives alone in a private home with 5 steps to enter with rails on both sides.? recently 2 weeks ago.? He has family who lives close by and are ready to help.? Independent with all aspects of ADLs prior to ambulation.? Still drives. Equipment Owned/DME: Wheelchair, front-wheeled walker, single-point cane Subjective: NT. See most recent TRAFFIC REPRESENTATIVE notes. Objective: General Observation: NT. See most recent TRAFFIC REPRESENTATIVE notes. Mental Status: NT. See most recent TRAFFIC REPRESENTATIVE notes. Pain: NT. See most recent TRAFFIC REPRESENTATIVE notes. ROM: Right Upper Extremity: ? Shoulder Flexion WFL. Shoulder abduction WFL. Elbow flexion WFL. Wrist flexion WFL. Functional opening and closing of hand WFL. Left Upper Extremity:? Shoulder Flexion WFL. Shoulder abduction WFL. Elbow flexion WFL. Wrist flexion WFL. Functional opening and closing of hand WFL. Right Lower Extremity: Hip flexion WFL. Hip abduction WFL. Knee flexion WFL. Ankle dorsiflexion WFL. Ankle plantarflexion WFL. Left Lower Extremity: Hip flexion WFL. Hip abduction WFL. Knee flexion WFL. Ankle dorsiflexion WFL. Ankle plantarflexion WFL. Strength: Right Upper Extremity: Shoulder flexors 4/5. Shoulder abductors 4/5. Elbow flexors 5/5. Elbow extensors 5/5. [place] strong. Left Upper Extremity: Shoulder flexors 4/5. Shoulder abductors 4/5. Elbow flexors 5/5. Elbow extensors 5/5. [place] strong. Right Lower Extremity: Hip flexors 4/5. Hip abductors 4/5. Knee flexors 5/5. Knee extensors 4/5. Ankle dorsiflexors 4-/5. Ankle plantarflexors 4-/5. Left Lower Extremity: Hip flexors 4/5. Hip abductors 4/5. Knee flexors 5/5. Knee extensors 4/5. Ankle dorsiflexors 4-/5. Ankle plantarflexors 4-/5. Bed Mobility/Transfers: Sit to supine with supervision Sit to stand with supervision Stand to sit with supervision Bed to reclining chair with supervision Gait: Instructed patient with level surface ambulation of 250 feet with no assistive device requiring standby assist. L OB x1 but was able to self correct. ? No pain during ambulation activity.? Gait pattern unremarkable. Stairs: Up and down three 4 inch steps and 2 x 6 inch steps holding onto bilateral rails with step over step pattern requiring supervision assist. Balance: Static Sitting: Normal Dynamic Sitting: Normal Static Standing: Good Dynamic Standing: Fair Assessment: Patient is significantly limited with pain in the left upper abdominal area flank and left lower back area with coughing and movement transitions from sit<>supine and sit<>stand.? Patient presents with clinical signs and symptoms consistent with current/admitting diagnoses that have resulted to mobility limitations, gait instability, generalized weakness, and overall ADL decline as demonstrated by the following impairment level findings: 1.? Impaired activity tolerance 2.? Pain in L upper abdominal area, L flank, and L low back Impairments are contributing to the following functional limitations: 1.? Increased completion time for mobility ADL performance 2.? Increased risk for fall Goals: Goals X1 week 1. Supine-Sit independent NOT MET 2. Sit-Supine independent NOT MET 3. Sit-Stand independent NOT MET 4. Stand-Sit independent with no AD NOT MET 5. Bed-Chair independent with no AD NOT MET 6. Chair-Bed independent with no AD NOT MET 7. Independent gait on level surface with use of no ADfor at least 500feet without report of pain nor dyspnea NOT MET 8. Independent stair negotiation while holding onto [] rails for at least [] steps without report of pain nor dyspnea NOT MET DISCHARGE RECOMMENDATIONS: [] ? Home with no services [] [X] ??Home with services.? Patient will benefit from home health PT services in order to progress mobility level using least restrictive assistive ambulatory device, assess home safety, identify additional equipment needs, and establish a functional maintenance program that will increase ability of patient to remain at home. [] ? Home with outpatient PT [] [] ? SNF for continued rehabilitation [] [] ? Senior Web Applications Developer Care [] [] ? SNF versus LTC based on ability to participate and progress [] TREATMENT CODE/TIME: MN Thank you for the opportunity to participate in the care of this patient. Maliha Wiseman PT, DPT, CLT [facility] [place], [place]
== END 2022-01-11 14:41 | disposition home health service (06) ==
LOC: ER 12:04 → MS 12:07
PROVIDERS: Emergency Medicine; Nurse Practitioner Acute Care; Admitting Provider Internal Medicine; Emergency Provider Student in an Organized Health Care Education/Training Program; PCP Nurse Practitioner; Visit Provider Internal Medicine
DX: M54.50 Low back pain, unspecified (principal); R26.2 Difficulty in walking, not elsewhere classified; N18.4 Chronic kidney disease, stage 4 (severe); I50.9 Heart failure, unspecified; J44.9 Chronic obstructive pulmonary disease, unspecified; I48.0 Paroxysmal atrial fibrillation; Z79.01 Long term (current) use of anticoagulants; Z66 Do not resuscitate; M10.9 Gout, unspecified; K52.9 Noninfective gastroenteritis and colitis, unspecified; G31.84 Mild cognitive impairment of uncertain or unknown etiology; G47.33 Obstructive sleep apnea (adult) (pediatric); E78.5 Hyperlipidemia, unspecified; I13.0 Hypertensive heart and chronic kidney disease with heart failure and stage 1 through stage 4 chronic kidney disease, or unspecified chronic kidney disease; Z95.0 Presence of cardiac pacemaker; D63.1 Anemia in chronic kidney disease; F17.210 Nicotine dependence, cigarettes, uncomplicated; Z20.822 Contact with and (suspected) exposure to COVID-19; M54.9 Dorsalgia, unspecified; W00.0XXA Fall on same level due to ice and snow, initial encounter
CPT/HCPCS: 36415; 71250; 80048; 80053; 87635; 94640; 97162; 97530; 99285; 70450; 72125; 74176; 81003; 81015; 83735; 85025; 85610; 85730; 99217; 99226; G0378

== ENCOUNTER 2022-04-16 13:07 | Inpatient (IN) | payer MEDICARE, SELFPAY ==
[2022-04-16] VITALS (9 sets, daily range): BP systolic 105–120; BP diastolic 40–70; PULSE 69–90; RESP 15–20; TEMP 36.2–38; O2SAT 87–95
--- NOTE | 2022-04-16 13:30 | RT.EKG_ITS ---
APPROVED REPORT Exam: Resting ECG Reason for Exam: weakness Patient Location: E HR:75 bpm ECG Measurements Heart Rate 75 AXIS TX [id number] P [id number] QRSd 127 QRS -51 QT 470 T 104 QTc 525 Conclusion Afib/flut Nonspecific IVCD with LAD. Nonspecific T abnormalities, lateral leads. Paced
[2022-04-16 14:05] LABS: Abs Immature Grans 0.01 10^3/uL (0.0-0.06); Absolute Basophil Count 0.03 10^3/uL (0.0-0.2); Absolute Eosinophil Count 0.26 10^3/uL (0.0-0.7); Absolute Lymphocyte Count 0.66 10^3/uL (1.2-3.4); Absolute Monocyte Count 0.68 10^3/uL (0.1-0.8); Absolute Neutrophil Count 3.15 10^3/uL (1.2-6.7); Basophils % 0.6; Eosinophils % 5.4; HCT 31.4 % (40.0-50.0); HGB 10.2 g/dL (13.5-17.5); Immature Grans % 0.2; Lactate 0.7 mmol/L (0.6-1.4); Lymphocytes % 13.8; MCH 31.4 pg (27.0-33.0); MCHC 32.5 % (32.0-36.0); MCV 97 fL (80-95); MPV 9.1 fL (8.0-11.0); Monocytes % 14.2; Neutrophils % 65.8; Platelet Count 169 10^3/uL (130-400); RBC 3.25 10^6/uL (4.36-5.78); RDW 16.7 % (11.8-14.1); RDW-SD 59.2 fL; WBC 4.79 10^3/uL (4.4-10.8)
[2022-04-16] MEDS: Dexamethasone 4 MG/ML VIAL IVP (14:11)
[2022-04-16] MEDS: Albuterol/Ipratropium 3 ML UPD VIAL UPD (14:12)
[2022-04-16 14:22] LABS: Source Nasal/Nares
[2022-04-16 14:26] LABS: ALT 14 U/L (16-63); AST 26 U/L (15-37); Albumin 2.8 g/dL (3.4-5.0); Alkaline Phosphatase 126 U/L (46-116); Anion Gap 7.7 mmol/L (3-11); BUN 49 mg/dL (7-18); Bilirubin, Total 0.6 mg/dL (0.2-1.0); CO2 30.3 mmol/L (21.0-32.0); CREATININE 2.1 mg/dL (0.70-1.30); Chloride 106 mmol/L (98-107); Estimated GFR 30.54 (mL/min/1.73m2); Glucose 88 mg/dL (74-106); NT-proBNP 6335 pg/mL (<300); Potassium 3.1 mmol/L (3.5-5.1); Sodium 144 mmol/L (136-145); Total Protein 6.4 g/dL (6.4-8.2); Troponin I < 50 ng/L (<or=60)
--- NOTE | 2022-04-16 14:52 | DI.RAD_ITS ---
Exam(s) XR PORTABLE CHEST AP EXAM: XR PORTABLE CHEST AP CLINICAL HISTORY: cough, rhonchi, covid TECHNIQUE: 2D digital imaging was performed of the chest. One image was obtained. An AP view was ob tained. COMPARISON: CR XR PORTABLE CHEST AP from 05/10/2019 FINDINGS: MEDIASTINUM: Normal. HEART: The heart is at the upper limits of normal in size given the projection. Transvenous cardiac pacer in place. PULMONARY VASCULATURE: Normal. LUNGS: Bilateral patchy infiltrates predominantly in the bases, right greater than left. PLEURAL SPACE: There is blunting of the right costophrenic angle which may represent a small effusion . No pneumothorax. BONE:Within normal limits for the patient's age. OTHER FINDINGS:Normal. IMPRESSION: Bilateral patchy infiltrates. This may represent pneumonia. Please correlate clinically. DATA REPOSITORY: RADIATION DOSE DELIVERED:
[2022-04-16 15:05] LABS: COVID-19 PCR POSITIVE (Negative)
--- NOTE | 2022-04-16 15:16 | ED.GENADUL_ITS ---
Discharge Plan Disposition Patient Disposition: [facility] INPATIENT Condition: Serious Discharge Details Clinical Impression: Dementia, Pneumonia due to COVID-19 virus, Respiratory failure Admit Date/Time: 04/16/22 16:12 Admit Provider: Jim Woody Attending Provider: Jim Woody Primary Care Provider: Shaina May ED Provider: Fany Singh Discharge Data Discharge Date/Time-TO BE ENTERED AT DEPARTURE: 04/16/22 18:03 Medical Decision Making Patient is COVID-19 positive He has baseline chronic kidney disease which is unchanged He is slightly more confused per caregiver but did have a fever this morning and positive COVID test prior to arrival likely consistent with presentation He has an infiltrate on the chest x-ray likely viral pneumonia He is hypoxic, he was 85% on room air, he does not have a history of oxygen dependency I suspect this is COVID-19 induced He is reportedly vaccinated He is a DNR/DNI, I confirmed the with his POLST form and his family members, daughter is DPOA Patient will need admission for oxygen requirements and weakness case discussed with Dr Woody and pt agreeable to admission Medical Records Medical records reviewed: Yes I reviewed the patient's medical records. Lab Data Lab results reviewed: Yes I reviewed the patient's lab results. HPI General Date/Time Provider Initiated Documentation: 04/16/22 13:34 . HPI Narrative: This 81-year-old male presents for report of weakness with slight increase in confusion from his baseline dementia with a positive COVID test at his assisted living facility. Denies known falls or injuries. Patient is unable to give significant history. He denies any shortness of breath. He does report feeling weak. Denies any pain complaints. Unfortunately poor historian secondary to dementia history Related Data Home Medications Medication Instructions Recorded Confirmed acetaminophen 500 mg tablet 1,000 mg PO Q4H PRN 07/10/14 04/16/22 inhalational spacing device (Space ##1 12/28/14 04/15/22 Chamber Plus) diclofenac sodium 1 % topical gel 4 gm topical QID #100 grams 05/28/19 04/15/22 (Voltaren) silver sulfadiazine 1 % topical 1 applic topical BID PRN wound 02/09/22 04/15/22 cream (Silvadene) healing #400 grams allopurinol 300 mg tablet 300 mg PO DAILY #90 tabs 02/27/22 04/16/22 amlodipine 5 mg tablet 5 mg PO DAILY #90 tabs 02/27/22 04/16/22 atorvastatin 10 mg tablet 10 mg PO HS #90 tabs 02/27/22 04/16/22 donepezil 10 mg tablet 10 mg PO QHS #90 tabs 02/27/22 04/16/22 fluticasone fur. 100 mcg-umeclid 1 inh inhalation DAILY #60 ea 02/27/22 04/16/22 62.5 mcg-vilant 25 mcg inhalat.powder (Trelegy Ellipta) loperamide 2 mg capsule 2 mg PO DAILY PRN loose stool #90 02/27/22 04/15/22 caps montelukast 10 mg tablet 10 mg PO DAILY #90 tabs 02/27/22 04/16/22 (Singulair) pantoprazole 40 mg tablet,delayed 40 mg PO DAILY #90 tabs 02/27/22 04/16/22 release quetiapine 25 mg tablet (Seroquel) 25 mg PO BID #30 tabs 03/08/22 04/16/22 diltiazem HCl 300 mg capsule,24 300 mg PO DAILY #90 caps 03/09/22 04/16/22 hr,extended release apixaban 2.5 mg tablet (Eliquis) 2.5 mg PO BID #180 tabs 03/10/22 04/16/22 levalbuterol tartrate 45 2 inh inhalation Q6H PRN shortness 03/10/22 04/16/22 mcg/actuation aerosol inhaler of breath #15 grams (Xopenex HFA) torsemide 100 mg tablet 100 mg PO DAILY #90 tabs 03/28/22 04/16/22 gabapentin 100 mg capsule 100 mg PO HS 04/16/22 04/16/22 metoprolol succinate 100 mg 150 mg PO DAILY 04/16/22 04/16/22 tablet,extended release 24 hr terazosin 10 mg capsule 10 mg PO HS 04/16/22 04/16/22 Previous Rx's Medication Instructions Recorded diclofenac sodium 1 % topical gel 4 gm topical QID #100 grams 05/28/19 (Voltaren) silver sulfadiazine 1 % topical 1 applic topical BID PRN wound 02/09/22 cream (Silvadene) healing #400 grams allopurinol 300 mg tablet 300 mg PO DAILY #90 tabs 02/27/22 amlodipine 5 mg tablet 5 mg PO DAILY #90 tabs 02/27/22 atorvastatin 10 mg tablet 10 mg PO HS #90 tabs 02/27/22 donepezil 10 mg tablet 10 mg PO QHS #90 tabs 02/27/22 fluticasone fur. 100 mcg-umeclid 1 inh inhalation DAILY #60 ea 02/27/22 62.5 mcg-vilant 25 mcg inhalat.powder (Trelegy Ellipta) loperamide 2 mg capsule 2 mg PO DAILY PRN loose stool #90 02/27/22 caps montelukast 10 mg tablet 10 mg PO DAILY #90 tabs 02/27/22 (Singulair) pantoprazole 40 mg tablet,delayed 40 mg PO DAILY #90 tabs 02/27/22 release quetiapine 25 mg tablet (Seroquel) 25 mg PO BID #30 tabs 03/08/22 diltiazem HCl 300 mg capsule,24 300 mg PO DAILY #90 caps 03/09/22 hr,extended release apixaban 2.5 mg tablet (Eliquis) 2.5 mg PO BID #180 tabs 03/10/22 levalbuterol tartrate 45 2 inh inhalation Q6H PRN shortness 03/10/22 mcg/actuation aerosol inhaler of breath #15 grams (Xopenex HFA) torsemide 100 mg tablet 100 mg PO DAILY #90 tabs 03/28/22 Allergies Allergy/AdvReac Type Severity Reaction Status Date / Time MANSI Inhibitors AdvReac Intermediate HYPERKALEMIA Verified 04/16/22 17:34 5.9, 04/11/16 ARB-Angiotensin Receptor AdvReac Intermediate HYPERKALEMIA Verified 04/16/22 17:34 Antagonist 5.9, 04/11/16 codeine AdvReac Intermediate disoriented Verified 04/16/22 17:34 General Stated Complaint: SOB BUNNY: 3 Review of Systems All systems reviewed & are unremarkable except as noted in HPI and below PFSH All Active Problems (Updated 04/18/22 @ 18:28 by NIALL Gee) Respiratory failure (Acute) Discharge planning issues (Acute) Pneumonia due to COVID-19 virus (Acute) Palliative care patient (Acute) Pruritus (Acute) Edema (Acute) Hallucination (Acute) Wandering behavior (Acute) CKD (chronic kidney disease) (Chronic) Dementia (Chronic) Situational depression (Acute) Ambulatory dysfunction (Acute) Physician orders for life-sustaining treatment (POLST) form indicates patient wish for po-mbm-hwtjeefuhil status (Acute) Chronic diarrhea (Chronic) Gout (Acute) Asthma (Acute 04/04/13) Macrocytic anemia (Chronic) 12/2020- H&H stable 11.9/ 37.5 Severe obstructive sleep apnea (Chronic 04/21/14) CPAP- Dr. De Hyperlipidemia (Chronic 10/23/16) RISK 34% based on 2015 lipids; rec statin Essential hypertension (Chronic 04/04/02) goal 130/80 (03/2013 Dr Dc nephrology) Cardiac pacemaker in situ (Chronic 02/18/13) [employer] [place] - interrogate with tablet [facility], DR GARCÍA Anticoagulation adequate with anticoagulant therapy (Chronic 07/30/14) Apixaban per cardiology, 07/2014, for A Fib, CHADs2 score 2, stroke risk 2.8%; Apixaban RX Anemia in chronic kidney disease (Chronic 04/30/15) Medical History Ambulatory dysfunction Atrial fibrillation (07/27/07) DR GARCÍA pacer 01/2013 for BRADYCARDIA; S/P Atrial flutter [facility] [place]2007 Chronic obstructive pulmonary disease (04/21/14) not reversible on PFT. 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) DR DC, [facility] [place] 6/2O12; D/C ARB; KAYEXALATE rx; AVOID POTASSIUM SPARING MEDS Seasonal allergic rhinitis (04/21/14) geronimo mowing lawns Upper GI bleeding Surgical History Colonoscopy - MAC (03/30/14) CSD H/O esophagogastroduodenoscopy (~05/12/19) ISCHEMIC R 4TH FINGER (07/26/86) [facility] [place], VEIN HARVESTED R LEG Nasal septoplasty (05/25/87) Pacemaker (02/18/13) Dual Chamber R ATRIAL ISTHMUS ABLATION (08/19/07) [facility] [place] FOR A FLUTTER Repair of inguinal hernia (11/25/78) R; ALSO L 05/2003 Repair of umbilical hernia (01/23/93) Family History Mother , DC at age 75. Heart disease DC Myocardial infarction Breast cancer Father , cancer at age 68. Diabetes Personal history of malignant neoplasm COLON Son Diabetes Son No problems noted. Daughter No problems noted. Daughter No problems noted. Sister , age 83 No problems noted. Sister , age 81 No problems noted. Brother , age 18 - MVA No problems noted. Brother , age 84 Stomach cancer Diabetes Brother , age 79 Pena lung Brother Lung cancer Social History Smoking/Tobacco Use Status: Current every day Tobacco Type: cigarettes Tobacco: How many years used: 45 Quit status: has quit before Second Hand Exposure: Yes Counseling given: patient declined Smoking risk assessment performed?: Yes Alcohol Intake: former Drug use: Never Substance use type: does not use Adopted: No Caregiver/Support person: No Household members: spouse Housing: house Number of Children: 8 Communication Needs: Hard of Hearing and Corrective Lenses current occupation: Retired Pets and animals: Yes Pets and animals: cat(s) Sexually active: Yes Do you think of yourself as: straight/heterosexual Current gender identity: male What is your relationship status?: How often do you talk on the phone with friends or family?: three or more times per week How often do you get together with friends or relatives?: three or more times per week How often do you attend quaker or presybeterian services?: 4 or more times per year Do you belong to any clubs or organized social groups?: yes Panel score (0-1 are the most socially isolated patients): 4 What type of physical activity do you participate in: none Duration: decline to answer Frequency: decline to answer Quin/Jainism: Holiness Special quin needs: No Seatbelt use: always Drive intox or ride w/intox motorcoach driver: No Working smoke detector in home: Yes Fire extinguisher in home: Yes Carbon monox detector in home: Yes Firearms in home: Yes Firearms unloaded and locked: Yes Do you feel safe at home: Yes Do you feel safe in your relationship?: Yes Exam Const General: cooperative and ill appearing HENMT Other: moist mucous membranes, uvula midline Eyes Pupils: PERRL Resp Other: rhonchi bilaterally, mild respiratory distress Cardio Rate: regular rate Rhythm: regular rhythm Skin Other: pallor Neuro General: patient alert Other: Oriented to self only Extrem Other: + edema to bilateral lower extremities, no tenderness appreciated, no erythema, unna boot in place Course Vital Signs Vital signs: Vital Signs Temperature 36.5 C 04/16/22 13:15 Pulse 79 04/16/22 13:15 Respiratory Rate 17 04/16/22 13:15 Blood Pressure 116/43 L 04/16/22 13:15 Pulse Oximetry 87 L 04/16/22 13:15 Temperature 37 C 04/16/22 15:05 Temperature Source Temporal Artery Scan 04/16/22 15:05 Pulse 70 04/16/22 15:05 Respiratory Rate 17 04/16/22 15:05 Respiratory Effort Short of Breath 04/16/22 13:30 Blood Pressure 112/43 L 04/16/22 15:05 Blood Pressure Position Sitting 04/16/22 13:15 Pulse Oximetry 92 04/16/22 15:05 Oxygen Delivery Method Nasal Cannula 04/16/22 15:05 Oxygen Flow Rate 2 04/16/22 15:05 Pain Level 0 04/16/22 13:15 Lab/Test Results Lab/Test Results: 04/16/22 14:02 Blood Blood Culture - Pending 04/16/22 13:34 Blood Blood Culture - Pending Laboratory Tests Range/Units 04/16/22 04/16/22 04/16/22 14:02 14:02 14:02 WBC (4.4-10.8) 10^3/uL 4.79 RBC (4.36-5.78) 10^6/uL 3.25 L Hgb (13.5-17.5) g/dL 10.2 L Hct (40.0-50.0) % 31.4 L MCV (80-95) fL 97 H MCH (27.0-33.0) pg 31.4 MCHC (32.0-36.0) % 32.5 RDW (11.8-14.1) % 16.7 H Plt Count (130-400) 10^3/uL 169 MPV (8.0-11.0) fL 9.1 Immature Gran % 0.2 Neutrophils % 65.8 Lymphocytes % 13.8 Monocytes % 14.2 Eosinophils % 5.4 Basophils % 0.6 Nucleated RBC % (0.0-0.3) % 0.0 Absolute Neutrophils (1.2-6.7) 10^3/uL 3.15 Absolute Lymphocytes (1.2-3.4) 10^3/uL 0.66 L Absolute Monocytes (0.1-0.8) 10^3/uL 0.68 Absolute Eosinophils (0.0-0.7) 10^3/uL 0.26 Absolute Basophils (0.0-0.2) 10^3/uL 0.03 VBG Lactate (0.6-1.4) mmol/L 0.7 Sodium (136-145) mmol/L 144 Potassium (3.5-5.1) mmol/L 3.1 L Chloride (98-107) mmol/L 106 Carbon Dioxide (21.0-32.0) mmol/L 30.3 Anion Gap (3-11) mmol/L 7.7 BUN (7-18) mg/dL 49 H Creatinine (0.70-1.30) mg/dL 2.1 H Estimated GFR/1.73 m2 (mL/min/1.73m2) 30.54 Glucose (74-106) mg/dL 88 Calcium (8.5-10.1) mg/dL 8.0 L Total Bilirubin (0.2-1.0) mg/dL 0.6 AST (15-37) U/L 26 ALT (16-63) U/L 14 L Alkaline Phosphatase (46-116) U/L 126 H Troponin I (<or=60) ng/L < 50 NT-Pro-B Natriuret Pep (<300) pg/mL 6335 H Total Protein (6.4-8.2) g/dL 6.4 Albumin (3.4-5.0) g/dL 2.8 L COVID-19 Source SARS-CoV-2 (PCR) (Negative) Range/Units 04/16/22 14:20 WBC (4.4-10.8) 10^3/uL RBC (4.36-5.78) 10^6/uL Hgb (13.5-17.5) g/dL Hct (40.0-50.0) % MCV (80-95) fL MCH (27.0-33.0) pg MCHC (32.0-36.0) % RDW (11.8-14.1) % Plt Count (130-400) 10^3/uL MPV (8.0-11.0) fL Immature Gran % Neutrophils % Lymphocytes % Monocytes % Eosinophils % Basophils % Nucleated RBC % (0.0-0.3) % Absolute Neutrophils (1.2-6.7) 10^3/uL Absolute Lymphocytes (1.2-3.4) 10^3/uL Absolute Monocytes (0.1-0.8) 10^3/uL Absolute Eosinophils (0.0-0.7) 10^3/uL Absolute Basophils (0.0-0.2) 10^3/uL VBG Lactate (0.6-1.4) mmol/L Sodium (136-145) mmol/L Potassium (3.5-5.1) mmol/L Chloride (98-107) mmol/L Carbon Dioxide (21.0-32.0) mmol/L Anion Gap (3-11) mmol/L BUN (7-18) mg/dL Creatinine (0.70-1.30) mg/dL Estimated GFR/1.73 m2 (mL/min/1.73m2) Glucose (74-106) mg/dL Calcium (8.5-10.1) mg/dL Total Bilirubin (0.2-1.0) mg/dL AST (15-37) U/L ALT (16-63) U/L Alkaline Phosphatase (46-116) U/L Troponin I (<or=60) ng/L NT-Pro-B Natriuret Pep (<300) pg/mL Total Protein (6.4-8.2) g/dL Albumin (3.4-5.0) g/dL COVID-19 Source Nasal/Nares SARS-CoV-2 (PCR) (Negative) POSITIVE A* Critical Care Time Critical Care Time Critical Care Time: Yes Total Critical Care Time: 60 Attestation: Telemetry monitoring, oxygen supplementation, IV antiviral initiated, IV ceftriaxone, IV doxycycline, admission for COVID-19 and respiratory failure,
[2022-04-16] MEDS: Acetaminophen Solution 650 MG/20.3 ML CUP PO (15:49)
--- NOTE | 2022-04-16 15:51 | DI.VRAD_ITS ---
PROCEDURE INFORMATION: Exam: XR Chest Exam date and time: 04/16/2022 3:05 PM Age: 81 years old Clinical indication: Other: Cough, bronchi, covid + TECHNIQUE: Imaging protocol: XR of the chest. Views: 1 view. COMPARISON: CT CHEST/ABD/PEL WO 09/01/2022 08:35 FINDINGS: Tubes, catheters and devices: Cardiac pacemaker in place. EKG wires overlie the chest. Airway: Narrowing of the trachea. Lungs: Prominent pulmonary vasculature. Bilateral patchy infiltrates with greatest involvement of the lung bases. Pleural spaces: Blunted bilateral costophrenic angles. Heart/Mediastinum: Cardiomegaly. Vasculature: Atherosclerotic disease. Bones/joints: Unremarkable for patient's age. IMPRESSION: 1. Bilateral pneumonia. 2. Narrowing of the trachea. 3. Cardiomegaly. Dictated and Authenticated by: Claudette Dumont MD. Ordering:MARK Soares MD
[2022-04-16] MEDS: DOXYCYCLINE 100 MG in Normal Saline 100 ML IVPB (17:33)
[2022-04-16] MEDS: cefTRIAXone 2 GM/50 ML BAG IVPB (18:35)
--- NOTE | 2022-04-16 18:58 | HPE_ITS ---
Date of service: 04/16/22 Time of Service: 17:58 Assessment and Plan Assessment and plan (1) Pneumonia due to COVID-19 virus: Status: Acute Assessment and plan: supportive care w/ supplemental oxygen including use of CPAP (BIPAP if needed), Remdesivir, decadron 6 mg daily, vit C, vit D, zinc, encourage mobilization and pulmonary toiletry; cont Ceftriaxone and doxycycline. Professional time spent interviewing and examining patient, discussion of goals of care with hospital team ( nursing and consulting professionals) was 60 minutes. (2) Severe obstructive sleep apnea: Status: Chronic Assessment and plan: cont. CPAP (3) Essential hypertension: Status: Chronic Assessment and plan: continue metoprolol, torsemide, amlodipine, diltiazem. (4) CKD (chronic kidney disease): Status: Chronic Assessment and plan: cont. current BP meds and diuretics; monitor urine output and daily labs. as long as he is taking adequate po, I would avoid iv fluids in setting of COVID-19 pneumonia (5) Anemia in chronic kidney disease: Status: Chronic Assessment and plan: stable; monitor (6) Atrial fibrillation: Assessment and plan: continue toprol and diltiazem and apixaban; monitor telemetry; current rhythm is electronic paced Qualifiers: Atrial fibrillation type: paroxysmal Qualified Code(s): I48.0 - Paroxysmal atrial fibrillation (7) Anticoagulation adequate with anticoagulant therapy: Status: Chronic Assessment and plan: continue apixaban at renal adjusted dose (8) Cardiac pacemaker in situ: Status: Chronic (9) Dementia: Status: Chronic Assessment and plan: patient is poor historian, however, he understands that he has COVID (10) DNR (do not resuscitate): Assessment and plan: patient has POLST form and is DNR/DNI History of Present Illness History of Present Illness Chief Complaint: shortness of breath, weakness Narrative: 81 yr male w/ PMH of COPD, dementia, NYA (suppose to wear CPAP), CKD, afib (AC w/ apixaban), s/p cardiac pacer, anemia of CKD, who was recently diagnosed w/ COVID and was brought to the ED d/t increasing dyspnea, confusionand weakness. He was found to be hypoxic w/ SPO2 of 85% and CXR demonstrated bilateral pneumonic consolidation, cardiomegaly and narrowing of his trachea. Labs were remarkable for stable chronic macrocytic anemia Hb 10.2 gm, CMP was remarkable for K+ of 3.1 and stable chronic renal failure w/ BUN 49 and creatinine of 2.1, troponin I was normal, BNP elevated at 6300. Patient was treated w/ Remdesivir 200 mg and decadron 10 mg (6+4) and given Rocephin 2 gm and doxycycline 100 mg. He is now admitted for treatment of COVID- 19 pneumonia +/- bacterial superimposed pneumonia. Review of Systems Unobtainable due to mental status PFSH All Active Problems (Updated 04/16/22 @ 19:24 by Jim Woody) Pneumonia due to COVID-19 virus (Acute) Palliative care patient (Acute) Pruritus (Acute) Edema (Acute) Hallucination (Acute) Wandering behavior (Acute) CKD (chronic kidney disease) (Chronic) Dementia (Chronic) Situational depression (Acute) Ambulatory dysfunction (Acute) Physician orders for life-sustaining treatment (POLST) form indicates patient wish for [id number] status (Acute) Chronic diarrhea (Chronic) Gout (Acute) Asthma (Acute 04/04/13) Macrocytic anemia (Chronic) 12/2020- H&H stable 11.9/ 37.5 Severe obstructive sleep apnea (Chronic 04/21/14) CPAP- Dr. De Hyperlipidemia (Chronic 10/23/16) RISK 34% based on 2015 lipids; rec statin Essential hypertension (Chronic 04/04/02) goal 130/80 (03/2013 Dr Dc nephrology) Cardiac pacemaker in situ (Chronic 02/18/13) [employer] [place] - [facility] Anticoagulation adequate with anticoagulant therapy (Chronic 07/30/14) Apixaban per cardiology, 07/2014, for A Fib, CHADs2 score 2, stroke risk 2.8%; Apixaban RX Anemia in chronic kidney disease (Chronic 04/30/15) Medical History Ambulatory dysfunction Atrial fibrillation (07/27/07) DR GARCÍA pacer 01/2013 for BRADYCARDIA; S/P Atrial flutter ABLATION [facility] 07/2007 Chronic obstructive pulmonary disease (04/21/14) not reversible on PFT. 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) DR DC, [facility] 04/27O12; D/C ARB; KAYEXALATE rx; AVOID POTASSIUM SPARING MEDS Seasonal allergic rhinitis (04/21/14) geronimo mowing lawns Upper GI bleeding Surgical History Colonoscopy - MAC (03/30/14) CSD H/O esophagogastroduodenoscopy (~05/12/19) ISCHEMIC R 4TH FINGER (07/26/86) [facility], VEIN HARVESTED R LEG Nasal septoplasty (05/25/87) Pacemaker (02/18/13) Dual Chamber R ATRIAL ISTHMUS ABLATION (08/19/07) [facility] FOR A FLUTTER Repair of inguinal hernia (11/25/78) R; ALSO L 05/2003 Repair of umbilical hernia (01/23/93) Family History Mother , [place] at age 75. Heart disease [place] Myocardial infarction Breast cancer Father , cancer at age 68. Diabetes Personal history of malignant neoplasm COLON Son Diabetes Son No problems noted. Daughter No problems noted. Daughter No problems noted. Sister , age 83 No problems noted. Sister , age 81 No problems noted. Brother , age 18 - MVA No problems noted. Brother , age 84 Stomach cancer Diabetes Brother , age 79 Pena lung Brother Lung cancer Social History Smoking/Tobacco Use Status: Current every day Tobacco Type: cigarettes Tobacco: How many years used: 45 Quit status: has quit before Second Hand Exposure: Yes Counseling given: patient declined Smoking risk assessment performed?: Yes Alcohol Intake: former Drug use: Never Substance use type: does not use Adopted: No Caregiver/Support person: No Household members: spouse Housing: house Number of Children: 8 Communication Needs: Hard of Hearing and Corrective Lenses current occupation: Retired Pets and animals: Yes Pets and animals: cat(s) Sexually active: Yes Do you think of yourself as: straight/heterosexual Current gender identity: male What is your relationship status?: How often do you talk on the phone with friends or family?: three or more times per week How often do you get together with friends or relatives?: three or more times per week How often do you attend synagogue or cheondoism services?: 4 or more times per year Do you belong to any clubs or organized social groups?: yes Panel score (0-1 are the most socially isolated patients): 4 What type of physical activity do you participate in: none Duration: decline to answer Frequency: decline to answer Quin/Adventism: Restorationist Special quin needs: No Seatbelt use: always Drive intox or ride w/intox recycling collections driver: No Working smoke detector in home: Yes Fire extinguisher in home: Yes Carbon monox detector in home: Yes Firearms in home: Yes Firearms unloaded and locked: Yes Do you feel safe at home: Yes Do you feel safe in your relationship?: Yes Meds Allergies and Home Medications Allergies Allergy/AdvReac Type Severity Reaction Status Date / Time MANSI Inhibitors AdvReac Intermediate HYPERKALEMIA Verified 04/16/22 17:34 5.9, 04/11/16 ARB-Angiotensin Receptor AdvReac Intermediate HYPERKALEMIA Verified 04/16/22 17:34 Antagonist 5.9, 04/11/16 codeine AdvReac Intermediate disoriented Verified 04/16/22 17:34 Home Medications Medication Instructions Recorded Confirmed Type acetaminophen 500 mg tablet 1,000 mg PO Q4H PRN 07/10/14 04/16/22 History inhalational spacing device (Space ##1 12/28/14 04/15/22 History Chamber Plus) diclofenac sodium 1 % topical gel 4 gm topical QID #100 grams 05/28/19 04/15/22 Rx (Voltaren) silver sulfadiazine 1 % topical 1 applic topical BID PRN wound 02/09/22 04/15/22 Rx cream (Silvadene) healing #400 grams allopurinol 300 mg tablet 300 mg PO DAILY #90 tabs 02/27/22 04/16/22 Rx amlodipine 5 mg tablet 5 mg PO DAILY #90 tabs 02/27/22 04/16/22 Rx atorvastatin 10 mg tablet 10 mg PO HS #90 tabs 02/27/22 04/16/22 Rx donepezil 10 mg tablet 10 mg PO QHS #90 tabs 02/27/22 04/16/22 Rx fluticasone fur. 100 mcg-umeclid 1 inh inhalation DAILY #60 ea 02/27/22 04/16/22 Rx 62.5 mcg-vilant 25 mcg inhalat.powder (Trelegy Ellipta) loperamide 2 mg capsule 2 mg PO DAILY PRN loose stool #90 02/27/22 04/15/22 Rx caps montelukast 10 mg tablet 10 mg PO DAILY #90 tabs 02/27/22 04/16/22 Rx (Singulair) pantoprazole 40 mg tablet,delayed 40 mg PO DAILY #90 tabs 02/27/22 04/16/22 Rx release quetiapine 25 mg tablet (Seroquel) 25 mg PO BID #30 tabs 03/08/22 04/16/22 Rx diltiazem HCl 300 mg capsule,24 300 mg PO DAILY #90 caps 03/09/22 04/16/22 Rx hr,extended release apixaban 2.5 mg tablet (Eliquis) 2.5 mg PO BID #180 tabs 03/10/22 04/16/22 Rx levalbuterol tartrate 45 2 inh inhalation Q6H PRN shortness 03/10/22 04/16/22 Rx mcg/actuation aerosol inhaler of breath #15 grams (Xopenex HFA) torsemide 100 mg tablet 100 mg PO DAILY #90 tabs 03/28/22 04/16/22 Rx gabapentin 100 mg capsule 100 mg PO HS 04/16/22 04/16/22 History metoprolol succinate 100 mg 150 mg PO DAILY 04/16/22 04/16/22 History tablet,extended release 24 hr terazosin 10 mg capsule 10 mg PO HS 04/16/22 04/16/22 History Exam Narrative Exam Narrative: Elderly male lying in bed talking with his nurse. He is alert to person place and circumstance but not to the date/time. HEENT is unremarkable. No facial asymmetry no dysarthric speech full extraocular motion intact. Neck is supple no overt JVD normal carotid pulses no bruits Lungs with scattered expiratory wheezes Heart regular, slow (monitor shows electronic pacing) Abdomen: soft, nontender, normal bowel sounds Legs/feet: 1+ pitting edema over feet, ankles and distal tibia; skin is warm, no cyanosis; pedal pulses intact Neuro: no focal motor deficits; no dysarthric speech, no facial asymmetry; normal senory to light touch Results Labs Result diagrams: 04/16/22 14:02 04/16/22 14:02 Labs: Laboratory Results - last 24 hr 04/16/22 04/16/22 04/16/22 14:02 14:02 14:02 WBC 4.79 RBC 3.25 L Hgb 10.2 L Hct 31.4 L MCV 97 H MCH 31.4 MCHC 32.5 RDW 16.7 H Plt Count 169 MPV 9.1 Immature Gran % 0.2 Neutrophils % 65.8 Lymphocytes % 13.8 Monocytes % 14.2 Eosinophils % 5.4 Basophils % 0.6 Nucleated RBC % 0.0 Absolute Neutrophils 3.15 Absolute Lymphocytes 0.66 L Absolute Monocytes 0.68 Absolute Eosinophils 0.26 Absolute Basophils 0.03 VBG Lactate 0.7 Sodium 144 Potassium 3.1 L Chloride 106 Carbon Dioxide 30.3 Anion Gap 7.7 BUN 49 H Creatinine 2.1 H Estimated GFR/1.73 m2 30.54 Glucose 88 Calcium 8.0 L Total Bilirubin 0.6 AST 26 ALT 14 L Alkaline Phosphatase 126 H Troponin I < 50 NT-Pro-B Natriuret Pep 6335 H Total Protein 6.4 Albumin 2.8 L COVID-19 Source SARS-CoV-2 (PCR) 04/16/22 14:20 WBC RBC Hgb Hct MCV MCH MCHC RDW Plt Count MPV Immature Gran % Neutrophils % Lymphocytes % Monocytes % Eosinophils % Basophils % Nucleated RBC % Absolute Neutrophils Absolute Lymphocytes Absolute Monocytes Absolute Eosinophils Absolute Basophils VBG Lactate Sodium Potassium Chloride Carbon Dioxide Anion Gap BUN Creatinine Estimated GFR/1.73 m2 Glucose Calcium Total Bilirubin AST ALT Alkaline Phosphatase Troponin I NT-Pro-B Natriuret Pep Total Protein Albumin COVID-19 Source Nasal/Nares SARS-CoV-2 (PCR) POSITIVE A* Last Vital Signs Temp 37.2 C 04/16/22 18:18 Pulse 90 04/16/22 18:18 Resp 15 04/16/22 18:18 BP 120/70 04/16/22 18:18 Pulse Ox 92 04/16/22 18:18
[2022-04-16] MEDS: Normal Saline 500 ML 30 ML IV (20:21)
[2022-04-16] MEDS: REMDESIVIR 200 MG in Normal Saline 250 ML 250 MG IVPB (20:22)
[2022-04-16] MEDS: Normal Saline Flush 10 ML SYR IVP (20:22)
[2022-04-16] MEDS: Apixaban 2.5 MG TAB PO (20:23)
[2022-04-16] MEDS: Ascorbic Acid 500 MG TAB 1000 MG PO (20:23)
[2022-04-16] MEDS: Cholecalciferol (Vitamin D3) 1,000 UNIT TAB 2000 UNITS PO (20:24)
[2022-04-16] MEDS: Zinc Sulfate 220 MG TAB PO (20:24)
[2022-04-16] MEDS: QUEtiapine 25 MG TAB PO (20:25)
[2022-04-16 21:27] LABS: Bilirubin Negative (Negative); Blood Moderate (Negative); Clarity Clear (Clear); Glucose Negative (Negative); Ketones Negative (Negative); Leukocyte Esterase Negative (Negative); Nitrite Negative (Negative); Urobilinogen 0.2 EU/dL (Up TO 0.2); pH 5.5 (5-8)
[2022-04-16 21:38] LABS: Bacteria Negative HPF (Negative); C & S Indicated? No; Crystals Negative HPF (Negative); Epithelial Cells Few HPF (Negative); Mucus Trace (Negative); RBC 20-50 HPF (0-2); WBC Negative HPF (0-5)
[2022-04-16] MEDS: Atorvastatin 10 MG TAB 40 MG PO (23:41)
[2022-04-16] MEDS: Gabapentin 100 MG CAP PO (23:42)
[2022-04-16] MEDS: Donepezil 5 MG TAB 10 MG PO (23:42)
[2022-04-17] VITALS (11 sets, daily range): BP systolic 103–116; BP diastolic 59–67; PULSE 63–79; RESP 18–20; TEMP 36.5–37.2; O2SAT 92–97
[2022-04-17] MEDS: Normal Saline Flush 10 ML SYR IVP ×4 (05:51→19:47)
[2022-04-17] MEDS: DOXYCYCLINE 100 MG in Normal Saline 100 ML IVPB ×2 (05:51→17:11)
[2022-04-17 06:20] LABS: Abs Immature Grans 0.01 10^3/uL (0.0-0.06); Absolute Lymphocyte Count 0.71 10^3/uL (1.2-3.4); Absolute Monocyte Count 0.25 10^3/uL (0.1-0.8); Absolute Neutrophil Count 2.34 10^3/uL (1.2-6.7); HCT 31.2 % (40.0-50.0); HGB 10.3 g/dL (13.5-17.5); Immature Grans % 0.3; Lymphocytes % 21.5; MCV 97 fL (80-95); MPV 9.4 fL (8.0-11.0); Monocytes % 7.6; Neutrophils % 70.6; Platelet Count 170 10^3/uL (130-400); RBC 3.22 10^6/uL (4.36-5.78); RDW 16.5 % (11.8-14.1); RDW-SD 59.6 fL; WBC 3.31 10^3/uL (4.4-10.8)
[2022-04-17 06:51] LABS: D-Dimer 2581 ng/mlFEU (<500)
[2022-04-17 06:57] LABS: ALT 13 U/L (16-63); AST 19 U/L (15-37); Albumin 2.7 g/dL (3.4-5.0); Alkaline Phosphatase 118 U/L (46-116); Anion Gap 9.2 mmol/L (3-11); BUN 54 mg/dL (7-18); Bilirubin, Total 0.3 mg/dL (0.2-1.0); CO2 28.8 mmol/L (21.0-32.0); CREATININE 2.3 mg/dL (0.70-1.30); Calcium 8.2 mg/dL (8.5-10.1); Chloride 105 mmol/L (98-107); Ferritin 84 ng/mL (26-388); Glucose 129 mg/dL (74-106); Magnesium 1.8 mg/dL (1.8-2.4); Potassium 3.5 mmol/L (3.5-5.1); Sodium 143 mmol/L (136-145); Total Protein 6.3 g/dL (6.4-8.2)
--- NOTE | 2022-04-17 07:14 | NUR.NOTE ---
Nursing Note:Pt currently resting quietly in bed. Small movements of shifting position but no attempt to leave the bed.
[2022-04-17] MEDS: cefTRIAXone 1 GM/50 ML BAG IVPB (09:31)
[2022-04-17] MEDS: Metoprolol CR 100 MG TABCR 150 MG PO (09:32)
[2022-04-17] MEDS: Aspirin 81 MG CHEW PO (09:36)
[2022-04-17] MEDS: Ascorbic Acid 500 MG TAB 1000 MG PO (09:36)
[2022-04-17] MEDS: Cholecalciferol (Vitamin D3) 1,000 UNIT TAB 2000 UNITS PO (09:36)
[2022-04-17] MEDS: amLODIPine 5 MG TAB PO (09:37)
[2022-04-17] MEDS: dilTIAZem CD 300 MG CAPCR PO (09:37)
[2022-04-17] MEDS: Allopurinol 300 MG TAB PO (09:37)
[2022-04-17] MEDS: Apixaban 2.5 MG TAB PO ×2 (09:37→19:47)
[2022-04-17] MEDS: Zinc Sulfate 220 MG TAB PO (09:37)
[2022-04-17] MEDS: Pantoprazole 40 MG TABCR PO (09:37)
[2022-04-17] MEDS: Torsemide 100 MG TAB PO (09:37)
[2022-04-17] MEDS: Dexamethasone 4 MG/ML VIAL 6 MG IVP (09:38)
[2022-04-17] MEDS: QUEtiapine 25 MG TAB PO ×2 (09:38→19:47)
[2022-04-17] MEDS: Montelukast 10 MG TAB PO (09:38)
--- NOTE | 2022-04-17 09:42 | PDOC.CMIN ---
- If Service Date Differs Date of service: 04/17/22 Time of Service: 09:42 Care Management Initial Assess REASON FOR HOSPITALIZATION:: Covid Pneumonia PAST MEDICAL HISTORY/PAST SURGICAL HISTORY:: All Active Problems. Pneumonia due to COVID-19 virus (Acute). Palliative care patient (Acute). Pruritus (Acute). Edema (Acute). Hallucination (Acute). Wandering behavior (Acute). CKD (chronic kidney disease) (Chronic). Dementia (Chronic). Situational depression (Acute). Ambulatory dysfunction (Acute). Physician orders for life-sustaining treatment (POLST) form indicates patient wish for [id number] status (Acute). Chronic diarrhea (Chronic). Gout (Acute). Asthma (Acute 04/04/13). Macrocytic anemia (Chronic). 12/2020- H&H stable 11.9/ 37.5. Severe obstructive sleep apnea (Chronic 04/21/14). CPAP- Dr. De. Hyperlipidemia (Chronic 10/23/16). RISK 34% based on 2015 lipids; rec statin. Essential hypertension (Chronic 04/04/02). goal 130/80 (03/2013 Dr Dc nephrology). Cardiac pacemaker in situ (Chronic 02/18/13). [employer] [place] - interrogate with tablet. [facility], DR GARCÍA. Anticoagulation adequate with anticoagulant therapy (Chronic 07/30/14). Apixaban per cardiology, 07/2014, for A Fib, CHADs2 score 2, stroke risk 2.8%; Apixaban RX. 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 Medical History. Ambulatory dysfunction. Atrial fibrillation (07/27/07). DR GARCÍA pacer 01/2013 for BRADYCARDIA; S/P Atrial flutter [facility] 07/2007. Chronic obstructive pulmonary disease (04/21/14). not reversible on PFT. 01/03/10 FEV1 2.3 (71%PRED); MILD OBSTR, NO RESPONSE; 04/06/14 FEV1 2.14 (78%pred; 81% FVC) no response, Mild obstruction; stable 05/2016 2.08. CKD (chronic kidney disease) stage 4, GFR 15-29 ml/min. Congestive heart failure. Diarrhea (11/26/04). DNI (do not intubate). DNR (do not resuscitate). Edema (12/03/12). GI bleed. Gout of left wrist (05/04/17). Gynecomastia, male. Hernia. Inflammatory arthritis. Low back pain. Lumbago with sciatica, left side (02/20/17). L4-5 burning left. Lytic lesion of bone on x-ray (05/25/17). Left distal Ulna. Pedal edema. Polymyalgia. Recurrent left inguinal hernia. Repaired 2020. 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 DR DC, [facility] 2O12; D/C ARB; KAYEXALATE rx; AVOID POTASSIUM SPARING MEDS. Seasonal allergic rhinitis (04/21/14). geronimo mowing lawns. Upper GI bleeding. Surgical History. Colonoscopy - MAC (03/30/14). CSD. H/O esophagogastroduodenoscopy (~05/12/19). ISCHEMIC R 4TH FINGER (07/26/86). [facility], VEIN HARVESTED R LEG. Nasal septoplasty (05/25/87). Pacemaker (02/18/13). Dual Chamber. R ATRIAL ISTHMUS ABLATION (08/19/07). [facility] FOR A FLUTTER. Repair of inguinal hernia (11/25/78). R; ALSO L 05/2003. Repair of umbilical hernia (01/23/93) PREVIOUS FUNCTIONAL STATUS/SOCIAL/FAMILY SUPPORTS:: Indra is a 81 year old man who currently resides at [facility] (private chcf) in [place]. 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 Indra has 5 adult children and 3 step-children, 6 of whom live locally and are supportive of him. His step-daughter, Laurel, is his DPOA. CURRENT FUNCTIONAL STATUS:: JESSY was unable to meet with Indra in person, as he is on Covid precautions. JESSY called his daughter, Laurel, and provided an update. She stated that Indra is a smoker, so a nicotine patch may be helpful to keep him less agitated, and he may not know to ask for it. JESSY informed the provider, who will order a nictotine patch. Per report, Indra is currently on room air, and is on antibiotics for his pneumonia. CM will continue to follow. ADVANCE DIRECTIVES:: On file, Laurel Rivera listed as agent. Has patient been provided with info about the portal/API?: Yes Did the patient sign up for the portal?: Yes (active) CODE STATUS:: DNR/DNI INSURANCE COVERAGE / FINANCIAL ISSUES:: MCR/ AARP CURRENT HOME/COMMUNITY SERVICES/EQUIPMENT:: Indra lives at [facility], a private chcf where all of his needs are met. PRIMARY CARE PHYSICIAN:: Shaina May POTENTIAL DISCHARGE NEEDS:: Evaluations for further needs, follow up appointments. PATIENT/FAMILY EDUCATION NEEDS:: Review discharge instructions and limitations, discussion of self care needs including ask me three and goals of care. ANTICIPATED BARRIERS TO DISCHARGE:: None identified. TRANSPORTATION:: To be determined by disposition. Private vehicle vs EMS (d/t Covid status). PLAN:: Anticipate Indra will return home to [facility] when medically cleared. He will be driven home via private vehicle vs EMS. He will follow up with his PCP and discharge plan of care. CM will continue to follow.
--- NOTE | 2022-04-17 10:24 | NUR.NOTE ---
Nursing Note: Pt ate half of breakfast, is drinking ok. Let nursing staff change out dressing on IV and resecure. Stood at bedside with contact guard to use urinal. Pt states it takes some time to get stream going that it can be difficult. Pt has a congested nose and loose junky cough. Has been able to produce large globs of thick white mucous with cough. Given a IS and Acapella to help with clearing out mucous. Pt is pleasantly confused mostly, thought he was in [facility], that it was January, did remember with some effort Angel Silva was president. Hard to remind not to pull off heart monitors and O2. Tends to take them off frequently.
[2022-04-17] MEDS: REMDESIVIR 100 MG in Normal Saline 250 ML 250 MG IVPB (14:34)
[2022-04-17] MEDS: Nicotine 14 MG/24 HR PATCH TD (17:10)
[2022-04-17] MEDS: Acetaminophen 325 MG TAB PO (17:26)
[2022-04-17 19:29] LABS: Legionella Ag Detection Urine Negative (Negative)
[2022-04-17] MEDS: Budesonide/Formoterol 80/4.5 6.9 GM 60 PUFF INH IH (19:47)
--- NOTE | 2022-04-17 19:51 | PGE_ITS ---
Date of Service Date of service: 04/17/22 Time of Service: 19:20 Assessment and Plan Assessment and plan (1) Pneumonia due to COVID-19 virus: Status: Acute Assessment and plan: Improving on current care (Remdesivir, decadron, vit C, vit D, zinc). Check procalcitonin - continue Ceftriaxone and doxycycline for now. (2) Severe obstructive sleep apnea: Status: Chronic Assessment and plan: continue CPAP (3) Essential hypertension: Status: Chronic Assessment and plan: continue metoprolol, torsemide, amlodipine, diltiazem. However, I am noticing bradycardia on tele overnight. I am told his tele box may not have been working well. He has been in the 60s all day today. Will find out what his pacemaker settings are supposed to be. (4) Atrial fibrillation: Assessment and plan: As above - continue Beta blockers, CCB, apixaban. Qualifiers: Atrial fibrillation type: paroxysmal Qualified Code(s): I48.0 - Paroxysmal atrial fibrillation (5) Anticoagulation adequate with anticoagulant therapy: Status: Chronic Assessment and plan: continue apixaban (6) Dementia: Status: Chronic Assessment and plan: Behaviors controlled and has a sitter. To return to welcome home on discharge. (7) Discharge planning issues: Status: Acute Assessment and plan: Anticipate discharge home in 24-48 hrs. DNR/DNI. Subjective Subjective Interval history since last seen: Feels better. On RA. Denies dizziness, chest pain, shortness of breath, nausea. Will be returing to welcome home upon discharge. Exam Narrative Exam Narrative: General: Pleasant elderly male who is A&Ox2 (knows it's 2021), able to show me good technique with IS and acapella. HEENT: EOMI, MMM Heart: RRR, no m/r/g Lungs: Diminished breath sounds B Abdomen: soft, nontender, nondistended Extremities: no edema BLEs Objective Last Vital Signs Temp 36.8 C 04/17/22 19:42 Pulse 63 04/17/22 19:42 Resp 20 04/17/22 19:42 BP 114/59 L 04/17/22 19:42 Pulse Ox 92 04/17/22 19:42 Laboratory Results - last 24 hr 04/16/22 04/17/22 04/17/22 21:00 05:40 05:40 WBC 3.31 L RBC 3.22 L Hgb 10.3 L Hct 31.2 L MCV 97 H MCH 32.0 MCHC 33.0 RDW 16.5 H Plt Count 170 MPV 9.4 Immature Gran % 0.3 Neutrophils % 70.6 Lymphocytes % 21.5 Monocytes % 7.6 Eosinophils % 0.0 Basophils % 0.0 Nucleated RBC % 0.0 Absolute Neutrophils 2.34 Absolute Lymphocytes 0.71 L Absolute Monocytes 0.25 Absolute Eosinophils 0.00 Absolute Basophils 0.00 D-Dimer Sodium 143 Potassium 3.5 Chloride 105 Carbon Dioxide 28.8 Anion Gap 9.2 BUN 54 H Creatinine 2.3 H Estimated GFR/1.73 m2 27.50 Glucose 129 H Calcium 8.2 L Magnesium 1.8 Ferritin 84 Total Bilirubin 0.3 AST 19 ALT 13 L Alkaline Phosphatase 118 H C-Reactive Protein 3.50 H Total Protein 6.3 L Albumin 2.7 L Urine Color Yellow Urine Clarity Clear Urine pH 5.5 Ur Specific [place] 1.020 Urine Protein Negative Urine Ketones Negative Urine Blood Moderate H Urine Nitrite Negative Urine Bilirubin Negative Urine Urobilinogen 0.2 Ur Leukocyte Esterase Negative Urine RBC 20-50 H Urine WBC Negative Ur Epithelial Cells Few Urine Crystals Negative Urine Bacteria Negative Urine Casts >50 Hyaline Urine Mucus Trace Ur Culture Indicated? No Urine Glucose Negative 04/17/22 05:40 WBC RBC Hgb Hct MCV MCH MCHC RDW Plt Count MPV Immature Gran % Neutrophils % Lymphocytes % Monocytes % Eosinophils % Basophils % Nucleated RBC % Absolute Neutrophils Absolute Lymphocytes Absolute Monocytes Absolute Eosinophils Absolute Basophils D-Dimer 2581 H Sodium Potassium Chloride Carbon Dioxide Anion Gap BUN Creatinine Estimated GFR/1.73 m2 Glucose Calcium Magnesium Ferritin Total Bilirubin AST ALT Alkaline Phosphatase C-Reactive Protein Total Protein Albumin Urine Color Urine Clarity Urine pH Ur Specific [place] Urine Protein Urine Ketones Urine Blood Urine Nitrite Urine Bilirubin Urine Urobilinogen Ur Leukocyte Esterase Urine RBC Urine WBC Ur Epithelial Cells Urine Crystals Urine Bacteria Urine Casts Urine Mucus Ur Culture Indicated? Urine Glucose
[2022-04-17] MEDS: Gabapentin 100 MG CAP PO (20:56)
[2022-04-17] MEDS: Atorvastatin 10 MG TAB 40 MG PO (20:56)
[2022-04-17] MEDS: Donepezil 5 MG TAB 10 MG PO (20:56)
[2022-04-18] VITALS (10 sets, daily range): BP systolic 118–130; BP diastolic 54–72; PULSE 62–116; RESP 16–24; TEMP 36.1–36.8; O2SAT 84–97
[2022-04-18] MEDS: LORazepam 1 MG TAB PO (02:36)
[2022-04-18] MEDS: DOXYCYCLINE 100 MG in Normal Saline 100 ML IVPB ×2 (05:14→17:09)
[2022-04-18 06:53] LABS: INR 1.4 (0.9-1.1); Prothrombin Time 13.7 sec (9.3-11.0)
[2022-04-18 07:03] LABS: ALT 14 U/L (16-63); AST 24 U/L (15-37); Albumin 2.7 g/dL (3.4-5.0); Alkaline Phosphatase 116 U/L (46-116); Anion Gap 11.4 mmol/L (3-11); BUN 66 mg/dL (7-18); Bilirubin, Direct 0.2 mg/dL (0.0-0.2); Bilirubin, Total 0.3 mg/dL (0.2-1.0); CO2 25.6 mmol/L (21.0-32.0); CREATININE 2.7 mg/dL (0.70-1.30); Calcium 8.2 mg/dL (8.5-10.1); Chloride 102 mmol/L (98-107); Estimated GFR 22.85 (mL/min/1.73m2); Glucose 119 mg/dL (74-106); Magnesium 1.7 mg/dL (1.8-2.4); Potassium 3.9 mmol/L (3.5-5.1); Sodium 139 mmol/L (136-145); Total Protein 6.3 g/dL (6.4-8.2)
[2022-04-18 07:14] LABS: Procalcitonin 0.2 ng/mL
[2022-04-18] MEDS: Nicotine 14 MG/24 HR PATCH TD (08:04)
[2022-04-18] MEDS: Normal Saline Flush 10 ML SYR IVP ×3 (08:05→20:12)
[2022-04-18] MEDS: Allopurinol 300 MG TAB PO (08:06)
[2022-04-18] MEDS: Montelukast 10 MG TAB PO (08:06)
[2022-04-18] MEDS: Dexamethasone 4 MG/ML VIAL 6 MG IVP (08:06)
[2022-04-18] MEDS: Cholecalciferol (Vitamin D3) 1,000 UNIT TAB 2000 UNITS PO (08:06)
[2022-04-18] MEDS: cefTRIAXone 1 GM/50 ML BAG IVPB (08:06)
[2022-04-18] MEDS: Aspirin 81 MG CHEW PO (08:07)
[2022-04-18] MEDS: Ascorbic Acid 500 MG TAB 1000 MG PO (08:07)
[2022-04-18] MEDS: Torsemide 100 MG TAB PO (08:07)
[2022-04-18] MEDS: Zinc Sulfate 220 MG TAB PO (08:07)
[2022-04-18] MEDS: QUEtiapine 25 MG TAB PO ×2 (08:07→20:11)
[2022-04-18] MEDS: amLODIPine 5 MG TAB PO (08:07)
[2022-04-18] MEDS: Apixaban 2.5 MG TAB PO ×2 (08:07→20:10)
[2022-04-18] MEDS: dilTIAZem CD 300 MG CAPCR PO (08:07)
[2022-04-18] MEDS: Metoprolol CR 50 MG TABCR 150 MG PO (08:07)
[2022-04-18] MEDS: Pantoprazole 40 MG TABCR PO (08:08)
[2022-04-18] MEDS: Tiotropium Bromide-Respimat 10 PUFF INH 2 PUFF IH (09:01)
[2022-04-18] MEDS: Budesonide/Formoterol 80/4.5 6.9 GM 60 PUFF INH IH ×2 (09:02→20:10)
[2022-04-18] MEDS: MAGNESIUM SULFATE 2 GM/50 ML BAG IVPB (09:54)
[2022-04-18 10:16] LABS: HIV-1/2 Ag & Ab Screen Negative (Negative)
[2022-04-18 10:24] LABS: HBs Antibody, Qual Negative (See Note); HBs Antibody, Quant <3.1 mIU/mL (See Note); Hepatitis B Core Antibody Negative (Negative); Hepatitis B surface Ag Negative (Negative); Hepatitis C Ab w Rflx HCV PCR Negative (Negative)
--- NOTE | 2022-04-18 12:01 | PDOC.CMPRO ---
- If Service Date Differs Date of service: 04/18/22 Time of Service: 12:01 Care Management Progress Note S/O: Indra remains on Covid precautions, therefore CM did not meet with him in person. CM talked to Laurel, his daughter, and provided an update. Per MD, he may qualify for O2 upon discharge, as he is requiring 1-2L with ambulation currently. MD will attempt to wean his O2 need down prior to discharge, if possible. Laurel stated that she feels it would be best if he does not have new O2, as he is confused at baseline, and this may increase his risk for falling. JESSY spoke to Zoe from [facility], who stated that she can accommodate O2, if necessary. CM will continue to follow. A: Indra is an 81 year male admitted to [facility] on 04/16/22 with covid pneumonia. P: Anticipate Indra will return to [facility] when medically cleared. He may require new home O2. His daughter will drive him home via private vehicle. He will follow up with his PCP and discharge plan of care. CM will continue to follow.
[2022-04-18] MEDS: Normal Saline 500 ML 30 ML IV (13:22)
[2022-04-18] MEDS: REMDESIVIR 100 MG in Normal Saline 250 ML 250 MG IVPB (13:22)
--- NOTE | 2022-04-18 13:51 | IN_ITS ---
Date of service: 04/18/22 Time of Service: 13:51 PT Notes Visit Reasons: Covid Pneumonia Physical Therapy Inpatient Initial Evaluation Date: 04/18/2022 Referring Doctor: Yahaira Gould MD PT Orders: PT CONSULT: Limited ability Precautions: Fall. Standard. Activity as tolerated. Patient Profile/Admitting Diagnosis: Indra is an 81-year-old male who presented to the ED on 04/16/2022 due to increasing confusion and generalized weakness. Patient is diagnosed with pneumonia due to COVID-19 infection, severe obstructive sleep apnea, essential hypertension, chronic kidney disease, anemia in chronic disease, atrial fibrillation, and dementia. PMHX: All Active Problems?(Updated 04/16/22 @ 19:24 by Jim Woody) Pneumonia due to COVID-19 virus (Acute) Palliative care patient (Acute) Pruritus (Acute) Edema (Acute) Hallucination (Acute) Wandering behavior (Acute) CKD (chronic kidney disease) (Chronic) Dementia (Chronic) Situational depression (Acute) Ambulatory dysfunction (Acute) Physician orders for life-sustaining treatment (POLST) form indicates patient wish for [id number] status (Acute) Chronic diarrhea (Chronic) Gout (Acute) Asthma (Acute 04/04/13) Macrocytic anemia (Chronic) 12/2020- H&H stable 11.9/ 37.5 Severe obstructive sleep apnea (Chronic 04/21/14) CPAP- Dr. De Hyperlipidemia (Chronic 10/23/16) RISK 34% based on 2015 lipids; rec statin Essential hypertension (Chronic 04/04/02) goal 130/80 (03/2013 Dr Dc nephrology) Cardiac pacemaker in situ (Chronic 02/18/13) [employer] [place] - interrogate with tablet [facility], DR GARCÍA Anticoagulation adequate with anticoagulant therapy (Chronic 07/30/14) Apixaban per cardiology, 07/2014, for A Fib, CHADs2 score 2, stroke risk 2.8%; Apixaban RX Anemia in chronic kidney disease (Chronic 04/30/15) Medical History? Ambulatory dysfunction Atrial fibrillation (07/27/07) DR GARCÍA pacer 01/2013 for BRADYCARDIA; S/P Atrial flutter ABLATION [facility] 07/2007 Chronic obstructive pulmonary disease (05/27/14) not reversible on PFT. 01/03/10? FEV1? 2.3 (71%PRED); MILD OBSTR, NO RESPONSE; 04/06/14 FEV1 2.14 (78%pred; 81% FVC) no response, Mild obstruction; stable 05/2016 2.08 CKD (chronic kidney disease) stage 4, GFR 15-29 ml/min Congestive heart failure Diarrhea (11/26/04) DNI (do not intubate) DNR (do not resuscitate) Edema (12/03/12) GI bleed Gout of left wrist (05/04/17) Gynecomastia, male Hernia Inflammatory arthritis Low back pain Lumbago with sciatica, left side (02/20/17) L4-5 burning left Lytic lesion of bone on x-ray (05/25/17) Left distal Ulna Pedal edema Polymyalgia Recurrent left inguinal hernia Repaired 2020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) DR DC, [facility] 04/27O12; D/C ARB; KAYEXALATE rx; AVOID POTASSIUM SPARING MEDS Seasonal allergic rhinitis (04/21/14) geronimo mowing lawns Upper GI bleeding Surgical History? Colonoscopy - MAC (03/30/14) CSDH/O esophagogastroduodenoscopy (~05/12/19) ISCHEMIC R 4TH FINGER (07/26/86) [facility], VEIN HARVESTED R LEG Nasal septoplasty (05/25/87) Pacemaker (02/18/13) Dual Chamber R ATRIAL ISTHMUS ABLATION (08/19/07) [facility] FOR A FLUTTER Repair of inguinal hernia (11/25/78) R; ALSO L 05/2003 Repair of umbilical hernia (01/23/93) Social History/Home Situation: Per CM notes, patient now lives in a private half-way called [facility] in [place], [place] Equipment Owned/DME: Wheelchair, front-wheeled walker, single-point cane Subjective: Wanted sitter/CADRE Prosper to continuous pickling line pickler helper his pants from home so he could change. Patient however is unable to identify where he lives, stating that he has 2 houses in [place] and one down the [address]. Objective: General Observation: Seated at edge of bed.? IV access in right UE. Oxygen supplementation via NC. Mental Status: Alert but not oriented as to place and date. Able to follow single-steps commands. Pain: Denies ROM: Right Upper Extremity: ? Shoulder Flexion WFL. Shoulder abduction WFL. Elbow flexion WFL. Wrist flexion WFL. Functional opening and closing of hand WFL. Left Upper Extremity:? Shoulder Flexion WFL. Shoulder abduction WFL. Elbow flexion WFL. Wrist flexion WFL. Functional opening and closing of hand WFL. Right Lower Extremity: Hip flexion WFL. Hip abduction WFL. Knee flexion WFL. Ankle dorsiflexion WFL. Ankle plantarflexion WFL. Left Lower Extremity: Hip flexion WFL. Hip abduction WFL. Knee flexion WFL. Ankle dorsiflexion WFL. Ankle plantarflexion WFL. Strength: Right Upper Extremity: Shoulder flexors 4/5. Shoulder abductors 4/5. Elbow flexors 5/5. Elbow extensors 5/5. Central Office Worker strong. Left Upper Extremity: Shoulder flexors 4/5. Shoulder abductors 4/5. Elbow flexors 5/5. Elbow extensors 5/5. Central Office Worker strong. Right Lower Extremity: Hip flexors 4/5. Hip abductors 4/5. Knee flexors 5/5. Knee extensors 4/5. Ankle dorsiflexors 4-/5. Ankle plantarflexors 4-/5. Left Lower Extremity: Hip flexors 4/5. Hip abductors 4/5. Knee flexors 5/5. Knee extensors 4/5. Ankle dorsiflexors 4-/5. Ankle plantarflexors 4-/5. Bed Mobility/Transfers: Sit to supine with supervision for safety Sit to stand with supervision for safety Stand to sit with supervision for safety Bed to reclining chair with supervision for safety Gait: Instructed patient with level surface ambulation of 40 feet requiring supervision with and without walker. ? No pain during ambulation activity.? Trunk anteroflexed. Agreed to start of walking using FWW and then without it. No loss of balance without AD. Balance: Static Sitting: Normal Dynamic Sitting: Normal Static Standing: Good Dynamic Standing: Fair 4-stage Balance Test: Unable to do any of the 4 positions which signify increased fall risk. Special Tests: Mobility Limitations Standardized Measure [facility] 6 clicks Basic Mobility Inpatient Short Form: Raw Score: 23 CMS Score: 11% deficit? ? ? Infor Consent/Education:? Patient was instructed in purpose of PT consult and plan of care. Agreeable to proceed with established PT POC to achieve personal goals. Assessment: Patient requires supervision assist with all short-distance/in-room ambulation. PT treatment focus will be on increasing balance awareness and skills as patient continues to insist on not using his FWW despite repeated falls. Able to follow instructions and is willing to work with PT while he is on admission. Patient presents with clinical signs and symptoms consistent with current/admitting diagnoses that have resulted to mobility limitations, gait instability, generalized weakness, and overall ADL decline as demonstrated by t he following impairment level findings: 1.? Impaired activity tolerance 2.? Decreased balance awareness dynamic standing stability Impairments are contributing to the following functional limitations: 1.? Increased completion time for mobility ADL performance 2.? Increased risk for falls Patient is assessed as a 28877 moderate complexity based on the following: History: -81 year-old malewith past medical history as indicated above Examination: Demonstrable impairment in strength, balance, and mobility level with underlying impairments and functional limitations as exhibited above as well as deficit score of 11% utilizing the [facility] Mobility Inpatient Short Form Presentation: Stable Decision Makin moderate complexity Goals: Goals X1 week 1. Supine-Sit independent 2. Sit-Supine independent 3. Sit-Stand independent 4. Stand-Sit independent with no AD 5. Bed-Chair independent with no AD 6. Chair-Bed independent with no AD 7. Independent gait on level surface with use of no AD for at least 100 feet without report of pain nor dyspnea Plan of Care/Treatment Plan: 1-2x/day, 7 days/week x 1 week. Plan of care has been reviewed with the KNITTER HELPER providing the service under Physical Therapy direction. Initiate Physical Therapy intervention for pain management as needed, strengthening, bed mobility, transfers, gait, stairs, balance training, and use of assistive device. DISCHARGE RECOMMENDATIONS: [] ? Home with no services [] [X] ??Home with services.? Patient will benefit from home health PT services in order to progress balance awareness, dynamic standing balance/tolerance, and fall reduction strategies to maximize ability of patient to stay at home. [] ? Home with outpatient PT [] [] ? SNF for continued rehabilitation [] [] ? [facility] [] [] ? SNF versus LTC based on ability to participate and progress [] TREATMENT CODE/TIME: 96674 x 20 minutes, 42429 x 19 minutes beginning at 13:51 PM. Thank you for the opportunity to participate in the care of this patient. Maliha Wiseman PT, DPT, CLT [facility] [place], [place]
[2022-04-18 16:32] LABS: Streptococcus Pneumoniae Ag, U Negative (Negative)
--- NOTE | 2022-04-18 19:38 | W.PM.PROGNOT ---
Date of Service Date of service: 04/18/22 Time of Service: 19:15 Assessment and Plan Assessment and plan (1) Pneumonia due to COVID-19 virus: Status: Acute Assessment and plan: With hypoxia. On 1L of O2 at rest and 2L with activity. Stable on current care (Remdesivir, decadron, vit C, vit D, zinc). If he were to go back to [facility] home tomorrow, would discharge with oxygen, prednisone, paxlovid. Will plan to d/c abx tomorrow. (2) Severe obstructive sleep apnea: Status: Chronic Assessment and plan: PEr daughter, the patient does not do well with CPAP and she did not want us to push it. Will d/c it. (3) Essential hypertension: Status: Chronic Assessment and plan: continue metoprolol, torsemide, amlodipine, diltiazem. Ordering pacemaker interrogation to ensure that there have not been bradycardic episodes (there is a concern that his tele unit was not working properly yesterday morning). (4) Atrial fibrillation: Assessment and plan: As above - continue Beta blockers, CCB, apixaban. Qualifiers: Atrial fibrillation type: paroxysmal Qualified Code(s): I48.0 - Paroxysmal atrial fibrillation (5) Anticoagulation adequate with anticoagulant therapy: Status: Chronic Assessment and plan: continue apixaban (6) Dementia: Status: Chronic Assessment and plan: Behaviors controlled and has a sitter. To return to [facility] on discharge. (7) Discharge planning issues: Status: Acute Assessment and plan: Anticipate discharge home in 24-48 hrs. Discussed with daughter. DNR/DNI. Subjective Subjective Interval history since last seen: Patient is stable today and was about to use the restroom at the time of my exam - I observed him on the monitor rather than seeing him in person. He is saturating 97% on 1L of NC, requires 2L of O2 by NC on ambulation. Exam Narrative Exam Narrative: Due to patient's diagnosis of COVID-19, his medical stability, and the fact that he had an urgent need to use the restroom, I observed him on the monitor today rather than go in to see him. He was able to get up from bed independently, was able to walk himself to the bathroom, appeared to follow nurse's prompts. Objective Last Vital Signs Temp 36.7 C 04/18/22 17:20 Pulse 64 04/18/22 17:20 Resp 16 04/18/22 17:20 BP 130/72 04/18/22 17:20 Pulse Ox 97 04/18/22 17:20 Laboratory Results - last 24 hr 04/16/22 04/16/22 04/17/22 18:30 21:00 05:40 PT INR Sodium Potassium Chloride Carbon Dioxide Anion Gap BUN Creatinine Estimated GFR/1.73 m2 Glucose Calcium Magnesium Total Bilirubin Conjugated Bilirubin AST ALT Alkaline Phosphatase Total Protein Albumin Procalcitonin Hep Bs Antigen Negative Hep Bs Antibody Negative Hep Bs Antibody, Quant <3.1 Hep B Core Total Ab Negative Hepatitis C Antibody Negative HIV 1&2 Ag/Ab, 4th Gen Negative Urine Legionella Ag Negative Ur Strep pneumoniae Ag Negative 04/18/22 04/18/22 04/18/22 06:05 06:05 06:05 PT 13.7 H INR 1.4 H Sodium 139 Potassium 3.9 Chloride 102 Carbon Dioxide 25.6 Anion Gap 11.4 H BUN 66 H Creatinine 2.7 H Estimated GFR/1.73 m2 22.85 Glucose 119 H Calcium 8.2 L Magnesium 1.7 L Total Bilirubin 0.3 Conjugated Bilirubin 0.2 AST 24 ALT 14 L Alkaline Phosphatase 116 Total Protein 6.3 L Albumin 2.7 L Procalcitonin 0.2 Hep Bs Antigen Hep Bs Antibody Hep Bs Antibody, Quant Hep B Core Total Ab Hepatitis C Antibody HIV 1&2 Ag/Ab, 4th Gen Urine Legionella Ag Ur Strep pneumoniae Ag
[2022-04-18] MEDS: Atorvastatin 10 MG TAB 40 MG PO (20:11)
[2022-04-18] MEDS: Donepezil 5 MG TAB 10 MG PO (20:11)
[2022-04-18] MEDS: Gabapentin 100 MG CAP PO (20:11)
[2022-04-19] VITALS (10 sets, daily range): BP systolic 121–145; BP diastolic 53–80; PULSE 60–94; RESP 14–19; TEMP 35.5–36.9; O2SAT 90–99
[2022-04-19] MEDS: DOXYCYCLINE 100 MG in Normal Saline 100 ML IVPB (05:16)
[2022-04-19 06:46] LABS: Abs Immature Grans 0.04 10^3/uL (0.0-0.06); Absolute Lymphocyte Count 0.61 10^3/uL (1.2-3.4); Absolute Monocyte Count 0.33 10^3/uL (0.1-0.8); Absolute Neutrophil Count 6.94 10^3/uL (1.2-6.7); HCT 31.3 % (40.0-50.0); HGB 10.6 g/dL (13.5-17.5); Immature Grans % 0.5; Lymphocytes % 7.7; MCH 31.5 pg (27.0-33.0); MCHC 33.9 % (32.0-36.0); MCV 93 fL (80-95); MPV 9.5 fL (8.0-11.0); Monocytes % 4.2; Neutrophils % 87.6; Platelet Count 185 10^3/uL (130-400); RBC 3.37 10^6/uL (4.36-5.78); RDW 16.2 % (11.8-14.1); RDW-SD 55.6 fL; WBC 7.92 10^3/uL (4.4-10.8)
[2022-04-19 07:00] LABS: Anion Gap 11.1 mmol/L (3-11); CO2 25.9 mmol/L (21.0-32.0); CREATININE 2.8 mg/dL (0.70-1.30); Calcium 8.4 mg/dL (8.5-10.1); Chloride 99 mmol/L (98-107); Estimated GFR 21.91 (mL/min/1.73m2); Glucose 123 mg/dL (74-106); Magnesium 2.2 mg/dL (1.8-2.4); Potassium 3.7 mmol/L (3.5-5.1); Sodium 136 mmol/L (136-145)
[2022-04-19 07:09] LABS: BUN 84 mg/dL (7-18)
[2022-04-19] MEDS: Tiotropium Bromide-Respimat 10 PUFF INH 2 PUFF IH (07:39)
[2022-04-19] MEDS: Budesonide/Formoterol 80/4.5 6.9 GM 60 PUFF INH IH ×2 (07:39→20:17)
[2022-04-19] MEDS: Nicotine 14 MG/24 HR PATCH TD (09:03)
[2022-04-19] MEDS: cefTRIAXone 1 GM/50 ML BAG IVPB (09:07)
[2022-04-19] MEDS: Dexamethasone 4 MG/ML VIAL 6 MG IVP (09:07)
[2022-04-19] MEDS: Montelukast 10 MG TAB PO (09:08)
[2022-04-19] MEDS: Pantoprazole 40 MG TABCR PO (09:08)
[2022-04-19] MEDS: Normal Saline Flush 10 ML SYR IVP (09:08)
[2022-04-19] MEDS: Ascorbic Acid 500 MG TAB 1000 MG PO (09:08)
[2022-04-19] MEDS: Allopurinol 300 MG TAB PO (09:09)
[2022-04-19] MEDS: Cholecalciferol (Vitamin D3) 1,000 UNIT TAB 2000 UNITS PO (09:09)
[2022-04-19] MEDS: dilTIAZem CD 300 MG CAPCR PO (09:09)
[2022-04-19] MEDS: QUEtiapine 25 MG TAB PO ×2 (09:09→20:15)
[2022-04-19] MEDS: Torsemide 100 MG TAB PO (09:09)
[2022-04-19] MEDS: Zinc Sulfate 220 MG TAB PO (09:10)
[2022-04-19] MEDS: amLODIPine 5 MG TAB PO (09:10)
[2022-04-19] MEDS: Aspirin 81 MG CHEW PO (09:10)
[2022-04-19] MEDS: Metoprolol CR 50 MG TABCR 150 MG PO (09:10)
[2022-04-19] MEDS: Apixaban 2.5 MG TAB PO ×2 (09:10→20:14)
--- NOTE | 2022-04-19 12:44 | PT.INTREAT ---
Date of service: 04/19/22 PT Notes Visit Reasons: Covid Pneumonia Inpatient Physical Therapy Treatment Note [facility] Date: 04/19/2022 PRECAUTIONS: Activity as tolerated, Fall, confusion, Covid Prec SUBJECTIVE: Indra is pleasant and agreeable to participating in PT. He states that he is feeling back to his functional baseline. He discusses his and her recent passing, stating that he still gets teary about it. OBJECTIVE: PAIN: No c/o pain BED MOBILITY/TRANSFERS: Supine-sit: I Sit-stand: S Stand-sit: S Bed-chair: S Chair-bed: S GAIT: Assistive Device: No AD Weight bearing: Full Assistance: S Distance: 30' x3 Deviation: None Assisted patient with dressing. Minimal assist with pants and shirt in both seated and standing positions. ASSESSMENT: Patient tolerated session without complaint. He was able to demonstrate steady gait and pacing with use of assistive device support. PLAN: Continue with gait training and general functional mobility training. TREATMENT CODE/TIME: 39 minutes; 04143 x3 (10:45)
--- NOTE | 2022-04-19 14:24 | W.PM.PROGNOT ---
Date of Service Date of service: 04/19/22 Time of Service: 13:25 Assessment and Plan Assessment and plan (1) Pneumonia due to COVID-19 virus: Status: Acute Assessment and plan: With hypoxia. On 1L of O2 at rest and 2L with activity. Does have worsening JIMMY - d/c remdesivir. Continue decadron (PO), vit C, vit D, zinc. D/c abx. Monitor mental status - suspect COVID encephalopathy. Anticipate discharge home tomorrow. (2) Severe obstructive sleep apnea: Status: Chronic Assessment and plan: PEr daughter, the patient does not do well with CPAP and she did not want us to push it. (3) Essential hypertension: Status: Chronic Assessment and plan: continue metoprolol, torsemide, diltiazem. D/c amlodipine - likely contributing to edema. Unable to get pacemaker interrogation today but there have not been any more reported bradycardic episodes. The original bradycardic episode may have been due to an issue with the tele box. (4) Atrial fibrillation: Assessment and plan: As above - continue Beta blockers, CCB, apixaban. Qualifiers: Atrial fibrillation type: paroxysmal Qualified Code(s): I48.0 - Paroxysmal atrial fibrillation (5) Anticoagulation adequate with anticoagulant therapy: Status: Chronic Assessment and plan: continue apixaban (6) Dementia: Status: Chronic Assessment and plan: Behaviors controlled and has a sitter. To return to [facility] home on discharge. (7) Discharge planning issues: Status: Acute Assessment and plan: D/c home tomorrow with O2. DNR/DNI. Subjective Subjective Interval history since last seen: Indra states he is feeling well. Denies dizziness, chest pain, shortness of breath, nausea. He is still requiring oxygen on ambulation today. He was pretty active in the morning but is somnolent now. Exam Narrative Exam Narrative: General: Pleasant elderly male who looks tired, A&Ox1 HEENT: EOMI, MMM Heart: RRR, no m/r/g Lungs: rales and rhonchi B Abdomen: soft, nontender, nondistended Extremities: +2 BLE edema, no c/c. Objective Last Vital Signs Temp 36.9 C 04/19/22 11:27 Pulse 63 04/19/22 11:27 Resp 14 04/19/22 11:27 BP 121/53 L 04/19/22 11:27 Pulse Ox 97 04/19/22 11:27 Laboratory Results - last 24 hr 04/16/22 04/19/22 04/19/22 21:00 06:30 06:30 WBC 7.92 RBC 3.37 L Hgb 10.6 L Hct 31.3 L MCV 93 D MCH 31.5 MCHC 33.9 D RDW 16.2 H Plt Count 185 MPV 9.5 Immature Gran % 0.5 Neutrophils % 87.6 Lymphocytes % 7.7 Monocytes % 4.2 Eosinophils % 0.0 Basophils % 0.0 Nucleated RBC % 0.0 Absolute Neutrophils 6.94 H Absolute Lymphocytes 0.61 L Absolute Monocytes 0.33 Absolute Eosinophils 0.00 Absolute Basophils 0.00 Sodium 136 Potassium 3.7 Chloride 99 Carbon Dioxide 25.9 Anion Gap 11.1 H BUN 84 H* Creatinine 2.8 H Estimated GFR/1.73 m2 21.91 Glucose 123 H Calcium 8.4 L Magnesium 2.2 Ur Strep pneumoniae Ag Negative
[2022-04-19 14:41] LABS: Lab Add On Test DONE
[2022-04-19 15:01] LABS: NT-proBNP 6857 pg/mL (<300)
--- NOTE | 2022-04-19 16:42 | PDOC.CMPRO ---
- If Service Date Differs Date of service: 04/19/22 Time of Service: 16:43 Care Management Progress Note S/O: Indra remains on Covid precautions, therefore CM was unable to meet with him in person. He was on track to be discharged today, but late in the day the MD decided to keep him for another night to repeat labs and monitor his kidney function. His daughter is in agreement with this plan. CM and RT assisted in having O2 delivered to his home today, at [facility], and for Willis to provide instructions to his caregiver, Zoe. CM updated Laurel, his daughter, of the change in plan today, in order to monitor him again overnight. CM will continue to follow. A: Indra is an 81 year male admitted to [facility] on 04/16/22 with covid pneumonia. P: Anticipate Indra will return to [facility] when medically cleared. He may require new home O2. His daughter will drive him home via private vehicle. He will follow up with his PCP and discharge plan of care. CM will continue to follow.
[2022-04-19] MEDS: Donepezil 5 MG TAB 10 MG PO (20:14)
[2022-04-19] MEDS: Atorvastatin 10 MG TAB 40 MG PO (20:15)
[2022-04-19] MEDS: Gabapentin 100 MG CAP PO (20:18)
[2022-04-20] VITALS (9 sets, daily range): BP systolic 112–122; BP diastolic 55–60; PULSE 59–67; RESP 16–18; TEMP 36.7–36.8; O2SAT 89–98
[2022-04-20] MEDS: Budesonide/Formoterol 80/4.5 6.9 GM 60 PUFF INH IH ×2 (07:12→22:32)
[2022-04-20] MEDS: Tiotropium Bromide-Respimat 10 PUFF INH 2 PUFF IH (07:12)
[2022-04-20] MEDS: Metoprolol CR 50 MG TABCR 150 MG PO (08:37)
[2022-04-20] MEDS: Aspirin 81 MG CHEW PO (08:37)
[2022-04-20] MEDS: Nicotine 14 MG/24 HR PATCH TD (08:37)
[2022-04-20] MEDS: Zinc Sulfate 220 MG TAB PO (08:37)
[2022-04-20] MEDS: dilTIAZem CD 300 MG CAPCR PO (08:38)
[2022-04-20] MEDS: Dexamethasone 4 MG TAB 6 MG PO (08:38)
[2022-04-20] MEDS: Torsemide 100 MG TAB PO (08:38)
[2022-04-20] MEDS: Ascorbic Acid 500 MG TAB 1000 MG PO (08:38)
[2022-04-20] MEDS: Cholecalciferol (Vitamin D3) 1,000 UNIT TAB 2000 UNITS PO (08:38)
[2022-04-20] MEDS: Pantoprazole 40 MG TABCR PO (08:38)
[2022-04-20] MEDS: Montelukast 10 MG TAB PO (08:39)
[2022-04-20] MEDS: QUEtiapine 25 MG TAB PO ×2 (08:39→22:33)
[2022-04-20] MEDS: Allopurinol 300 MG TAB PO (08:39)
[2022-04-20] MEDS: Apixaban 2.5 MG TAB PO ×2 (08:39→22:15)
[2022-04-20 08:41] LABS: Anion Gap 13.6 mmol/L (3-11); CO2 23.4 mmol/L (21.0-32.0); CREATININE 3.3 mg/dL (0.70-1.30); Calcium 8.2 mg/dL (8.5-10.1); Chloride 97 mmol/L (98-107); Estimated GFR 18.13 (mL/min/1.73m2); Glucose 186 mg/dL (74-106); Sodium 134 mmol/L (136-145)
[2022-04-20 08:45] LABS: BUN 101 mg/dL (7-18)
--- NOTE | 2022-04-20 12:51 | PCNE_ITS ---
Date of service: 04/20/22 Time of Service: 16:30 History of Present Illness Narrative: Indra is a well known palliative patient. He is currently hospitalized with COVID-19 and PNA. His renal function is also worsening. I was able to speak with his daughter, Laurel today. We discussed goals for Indra. Laurel is clear that he has not wanted aggressive care in the past. He has previously decided that he does not want dialysis and declined seeing nephrology. Laurel feels that it is in line with his goals of care to treat the acute change in his kidney function but no aggressive care. He has been telling Laurel that he wants to go home. At the time of his visit, he appears fatigued. He states he is bored. Staff report that he has been sleeping all day. He is not allowed to ambulate independently because he is unsteady and recently had a fall. He is eating and drinking well and has not lost his sense of taste or smell. We discussed that Dr. Gould is considering placing a bradshaw catheter to see if it helps his renal function. He is agreeable to trying it, he verbalized what a catheter is and clearly understands. Indra is living at [facility]. He is looking forward to returning there so he is not so confined and can move around more. Overall, he appears to be doing fairly well. He is mildly SOB at times while talking and has a cough. He had some difficulty getting repositioned in bed to eat and required assistance. Assessment and Plan Assessment and plan (1) Pneumonia due to COVID-19 virus: Status: Acute (2) Respiratory failure: Status: Acute (3) Acute kidney injury superimposed on chronic kidney disease: Status: Acute (4) Dementia: Status: Chronic (5) Ambulatory dysfunction: Status: Acute (6) Palliative care patient: Status: Acute Assessment and plan: Indra is a well known Palliative care patient. He has a history of dementia. He is currently hospitalized with COVID-19 and PNA as well as worsening renal function. Palliative was consulted to discuss goals of care. He has previously established that he is a DNR/DNI, he has a COLST on file. His daughter, Laurel is his named to speak for him on his COLST. He has previously declined referral to nephrology. He has previously stated that he would not want dialysis. Discussed with Indra and Laurel. Laurel feels it is appropriate to treat the acute change in his kidney function but no aggressive care. Indra agrees to try a bradshaw catheter, he understands what a bradshaw is and can describe it. His ultimate goal is to get back home where he can be around people and move around freely. He is feeling better overall but still fatigued. Palliative will continue to follow inpatient and outpatient. Review of Systems Narrative: He denies feeling SOB but he appears to be mildly SOB with talking. He reports feeling chest congestion. He reports that he has a cough. He has a good appetite. He is sleeping well. He denies pain. Constitutional Constitutional: Reports as per HPI PFSH All Active Problems (Updated 04/20/22 @ 20:00 by Yahaira Gould MD) Acute kidney injury superimposed on chronic kidney disease (Acute) Respiratory failure (Acute) Discharge planning issues (Acute) Pneumonia due to COVID-19 virus (Acute) Palliative care patient (Acute) Pruritus (Acute) Edema (Acute) Hallucination (Acute) Wandering behavior (Acute) CKD (chronic kidney disease) (Chronic) Dementia (Chronic) Situational depression (Acute) Ambulatory dysfunction (Acute) Physician orders for life-sustaining treatment (POLST) form indicates patient wish for [id number] status (Acute) Chronic diarrhea (Chronic) Gout (Acute) Asthma (Acute 04/04/13) Macrocytic anemia (Chronic) 12/2020- H&H stable 11.9/ 37.5 Severe obstructive sleep apnea (Chronic 04/21/14) CPAP- Dr. De Hyperlipidemia (Chronic 10/23/16) RISK 34% based on 2015 lipids; rec statin Essential hypertension (Chronic 04/04/02) goal 130/80 (03/2013 Dr Dc nephrology) Cardiac pacemaker in situ (Chronic 02/18/13) [employer] [place] - interrogate with tablet CVDR GACRÍA Anticoagulation adequate with anticoagulant therapy (Chronic 07/30/14) Apixaban per cardiology, 07/2014, for A Fib, CHADs2 score 2, stroke risk 2.8%; Apixaban RX Anemia in chronic kidney disease (Chronic 04/30/15) Medical History Ambulatory dysfunction Atrial fibrillation (07/27/07) DR GARCÍA pacer 01/2013 for BRADYCARDIA; S/P Atrial flutter [facility] 07/2007 Chronic obstructive pulmonary disease (04/21/14) not reversible on PFT. 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) DR DC, [facility] 04/27O12; D/C ARB; KAYEXALATE rx; AVOID POTASSIUM SPARING MEDS Seasonal allergic rhinitis (04/21/14) geronimo mowing lawns Upper GI bleeding Surgical History Colonoscopy - MAC (03/30/14) CSD H/O esophagogastroduodenoscopy (~05/12/19) ISCHEMIC R 4TH FINGER (07/26/86) [facility], VEIN HARVESTED R LEG Nasal septoplasty (05/25/87) Pacemaker (02/18/13) Dual Chamber R ATRIAL ISTHMUS ABLATION (08/19/07) [facility] FOR A FLUTTER Repair of inguinal hernia (11/25/78) R; ALSO L 05/2003 Repair of umbilical hernia (01/23/93) Family History Mother , [place] at age 75. Heart disease [place] Myocardial infarction Breast cancer Father , cancer at age 68. Diabetes Personal history of malignant neoplasm COLON Son Diabetes Son No problems noted. Daughter No problems noted. Daughter No problems noted. Sister , age 83 No problems noted. Sister , age 81 No problems noted. Brother , age 18 - MVA No problems noted. Brother , age 84 Stomach cancer Diabetes Brother , age 79 Pena lung Brother Lung cancer Social History Smoking/Tobacco Use Status: Current every day Tobacco Type: cigarettes Tobacco: How many years used: 45 Quit status: has quit before Second Hand Exposure: Yes Counseling given: patient declined Smoking risk assessment performed?: Yes Alcohol Intake: former Drug use: Never Substance use type: does not use Adopted: No Caregiver/Support person: No Household members: spouse Housing: house Number of Children: 8 Communication Needs: Hard of Hearing and Corrective Lenses current occupation: Retired Pets and animals: Yes Pets and animals: cat(s) Sexually active: Yes Do you think of yourself as: straight/heterosexual Current gender identity: male What is your relationship status?: How often do you talk on the phone with friends or family?: three or more times per week How often do you get together with friends or relatives?: three or more times per week How often do you attend zoroastrianism or anglican services?: 4 or more times per year Do you belong to any clubs or organized social groups?: yes Panel score (0-1 are the most socially isolated patients): 4 What type of physical activity do you participate in: none Duration: decline to answer Frequency: decline to answer Quin/Denominational: Yazidi Special quin needs: No Seatbelt use: always Drive intox or ride w/intox line driver: No Working smoke detector in home: Yes Fire extinguisher in home: Yes Carbon monox detector in home: Yes Firearms in home: Yes Firearms unloaded and locked: Yes Do you feel safe at home: Yes Do you feel safe in your relationship?: Yes Exam Narrative Exam Narrative: General: elderly man, laying in bed, appears fatigued. He is able to engage in conversation. He answers questions appropriately. He does not appear to be in acute distress. HEENT: normocephalic, atraumatic, EOMI, mucous membranes moist. Neck: Supple, no JVD. Cardiovascular: heart sounds regular, nontachycardic. Respiratory: appears to be mildly SOB with talking, lungs are diminished throughout, no rales or wheezing. GI: +BS, abdomen is soft, nondistended, nontender on palpation. Extremities: Moves all 4 extremities freely. No edema. Results Last Vital Signs Temp 36.7 C 04/20/22 08:32 Pulse 65 04/20/22 08:32 Resp 18 04/20/22 08:32 BP 112/55 L 04/20/22 08:32 Pulse Ox 89 L 04/20/22 08:32 Labs Result diagrams: 04/19/22 06:30 04/20/22 08:25 Labs: Laboratory Results - last 24 hr 04/19/22 04/19/22 04/20/22 06:30 06:30 08:25 Sodium 134 L Potassium 4.0 Chloride 97 L Carbon Dioxide 23.4 Anion Gap 13.6 H BUN 101 H* Creatinine 3.3 H Estimated GFR/1.73 m2 18.13 Glucose 186 H Calcium 8.2 L NT-Pro-B Natriuret Pep 6857 H Add-On Test Request DONE
--- NOTE | 2022-04-20 13:13 | PDOC.CMPRO ---
- If Service Date Differs Date of service: 04/20/22 Time of Service: 13:13 Care Management Progress Note S/O: Indra remains on Covid precautions, therefore CM was unable to meet with him in person. He was on track to be discharged today, but MD decided to keep him for due to ongoing kidney function concerns. His daughter is in agreement with this plan. CM and RT assisted in having O2 delivered to his home today, at [facility], and for [facility] to provide instructions to his caregiver, Zoe. CM will continue to follow. A: Indra is an 81 year male admitted to [facility] on 04/16/22 with covid pneumonia. P: Anticipate Indra will return to [facility] when medically cleared. [facility] home O2 through [facility] delivered per RT. His daughter will drive him home via private vehicle. He will follow up with his PCP and discharge plan of care. CM will continue to follow.
--- NOTE | 2022-04-20 19:54 | W.PM.PROGNOT ---
Date of Service Date of service: 04/20/22 Time of Service: 18:55 Assessment and Plan Assessment and plan (1) Pneumonia due to COVID-19 virus: Status: Acute Assessment and plan: With hypoxia. Remdesivir d/c'ed due to JIMMY on CKD. Continue decadron (PO), vit C, vit D, zinc. Off of Abx. Monitor mental status - suspect COVID encephalopathy. (2) Acute kidney injury superimposed on chronic kidney disease: Status: Acute Assessment and plan: R/o urinary retention - check bladder scans; straight caths prn. Hold torsemide. (3) Severe obstructive sleep apnea: Status: Chronic Assessment and plan: PEr daughter, the patient does not do well with CPAP and she did not want us to push it. (4) Essential hypertension: Status: Chronic Assessment and plan: continue metoprolol, diltiazem. amlodipine d/c'ed as was likely contributing to edema. Hold torsemide. Reviewed telemetry with the ICU nursing: the patient does not dip into the 40s - it is the low gain on the telemonitor that was not permitting appropriate counting of the HR. (5) Atrial fibrillation: Assessment and plan: As above - continue Beta blockers, CCB, apixaban. Qualifiers: Atrial fibrillation type: paroxysmal Qualified Code(s): I48.0 - Paroxysmal atrial fibrillation (6) Anticoagulation adequate with anticoagulant therapy: Status: Chronic Assessment and plan: continue apixaban (7) Dementia: Status: Chronic Assessment and plan: Behaviors controlled and has a sitter. To return to [facility] on discharge. (8) Discharge planning issues: Status: Acute Assessment and plan: May require O2 on discharge. Did not previously want dialysis or further workup of renal failure with nephrology. DNR/DNI. Subjective Subjective Interval history since last seen: The patient is asleep at the time of my planned visit. I discussed this with his charge nurse and, given overall goals of care for Mr Solorzano, I chose not to wake him up. Discussed the case today with Laurel - his daughter. The patient's staff at [facility] is sick with COVID-19, so given his JIMMY and the staff illness, we decided it would be better to let Mr Solorzano stay here at the hospital. Laurel is open to us trying a bradshaw catheter if he is retaining urine. The patient agreed to this too, when he met with palliative care. Exam Narrative Exam Narrative: Patient seen on the screen of the camera - I chose not to wake him up based on the fact that he has COVID-19, appears comfortable, is hemodynamically stable. Asleep. Nonlabored breathing. Objective Last Vital Signs Temp 36.8 C 04/20/22 16:20 Pulse 65 04/20/22 16:20 Resp 16 04/20/22 16:20 BP 122/58 L 04/20/22 16:20 Pulse Ox 92 04/20/22 16:20 Laboratory Results - last 24 hr 04/20/22 08:25 Sodium 134 L Potassium 4.0 Chloride 97 L Carbon Dioxide 23.4 Anion Gap 13.6 H BUN 101 H* Creatinine 3.3 H Estimated GFR/1.73 m2 18.13 Glucose 186 H Calcium 8.2 L
[2022-04-20] MEDS: Atorvastatin 10 MG TAB 40 MG PO (22:31)
[2022-04-20] MEDS: Donepezil 5 MG TAB 10 MG PO (22:32)
[2022-04-20] MEDS: Melatonin 3 MG TAB 6 MG PO (22:32)
[2022-04-21 03:15] VITALS: BP 116/59; PULSE 78; RESP 22; TEMP 36.6; O2SAT 92
[2022-04-21] MEDS: Budesonide/Formoterol 80/4.5 6.9 GM 60 PUFF INH IH (07:51)
[2022-04-21] MEDS: Tiotropium Bromide-Respimat 10 PUFF INH 2 PUFF IH (07:51)
[2022-04-21 07:56] VITALS: O2SAT 85; O2SAT 91
[2022-04-21 08:27] VITALS: BP 126/62; PULSE 87; RESP 17; TEMP 36.6; O2SAT 92
[2022-04-21] MEDS: Aspirin 81 MG CHEW PO (08:34)
[2022-04-21] MEDS: dilTIAZem CD 300 MG CAPCR PO (08:34)
[2022-04-21] MEDS: Cholecalciferol (Vitamin D3) 1,000 UNIT TAB 2000 UNITS PO (08:34)
[2022-04-21] MEDS: Pantoprazole 40 MG TABCR PO (08:34)
[2022-04-21] MEDS: Metoprolol CR 50 MG TABCR 150 MG PO (08:34)
[2022-04-21] MEDS: Allopurinol 300 MG TAB PO (08:34)
[2022-04-21] MEDS: Dexamethasone 4 MG TAB 6 MG PO (08:35)
[2022-04-21] MEDS: Apixaban 2.5 MG TAB PO (08:35)
[2022-04-21] MEDS: QUEtiapine 25 MG TAB PO (08:35)
[2022-04-21] MEDS: Zinc Sulfate 220 MG TAB PO (08:35)
[2022-04-21] MEDS: Montelukast 10 MG TAB PO (08:35)
[2022-04-21] MEDS: Ascorbic Acid 500 MG TAB 1000 MG PO (08:35)
[2022-04-21] MEDS: Nicotine 14 MG/24 HR PATCH TD (08:38)
[2022-04-21] MEDS: Normal Saline Flush 10 ML SYR (08:38)
[2022-04-21 12:10] LABS: Anion Gap 13.8 mmol/L (3-11); CO2 23.2 mmol/L (21.0-32.0); Calcium 8.2 mg/dL (8.5-10.1); Chloride 98 mmol/L (98-107); Glucose 171 mg/dL (74-106); Magnesium 2.2 mg/dL (1.8-2.4); Potassium 3.9 mmol/L (3.5-5.1); Sodium 135 mmol/L (136-145)
[2022-04-21 12:13] LABS: BUN 120 mg/dL (7-18); CREATININE 3.6 mg/dL (0.70-1.30)
--- NOTE | 2022-04-21 12:59 | DSE_ITS ---
Date of service: 04/21/22 Time of Service: 12:00 DS: Diagnosis Discharge Diagnosis (1) Pneumonia due to COVID-19 virus: Status: Acute (2) Respiratory failure: Status: Acute (3) Acute kidney injury superimposed on chronic kidney disease: Status: Acute (4) Dementia: Status: Chronic (5) Ambulatory dysfunction: Status: Acute Discharge Plan Disposition Patient Disposition: HOME W/HOME HEALTH SERVICE Condition: Stable Discharge Details Reason For Visit: Covid Pneumonia Admit Date/Time: 04/16/22 16:12 Admit Provider: Jim Woody Attending Provider: Jim Woody Primary Care Provider: [facility] Hospital Course: Mr Solorzano is an 81 year old male with PMHx of non-oxygen dependent COPD, NYA not using CPAP, CKD IV, as well as dementia, who was a patient on [facility] hospitalist service from 04/16/22 until 04/21/22 for pneumonia due to COVID-19 with hypoxia. He was initiated on therapy with remdesivir, dexamethasone, vitamin C, D, zinc. He was maintained on his eliquis. His remdesivir had to be stopped after 3 doses when the patient's kidney function started to get worse. This continued to worsen for the remainder of this hospital stay. Palliative care was consulted and revealed that, in the past, the patient had refused follow up with nephrology or further investigation of his kidney failure. I discussed the case with the patient's daughter, who had indicated that, if this was something we could resolve quickly, she would accept him staying in the hospital longer, but since his creatinine is actually getting worse, not better, despite us holding diuretics (and we ruled out urinary retention with bladder scans), the decision was made by the daughter that it would be better if [facility]. He is going home on 2L [facility], desaturating to 85% on RA at rest. He is going home with new home health nursing and PT. We recommend outpatient follow up with palliative care and, should his kidney function continue to worsen, possibly home hospice. The patient's Cr is 3.6 on discharge, up from his baseline of 2.3. Etiology of his kidney failure is not clear: it could be due to COVID-19 itself or due to remdesivir used to treat it as the most likely reasons. I did advise the daughter that the patient should hold his diuretics for one more day. Care for patient as well as completion of his discharge summary on the day of discharge took 60 minutes. Home Meds and New Rx's Prescriptions: New nicotine 14 mg/24 hr Patch 24 Hour 14 mg transdermal DAILY Qty: 30 0RF melatonin 3 mg Tablet 6 mg PO HS Qty: 60 0RF ascorbic acid (vitamin C) [Vitamin C] 500 mg Tablet 1,000 mg PO DAILY Qty: 30 0RF cholecalciferol (vitamin D3) 25 mcg (1,000 unit) Tablet 2,000 units PO DAILY Qty: 30 0RF prednisone 10 mg tablet See Rx Instructions .ROUTE .COMPLEX Qty: 32 0RF Rx Instructions: 40 mg PO daily x 3 days, then 30 mg PO daily x 3 days, then 20 mg PO daily x 3 days, then 10 mg PO daily x 3 days, then 5 mg PO daily x 3 days, then stop benzonatate 100 mg capsule 100 mg PO BID-TID PRN (Reason: cough) Qty: 30 0RF Continued diclofenac sodium [Voltaren] 1 % gel 4 gm TP QID Qty: 100 3RF Rx Instructions: apply to single knee, ankle, wrist, elbow or foot as needed for pain up to 4 times a day. silver sulfadiazine [Silvadene] 1 % cream 1 applic topical BID PRN (Reason: wound healing) Qty: 400 0RF Rx Instructions: apply a 1.5 mm thickness (DME) Space Chamber Plus 1 EACH spacer 1 ea Miscellaneous QID Qty: 1 Rx Instructions: replace spacer yearly for MDI albuterol pantoprazole 40 mg tablet,delayed release (DR/EC) 40 mg PO DAILY Qty: 90 3RF amlodipine 5 mg tablet 5 mg PO DAILY Qty: 90 3RF Trelegy Ellipta 100-62.5-25 mcg blister with device 1 inh IH DAILY Qty: 60 3RF allopurinol 300 mg tablet 300 mg PO DAILY Qty: 90 3RF atorvastatin 10 mg tablet 10 mg PO HS Qty: 90 3RF donepezil 10 mg tablet 10 mg PO QHS Qty: 90 3RF loperamide 2 mg capsule 2 mg PO DAILY PRN (Reason: loose stool) Qty: 90 3RF Rx Instructions: For chronic loose stool montelukast [Singulair] 10 mg tablet 10 mg PO DAILY Qty: 90 3RF quetiapine [Seroquel] 25 mg tablet 25 mg PO BID Qty: 30 3RF Rx Instructions: Give 1 tab at 1400 and 1 tab at HS. diltiazem HCl 300 mg capsule,extended release 24 hr 300 mg PO DAILY Qty: 90 4RF Eliquis 2.5 mg tablet 2.5 mg PO BID Qty: 180 3RF levalbuterol tartrate [Xopenex HFA] 45 mcg/actuation HFA aerosol inhaler 2 inh IH Q6H PRN (Reason: shortness of breath) Qty: 15 4RF metoprolol succinate 100 mg tablet extended release 24 hr 150 mg PO DAILY Label Comments: Pt reports this has been increased to 300mg over the last several weeks. terazosin 10 mg capsule 10 mg PO HS gabapentin 100 mg capsule 100 mg PO HS Label Comments: TAKE 1-2 CAPSULES BY MOUTH AT BEDTIME Rx Instructions: one or two tabs at hs Changed acetaminophen 500 MG tablet 1,000 mg PO Q8H PRN PRNQty: 0 0RF Held torsemide 100 mg tablet 100 mg PO DAILY Qty: 90 0RF Hold Instructions: Resume on 04/23/22. Discharge Instructions Instructions: Benzonatate (By mouth), Prednisone (By mouth), Using Oxygen at Home (DC), Hypoxia (ED), COVID-19 (Coronavirus Disease 2019) (DC) Additional Instructions: Finish your prednisone taper as prescribed. Return to the hospital with any unmanageable symptoms at home, with fever, bleeding, chest pain, or worsening shortness of breath. Care Plan Goals: Home with new home health nursing, PT, as well as palliative care. Stand Alone Forms: Nursing Discharge Form Referrals: [facility] [Provider Group] Shaina May NP [Primary Care Provider] - 04/28/22 2:40 am Activity:: Activity as Tolerated Equipment/Supplies:: Oxygen (L/min Below) Diet:: Low Sodium Discharge Orders Discharge Orders: Discharge Order (Routine); Ordered 04/21/22 Ordered By: Yahaira Gould DS: Summary Time Spent with Patient providing and/or coordinating discharge services: Greater than 30 minutes Status at Discharge Functional status at discharge: independent ambulation Overall status at discharge: patient is progressing back to baseline Mental Status: mental status grossly normal Speech and Movement: speech and movement normal Mood: congruent mood Affect: normal affect Exam Narrative Exam Narrative: General: Very pleasant elderly male who is eating lunch (eagerly), 2L of O2 by [place] HEENT: EOMI, MMM Heart: RRR, no m/r/g Lungs: Rhonchi on expiration B Abdomen: soft, nontender, nondistended Extremities: trace edema BLEs Psych Mental Status: mental status grossly normal Speech and Movement: speech and movement normal Mood: congruent mood Affect: normal affect DS: Data Vitals/I&O Vitals and I&O: Vital Signs Temperature 36.6 C 04/21/22 08:27 Temperature Source Skin 04/21/22 08:27 Pulse 87 04/21/22 08:27 Pulse Rhythm Regular 04/21/22 12:32 Respiratory Rate 17 04/21/22 08:27 Respiratory Effort Non-Labored 04/21/22 12:32 Respiratory Depth Normal 04/21/22 12:32 Respiratory Pattern Normal 04/21/22 12:32 Blood Pressure 126/62 04/21/22 08:27 Blood Pressure Position Sitting 04/16/22 13:15 Pulse Oximetry 92 04/21/22 08:27 Oxygen Delivery Method Nasal Cannula 04/21/22 08:27 Oxygen Flow Rate 2 04/21/22 08:27 Fraction of Inspired Oxygen (FIO2) 30 04/18/22 04:23 Pain Level 0 04/21/22 08:27 Comment 04/20/22 06:25 Intake & Output 04/20/22 04/21/22 04/21/22 23:59 11:59 23:59 Intake Total 240 / 720 Balance 240 / 720 Weight 92.6 kg Intake: Oral 240 / 720 Other: Urine Color Yellow Yellow Urine Appearance Clear Clear Clear Urine Odor Normal Comment patient voided in toilet and was bladder scanned for 15cc patient refused to get up to the bathroom with offered. Stool Size Large Stool Characteristics Soft Formed Brown Voiding Methods Toilet Toilet Data Completed and Pending Completed studies during hospitalization [Text1]: CXR: Bilateral patchy infiltrates.? This may represent pneumonia.? Please correlate clinically.? Labs on day of discharge: Labs from last 24 hours 04/21/22 11:40 Sodium 135 L Potassium 3.9 Chloride 98 Carbon Dioxide 23.2 Anion Gap 13.8 H BUN 120 H* Creatinine 3.6 H* Estimated GFR/1.73 m2 16.40 Glucose 171 H Calcium 8.2 L Magnesium 2.2 Preliminary micro results at discharge 04/16/22 15:45 Blood Culture - Preliminary Blood NO GROWTH 96 HOURS 04/16/22 14:02 Blood Culture - Preliminary Blood NO GROWTH 96 HOURS PFSH All Active Problems (Updated 04/20/22 @ 20:00 by Yahaira Gould MD) Acute kidney injury superimposed on chronic kidney disease (Acute) Respiratory failure (Acute) Discharge planning issues (Acute) Pneumonia due to COVID-19 virus (Acute) Palliative care patient (Acute) Pruritus (Acute) Edema (Acute) Hallucination (Acute) Wandering behavior (Acute) CKD (chronic kidney disease) (Chronic) Dementia (Chronic) Situational depression (Acute) Ambulatory dysfunction (Acute) Physician orders for life-sustaining treatment (POLST) form indicates patient wish for vs-lwu-[id number] status (Acute) Chronic diarrhea (Chronic) Gout (Acute) Asthma (Acute 04/04/13) Macrocytic anemia (Chronic) 12/2020- H&H stable 11.9/ 37.5 Severe obstructive sleep apnea (Chronic 04/21/14) CPAP- Dr. De Hyperlipidemia (Chronic 10/23/16) RISK 34% based on 2015 lipids; rec statin Essential hypertension (Chronic 04/04/02) goal 130/80 (03/2013 Dr Dc nephrology) Cardiac pacemaker in situ (Chronic 02/18/13) Medtronic Marilou - interrogate with tablet CV, DR GARCÍA Anticoagulation adequate with anticoagulant therapy (Chronic 07/30/14) Apixaban per cardiology, 07/2014, for A Fib, CHADs2 score 2, stroke risk 2.8%; Apixaban RX Anemia in chronic kidney disease (Chronic 04/30/15) Medical History Ambulatory dysfunction Atrial fibrillation (07/27/07) DR GARCÍA pacer 01/2013 for BRADYCARDIA; S/P Atrial flutter [facility] 07/2007 Chronic obstructive pulmonary disease (04/21/14) not reversible on PFT. 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) DR DC, [facility] [id number]; D/C ARB; KAYEXALATE rx; AVOID POTASSIUM SPARING MEDS Seasonal allergic rhinitis (04/21/14) geronimo mowing lawns Upper GI bleeding Surgical History Colonoscopy - MAC (03/30/14) CSD H/O esophagogastroduodenoscopy (~05/12/19) ISCHEMIC R 4TH FINGER (07/26/86) [facility], VEIN HARVESTED R LEG Nasal septoplasty (05/25/87) Pacemaker (02/18/13) Dual Chamber R ATRIAL ISTHMUS ABLATION (08/19/07) [facility] FOR A FLUTTER Repair of inguinal hernia (11/25/78) R; ALSO L 05/2003 Repair of umbilical hernia (01/23/93) Family History Mother , PR at age 75. Heart disease PR Myocardial infarction Breast cancer Father , cancer at age 68. Diabetes Personal history of malignant neoplasm COLON Son Diabetes Son No problems noted. Daughter No problems noted. Daughter No problems noted. Sister , age 83 No problems noted. Sister , age 81 No problems noted. Brother , age 18 - MVA No problems noted. Brother , age 84 Stomach cancer Diabetes Brother , age 79 Pena lung Brother Lung cancer Social History Smoking/Tobacco Use Status: Current every day Tobacco Type: cigarettes Tobacco: How many years used: 45 Quit status: has quit before Second Hand Exposure: Yes Counseling given: patient declined Smoking risk assessment performed?: Yes Alcohol Intake: former Drug use: Never Substance use type: does not use Adopted: No Caregiver/Support person: No Household members: spouse Housing: house Number of Children: 8 Communication Needs: Hard of Hearing and Corrective Lenses current occupation: Retired Pets and animals: Yes Pets and animals: cat(s) Sexually active: Yes Do you think of yourself as: straight/heterosexual Current gender identity: male What is your relationship status?: How often do you talk on the phone with friends or family?: three or more times per week How often do you get together with friends or relatives?: three or more times per week How often do you attend nondenominational or anabaptism services?: 4 or more times per year Do you belong to any clubs or organized social groups?: yes Panel score (0-1 are the most socially isolated patients): 4 What type of physical activity do you participate in: none Duration: decline to answer Frequency: decline to answer Quin/Restorationist: Evangelical Special quin needs: No Seatbelt use: always Drive intox or ride w/intox road oiling truck driver: No Working smoke detector in home: Yes Fire extinguisher in home: Yes Carbon monox detector in home: Yes Firearms in home: Yes Firearms unloaded and locked: Yes Do you feel safe at home: Yes Do you feel safe in your relationship?: Yes
--- NOTE | 2022-04-21 14:04 | PDOC.HHF2F ---
Home Health Certification Home Health Certification: 1. Encounter Date and Reason I certify that Tony Solorzano Sr was seen by Yahaira Gould on 04/21/22 and that I had a hqhv-ej-geer encounter with this patient that meets the physician face to face encounter requirements. 2. Clinical Findings Supporting Skilled Need and Homebound Status I certify that home health services are medically necessary, include either intermittent shelter and/or physical/speech therapy, and that this patient is homebound in that absences from the home require considerable and taxing effort and are infrequent or of short duration, or are attributable to the need to receive medical care. [X] (a) Attached documentation from encounter provides clinical findings supporting skilled need and homebound status (including what assistance patient requires to leave the home). The encounter with the patient was in whole, or in part, for the following medical condition, which is the primary reason for home health care: Covid Pneumonia Halfway: recent hospitalization for COVID-19, JIMMY on CKD, getting discharged home on new home oxygen Physical Therapy: eval and treat Homebound: unable to leave home without assistance 3. Certification and Authentication I certify that I composed the above information based on my clinical judgement relating to this patient's medical condition and, if applicable, clinical findings communicated to me by the NPP or inpatient physician who performed the Home Health Referral. All further orders will be obtained through __Shaina May (Community Based Physician - PCP)
--- NOTE | 2022-04-21 15:18 | CMDISCH_ITS ---
- If Service Date Differs Date of service: 04/21/22 Time of Service: 15:18 LACE Index Scoring Tool - Questions: Length of Stay (in days): 4 - 6 Acuity (Admit via E.D.?): Yes Comorbidities: Chronic Pulmonary Disease, Liver or Renal Disease E.D. Visits: 2 - Answers: Total Score: 14 Risk of Readmission: High Risk Care Management Discharge Reason for Hospitalization: Covid Pneumonia Discharge Plan: Indra will return to [facility] when medically cleared. He had new home O2 delivered through [facility]. He will also have new orders for RN/PT through [facility]-CM coordinated orders with [facility]. CM also coordinated transport with Zoe; director of [facility] to bring O2-CM notified RT of planning to switch over O2 on discharge and updated community mental health worker/clinical coordinator. Patient/Family Education Needs: Review discharge instructions, discuss Ask Me Three. Services Needed at Discharge: Home Health Care Services (RN/PT), Oxygen Therapy ([facility]), Transportation (Complex coordination of RT: O2 and [facility] (also CV-19+) staff. )
--- NOTE | 2022-04-21 15:18 | PDOC.CMDIS ---
- If Service Date Differs Date of service: 04/21/22 Time of Service: 15:18 LACE Index Scoring Tool - Questions: Length of Stay (in days): 4 - 6 Acuity (Admit via E.D.?): Yes Comorbidities: Chronic Pulmonary Disease, Liver or Renal Disease E.D. Visits: 2 - Answers: Total Score: 14 Risk of Readmission: High Risk Care Management Discharge Reason for Hospitalization: Covid Pneumonia Discharge Plan: [facility] He had new home O2 delivered through [facility]. He will also have new orders for RN/PT through [facility]-CM coordinated orders with [facility]. CM also coordinated transport with Zoe; [facility]-CM notified RT of planning to switch over O2 on discharge and updated refinery operator vapor recovery unit/clinical coordinator. Patient/Family Education Needs: Review discharge instructions, discuss Ask Me Three. Services Needed at Discharge: Home Health Care Services (RN/PT), Oxygen Therapy ([facility]), Transportation (Complex coordination of RT: [facility] and [facility] ([facility] CV-19[facility] staff. )
--- NOTE | 2022-04-21 18:40 | PT.INDS ---
Date of service: 04/21/22 PT Notes Visit Reasons: Covid Pneumonia Physical Therapy Inpatient Discharge Summary Date: 04/21/2022 Date of service: 04/18/2022 through 04/19/2022 This is a clinical summary of care provided for the duration of dates listed above. No charge was made in the completion of this documentation. Referring Doctor: Yahaira Gould MD PT Orders: PT CONSULT: Limited ability Precautions: Fall. Standard. Activity as tolerated. Patient Profile/Admitting Diagnosis: Indra is an 81-year-old male who presented to the ED on 04/16/2022 due to increasing confusion and generalized weakness.? Patient is diagnosed with pneumonia due to COVID-19 infection, severe obstructive sleep apnea, essential hypertension, chronic kidney disease, anemia in chronic disease, atrial fibrillation, and dementia.? PMHX: All Active Problems?(Updated 04/16/22 @ 19:24 by Jim Woody) Pneumonia due to COVID-19 virus (Acute) Palliative care patient (Acute) Pruritus (Acute) Edema (Acute) Hallucination (Acute) Wandering behavior (Acute) CKD (chronic kidney disease) (Chronic) Dementia (Chronic) Situational depression (Acute) Ambulatory dysfunction (Acute) Physician orders for life-sustaining treatment (POLST) form indicates patient wish for [id number] status (Acute) Chronic diarrhea (Chronic) Gout (Acute) Asthma (Acute 04/04/13) Macrocytic anemia (Chronic) 12/2020- H&H stable 11.9/ 37.5 Severe obstructive sleep apnea (Chronic 04/21/14) CPAP- Dr. De Hyperlipidemia (Chronic 10/23/16) RISK 34% based on 2015 lipids; rec statin Essential hypertension (Chronic 04/04/02) goal 130/80 (03/2013 Dr Dc nephrology) Cardiac pacemaker in situ (Chronic 02/18/13) Medtronic Marilou - interrogate with tablet [facility], DR GARCÍA Anticoagulation adequate with anticoagulant therapy (Chronic 07/30/14) Apixaban per cardiology, 07/2014, for A Fib, CHADs2 score 2, stroke risk 2.8%; Apixaban RX Anemia in chronic kidney disease (Chronic 04/30/15) Medical History? Ambulatory dysfunction Atrial fibrillation (07/27/07) DR RAQUEL wilsonr 01/2013 for BRADYCARDIA; S/P Atrial flutter [place] [facility] [place] Chronic obstructive pulmonary disease (04/21/14) not reversible on PFT. 01/03/10? FEV1? 2.3 (71%PRED); MILD OBSTR, NO RESPONSE; 04/06/14 FEV1 2.14 (78%pred; 81% FVC) no? response, Mild obstruction; stable 05/2016 2.08 CKD (chronic kidney disease) stage 4, GFR 15-29 ml/min Congestive heart failure Diarrhea (11/26/04) DNI (do not intubate) DNR (do not resuscitate) Edema (12/03/12) GI bleed Gout of left wrist (05/04/17) Gynecomastia, male Hernia Inflammatory arthritis Low back pain Lumbago with sciatica, left side (02/20/17) L4-5 burning left Lytic lesion of bone on x-ray (05/25/17) Left distal Ulna Pedal edema Polymyalgia Recurrent left inguinal hernia Repaired 2020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) DR DC, [facility] [place] 04/27O12; D/C ARB; KAYEXALATE rx; AVOID POTASSIUM SPARING MEDS Seasonal allergic rhinitis (04/21/14) geronimo mowing lawns Upper GI bleeding Surgical History? Colonoscopy - MAC (03/30/14) CSDH/O esophagogastroduodenoscopy (~05/12/19) ISCHEMIC R 4TH FINGER (07/26/86) [facility] [place] VEIN HARVESTED R LEG Nasal septoplasty (05/25/87) Pacemaker (02/18/13) Dual Chamber R ATRIAL ISTHMUS ABLATION (08/19/07) [facility] [place] A FLUTTER Repair of inguinal hernia (11/25/78) R; ALSO L 05/2003 Repair of umbilical hernia (01/23/93) Social History/Home Situation: Per CM notes, patient now lives in a private shelter called [facility] in [place], [place] Equipment Owned/DME: Wheelchair, front-wheeled walker, single-point cane Subjective: NT. See most recent AGRICULTURE MANAGER notes. Objective: General Observation: NT. See most recent AGRICULTURE MANAGER notes. Mental Status: NT. See most recent AGRICULTURE MANAGER notes. Pain: NT. See most recent AGRICULTURE MANAGER notes. ROM: Right Upper Extremity: ? Shoulder Flexion WFL. Shoulder abduction WFL. Elbow flexion WFL. Wrist flexion WFL. Functional opening and closing of hand WFL. Left Upper Extremity:? Shoulder Flexion WFL. Shoulder abduction WFL. Elbow flexion WFL. Wrist flexion WFL. Functional opening and closing of hand WFL. Right Lower Extremity: Hip flexion WFL. Hip abduction WFL. Knee flexion WFL. Ankle dorsiflexion WFL. Ankle plantarflexion WFL. Left Lower Extremity: Hip flexion WFL. Hip abduction WFL. Knee flexion WFL. Ankle dorsiflexion WFL. Ankle plantarflexion WFL. Strength: Right Upper Extremity: Shoulder flexors 4/5. Shoulder abductors 4/5. Elbow flexors 5/5. Elbow extensors 5/5. Outside Machinist Apprentice strong. Left Upper Extremity: Shoulder flexors 4/5. Shoulder abductors 4/5. Elbow flexors 5/5. Elbow extensors 5/5. Outside Machinist Apprentice strong. Right Lower Extremity: Hip flexors 4/5. Hip abductors 4/5. Knee flexors 5/5. Knee extensors 4/5. Ankle dorsiflexors 4-/5. Ankle plantarflexors 4-/5. Left Lower Extremity: Hip flexors 4/5. Hip abductors 4/5. Knee flexors 5/5. Knee extensors 4/5. Ankle dorsiflexors 4-/5. Ankle plantarflexors 4-/5. Bed Mobility/Transfers: Sit to supine with supervision for safety Sit to stand with supervision? for safety Stand to sit with supervision? for safety Bed to reclining chair with supervision? for safety Gait: Instructed patient with level surface ambulation of 30 feet x 3 requiring supervision with and without walker. ? No pain during ambulation activity.? Trunk anteroflexed.? Agreed to start of walking using FWW and then without it.? No loss of balance without AD. Balance: Static Sitting: Normal Dynamic Sitting: Normal Static Standing: Good Dynamic Standing: Fair 4-stage Balance Test:? Unable to do any of the 4 positions which signify increased fall risk. Assessment: Patient requires supervision assist with all short-distance/in-room ambulation.? PT treatment focus will be on increasing balance awareness and skills as patient continues to insist on not using his FWW despite repeated falls.? Able to follow instructions and is willing to work with PT while he is on admission. Patient presents with clinical signs and symptoms consistent with current/admitting diagnoses that have resulted to mobility limitations, gait instability, generalized weakness, and overall ADL decline as demonstrated by the following impairment level findings: 1.? Impaired activity tolerance 2.? Decreased balance awareness dynamic standing stability Impairments are contributing to the following functional limitations: 1.? Increased completion time for mobility ADL performance 2.? Increased risk for falls Goals: Goals X1 week 1. Supine-Sit independent MET 2. Sit-Supine independent MET 3. Sit-Stand independent NOT MET 4. Stand-Sit independent with no AD NOT MET 5. Bed-Chair independent with no AD NOT MET 6. Chair-Bed independent with no AD NOT MET 7. Independent gait on level surface with use of no AD for at least 100 feet without report of pain nor dyspnea NOT MET DISCHARGE RECOMMENDATIONS: [] ? Home with no services [] [X] ??Home with services.? Patient will benefit from home health PT services in order to progress balance awareness,? dynamic standing balance/tolerance,? and fall reduction strategies to maximize ability of patient to stay at home. [] ? Home with outpatient PT [] [] ? SNF for continued rehabilitation [] [] ? Triage Clinician Care [] [] ? SNF versus LTC based on ability to participate and progress [] TREATMENT CODE/TIME: MARY Thank you for the opportunity to participate in the care of this patient. Maliha Wiseman PT, DPT, CLT [facility] [place], [place]
== END 2022-04-21 15:49 | disposition home health service (06) | DRG 177 ==
LOC: ER 16:41 → MS 17:26
PROVIDERS: Internal Medicine; Admitting Provider Internal Medicine; Emergency Provider Physician Assistant; PCP Nurse Practitioner; Visit Provider Internal Medicine
DX: U07.1 COVID-19 (principal); J12.82 Pneumonia due to coronavirus disease 2019; J96.00 Acute respiratory failure, unspecified whether with hypoxia or hypercapnia; I13.0 Hypertensive heart and chronic kidney disease with heart failure and stage 1 through stage 4 chronic kidney disease, or unspecified chronic kidney disease; N17.9 Acute kidney failure, unspecified; N18.4 Chronic kidney disease, stage 4 (severe); F03.91 Unspecified dementia, unspecified severity, with behavioral disturbance; J44.0 Chronic obstructive pulmonary disease with (acute) lower respiratory infection; G47.33 Obstructive sleep apnea (adult) (pediatric); D63.1 Anemia in chronic kidney disease; I50.9 Heart failure, unspecified; E78.5 Hyperlipidemia, unspecified; F03.90 Unspecified dementia, unspecified severity, without behavioral disturbance, psychotic disturbance, mood disturbance, and anxiety; R26.2 Difficulty in walking, not elsewhere classified; I48.0 Paroxysmal atrial fibrillation; Z95.0 Presence of cardiac pacemaker; K52.9 Noninfective gastroenteritis and colitis, unspecified; M10.9 Gout, unspecified; L29.9 Pruritus, unspecified; Z91.83 Wandering in diseases classified elsewhere; F32.9 Major depressive disorder, single episode, unspecified; F17.210 Nicotine dependence, cigarettes, uncomplicated; Z66 Do not resuscitate; Z79.01 Long term (current) use of anticoagulants
CPT/HCPCS: 36415; 80048; 80053; 80076; 84145; 86704; 86706; 86803; 86850; 86900; 86901; 87040; 87077; 87340; 87389; 87449; 87635; 93005; 94618; 94640; 96365; 96375; 97162; 97530; 99291; J3490; 71045; 81003; 81015; 82728; 83605; 83735; 83880; 84484; 85025; 85379; 85610; 86140; 87070; 87205; 87899; 93010; 94660; 94668; 94760; 99223; 99231; 99232; 99239; J0248; J0696; J1100; J7620; J8540